=== PATIENT | female | born 1970 | race Two or more races ===

== ENCOUNTER → 2019-12-09 12:26 | Outpatient (BNVA) | payer MEDICAID, SELFPAY | PROVIDERS: PCP Pediatrics; Referring Provider Pediatrics; Visit Provider Orthopaedic Surgery | DX: M75.42 Impingement syndrome of left shoulder (principal) | CPT/HCPCS: 99213 ==

== ENCOUNTER 2019-12-19 11:44 | Outpatient (REF) | payer MEDICAID, SELFPAY | END 2019-12-19 11:45 | disposition home or self-care (01) | LOC: HO.LAB 11:44 | PROVIDERS: Visit Provider Internal Medicine | DX: Z20.828 Contact with and (suspected) exposure to other viral communicable diseases (principal) | CPT/HCPCS: C9803; U0003 ==

== ENCOUNTER 2020-03-22 12:43 | Outpatient (REF) | payer MEDICAID, SELFPAY | END 2020-03-22 12:44 | disposition home or self-care (01) | LOC: HO.LAB 12:43 | PROVIDERS: Visit Provider Internal Medicine | DX: Z20.822 Contact with and (suspected) exposure to COVID-19 (principal) | CPT/HCPCS: 36415; C9803; U0003; U0005 ==

== ENCOUNTER 2020-05-14 07:06 | Day surgery (SDC) | payer MEDICAID, SELFPAY ==
[2020-05-07 14:31] VITALS: BMI 38.0
--- NOTE | 2020-05-13 07:56 | P.CONAN_ITS ---
Documented by User: Evelin Mata 05/13/20 07:57 HPI - Anesthesia Eval Consult details Narrative: 50yo F for Colonoscopy PMFSH Active Problems Active Problems: All Active Problems (Updated 05/07/20 @ 14:16 by Licha Puentes) Rotator cuff impingement syndrome of left shoulder (Acute) Anemia (Acute) Past Medical History Medical History Asthma Depression GERD (gastroesophageal reflux disease) Hypertension Hypothyroidism Insomnia Microcytic anemia Osteoarthritis of left AC (acromioclavicular) joint Personal history of COVID-19 Vitamin D deficiency Family History Family History Father No problems noted. Mother No problems noted. 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 - [employer] Meds Allergies Allergy/AdvReac Type Severity Reaction Status Date / Time No Known Allergies Allergy Verified 03/01/20 11:00 Home Medications Medication Instructions Recorded Confirmed Last Taken Type albuterol sulfate 90 mcg/actuation 1 inh INHALATION QID 12/08/19 05/07/20 05/14/20 History aerosol inhaler bupropion HCl 300 mg 24 hr tablet, 300 mg PO QAM 12/08/19 05/07/20 05/14/20 History extended release nabumetone 500 mg tablet 500 mg PO BID 12/08/19 05/07/20 Unknown History naproxen 500 mg tablet 500 mg PO BID 12/08/19 05/07/20 Unknown History omeprazole 20 mg capsule,delayed 20 mg PO DAILY 12/08/19 05/07/20 Unknown History release cetirizine 1 tab PO DAILY 05/07/20 05/07/20 Unknown History cholecalciferol (vitamin D3) 1 cap PO DAILY 05/07/20 05/07/20 Unknown History [Vitamin D3] ferrous sulfate 1 tab PO TID 05/07/20 05/07/20 Unknown History fluticasone propionate [Flovent 1 puff INHALATION BID 05/07/20 05/07/20 Unknown History HFA] levothyroxine 1 tab PO DAILY 05/07/20 05/07/20 05/14/20 History lisinopril-hydrochlorothiazide 1 tab PO DAILY 05/07/20 05/07/20 Unknown History loratadine 1 tab PO DAILY 05/07/20 05/07/20 Unknown History melatonin 1 tab PO BEDTIME 05/07/20 05/07/20 Unknown History Exam Exam Date and Time: May 13, 2020 0756 Height,Weight and Vital Signs: Height 5 ft 1 in Weight 91.172 kg Pertinent Lab Results Pertinent Lab Results: Laboratory Tests 03/01/20 11:42 WBC 8.2 Hgb 9.4 L Hct 31.8 L Plt Count 312 Assessment and Plan Assessment Anesthesia Assessment: Chart Reviewed Documented by User: Igor Graham 05/14/20 08:18 PMFSH Past Medical History Medical History Asthma Depression GERD (gastroesophageal reflux disease) Hypertension Hypothyroidism Insomnia Microcytic anemia Osteoarthritis of left AC (acromioclavicular) joint Personal history of COVID-19 Vitamin D deficiency Family History Family History Father No problems noted. Mother No problems noted. 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 - [employer] Meds Allergies Allergy/AdvReac Type Severity Reaction Status Date / Time No Known Allergies Allergy Verified 03/01/20 11:00 Home Medications Medication Instructions Recorded Confirmed Last Taken Type albuterol sulfate 90 mcg/actuation 1 inh INHALATION QID 12/08/19 05/07/20 05/14/20 History aerosol inhaler bupropion HCl 300 mg 24 hr tablet, 300 mg PO QAM 12/08/19 05/07/20 05/14/20 History extended release nabumetone 500 mg tablet 500 mg PO BID 12/08/19 05/07/20 Unknown History naproxen 500 mg tablet 500 mg PO BID 12/08/19 05/07/20 Unknown History omeprazole 20 mg capsule,delayed 20 mg PO DAILY 12/08/19 05/07/20 Unknown History release cetirizine 1 tab PO DAILY 05/07/20 05/07/20 Unknown History cholecalciferol (vitamin D3) 1 cap PO DAILY 05/07/20 05/07/20 Unknown History [Vitamin D3] ferrous sulfate 1 tab PO TID 05/07/20 05/07/20 Unknown History fluticasone propionate [Flovent 1 puff INHALATION BID 05/07/20 05/07/20 Unknown History HFA] levothyroxine 1 tab PO DAILY 05/07/20 05/07/20 05/14/20 History lisinopril-hydrochlorothiazide 1 tab PO DAILY 05/07/20 05/07/20 Unknown History loratadine 1 tab PO DAILY 05/07/20 05/07/20 Unknown History melatonin 1 tab PO BEDTIME 05/07/20 05/07/20 Unknown History Exam Airway Mallampati Class: II TM Dist: >3cm Denture: Upper and Lower Heart: [id number] Lungs: cta b/l Assessment and Plan Assessment Anesthesia Assessment: Anesthesia Plan Discussed, PAT Visit and Chart Reviewed Final Anesthetic Review NPO: Yes ASA Class: II Final Preanesthetic Review: No Changes in Pt Med Stat, Meds/Allgs Chart Reviewed and Anes Risks/Benef Reviewed Patient Risk: Low Procedure Risk: Low Assessment/Block/Sedation in SS: Assess/Block/Sedation-SS Anesthetic Plan Anesthetic Plan: MAC: and Regional Block Disposition: Standard PACU
[2020-05-14 07:18] VITALS: BP 108/73; PULSE 80; RESP 18; TEMP 36.1; O2SAT 97
[2020-05-14] MEDS: Lactated Ringers 1,000 ML 100 ML IVCONT (07:34)
--- NOTE | 2020-05-14 08:28 | MHC.SHP ---
Pre-Procedural Eval Section A The patient is an INPATIENT: No Changes since office visit: No Cold of Flu in the past 2 weeks, No New Medical Problems, No Changes in Medication and No Patient answered all questions The History & Physical has been completed within 30 days and I have reviewed it.: Yes Section B Chief Complaint: screening Allergies: Allergies Allergy/AdvReac Type Severity Reaction Status Date / Time No Known Allergies Allergy Verified 03/01/20 11:00 Plan I have reviewed the history and physical and performed a pertinent physical examination on my patient. No changes have occurred unless specified.
[2020-05-14 09:00] VITALS: BP 93/50; PULSE 71; RESP 16; TEMP 36.2; O2SAT 99
--- NOTE | 2020-05-14 09:09 | PM.OP ---
Brief Operative Note Date of Service: 05/14/20 Pre-op diagnosis: screening Post-op diagnosis: same Procedure: colonoscopy Surgeon: David Garcia Anesthesia: MAC Estimated blood loss (mL): 2 Pathology: other (polyps) Condition: stable Disposition: PACU
[2020-05-14 09:15] VITALS: BP 109/61; PULSE 67; RESP 16; O2SAT 99
[2020-05-14 09:25] VITALS: BP 106/51; PULSE 62; RESP 16; O2SAT 100
--- NOTE | 2020-05-14 11:41 | OP_ITS ---
SURGEON: David Garcia MD INDICATIONS: Colon cancer screening. PREOPERATIVE DIAGNOSIS: POSTOPERATIVE DIAGNOSIS: PROCEDURE PERFORMED: Colonoscopy to the cecum with snare polypectomy. ESTIMATED BLOOD LOSS: COMPLICATIONS: ANESTHESIA: ASSISTANTS: SPECIMENS: MEDICATIONS: Monitored anesthesia care. DESCRIPTION OF PROCEDURE: History and physical performed. The risks and benefits of the procedure were explained to the patient. Informed consent was obtained. The patient was placed in left lateral decubitus position. A digital rectal exam was performed and was found to be normal. The Olympus pediatric video colonoscope was introduced into the rectum and advanced to the cecum without difficulty. The cecum was identified by transillumination, palpation, and identification of ileocecal valve. Examination was performed and the scope was removed. She tolerated the procedure well and was taken to recovery area in stable condition. FINDINGS: The terminal ileum was not examined. The visualized colonic mucosa was within normal limits without evidence of masses or ulcers. Two polyps were identified. The largest measured 8 mm. Both were removed with a snare. The first was located in the cecum. The second was located at 65 cm and measured approximately 5 mm. Retroflexed examination was normal. Quality of the prep was good. IMPRESSION: Colon polyps. RECOMMENDATION: Follow up the biopsy results. MD KEIKO Youngblood/MAEVEL / [id number]
== END 2020-05-14 09:52 | disposition home or self-care (01) ==
PROVIDERS: PCP Pediatrics; Visit Provider Internal Medicine Gastroenterology
PROC: 0DJD8ZZ Inspection of Lower Intestinal Tract, Via Natural or Artificial Opening Endoscopic (ICD-10-PCS; CPT 45378; principal; 2020-05-14 08:30)
DX: Z12.11 Encounter for screening for malignant neoplasm of colon (principal); D12.0 Benign neoplasm of cecum; D12.4 Benign neoplasm of descending colon; K21.9 Gastro-esophageal reflux disease without esophagitis; D50.9 Iron deficiency anemia, unspecified; I10 Essential (primary) hypertension; J45.909 Unspecified asthma, uncomplicated; Z79.51 Long term (current) use of inhaled steroids; Z79.899 Other long term (current) drug therapy; Z86.16 Personal history of COVID-19; Z87.891 Personal history of nicotine dependence
CPT/HCPCS: 45385; 88305

== ENCOUNTER 2020-06-28 09:19 | Outpatient (REF) | payer MEDICAID, SELFPAY ==
[2020-06-28 09:41] LABS: COVID-19 Test Negative (Negative); IDNOW Serial# 55D5AD1C
== END 2020-06-28 09:20 | disposition home or self-care (01) ==
LOC: HO.LAB 09:19
PROVIDERS: Visit Provider Internal Medicine
DX: Z20.822 Contact with and (suspected) exposure to COVID-19 (principal)
CPT/HCPCS: 36415; 87635; C9803

== ENCOUNTER 2020-09-16 14:29 | Emergency (ER) | payer MEDICAID, SELFPAY ==
--- NOTE | ~2020-09-16 | CT_ITS ---
EXAMINATION: CT ANGIOGRAM OF THE CHEST WITH AND WITHOUT CONTRAST (CT PULMONARY ANGIOGRAM FOR PE) CLINICAL INFORMATION: Reason for Exam sop, elevated dimmer COMPARISON: None TECHNIQUE: Prior to contrast administration, noncontrast localization images were obtained. Subsequently, multidetector volumetric imaging was performed from the thoracic inlet to below the diaphragms following the administration of 65 mL Omnipaque 350 intravenous contrast. No contrast reaction reported Sagittal, coronal, and MIP oblique sagittal reformatted images were obtained on the CT workstation, uploaded to PACS, and reviewed. This CT examination was performed using dose optimization techniques as appropriate, variously including the following: *Automated exposure control *Adjustment of mA and/or kV according to patient size (this includes techniques or standardized protocols for targeted exams where dose is matched to indication/reason for exam; i.e. extremities or head) *Use of iterative reconstruction technique Total exam dose-length product 501 mGy-cm FINDINGS: QUALITY OF STUDY/CONTRAST BOLUS: Satisfactory. PULMONARY ARTERIES: No central or segmental pulmonary emboli. THORACIC AORTA: No aneurysm or dissection. LUNG: No focal consolidation, nodules or masses. Diffuse mild bronchial wall thickening. No bronchiectasis. PLEURA: No pleural effusion or pneumothorax. MEDIASTINUM: Normal heart size. No pericardial effusion. No hilar or mediastinal lymphadenopathy. No evidence of septal bowing or right heart strain. cNo reflux of contrast into the hepatic veins to suggest elevated right heart pressures. CHEST WALL/AXILLA: No axillary or internal mammary lymphadenopathy. OSSEOUS STRUCTURES: No acute or suspicious osseous abnormality. 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 This requires no further workup or follow-up. CT/CT angio chest PE protocol IMPRESSION: No pulmonary embolism. No aortic aneurysm or dissection area Mild diffuse bronchial wall thickening could reflect bronchitis or asthma. VTE: negative
--- NOTE | ~2020-09-16 | XR_ITS ---
EXAMINATION: XR CHEST CLINICAL INFORMATION: Shortness of breath COMPARISON: June 10, 2018 TECHNIQUE: 2 views of the chest were obtained. FINDINGS: No significant abnormality is noted involving the heart, lungs, mediastinum, bony thorax or soft tissues. XR/XR chest 2V IMPRESSION: No acute disease.
[2020-09-16 14:34] VITALS: BP 120/66; PULSE 93; RESP 22; TEMP 36.6; O2SAT 98; BMI 41.8
[2020-09-16 17:16] LABS: MANUAL DIFF FLAG NO
[2020-09-16 17:18] LABS: Basophils Absolute Auto 0.1 X10*3/uL (0.0-0.2); Basophils Percent Auto 0.6 % (0-2); Eosinophils Absolute Auto 0.1 X10*3/uL (0.0-0.4); Eosinophils Percent Auto 0.8 % (0-4); Hematocrit 36.2 % (37-47); Hemoglobin 11.3 g/dl (12.0-16.0); Imm Gran Abs Auto 0.03 X10*3/uL (0.00-0.03); Imm Gran Pct Auto 0.3 % (0.0-0.4); Lymphocytes Absolute Auto 2.4 X10*3/uL (1.2-4.9); Lymphocytes Percent Auto 22.1 % (20-40); Mean Corpuscular HGB Conc 31.2 g/dl (31.0-35.0); Mean Corpuscular Volume 89.8 fL (80-98); Mean Platelet Volume 10.2 fL (9.4-12.3); Monocytes Absolute Auto 0.6 X10*3/uL (0.1-1.2); Monocytes Percent Auto 5.7 % (2-11); Neutrophils Absolute Auto 7.6 X10*3/uL (2.0-8.3); Neutrophils Percent Auto 70.5 % (45-73); Platelet Count 302 X10*3/uL (160-400); Red Blood Count 4.03 X10*6/uL (4.20-5.50); Red Cell Distribution Width 14.5 % (11.0-16.0); White Blood Count 10.8 X10*3/uL (4.8-10.8)
[2020-09-16 17:47] LABS: Alanine Aminotransferase 24 U/L (0-31); Albumin Level 4.3 g/dL (3.5-5.0); Alkaline Phosphatase 59 U/L (39-117); Anion Gap 15 (12-20); Aspartate Amino Transferase 17 U/L (5-31); Bilirubin Direct 0.3 mg/dL (0.0-0.5); Bilirubin Total 0.7 mg/dL (0.0-1.0); Blood Urea Nitrogen 20 mg/dL (9-16); Calcium 9.9 mg/dL (8.4-10.2); Carbon Dioxide 25 mmol/L (22-29); Chloride 99 mmol/L (96-108); Creatinine Clr Calc Pharmacy 88.5; Estimated Glomerular Filt Rate > 60; Glucose Random 95 mg/dL (60-115); Lipase 47 U/L (8-78); Potassium 4.4 mmol/L (3.3-5.1); Sodium 135 mmol/L (135-145); Total Protein 7.2 g/dL (6.5-8.0)
--- NOTE | 2020-09-16 18:07 | ECG_ITS ---
Test Reason : DYSPNEA Blood Pressure : / mmHG Vent. Rate : 069 BPM Atrial Rate : 069 BPM P-R Int : 144 ms QRS Dur : 074 ms QT Int : 422 ms P-R-T Axes : 061 020 020 degrees QTc Int : 452 ms Normal sinus rhythm Normal ECG When compared with ECG of 20-JUN-2018 19:51, No significant change was found Referred By: Arielle Ocampo Electronically Signed By:Ed Peters
--- NOTE | 2020-09-16 18:08 | ED.GENADULT ---
HPI - General Adult General Chief complaint: Upper Respiratory Symptoms Stated complaint: Asthma Time Seen by Provider: 09/16/20 18:01 Source: patient Mode of arrival: ambulatory Limitations: no limitations History of Present Illness HPI narrative: Patient comes emergency room complaining recurrent asthma exacerbations and left-sided chest pain in the lateral side. Patient states the pain has been there for 2 weeks intermittently, but more constant over the last 2 days. Patient states she has 2 inhalers which she has been using every day. Patient has a new appointment Dr. Morales from pulmonology towards the end of November. Patient states that this time she does not have shortness of breath, but she still feels the pain on the left side of the chest. Patient denies leg pain, no leg swelling. Related Data Home Medications Medication Instructions Recorded Confirmed albuterol sulfate 90 mcg/actuation 1 inh INHALATION QID 12/08/19 05/07/20 aerosol inhaler (ProAir HFA) bupropion HCl 300 mg 24 hr tablet, 300 mg PO QAM 12/08/19 05/07/20 extended release (Wellbutrin XL) nabumetone 500 mg tablet 500 mg PO BID 12/08/19 05/07/20 naproxen 500 mg tablet 500 mg PO BID 12/08/19 05/07/20 omeprazole 20 mg capsule,delayed 20 mg PO DAILY 12/08/19 05/07/20 release cetirizine 10 mg tablet 1 tab PO DAILY 05/07/20 05/07/20 cholecalciferol (vitamin D3) 25 1 cap PO DAILY 05/07/20 05/07/20 mcg (1,000 unit) capsule (Vitamin D3) ferrous sulfate 325 mg (65 mg 1 tab PO TID 05/07/20 05/07/20 iron) tablet fluticasone propionate 220 1 puff INHALATION BID 05/07/20 05/07/20 mcg/actuation HFA aerosol inhaler (Flovent HFA) levothyroxine 200 mcg tablet 1 tab PO DAILY 05/07/20 05/07/20 lisinopril 20 1 tab PO DAILY 05/07/20 05/07/20 mg-hydrochlorothiazide 25 mg tablet loratadine 10 mg tablet 1 tab PO DAILY 05/07/20 05/07/20 melatonin 5 mg tablet 1 tab PO BEDTIME 05/07/20 05/07/20 Previous Rx's Medication Instructions Recorded prednisone 50 mg tablet 50 mg PO DAILY #4 tab 09/17/20 Allergies Allergy/AdvReac Type Severity Reaction Status Date / Time No Known Allergies Allergy Verified 09/16/20 14:34 Review of Systems Review of Systems: Constitutional : No Weight loss, No Fever, No Chills, No Night Sweats, No Fatigue, No Malaise ENT/Mouth : No Hearing loss, No Ear Pain, No Nasal Congestion, No Sinus Pain, No Hoarseness, No sore throat, No Rhinorrhea, No Swallowing Difficulty Eyes: No Eye Pain, No Swelling, No Redness, No Foreign Body, No Discharge, No Vision Changes Cardiovascular : No Chest Pain, complaining of pain under the left axilla in the chest wall, intermittent shortness of breath, No Dyspnea on Exertion, No Orthopnea, No Edema, No Palpitations Respiratory : No Cough, No Sputum, No Wheezing, No Smoke Exposure, intermittent Dyspnea Gastrointestinal : No Nausea, No Vomiting, No Diarrhea, No Constipation, No abdominal Pain, No Hematochezia, No Melena Genitourinary : no irregular bleeding, No Dysuria, No Urinary Frequency, No Hematuria, No Urinary Incontinence, No Urgency, No Flank Pain, No Urinary Flow Changes, No Hesitancy Musculoskeletal : No joint pain, No Myalgias, No Joint Swelling Skin : No Skin Lesions, No rash Neuro : No Weakness, No Numbness, No Paresthesias, No Loss of Consciousness, No Dizziness, No Headache Psych : No Anxiety/Panic, No Depression, No SI/HI/AH/VH, No Social Issues, Heme/Lymph: No Bruising, No Bleeding,No Lymphadenopathy Endocrine : No Polyuria, No Polydipsia, No Temperature Intolerance [facility] Past Medical History Medical History Asthma Depression GERD (gastroesophageal reflux disease) Hypertension Hypothyroidism Insomnia Microcytic anemia Osteoarthritis of left AC (acromioclavicular) joint Personal history of COVID-19 Vitamin D deficiency Surgical History History of left knee replacement Family History Family History Father No problems noted. Mother No problems noted. Social History Social History Household Members: Children Housing: Apartment Are you a primary rn progressive care to a significant other at home: No Do you presently have visiting nurse or other home services: No Alcohol intake: never Patient Tobacco Use Status: Never used Tobacco Years Smoked: 10 Use of substances other than those prescribed or required for medical reasons: Yes Advance Directives: No Advance Directives Information Provided: Yes Patient : No Current occupational status: employed Current occupation: [employer] - Right Handed Physical Exam Vital Signs: Vital Signs: Last Vital Signs Temp 99 F 09/16/20 22:20 Pulse 59 09/16/20 22:20 Resp 18 09/16/20 22:20 BP 135/60 09/16/20 22:20 Pulse Ox 97 09/16/20 22:20 Body Mass Index 41.8 Const: Other: Appearance: Alert. Oriented X3. No acute distress. Well-appearing Eyes: Pupils equal, round and reactive to light. ENT: Pharynx normal. Neck: Normal inspection. Neck supple. No lymph nodes noted. No crepitus CVS: Normal heart rate and rhythm. Pulses normal. Normal S1 and S2 Respiratory: No respiratory distress. Breath sounds normal. No Wheezing. No rales Abdomen: Soft and nontender. No rigidity. No distention. good BS x4 Skin: Skin warm and dry. Normal skin color. Normal skin turgor. Extremities: No lower extremity edema. No calf tenderness bilaterally, No Lacerations. No Rash Neuro: Oriented X 3. No motor deficit. No sensory deficit. Moving all extermities. No slurred speech. Course Course Course Narrative: I discussed the labs and imaging with the patient, it was negative for a PE. Patient's chest pain likely musculoskeletal. Patient's dyspnea likely from her recurrent asthma exacerbations. Patient states she has no Flovent and albuterol at home, does not require prescription Medical Decision Making Lab Data Result diagrams: 09/16/20 17:04 09/16/20 17:04 Labs: Lab Results 09/16/20 09/16/20 09/16/20 Range/Units 17:04 17:04 17:07 WBC 10.8 (4.8-10.8) X10*3/uL RBC 4.03 L (4.20-5.50) X10*6/uL Hgb 11.3 L D (12.0-16.0) g/dl Hct 36.2 L (37-47) % MCV 89.8 (80-98) fL MCH 28.0 (27.0-33.0) pg MCHC 31.2 (31.0-35.0) g/dl RDW 14.5 (11.0-16.0) % Plt Count 302 (160-400) X10*3/uL MPV 10.2 (9.4-12.3) fL Immature Gran % (Auto) 0.3 (0.0-0.4) % Neut % (Auto) 70.5 (45-73) % Lymph % (Auto) 22.1 (20-40) % [place] % (Auto) 5.7 (2-11) % Eos % (Auto) 0.8 (0-4) % Baso % (Auto) 0.6 (0-2) % Lymph # (Auto) 2.4 (1.2-4.9) X10*3/uL [place] # (Auto) 0.6 (0.1-1.2) X10*3/uL Eos # (Auto) 0.1 (0.0-0.4) X10*3/uL Baso # (Auto) 0.1 (0.0-0.2) X10*3/uL Abs Immat Gran (auto) 0.03 (0.00-0.03) X10*3/uL Absolute Neuts (auto) 7.6 (2.0-8.3) X10*3/uL Absolute Nucleated RBC 0.000 (0.0-0.012) X10*3/uL Nucleated RBC % (auto) 0.0 (0.0-0.2) /100WBC D-Dimer NG/ML Sodium 135 (135-145) mmol/L Potassium 4.4 (3.3-5.1) mmol/L Chloride 99 (96-108) mmol/L Carbon Dioxide 25 (22-29) mmol/L Anion Gap 15 (12-20) BUN 20 H (9-16) mg/dL Creatinine 0.73 (0.5-1.4) mg/dL Estim Creat Clear Calc 88.5 Estimated GFR > 60 Random Glucose 95 (60-115) mg/dL Calcium 9.9 (8.4-10.2) mg/dL Total Bilirubin 0.7 (0.0-1.0) mg/dL Direct Bilirubin 0.3 (0.0-0.5) mg/dL AST 17 (5-31) U/L ALT 24 (0-31) U/L Alkaline Phosphatase 59 (39-117) U/L Troponin I High Sens < 3.5 (<3.5-17.0) ng/L Total Protein 7.2 (6.5-8.0) g/dL Albumin 4.3 (3.5-5.0) g/dL Lipase 47 (8-78) U/L Urine Color Urine Appearance Urine pH (5.0-8.0) Ur Specific [place] (1.005-1.025) Urine Protein (NEG-TRACE) MG/DL Urine Glucose (UA) (NEG) MG/DL Urine Ketones (NEG) MG/DL Urine Blood (NEG) Urine Nitrite (NEG) Ur Leukocyte Esterase (NEG) Urine RBC (0) /HPF Urine WBC (0-4) /HPF Ur Squamous Epith Cells /LPF Urine Bacteria /LPF 09/16/20 09/16/20 Range/Units 19:55 20:50 WBC (4.8-10.8) X10*3/uL RBC (4.20-5.50) X10*6/uL Hgb (12.0-16.0) g/dl Hct (37-47) % MCV (80-98) fL MCH (27.0-33.0) pg MCHC (31.0-35.0) g/dl RDW (11.0-16.0) % Plt Count (160-400) X10*3/uL MPV (9.4-12.3) fL Immature Gran % (Auto) (0.0-0.4) % Neut % (Auto) (45-73) % Lymph % (Auto) (20-40) % [place] % (Auto) (2-11) % Eos % (Auto) (0-4) % Baso % (Auto) (0-2) % Lymph # (Auto) (1.2-4.9) X10*3/uL [place] # (Auto) (0.1-1.2) X10*3/uL Eos # (Auto) (0.0-0.4) X10*3/uL Baso # (Auto) (0.0-0.2) X10*3/uL Abs Immat Gran (auto) (0.00-0.03) X10*3/uL Absolute Neuts (auto) (2.0-8.3) X10*3/uL Absolute Nucleated RBC (0.0-0.012) X10*3/uL Nucleated RBC % (auto) (0.0-0.2) /100WBC D-Dimer 1459 NG/ML Sodium (135-145) mmol/L Potassium (3.3-5.1) mmol/L Chloride (96-108) mmol/L Carbon Dioxide (22-29) mmol/L Anion Gap (12-20) BUN (9-16) mg/dL Creatinine (0.5-1.4) mg/dL Estim Creat Clear Calc Estimated GFR Random Glucose (60-115) mg/dL Calcium (8.4-10.2) mg/dL Total Bilirubin (0.0-1.0) mg/dL Direct Bilirubin (0.0-0.5) mg/dL AST (5-31) U/L ALT (0-31) U/L Alkaline Phosphatase (39-117) U/L Troponin I High Sens (<3.5-17.0) ng/L Total Protein (6.5-8.0) g/dL Albumin (3.5-5.0) g/dL Lipase (8-78) U/L Urine Color YELLOW Urine Appearance CLEAR Urine pH 6.0 (5.0-8.0) Ur Specific [place] 1.025 (1.005-1.025) Urine Protein NEG (NEG-TRACE) MG/DL Urine Glucose (UA) NEG (NEG) MG/DL Urine Ketones NEG (NEG) MG/DL Urine Blood NEG (NEG) Urine Nitrite NEG (NEG) Ur Leukocyte Esterase NEG (NEG) Urine RBC 1-4 (0) /HPF Urine WBC 1-4 (0-4) /HPF Ur Squamous Epith Cells 2+ /LPF Urine Bacteria 2+ /LPF Imaging Data CTA chest: Radiologist's impression: FINDINGS: QUALITY OF STUDY/CONTRAST BOLUS: Satisfactory. PULMONARY ARTERIES: No central or segmental pulmonary emboli.? THORACIC AORTA: No aneurysm or dissection. LUNG: No focal consolidation, nodules or masses. Diffuse mild bronchial wall thickening. No bronchiectasis. PLEURA: No pleural effusion or pneumothorax. MEDIASTINUM: Normal heart size.? No pericardial effusion.? No hilar or mediastinal lymphadenopathy.? No evidence of septal bowing or right heart strain. cNo reflux of contrast into the hepatic veins to suggest elevated right heart pressures. CHEST WALL/AXILLA: No axillary or internal mammary lymphadenopathy. OSSEOUS STRUCTURES: No acute or suspicious osseous abnormality.? 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 This requires no further workup or follow-up. CT/CT angio chest PE protocol IMPRESSION: No pulmonary embolism. No aortic aneurysm or dissection area Mild diffuse bronchial wall thickening could reflect bronchitis or asthma. ? VTE: negative ECG Data Attestation: I personally reviewed and interpreted this ECG as follows: (Heart rate 69, no ST segment depression or elevation, no T-wave inversion, QTC 452) Discharge Plan Discharge Clinical Impression: Atypical chest pain, Acute dyspnea Patient Disposition: Home, Self-Care Instructions: Chest Pain (ED), Asthma (ED) Additional Instructions: Please follow-up with your primary care physician tomorrow. If you have any worsening or new symptoms, please return to the emergency room or call 911 Prescriptions: New prednisone 50 mg tablet 50 mg PO DAILY Qty: 4 RF: 0 No Action cetirizine 10 mg tablet 1 tab PO DAILY RF: 0 ferrous sulfate 325 mg (65 mg iron) tablet 1 tab PO TID RF: 0 lisinopril-hydrochlorothiazide 20-25 mg tablet 1 tab PO DAILY RF: 0 levothyroxine 200 mcg tablet 1 tab PO DAILY RF: 0 Flovent HFA 220 mcg/actuation HFA aerosol inhaler 1 puff inhalation BID RF: 0 loratadine 10 mg tablet 1 tab PO DAILY RF: 0 cholecalciferol (vitamin D3) [Vitamin D3] 25 mcg (1,000 unit) capsule 1 cap PO DAILY RF: 0 melatonin 5 mg tablet 1 tab PO BEDTIME RF: 0
[2020-09-16 18:51] LABS: Troponin-I High Sensitivity < 3.5 ng/L (<3.5-17.0)
[2020-09-16 20:00] VITALS: BP 120/66; PULSE 78; PULSE 93; RESP 22; TEMP 36.6; O2SAT 98; O2SAT 99
[2020-09-16 20:43] LABS: D Dimer 1459 NG/ML
[2020-09-16 21:00] LABS: Glucose Urine UA NEG (NEG); Leukocyte Esterase Urine NEG (NEG); Nitrite Urine NEG (NEG); Specific Gravity - Urine 1.025 (1.005-1.025); Urine Blood NEG (NEG); Urine Ketones NEG (NEG); Urine Protein NEG (NEG-TRACE)
[2020-09-16 21:01] LABS: Appearance Urine CLEAR; Color Urine YELLOW
[2020-09-16 22:20] VITALS: BP 135/60; PULSE 59; RESP 18; TEMP 37.2; O2SAT 97
[2020-09-16 23:01] LABS: Bacteria Urine 2+ /LPF; Squamous Epithelial Cell Urine 2+ /LPF
[2020-09-16] MEDS: iohexoL 350 MG/ML 100 ML INFUS..BTL 65 ML IV (23:42)
== END 2020-09-17 01:02 | disposition home or self-care (01) ==
PROVIDERS: Emergency Provider Emergency Medicine
DX: R07.89 Other chest pain (principal); R06.00 Dyspnea, unspecified; Z87.891 Personal history of nicotine dependence; Z79.899 Other long term (current) drug therapy
CPT/HCPCS: 36415; 71046; 71275; 80048; 80076; 81001; 83690; 84484; 85025; 85379; 93005; 99285; Q9967

== ENCOUNTER → 2020-10-05 13:14 | Outpatient (BNVA) | payer MEDICAID, SELFPAY | PROVIDERS: PCP Pediatrics; Visit Provider Hospitalist | DX: J45.40 Moderate persistent asthma, uncomplicated (principal); B94.8 Sequelae of other specified infectious and parasitic diseases | CPT/HCPCS: 99202 ==

== ENCOUNTER 2020-10-14 09:26 | Outpatient (REF) | payer MEDICAID, SELFPAY ==
[2020-10-14 10:03] LABS: MANUAL DIFF FLAG NO
[2020-10-14 10:06] LABS: Basophils Absolute Auto 0.1 X10*3/uL (0.0-0.2); Basophils Percent Auto 0.8 % (0-2); Eosinophils Absolute Auto 0.1 X10*3/uL (0.0-0.4); Eosinophils Percent Auto 0.7 % (0-4); Hematocrit 35.3 % (37-47); Hemoglobin 11.1 g/dl (12.0-16.0); Imm Gran Abs Auto 0.02 X10*3/uL (0.00-0.03); Imm Gran Pct Auto 0.3 % (0.0-0.4); Lymphocytes Absolute Auto 1.7 X10*3/uL (1.2-4.9); Lymphocytes Percent Auto 23.9 % (20-40); Mean Corpuscular HGB Conc 31.4 g/dl (31.0-35.0); Mean Corpuscular Hemoglobin 28.8 pg (27.0-33.0); Mean Corpuscular Volume 91.7 fL (80-98); Mean Platelet Volume 10.8 fL (9.4-12.3); Monocytes Absolute Auto 0.5 X10*3/uL (0.1-1.2); Monocytes Percent Auto 6.5 % (2-11); Neutrophils Absolute Auto 4.9 X10*3/uL (2.0-8.3); Neutrophils Percent Auto 67.8 % (45-73); Platelet Count 276 X10*3/uL (160-400); Red Blood Count 3.85 X10*6/uL (4.20-5.50); Red Cell Distribution Width 15.3 % (11.0-16.0); White Blood Count 7.3 X10*3/uL (4.8-10.8)
[2020-10-14 10:51] LABS: Erythrocyte Sedimentation Rate 12 MM/HR (0-20)
== END 2020-10-14 09:27 | disposition home or self-care (01) ==
LOC: HO.LAB 09:26
PROVIDERS: PCP Pediatrics; Visit Provider Hospitalist
DX: B94.8 Sequelae of other specified infectious and parasitic diseases (principal); J45.40 Moderate persistent asthma, uncomplicated
CPT/HCPCS: 36415; 82785; 85025; 85652; 86003

== ENCOUNTER 2020-11-02 10:27 | Outpatient (REF) | payer MEDICAID, SELFPAY ==
--- NOTE | 2020-11-02 17:44 | PFT_ITS ---
Forced vital capacity moderately reduced. FEV1 is also moderately reduced. VOX07-97 is markedly reduced. MVV moderately reduced. Post bronchodilator therapy, there is a slight improvement in DAH77-10 and MVV. Total lung capacity normal. Residual volume slightly increased. Diffusion capacity normal. CONCLUSION: Moderately severe obstructive airway disorder. Minimal improvement after bronchodilator therapy is noted. Results compared with the report on 03/25/2019. There is no significant change. MD JONATHAN Kent/MAEVEL / [id number]
== END 2020-11-02 10:28 | disposition home or self-care (01) ==
LOC: HO.RESP 10:27
PROVIDERS: PCP Pediatrics; Visit Provider Hospitalist
DX: B94.8 Sequelae of other specified infectious and parasitic diseases (principal); J45.40 Moderate persistent asthma, uncomplicated
CPT/HCPCS: 94060; 94727; 94729

== ENCOUNTER → 2020-11-16 13:24 | Outpatient (BNVA) | payer MEDICAID, SELFPAY | PROVIDERS: PCP Pediatrics; Visit Provider Hospitalist | DX: J45.40 Moderate persistent asthma, uncomplicated (principal); B94.8 Sequelae of other specified infectious and parasitic diseases | CPT/HCPCS: 99212 ==

== ENCOUNTER → 2021-01-13 13:30 | Outpatient (BNVA) | payer MEDICAID, SELFPAY | PROVIDERS: PCP Pediatrics; Visit Provider Hospitalist | DX: J45.40 Moderate persistent asthma, uncomplicated (principal); B94.8 Sequelae of other specified infectious and parasitic diseases | CPT/HCPCS: 90686; 99212 ==

== ENCOUNTER 2021-02-24 09:34 | Outpatient (REF) | payer MEDICAID, SELFPAY ==
[2021-02-24 11:43] LABS: COVID-19 Test Positive (Negative)
== END 2021-02-24 09:35 | disposition home or self-care (01) ==
LOC: HO.LAB 09:34
PROVIDERS: Visit Provider Internal Medicine
DX: Z20.822 Contact with and (suspected) exposure to COVID-19 (principal)
CPT/HCPCS: 87635; C9803

== ENCOUNTER 2021-02-25 08:09 | Outpatient (REF) | payer MEDICAID, SELFPAY ==
[2021-02-25 09:38] LABS: Binax Now Covid-19 Ag Negative (Negative)
[2021-02-25 09:39] LABS: Binax Internal Control QC Valid; Binax Lot number: 9864
== END 2021-02-25 08:10 | disposition home or self-care (01) ==
LOC: HO.LAB 08:09
PROVIDERS: Visit Provider Internal Medicine
DX: Z20.822 Contact with and (suspected) exposure to COVID-19 (principal)
CPT/HCPCS: C9803

== ENCOUNTER 2021-03-15 08:20 | Outpatient (REF) | payer MEDICAID, SELFPAY ==
[2021-03-15 08:58] LABS: Binax Internal Control QC Valid; Binax Now Covid-19 Ag Negative (Negative)
== END 2021-03-15 08:21 | disposition home or self-care (01) ==
LOC: HO.LAB 08:20
PROVIDERS: PCP Pediatrics; Visit Provider Internal Medicine
DX: Z13.89 Encounter for screening for other disorder (principal)

== ENCOUNTER 2021-03-22 09:05 | Outpatient (REF) | payer MEDICAID, SELFPAY ==
[2021-03-22 09:29] LABS: COVID-19 Test Negative (Negative)
== END 2021-03-22 09:06 | disposition home or self-care (01) ==
LOC: HO.LAB 09:05
PROVIDERS: PCP Pediatrics; Visit Provider Internal Medicine
DX: Z20.822 Contact with and (suspected) exposure to COVID-19 (principal)
CPT/HCPCS: 87635; C9803

== ENCOUNTER 2021-04-14 13:20 | Outpatient (REF) | payer MEDICAID, SELFPAY ==
[2021-04-14 13:50] LABS: MANUAL DIFF FLAG NO
[2021-04-14 14:20] LABS: Basophils Absolute Auto 0.1 X10*3/uL (0.0-0.2); Basophils Percent Auto 0.7 % (0-2); Eosinophils Absolute Auto 0.1 X10*3/uL (0.0-0.4); Eosinophils Percent Auto 0.8 % (0-4); Hematocrit 33.6 % (37.0-47.0); Hemoglobin 10.5 g/dl (12.0-16.0); Imm Gran Abs Auto 0.03 X10*3/uL (0.00-0.03); Imm Gran Pct Auto 0.4 % (0.0-0.4); Lymphocytes Absolute Auto 1.9 X10*3/uL (1.2-4.9); Lymphocytes Percent Auto 23.5 % (20-40); Mean Corpuscular HGB Conc 31.3 g/dl (31.0-35.0); Mean Corpuscular Hemoglobin 27.6 pg (27.0-33.0); Mean Corpuscular Volume 88.2 fL (80.0-98.0); Mean Platelet Volume 10.7 fL (9.4-12.3); Monocytes Absolute Auto 0.6 X10*3/uL (0.1-1.2); Monocytes Percent Auto 6.9 % (2-11); Neutrophils Absolute Auto 5.6 x10*3/uL (2.0-8.3); Neutrophils Percent Auto 67.7 % (45-73); Platelet Count 310 X10*3/uL (160-400); Red Blood Count 3.81 X10*6/uL (4.20-5.50); Red Cell Distribution Width 14.6 % (11.0-16.0); White Blood Count 8.3 X10*3/uL (4.8-10.8)
[2021-04-14 14:36] LABS: Estimated Average Glucose 111 mg/dL; Hemoglobin A1c % 5.5 %
[2021-04-14 14:58] LABS: Anion Gap 15 (12-20); Blood Urea Nitrogen 16 mg/dL (9-16); Carbon Dioxide 22 mmol/L (22-29); Chloride 103 mmol/L (96-108); Estimated Glomerular Filt Rate > 60; Glucose Random 89 mg/dL (60-115); Iron 58 mcg/dL (30-160); Potassium 4.3 mmol/L (3.3-5.1); Sodium 136 mmol/L (135-145)
[2021-04-14 15:09] LABS: Percent Iron Saturation 11 % (15-50); Total Iron Binding Capacity 520 mcg/dL (228-428); Unsaturated Iron Binding 462 ug/dL
[2021-04-14 15:17] LABS: T4 Thyroxine 8.5 ug/dL (4.5-12.0); Vitamin D 25-OH Total 24.6 ng/mL (>30)
[2021-04-14 15:50] LABS: Ferritin 16 ng/mL (10-250)
[2021-04-15 05:31] LABS: Triiodothyronine T3 Total 82 ng/dL (76-181)
== END 2021-04-14 13:21 | disposition home or self-care (01) ==
LOC: HO.LAB 13:20
PROVIDERS: PCP Pediatrics; Visit Provider Pediatrics
DX: E03.9 Hypothyroidism, unspecified (principal); E55.9 Vitamin D deficiency, unspecified
CPT/HCPCS: 36415; 80048; 82306; 82728; 83036; 83540; 84436; 84443; 84480; 85025

== ENCOUNTER 2021-04-20 15:46 | Outpatient (REF) | payer MEDICAID, SELFPAY ==
--- NOTE | ~2021-04-20 | US_ITS ---
EXAMINATION: US VENOUS WITH DOPPLER UPPER EXTREMITY, RIGHT CLINICAL INFORMATION: Right arm pain COMPARISON: None TECHNIQUE: Ultrasound of the upper extremity is performed using compression sonography and color and pulse Doppler flow with assessment of augmentation of flow. There is also imaging and Doppler assessment of the jugular and subclavian veins. Spectral analysis with color-flow imaging is performed. FINDINGS: Respiratory variation, normal compression, and augmented flow are noted throughout the upper extremity including the axillary, brachial, cubital, and radial and ulnar veins. There is normal flow in the internal jugular and subclavian veins. There is no visible deep or superficial thrombophlebitis. If the patient's symptoms progress, a followup ultrasound in 5 -7 days might be of value to exclude proximal propagation from a nonvisualized distal arm vein. US/US venous duplex UE RT IMPRESSION: No DVT demonstrated in the right upper extremity
--- NOTE | ~2021-04-20 | XR_ITS ---
EXAMINATION: XR HAND, RIGHT CLINICAL INFORMATION: Pain in right hand COMPARISON: None TECHNIQUE: PA, lateral, and oblique views of the right hand. FINDINGS: The bones and soft tissues are normal. No fracture. Alignment is anatomic. Joint spaces are maintained. No erosions or soft tissue calcifications. XR/XR hand RT min 3V IMPRESSION: Normal right hand.
== END 2021-04-20 15:47 | disposition home or self-care (01) ==
LOC: HO.US 15:46
PROVIDERS: Absent Provider Pediatrics; PCP Pediatrics; Visit Provider Emergency Medicine
DX: M79.631 Pain in right forearm (principal)
CPT/HCPCS: 73130; 93971

== ENCOUNTER → 2021-05-24 09:50 | Outpatient (BNVA) | payer MEDICAID, SELFPAY | PROVIDERS: PCP Pediatrics; Visit Provider Hospitalist | DX: J45.40 Moderate persistent asthma, uncomplicated (principal); J30.9 Allergic rhinitis, unspecified; Z79.899 Other long term (current) drug therapy | CPT/HCPCS: 99212 ==

== ENCOUNTER 2021-07-12 14:54 | Outpatient (REF) | payer MEDICAID, SELFPAY | END 2021-07-12 14:55 | disposition home or self-care (01) | LOC: HO.MRI 14:54 | PROVIDERS: Visit Provider Pediatrics | DX: Z13.89 Encounter for screening for other disorder (principal) ==

== ENCOUNTER → 2021-11-01 12:23 | Outpatient (BNVA) | payer MEDICAID, SELFPAY | PROVIDERS: PCP Pediatrics; Visit Provider Physician Assistant | DX: M77.12 Lateral epicondylitis, left elbow (principal) | CPT/HCPCS: 20550; 20605; 99212; J1020 ==

== ENCOUNTER 2021-11-15 13:59 | Outpatient (REF) | payer MEDICAID, SELFPAY ==
[2021-11-15 15:10] LABS: COVID-19 Test Negative (Negative); IDNOW Serial# 16C4AD1C
== END 2021-11-15 14:00 | disposition home or self-care (01) ==
LOC: HO.LAB 13:59
PROVIDERS: Visit Provider Hospitalist
DX: Z20.822 Contact with and (suspected) exposure to COVID-19 (principal); J45.40 Moderate persistent asthma, uncomplicated; J06.9 Acute upper respiratory infection, unspecified; J30.9 Allergic rhinitis, unspecified
CPT/HCPCS: 87635; 99212

== ENCOUNTER 2021-12-22 09:40 | Outpatient (REF) | payer MEDICAID, SELFPAY ==
[2021-12-22 09:56] LABS: MANUAL DIFF FLAG NO
[2021-12-22 10:46] LABS: Basophils Absolute Auto 0.1 X10*3/uL (0.0-0.2); Basophils Percent Auto 1.1 % (0-2); Eosinophils Absolute Auto 0.1 X10*3/uL (0.0-0.4); Eosinophils Percent Auto 1.2 % (0-4); Hematocrit 33.1 % (37.0-47.0); Hemoglobin 10.4 g/dl (12.0-16.0); Imm Gran Abs Auto 0.02 X10*3/uL (0.00-0.03); Imm Gran Pct Auto 0.3 % (0.0-0.4); Lymphocytes Absolute Auto 1.6 X10*3/uL (1.2-4.9); Lymphocytes Percent Auto 25.2 % (20-40); Mean Corpuscular HGB Conc 31.4 g/dl (31.0-35.0); Mean Corpuscular Hemoglobin 28.6 pg (27.0-33.0); Mean Corpuscular Volume 90.9 fL (80.0-98.0); Mean Platelet Volume 10.8 fL (9.4-12.3); Monocytes Absolute Auto 0.5 X10*3/uL (0.1-1.2); Neutrophils Absolute Auto 4.2 x10*3/uL (2.0-8.3); Neutrophils Percent Auto 65.2 % (45-73); Platelet Count 277 X10*3/uL (160-400); Red Blood Count 3.64 X10*6/uL (4.20-5.50); Red Cell Distribution Width 14.3 % (11.0-16.0); White Blood Count 6.4 X10*3/uL (4.8-10.8)
[2021-12-22 11:06] LABS: Estimated Average Glucose 111 mg/dL; Hemoglobin A1c % 5.5 %
[2021-12-22 11:20] LABS: Vitamin B12 307 pg/mL (200-900)
[2021-12-22 11:27] LABS: Alanine Aminotransferase 18 U/L (0-31); Albumin Level 4.2 g/dL (3.5-5.0); Alkaline Phosphatase 64 U/L (39-117); Anion Gap 13 (12-20); Aspartate Amino Transferase 16 U/L (5-31); Bilirubin Total 0.7 mg/dL (0.0-1.0); Blood Urea Nitrogen 18 mg/dL (9-16); Calcium 9.9 mg/dL (8.4-10.2); Carbon Dioxide 27 mmol/L (22-29); Chloride 104 mmol/L (96-108); Cholesterol 183 mg/dL; Estimated Glomerular Filt Rate > 60; Glucose Random 96 mg/dL (60-115); HDL Cholesterol 66 mg/dL; Iron 37 mcg/dL (30-160); LDL Cholesterol Calculated 98 mg/dl; Percent Iron Saturation 9 % (15-50); Potassium 4.1 mmol/L (3.3-5.1); Sodium 140 mmol/L (135-145); Thyroid Stimulating Hormone 1.45 uIU/mL (0.32-4.0); Total Iron Binding Capacity 417 mcg/dL (228-428); Total Protein 6.9 g/dL (6.5-8.0); Triglycerides 99 mg/dL; Unsaturated Iron Binding 380 ug/dL; Vitamin D 25-OH Total 30.3 ng/mL (>30)
[2021-12-22 11:37] LABS: Ferritin 10 ng/mL (10-250); T4 Thyroxine 9.1 ug/dL (4.5-12.0)
[2021-12-24 10:52] LABS: Triiodothyronine T3 Free 2.8 pg/mL (2.3-4.2)
== END 2021-12-22 09:41 | disposition home or self-care (01) ==
LOC: HO.LAB 09:40
PROVIDERS: PCP Pediatrics; Visit Provider Pediatrics
DX: E03.9 Hypothyroidism, unspecified (principal); E55.9 Vitamin D deficiency, unspecified; I10 Essential (primary) hypertension; J45.40 Moderate persistent asthma, uncomplicated
CPT/HCPCS: 36415; 80053; 80061; 82306; 82607; 82728; 83036; 83540; 84436; 84443; 84481; 85025

== ENCOUNTER → 2022-01-19 10:06 | Outpatient (BNVA) | payer MEDICAID, SELFPAY | PROVIDERS: PCP Pediatrics; Visit Provider Physician Assistant | DX: M77.12 Lateral epicondylitis, left elbow (principal) | CPT/HCPCS: 20551; 99212; J1020 ==

== ENCOUNTER → 2022-03-21 13:05 | Outpatient (BNVA) | payer MEDICAID, SELFPAY | PROVIDERS: PCP Pediatrics; Visit Provider Hospitalist | DX: J45.40 Moderate persistent asthma, uncomplicated (principal); J30.9 Allergic rhinitis, unspecified; I95.9 Hypotension, unspecified | CPT/HCPCS: 99212 ==

== ENCOUNTER 2022-03-29 19:56 | Emergency (ER) | payer MEDICAID, SELFPAY ==
--- NOTE | 2022-03-29 | ECG_ITS ---
Test Reason : dizziness Blood Pressure : / mmHG Vent. Rate : 070 BPM Atrial Rate : 070 BPM P-R Int : 166 ms QRS Dur : 082 ms QT Int : 414 ms P-R-T Axes : 059 006 014 degrees QTc Int : 447 ms Normal sinus rhythm Cannot rule out Anterior infarct , age undetermined Abnormal ECG When compared with ECG of 16-SEP-2020 18:17, No significant change was found Referred By: Generic ED Physician Electronically Signed By:Ed Peters
[2022-03-29 20:59] VITALS: BP 141/69; PULSE 80; RESP 20; TEMP 36.8; O2SAT 96; BMI 40.4
[2022-03-29 21:30] LABS: MANUAL DIFF FLAG NO
[2022-03-29 21:31] LABS: Basophils Absolute Auto 0.1 X10*3/uL (0.0-0.2); Eosinophils Absolute Auto 0.1 X10*3/uL (0.0-0.4); Eosinophils Percent Auto 1.3 % (0-4); Hemoglobin 11.2 g/dl (12.0-16.0); Imm Gran Abs Auto 0.03 X10*3/uL (0.00-0.03); Imm Gran Pct Auto 0.3 % (0.0-0.4); Lymphocytes Percent Auto 21.6 % (20-40); Mean Corpuscular HGB Conc 31.1 g/dl (31.0-35.0); Mean Corpuscular Hemoglobin 27.9 pg (27.0-33.0); Mean Corpuscular Volume 89.6 fL (80.0-98.0); Mean Platelet Volume 11.4 fL (9.4-12.3); Monocytes Absolute Auto 0.6 X10*3/uL (0.1-1.2); Monocytes Percent Auto 6.1 % (2-11); Neutrophils Absolute Auto 6.6 x10*3/uL (2.0-8.3); Neutrophils Percent Auto 69.7 % (45-73); Platelet Count 225 X10*3/uL (160-400); Red Blood Count 4.02 X10*6/uL (4.20-5.50); Red Cell Distribution Width 13.2 % (11.0-16.0); White Blood Count 9.4 X10*3/uL (4.8-10.8)
--- OUTSIDE RECORDS SUMMARY | 2022-03-29 21:32 | XMS_ITS ---
:1970 Author Organization [facility] Address [address] [place] [address] Care Team Providers Name Role Phone David Garcia Jr Unavailable Unavailable PROBLEMS Type Condition ICD9-CM [id number] Onset Condition SNOMED Cod e Code Code Dates Status Problem Microcytic anemia D50.9 Active 23 5750350 Problem Colon cancer Z12.11 Active 6085761 04 screening Problem Gastroesophageal K21.9 Active 235 551431 reflux disease, unspecified whether esophagitis present ALLERGIES No Known Allergies ENCOUNTERS Encounter Location Date Diagnosis [address] [place] [address] [place] [address] [facility] Out[facility], Encounter for meli Vasquez [place] [id number] colonoscop y Z12.11 and Colon polyps K63.[address] [facility], [facility] [address] [place], [place] disease, u nspecified whether [id number] esophagitis pres ent K21.9 ; Colon cancer scr eening Z12.11 and Micro cytic anemia D50.[address] [facility], [facility] [address] [place] [address] IMMUNIZATIONS No Known Immunizations SOCIAL HISTORY Qualifiers Date Former Smoker 19 months REASON FOR REFERRAL FUNCTIONAL STATUS PLAN OF CARE Activity Details Follow Up prn Reason: Future/Pending Procedure COLONOSCOPY [id number] VITAL SIGNS Weight 201 lbs 2020-04-19 Height 61 in 2020-04-19 BMI 37.97 kg/m2 2020-04-19 Temperature 97.8 degrees Fahrenheit 2020-04-19 Blood pressure systolic 000 mm Hg 2020-04-19 Blood pressure diastolic 00 mm Hg 2020-04-19 MEDICATIONS Medication Instructions Dosage Frequency Start End Duration Statu s Date Date Ibuprofen Active MiraLax (colon orally begin at mixed with Apr, 1 day Active prep) 8.3 ounce 5:00 p.m. the Gatorade or 2020 ((238) grams day before the Crystal procedure Light Cetirizine HCl 10 Active MG Levothyroxine Active Sodium 200 MCG Melatonin 5 MG Active Ondansetron HCl 4 Active MG Vitamin D High Active Potency Flovent HFA Active Fluticasone Active Propionate Lisinopril-hydroC Active HLOROthiazide 20-25 MG FeroSul 325 (65 Active Fe) MG Omeprazole 20 MG Active PROCEDURES Procedure Date Ordered Result Body Site BP NOT ASSESS PATIENT NOT ELIGIBLE April 19, 2020 TOBACCO NON-USER April 19, 2020 DOC MEDS VERIFIED W/PT OR RE April 19, 2020 LESION REMOVAL COLONOSCOPY May 14, 2020 RESULTS Name Result Date Reference Range Pathology 2020-05-14 REASON FOR VISIT pathology, colon screening , PATIENT PRESENTS TODAY FOR GERD AND SCREENING COLON, COVID Screen Insurance Providers [facility] Health Member Patient Patient Patient Patient Patient Subscriber Subscriber Subscriber Group Insurance Plan Plan Plan Plan ID Relationship Address Phone Name Date of ID Name Date of No Type Insurance Insurance Insurance Coverage to Subscriber Address Phone Name Dates MEDICAID [phone] [place]ID self [place] [id number] [address] [id number] [id number] [address] [facility] [id number]
[2022-03-29 21:52] LABS: Alanine Aminotransferase 19 U/L (0-31); Alkaline Phosphatase 105 U/L (39-117); Anion Gap 16 (12-20); Aspartate Amino Transferase 18 U/L (5-31); Bilirubin Total 0.7 mg/dL (0.0-1.0); Blood Urea Nitrogen 20 mg/dL (9-16); Calcium 9.5 mg/dL (8.4-10.2); Carbon Dioxide 23 mmol/L (22-29); Chloride 105 mmol/L (96-108); Creatinine Clr Calc Pharmacy 67.2; Estimated Glomerular Filt Rate > 60; Glucose Random 107 mg/dL (60-115); Potassium 3.7 mmol/L (3.3-5.1); Sodium 140 mmol/L (135-145); Total Protein 6.9 g/dL (6.5-8.0)
--- NOTE | 2022-03-29 22:15 | ED.GENADULT ---
HPI - General Adult General Chief complaint: Headache Stated complaint: light head and dizziness Time Seen by Provider: 03/29/22 21:58 Source: patient Mode of arrival: ambulatory Limitations: no limitations History of Present Illness HPI narrative: Patient comes to the emergency room complaining of dizziness intermittently that started approximately 1 and half weeks to 2 weeks ago. Patient states that her symptoms get worse when she is lying down and moves her head side to side or tries to sit up. Patient states that she feels that the whole room is spinning. Patient denies lightheadedness or blacking out, no chest pain or shortness of breath. Patient states that the dizziness lasts between seconds to minutes and then self resolves. Patient denies any recent viral illnesses. No nausea vomiting diarrhea, no headache. Related Data Home Medications Medication Instructions Recorded Confirmed albuterol sulfate 90 mcg/actuation 1 inh inhalation QID 12/08/19 05/07/20 aerosol inhaler (ProAir HFA) bupropion HCl 300 mg 24 hr tablet, 300 mg PO QAM 12/08/19 05/07/20 extended release (Wellbutrin XL) nabumetone 500 mg tablet 500 mg PO BID 12/08/19 05/07/20 naproxen 500 mg tablet 500 mg PO BID 12/08/19 05/07/20 omeprazole 20 mg capsule,delayed 20 mg PO DAILY 12/08/19 05/07/20 release cetirizine 10 mg tablet 1 tab PO DAILY 05/07/20 05/07/20 cholecalciferol (vitamin D3) 25 1 cap PO DAILY 05/07/20 05/07/20 mcg (1,000 unit) capsule (Vitamin D3) ferrous sulfate 325 mg (65 mg 1 tab PO TID 05/07/20 05/07/20 iron) tablet levothyroxine 200 mcg tablet 1 tab PO DAILY 05/07/20 05/07/20 lisinopril 20 1 tab PO DAILY 05/07/20 05/07/20 mg-hydrochlorothiazide 25 mg tablet loratadine 10 mg tablet 1 tab PO DAILY 05/07/20 05/07/20 melatonin 5 mg tablet 1 tab PO BEDTIME 05/07/20 05/07/20 fexofenadine 180 mg tablet 180 mg PO DAILY 01/13/21 epinephrine 0.1 mg/0.1 mL 0.1 mg subcut ONCE PRN 05/24/21 injection, auto-injector fluticasone propionate 50 1 spray intranasal BID 11/01/21 mcg/actuation nasal spray,suspension epinephrine 0.3 mg/0.3 mL IM DIRECTED 01/19/22 injection, auto-injector Previous Rx's Medication Instructions Recorded fluticasone fur. 200 mcg-umeclid 1 inh inhalation DAILY 30 days #60 11/16/20 62.5 mcg-vilant 25 mcg ea inhalat.powder (Trelegy Ellipta) montelukast 10 mg tablet 10 mg PO BEDTIME 30 days #30 tabs 01/13/21 (Singulair) prednisone 20 mg tablet See Rx Instructions PO DAILY 10 11/15/21 days #15 tabs budesonide-formoterol HFA 160 2 puff inhalation BID #10.2 grams 01/30/22 mcg-4.5 mcg/actuation aerosol inhaler (Symbicort) tiotropium bromide 2.5 2 puff inhalation DAILY 90 days #3 03/23/22 mcg/actuation mist for inhalation ea (Spiriva Respimat) meclizine 50 mg tablet 50 mg PO BID PRN motion sickness 03/30/22 #10 tabs Allergies Allergy/AdvReac Type Severity Reaction Status Date / Time No Known Allergies Allergy Verified 03/21/22 13:27 Review of Systems Review of Systems: Constitutional : No Weight loss, No Fever, No Chills, No Night Sweats, No Fatigue, No Malaise ENT/Mouth : No Hearing loss, No Ear Pain, No Nasal Congestion, No Sinus Pain, No Hoarseness, No sore throat, No Rhinorrhea, No Swallowing Difficulty Eyes: No Eye Pain, No Swelling, No Redness, No Foreign Body, No Discharge, No Vision Changes Cardiovascular : No Chest Pain, No SOB, No Dyspnea on Exertion, No Orthopnea, No Edema, No Palpitations Respiratory : No Cough, No Sputum, No Wheezing, No Smoke Exposure, No Dyspnea Gastrointestinal : No Nausea, No Vomiting, No Diarrhea, No Constipation, No abdominal Pain, No Hematochezia, No Melena Genitourinary : no irregular bleeding, No Dysuria, No Urinary Frequency, No Hematuria, No Urinary Incontinence, No Urgency, No Flank Pain, No Urinary Flow Changes, No Hesitancy Musculoskeletal : No joint pain, No Myalgias, No Joint Swelling Skin : No Skin Lesions, No rash Neuro : No Weakness, No Numbness, No Paresthesias, No Loss of Consciousness, no headache, complaining of room spinning sensation with head movements Psych : No Anxiety/Panic, No Depression, No SI/HI/AH/VH, No Social Issues, Heme/Lymph: No Bruising, No Bleeding,No Lymphadenopathy Endocrine : No Polyuria, No Polydipsia, No Temperature Intolerance [facility] Past Medical History Medical History Asthma Chronic allergic rhinitis Depression GERD (gastroesophageal reflux disease) Hypertension Hypothyroidism Insomnia Microcytic anemia Osteoarthritis of left AC (acromioclavicular) joint Personal history of COVID-19 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 Mother No problems noted. 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 Oriented X3. No acute distress. Well appearing Eyes: Pupils equal, round and reactive to light. No nystagmus ENT: Pharynx normal. Neck: Normal inspection. Neck supple. No lymph nodes noted. No crepitus CVS: Normal heart rate and rhythm. Pulses normal. Normal S1 and S2 Respiratory: No respiratory distress. Breath sounds normal. No Wheezing. No rales Abdomen: Soft and nontender. No rigidity. No distention. Skin: Skin warm and dry. Normal skin color. Normal skin turgor. Extremities: No lower extremity edema. No Lacerations. No Rash Neuro: Oriented X 3. No motor deficit. No sensory deficit. Moving all extremities. No slurred speech. CN 2 through 12 grossly intact Psych: calm, cooperative, normal affect Course Course Course Narrative: -patient's labs are unremarkable, troponin pending. -given the patient's history, physical exam, patient likely having episodes of vertigo. -orthostatic vitals are pending -patient given p.o. meclizine and diazepam Medications Administered Discontinued Medications Generic Name Dose Route Start Last Admin Trade Name Freq PRN Reason Stop Dose Admin Diazepam 2 mg 03/29/22 22:13 03/29/22 23:04 Diazepam 2 Mg Tablet PO 03/29/22 22:14 2 mg ONCE ONE Administration Meclizine HCl 50 mg 03/29/22 22:13 03/29/22 23:04 Meclizine Hcl 25 Mg Tablet PO 03/29/22 22:14 50 mg ONCE ONE Administration Medical Decision Making Medical Decision Making [facility] Narrative: -troponin negative -EKG my interpretation: Normal sinus rhythm, heart rate 70, no ST segment depression or elevation, no T-wave inversion, QTC 447 -orthostatic vitals are negative. -patient received 1 dose of p.o. diazepam and meclizine. Patient states that overall she feels better, occasionally she does feel that the room spins when she moves her head in a certain way. Patient was able to walk to the bathroom and do orthostatic vitals without feeling ?dizzy? -patient has normal gait when she walked to the bathroom. CVA is not suspected -patient has an appointment this morning with her primary care physician Differential Diagnosis Differential Diagnoses: The differential diagnosis associated with the presentation includes (Vertigo, BPPV) Lab Data [facility] Lab Attestation statement: I reviewed the patient's lab results. 03/29/22 21:27 03/29/22 21:27 Labs: Lab Results 03/29/22 03/29/22 03/29/22 Range/Units 21:27 21:27 22:34 WBC 9.4 (4.8-10.8) X10*3/uL RBC 4.02 L (4.20-5.50) X10*6/uL Hgb 11.2 L (12.0-16.0) g/dl Hct 36.0 L (37.0-47.0) % MCV 89.6 (80.0-98.0) fL MCH 27.9 (27.0-33.0) pg MCHC 31.1 (31.0-35.0) g/dl RDW 13.2 (11.0-16.0) % Plt Count 225 (160-400) X10*3/uL MPV 11.4 (9.4-12.3) fL Immature Gran % (Auto) 0.3 (0.0-0.4) % Neut % (Auto) 69.7 (45-73) % Lymph % (Auto) 21.6 (20-40) % Morgan % (Auto) 6.1 (2-11) % Eos % (Auto) 1.3 (0-4) % Baso % (Auto) 1.0 (0-2) % Lymph # (Auto) 2.0 (1.2-4.9) X10*3/uL Morgan # (Auto) 0.6 (0.1-1.2) X10*3/uL Eos # (Auto) 0.1 (0.0-0.4) X10*3/uL Baso # (Auto) 0.1 (0.0-0.2) X10*3/uL Abs Immat Gran (auto) 0.03 (0.00-0.03) X10*3/uL Absolute Neuts (auto) 6.6 (2.0-8.3) x10*3/uL Absolute Nucleated RBC 0.000 (0.0-0.012) X10*3/uL Nucleated RBC % (auto) 0.0 (0.0-0.2) /100WBC Sodium 140 (135-145) mmol/L Potassium 3.7 (3.3-5.1) mmol/L Chloride 105 (96-108) mmol/L Carbon Dioxide 23 (22-29) mmol/L Anion Gap 16 (12-20) BUN 20 H (9-16) mg/dL Creatinine 0.96 (0.5-1.4) mg/dL Estim Creat Clear Calc 67.2 Estimated GFR > 60 Random Glucose 107 (60-115) mg/dL Calcium 9.5 (8.4-10.2) mg/dL Total Bilirubin 0.7 (0.0-1.0) mg/dL AST 18 (5-31) U/L ALT 19 (0-31) U/L Alkaline Phosphatase 105 (39-117) U/L Troponin I High Sens < 3.5 (<3.5-17.0) ng/L Total Protein 6.9 (6.5-8.0) g/dL Albumin 4.0 (3.5-5.0) g/dL Discharge Plan Discharge Clinical Impression: Benign paroxysmal positional vertigo Patient Disposition: Home, Self-Care Instructions: Benign Paroxysmal Positional Vertigo (ED) Additional Instructions: Please follow-up with your primary care physician tomorrow. If you have any worsening or new symptoms, please return to the emergency room or call 911 Prescriptions: New meclizine 50 mg tablet 50 mg PO BID PRN (Reason: motion sickness) Qty: 10 0RF No Action prednisone 20 mg tablet See Rx Instructions PO DAILY 10 Days Qty: 15 0RF Rx Instructions: PO daily; Take 2 tabs daily x 5 days, then 1 tablet daily x 5 days budesonide-formoterol [Symbicort] 160-4.5 mcg/actuation HFA aerosol inhaler 2 puff inhalation BID Qty: 10.2 11RF Spiriva Respimat 2.5 mcg/actuation mist 2 puff inhalation DAILY 90 Days Qty: 3 3RF cetirizine 10 mg tablet 1 tab PO DAILY ferrous sulfate 325 mg (65 mg iron) tablet 1 tab PO TID lisinopril-hydrochlorothiazide 20-25 mg tablet 1 tab PO DAILY levothyroxine 200 mcg tablet 1 tab PO DAILY loratadine 10 mg tablet 1 tab PO DAILY cholecalciferol (vitamin D3) [Vitamin D3] 25 mcg (1,000 unit) capsule 1 cap PO DAILY melatonin 5 mg tablet 1 tab PO BEDTIME fexofenadine 180 mg tablet 180 mg PO DAILY nabumetone 500 mg tablet 500 mg PO BID naproxen 500 mg tablet 500 mg PO BID omeprazole 20 mg capsule,delayed release(DR/EC) 20 mg PO DAILY albuterol sulfate [ProAir HFA] 90 mcg/actuation HFA aerosol inhaler 1 inh inhalation QID bupropion HCl [Wellbutrin XL] 300 mg tablet extended release 24 hr 300 mg PO QAM Trelegy Ellipta 200-62.5-25 mcg blister with device 1 inh inhalation DAILY 30 Days Qty: 60 12RF montelukast [Singulair] 10 mg tablet 10 mg PO BEDTIME 30 Days Qty: 30 11RF epinephrine 0.1 mg/0.1 mL auto-injector 0.1 mg subcut ONCE PRN fluticasone propionate 50 mcg/actuation spray,suspension 1 spray intranasal BID epinephrine 0.3 mg/0.3 mL auto-injector IM DIRECTED
[2022-03-29] MEDS: Meclizine HCl 25 MG TABLET 50 MG PO (23:04)
[2022-03-29] MEDS: diazePAM 2 MG TABLET PO (23:04)
[2022-03-29 23:05] LABS: Troponin-I High Sensitivity < 3.5 ng/L (<3.5-17.0)
[2022-03-30 00:03] VITALS: BP 131/79; PULSE 77; RESP 18; TEMP 36.9; O2SAT 96
--- NOTE | 2022-03-30 00:05 | MHC.EDTECH ---
pt vitals were taken, she is feeling little better pain level for her headache is a 4, she is able to ambulate to the restroom without any issues
[2022-03-30 00:50] VITALS: BP 104/59; PULSE 73
[2022-03-30 00:51] VITALS: BP 116/66; PULSE 74
[2022-03-30 00:52] VITALS: BP 127/66; PULSE 77
== END 2022-03-30 01:15 | disposition home or self-care (01) ==
PROVIDERS: Emergency Provider Emergency Medicine; PCP Pediatrics
DX: H81.10 Benign paroxysmal vertigo, unspecified ear (principal); Z79.899 Other long term (current) drug therapy
CPT/HCPCS: 36415; 80053; 84484; 85025; 93005; 99283; 99284

== ENCOUNTER 2022-05-06 08:47 | Outpatient (REF) | payer MEDICAID, SELFPAY ==
[2022-05-06 10:17] LABS: Alanine Aminotransferase 21 U/L (0-31); Albumin Level 3.9 g/dL (3.5-5.0); Alkaline Phosphatase 101 U/L (39-117); Aspartate Amino Transferase 18 U/L (5-31); Bilirubin Direct 0.2 mg/dL (0.0-0.5); Bilirubin Total 0.9 mg/dL (0.0-1.0); Total Protein 6.5 g/dL (6.5-8.0)
[2022-05-06 10:20] LABS: TSH reflex Free T4 0.74 uIU/mL (0.32-4.0)
== END 2022-05-06 08:48 | disposition home or self-care (01) ==
LOC: HO.LAB 08:47
PROVIDERS: Visit Provider Pediatrics
DX: E03.9 Hypothyroidism, unspecified (principal); E66.3 Overweight
CPT/HCPCS: 36415; 80076; 84443

== ENCOUNTER → 2022-05-18 14:16 | Outpatient (BNVA) | payer MEDICAID, SELFPAY | PROVIDERS: PCP Pediatrics; Visit Provider Physician Assistant ==

== ENCOUNTER 2022-06-08 09:00 | Outpatient (RCR) | payer MEDICAID, SELFPAY ==
[2022-05-17 13:48] VITALS: BP 110/70
== END 2022-07-12 09:19 | disposition home or self-care (01) ==
LOC: HO.PT 09:00
PROVIDERS: PCP Pediatrics; Visit Provider Pediatrics
DX: H81.10 Benign paroxysmal vertigo, unspecified ear (principal)
CPT/HCPCS: 95992; 97161

== ENCOUNTER → 2022-06-16 13:40 | Outpatient (BNVA) | payer MEDICAID, SELFPAY | PROVIDERS: PCP Pediatrics; Visit Provider Hospitalist | DX: J45.40 Moderate persistent asthma, uncomplicated (principal); J30.9 Allergic rhinitis, unspecified; R07.89 Other chest pain; R06.02 Shortness of breath; U09.9 Post COVID-19 condition, unspecified | CPT/HCPCS: 99212 ==

== ENCOUNTER 2022-07-05 14:55 | Outpatient (REF) | payer MEDICAID, SELFPAY ==
--- NOTE | ~2022-07-05 | XR_ITS ---
Examination: Bilateral shoulder. CLINICAL INDICATIONS: Pain x2 months. No injury. TECHNIQUE: 4 views each shoulder. FINDINGS: Left shoulder: There is mild reduction in the glenohumeral and AC joint space without any fracture, dislocation, loose bodies of bony erosive changes. No soft tissue swelling or calcification seen. Right shoulder: There is minimal reduction in the right AC joint space with inferior periarticular spurring. The glenohumeral joint space is reduced as well. No visible acute fracture, dislocation, loose bodies or bony erosive changes seen. The soft tissues are normal. XR/XR shoulder RT min 2V IMPRESSION: Mild degenerative changes bilateral shoulder joint. No acute fracture or dislocation seen.
--- NOTE | ~2022-07-05 | XR_ITS ---
Examination: Bilateral shoulder. CLINICAL INDICATIONS: Pain x2 months. No injury. TECHNIQUE: 4 views each shoulder. FINDINGS: Left shoulder: There is mild reduction in the glenohumeral and AC joint space without any fracture, dislocation, loose bodies of bony erosive changes. No soft tissue swelling or calcification seen. Right shoulder: There is minimal reduction in the right AC joint space with inferior periarticular spurring. The glenohumeral joint space is reduced as well. No visible acute fracture, dislocation, loose bodies or bony erosive changes seen. The soft tissues are normal. XR/XR shoulder LT min 2V IMPRESSION: Mild degenerative changes bilateral shoulder joint. No acute fracture or dislocation seen.
== END 2022-07-05 14:56 | disposition home or self-care (01) ==
LOC: HO.HHCX 14:55
PROVIDERS: Visit Provider Emergency Medicine
DX: M25.511 Pain in right shoulder (principal); M25.512 Pain in left shoulder
CPT/HCPCS: 73030

== ENCOUNTER 2022-08-10 10:08 | Outpatient (REF) | payer MEDICAID, SELFPAY ==
--- NOTE | 2022-08-10 10:13 | EMG_ITS ---
Bilateral median and ulnar motor and sensory studies were performed. Bilateral radial sensory studies were performed and paraspinal muscles were tested with a needle. IMPRESSION: Mild to moderate right and mild left median neuropathy across carpal tunnel. MD KULWINDER Vazquez/GARDENIA / [id number]
== END 2022-08-10 10:09 | disposition home or self-care (01) ==
LOC: HO.NEURO 10:08
PROVIDERS: PCP Pediatrics; Visit Provider Family Medicine
DX: M79.645 Pain in left finger(s) (principal); M79.644 Pain in right finger(s)
CPT/HCPCS: 95886; 95911

== ENCOUNTER 2022-08-22 13:12 | Outpatient (AMB) | payer MEDICAID, SELFPAY ==
--- NOTE | 2022-08-22 13:14 | A.OFFVIS_ITS ---
Intake Intake Visit Reasons: New Prob- B/ L hand pain and fingers Intake Note: Alecia is a 52 year old female who presents today for a evaluation for her bilateral hand pain. Patient reports ongoing pain for 3 months. She states her pain is worse at night. Patient states that her left hand is worse than the right, she notices that her left middle finger locks in place when she makes a tight fist. Having off and on numbness in her left thumb, pointer finger and middle finger and in her right hand her thumb it numb and its worse at night. Allergies No Known Allergies Allergy (Verified 08/22/22 13:18) HPI New Prob- B/ L hand pain and fingers HPI Details 52-year-old female who presents in the office today for an evaluation of bilateral hand and digit pain. The patient reports ongoing pain for the last 3 months, since 05/2022, with increasing pain at night. She reports her left hand is worse then her right hand. She reports her left middle finger locks in place when making a tight fist. She states she has numbness in the left thumb, pointer, and middle digits. She also states she has numbness in her right thumb. This numbness increases at night. She confirms the use of braces but states it is not helping with the pain. 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 [employer] Medical History Asthma Chronic allergic rhinitis Depression GERD (gastroesophageal reflux disease) Hypertension Hypothyroidism Insomnia Microcytic anemia Osteoarthritis of left AC (acromioclavicular) joint Personal history of COVID-19 [id number] syndrome Vitamin D deficiency Surgical History History of left knee replacement Family History Father No problems noted. Mother No problems noted. 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 No ecchymosis erythema or edema. Able to perform full finger flexion and extension. Active locking left of the middle finger. Positive Tinel's sign at the carpal tunnel. Capillary refill brisk. Psych Mental Status: mental status grossly normal Assessment & Plan Assessment & Plan (1) Right carpal tunnel syndrome: Code(s): G56.01 - Carpal tunnel syndrome, right upper limb (2) Left carpal tunnel syndrome: Code(s): G56.02 - Carpal tunnel syndrome, left upper limb (3) Trigger finger, left middle finger: Code(s): M65.332 - Trigger finger, left middle finger Plan Ms. Joseph is a 52-year-old female who presents in the office today for an evaluation of bilateral hand and digit pain. The patient reports ongoing pain for the last 3 months, since 05/2022, with increasing pain at night. She reports her left hand is worse then her right hand. She reports her left middle finger locks in place when making a tight fist. She states she has numbness in the left thumb, pointer, and middle digits. She also states she has numbness in her right thumb. This numbness increases at night. She confirms the use of braces but states it is not helping with the pain. 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 I discussed in detail the procedure and what to expect pre and post operatively. We discussed the risks, benefits and alternatives to the surgery as well as the rehabilitation course. The risks; which include, but are not limited to infection, bleeding, nerve injury, ongoing pain, swelling, and stiffness, perioperative risk of injury to bones and soft tissues, and blood clots. I have answered all questions and with their understanding they have consented to move forward with a bilateral hand carpal tunnel release and left middle digit trigger finger release to be performed by Dr. Berry. The patient?s information was given to the surgical appliance fitter. Follow up will be at her preoperative appointment with Dr. Berry, or sooner if needed. EMG of the bilateral hands, obtained on 08/10/2022, revealed: Mild to moderate right and mild left median neuropathy across carpal tunnel. Patient Instructions: Scribed for Teresita Colon PA-C by Vivian Rodriguez medical care administrator, on 08/22/2022 at 1:14 pm, EST. Your attestation Coding Level of Care Code New Pt Level 4 (03294) Diagnoses Right carpal tunnel syndrome G56.01 Left carpal tunnel syndrome G56.02 Trigger finger, left middle finger M65.332
== END 2022-08-22 13:40 | disposition home or self-care (01) ==
PROVIDERS: PCP Pediatrics; Visit Provider Physician Assistant
DX: G56.01 Carpal tunnel syndrome, right upper limb (principal); G56.02 Carpal tunnel syndrome, left upper limb; M65.332 Trigger finger, left middle finger
CPT/HCPCS: 99214

== ENCOUNTER → 2022-08-22 13:12 | Outpatient (BNVA) | payer MEDICAID, SELFPAY | PROVIDERS: PCP Pediatrics; Visit Provider Physician Assistant | DX: G56.03 Carpal tunnel syndrome, bilateral upper limbs (principal); M65.332 Trigger finger, left middle finger | CPT/HCPCS: 99214 ==

== ENCOUNTER 2022-09-05 13:12 | Outpatient (AMB) | payer MEDICAID, SELFPAY ==
--- NOTE | 2022-09-05 13:20 | A.OFFVIS_ITS ---
Intake Vital Signs 09/05/22 13:21 Height 4 ft 11 in Weight 200 lb BMI 40.4 Intake Visit Reasons: Npatient B/L CTR Intake Note: Alecia 52 yr old right hand dominant female presents today to discuss treatment vs surgical intervention for her left CTS. Also her left middle finger locks in place when making a tight fist. Seen with Magnolia Lo who wants patient to be further evaluated with Dr. Berry. Patient is ready to discuss surgery. Allergies No Known Allergies Allergy (Verified 09/05/22 13:38) HPI Npatient B/L CTR HPI Details Alecia is a 52 year old right hand dominant woman who presents to discuss her bilateral carpal tunnel syndrome and left middle trigger finger. She was seen by DAVID Lo on 08/22/22 and scheduled for a left carpal tunnel release & left middle trigger finger release. She complains of intermittent numbness in the median nerve distribution bilaterally. She says her numbness is not particularly bothersome for her during the day, but is worst at night. She also complains of painful locking of her left middle finger. 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 Mother No problems noted. 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 Review of Systems Const All systems reviewed & are unremarkable except as noted in HPI and below Physical Exam Vital Signs: BMI result Body Mass Index 40.4 Const General: cooperative, healthy appearing and no acute distress Orientation/consciousness: patient oriented x3 HEENT Head: Yes normocephalic and Yes atraumatic Eyes EOM: EOMs intact bilaterally Resp Effort & Inspection: normal respiratory effort and able to speak in complete sentences Cardio Jugular venous distension: no JVD Skin General skin exam: turgor normal Rashes: no rashes Neuro General: patient oriented x3 Extrem Other: Evaluation of Bilateral Upper Extremity: The patient is alert, oriented, and in no acute distress Neuro: Median, Ulnar, Radial nerves motor and sensory intact and sensation is normal to the tips of all digits today in clinic No thenar or intrinsic wasting Good APB muscle belly firing and good finger cross Vascular: Cap refill brisk ROM: She can make a fist and extend all her digits Visible and palpable locking and catching of the left middle finger Tender over the a1 willian of the left middle finger Skin: No lacerations or abrasions. General: No Ecchymosis. No Erythema or evidence of infection. Nerve Conduction Study: IMPRESSION:? Mild to moderate right and mild left median neuropathy across carpal tunnel. ? Zaina Hernadez MD 08/10/2022 Psych Appearance: grossly normal Affect: normal affect Attitude: cooperative Assessment & Plan Assessment & Plan (1) Trigger finger, left middle finger: Code(s): M65.332 - Trigger finger, left middle finger (2) Left carpal tunnel syndrome: Code(s): G56.02 - Carpal tunnel syndrome, left upper limb (3) Right carpal tunnel syndrome: Code(s): G56.01 - Carpal tunnel syndrome, right upper limb Plan Assessment & Plan: 1. Left middle trigger finger This is her most symptomatic complaint 2. Left Carpal tunnel syndrome, mild Symptoms intermittent, but daily, worse at night I educated her about these conditions I discussed operative and non-operative treatment options The patient would like to proceed with surgery The risks and benefits of operative treatment were discussed with the patient and the patient wishes to proceed with surgery. These risks include, but are not limited to risk of damage to blood vessels, nerves, tendons, infection, recurrence, incomplete relief of preoperative symptoms, persistent pain, possible need for further surgery and the risks associated with regional blocks and anesthesia. The plan is to take the patient to the operating room sometime in the next few weeks for the following procedures: 1. Left middle trigger finger release, under local 2. Left Carpal tunnel release, under local All of the preoperative paperwork including the consent was filled out today. All the patient's questions were answered. The patient understands that they will be contacted by our edge kitter soon to schedule this procedure She denies Diabetes, blood thinners, heart, lung, kidney issues She has asthma 3. Right Carpal tunnel syndrome, mild-moderate Symptoms intermittent, but daily, worse at night She will follow up to discuss treatment when she has recovered from her left hand surgery Scribed for Yelena Berry MD by Manuel Sierra, ophthalmic medical assistant, on 09/05/22 at 2:20 PM, EST. Coding Level of Care Code Est Pt Level 4 (92277) Diagnoses Trigger finger, left middle finger M65.332 Left carpal tunnel syndrome G56.02 Right carpal tunnel syndrome G56.01
[2022-09-05 13:21] VITALS: BMI 40.4
== END 2022-09-05 14:28 | disposition home or self-care (01) ==
PROVIDERS: PCP Pediatrics; Visit Provider Orthopaedic Surgery
DX: M65.332 Trigger finger, left middle finger (principal); G56.02 Carpal tunnel syndrome, left upper limb; G56.01 Carpal tunnel syndrome, right upper limb
CPT/HCPCS: 99214

== ENCOUNTER → 2022-09-05 13:12 | Outpatient (BNVA) | payer MEDICAID, SELFPAY | PROVIDERS: PCP Pediatrics; Visit Provider Orthopaedic Surgery | DX: G56.03 Carpal tunnel syndrome, bilateral upper limbs (principal); M65.332 Trigger finger, left middle finger | CPT/HCPCS: 99212 ==

== ENCOUNTER 2022-10-03 09:28 | Outpatient (REF) | payer MEDICAID, SELFPAY ==
--- NOTE | ~2022-10-03 | MM_ITS ---
EXAMINATION: MM SCREENING DIGITAL BREAST TOMOSYNTHESIS, BILATERAL CLINICAL INFORMATION: Screening. Asymptomatic. COMPARISON: Mammography: This study is compared with prior exams dating back to 2017. TECHNIQUE: Digital breast tomosynthesis is performed in both the craniocaudal and mediolateral oblique views along with computer-aided detection (CAD). Synthesized 2D images are generated from the tomosynthesis. FINDINGS: The breasts are almost entirely fatty (ACR BI-RADS breast composition Category a). There are no significant masses, abnormal calcifications, or other abnormalities. MM/MM tomosynthesis screening BI IMPRESSION: No mammographic evidence of malignancy. ASSESSMENT: BI-RADS BI-RADS 1 - Negative RECOMMENDATION: Routine annual mammography screening. 1 year F/U This examination should not preclude the clinical evaluation of a suspicious palpable abnormality. This patient's information was entered into a reminder system with a target due date for their next mammogram.
== END 2022-10-03 09:29 | disposition home or self-care (01) ==
LOC: HO.MAMMO 09:28
PROVIDERS: PCP Pediatrics; Visit Provider Pediatrics
DX: Z12.31 Encounter for screening mammogram for malignant neoplasm of breast (principal)
CPT/HCPCS: 77063; 77067

== ENCOUNTER → 2022-10-03 09:45 | Outpatient (BNV) | payer MEDICAID, SELFPAY | PROVIDERS: PCP Pediatrics; Visit Provider Radiology Diagnostic Radiology | DX: Z12.31 Encounter for screening mammogram for malignant neoplasm of breast (principal) | CPT/HCPCS: 77063; 77067 ==

== ENCOUNTER 2022-12-19 13:50 | Outpatient (AMB) | payer MEDICAID, SELFPAY ==
[2022-12-19 13:52] VITALS: BP 122/66; PULSE 67; RESP 12; O2SAT 97; BMI 38.2
--- NOTE | 2022-12-19 13:52 | A.OFFVIS_ITS ---
Intake Vital Signs 12/19/22 13:52 Height 4 ft 11 in Weight 189 lb BMI 38.2 BP 122/66 Blood Pressure Location Lt brachial Position Sitting Respiration 12 Pulse 67 Pulse Source Pulse Oximeter Pulse Oximetry (%) 97 Oxygen Delivery Method Room Air Intake Visit Reasons: dyspnea Allergies No Known Allergies Allergy (Verified 12/19/22 13:55) Medication List - Last Reconciled 12/19/22 by Lurdes Raygoza LPN albuterol sulfate 90 mcg/actuation (ProAir HFA) 1 inh inhalation QID budesonide-formoterol 160-4.5 mcg/actuation (Symbicort) 2 puffs inhalation BID bupropion HCl (Wellbutrin XL) 300 mg PO QAM cholecalciferol (vitamin D3) (Vitamin D3) 1 cap PO DAILY epinephrine IM DIRECTED ferrous sulfate 1 tab PO TID fexofenadine 180 mg PO DAILY dsrvcsctxee-odnxsgswn-ubmogiom 200-62.5-25 mcg (Trelegy Ellipta) 1 inh inhalation DAILY 30 days levothyroxine 1 tab PO DAILY lisinopril-hydrochlorothiazide 20-25 mg 1 tab PO DAILY loratadine 1 tab PO DAILY meclizine 50 mg PO BID PRN melatonin 1 tab PO BEDTIME montelukast (Singulair) 10 mg PO BEDTIME 30 days nabumetone 500 mg PO BID omeprazole 20 mg PO DAILY HPI HPI Comments History of Present Illness Details The patient is a 52-year-old woman with a known history of asthma who apparently was in her usual state health until back in March when she developed COVID-19. She was not hospitalized and she managed okay. However, after that her respiratory status has been worse. She has been noticing increasing chest tightness and shortness of breath. Subsequently in September she started having worsening shortness of breath and she did go to the ER. Her D- dimer was elevated and she did undergo a CT scan of the chest PE protocol. It did not demonstrate any evidence of any residual fibrosis or pneumonitis. However, she did have evidence of bronchitis. She was given prednisone. She has also been on Flovent and a rescue inhaler. The therapy has been partially helpful. We will continue trying to optimize her respiratory therapy at this time. In the meantime she did get vaccinated for COVID-19. 11/16/2020 the patient is here for a pul monary follow-up visit. Overall she is feeling a little better. Although, she feels like the Symbicort is too strong. When she takes it she feels like she is having significant tremulousness and palpitations. Therefore she stopped using it at nighttime. She did undergo pulmonary function studies that were personally by me. She has significant small airways disease and evidence of air trapping due to her significant uncontrolled asthma. Her lung volumes and diffusing capacity are low normal. She did also have a CT scan of the chest that was personally by me demonstrating interval resolution of any pneumonitis. Her lung expansion is good. Will plan to optimize her respiratory therapy by switching over to Trelegy inhaler hopeful that she can have a better response from the additional therapy. Hoping also that the vilanterol will not affect your like the formoterol did while she was taking the Symbicort. The patient also has an elevated IgE level therefore has significant allergies. Need to consider biologic therapy if the patient does not respond to her optimize respiratory medications. 03/21/2022 The patient is here for pul onary follow-up visit. She complains of still having some dyspnea on exertion chest tightness and wheezing. Qcjy-cm-zjdatgas severity. The Symbicort has been helpful but only partially. She is still using her rescue inhaler regularly. In addition to this the patient does complaint of and dizziness. She has been dizzy now for last few days. Typically worse when she stands up. In the office her blood pressure was low. She does take blood pressure medications. I emphasized to her that she ne eds to reach out to her primary care doctor sick they can adjust her blood pressure medications. will try to optimize further her respiratory therapy. Will follow-up in the next 2-3 months. 06/16/2022 the patient is here for a pulks wayne follow-up visit. The patient overall is doing better. She has been using the inhaler with better response. Has not required any prednisone. Has been using her rescue inhaler less than twice a week. Having allergy symptoms on loratidine and singulair. She also has her nasal spray. Her bloodwork was completed and demonstrated normal eosinophil count. 12/19/2022 the patient is here for a pulmonary follow-up visit. She continues to have significant respiratory complaints. Chest tightness and wheezing coughing. Her inhalers have only be partially helpful. Although she has not been taking the breast drip. Apparently was not covered. She has been on Spiriva and also on a rescue inhaler. Will go ahead and switch her over to Trelegy inhaler. The patient does benefit from the ease of the medication in order for her to be more adherent to the therapy and have the most optimized therapy. In addition to that she continues to receive allergy shots. If the patient is no better she can consider discussing with her sample washer the possibility of starting biologic therapy. The patient will have pulmonary function studies again. We did talk about pulmonary rehabilitation specially after having COVID-19. However this is difficult because the patient continues to work. Therefore, she can consider underlying pulmonary rehab or going to a exercise facility. Will follow-up after her PFTs. 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 Mother No problems noted. 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 Review of Systems Const Reports fatigue, Denies fever(s) and Denies night sweats ENT Denies change in voice, Reports dizziness, Denies lip swelling, Denies mouth pain, Reports nasal congestion, Reports nasal discharge and Denies tongue swelling Card Denies chest pain and Reports dyspnea on exertion Resp Reports chest congestion, Reports cough, Reports dyspnea on exertion and Reports wheezing GI Denies abdominal pain Musc Denies no additional complaints Neuro Denies Neuro-related abnormal movements and Reports dizziness Psych Denies no additional complaints Endo Reports fatigue Dewyane/Lymph Denies easy bleeding and Denies lymphadenopathy Aller/Immun Denies lip swelling, Denies tongue swelling and Reports wheezing Physical Exam Vital Signs: Last Vital Signs Pulse 67 12/19/22 13:52 Resp 12 12/19/22 13:52 BP 122/66 12/19/22 13:52 Pulse Ox 97 12/19/22 13:52 Oxygen Delivery Method Room Air 12/19/22 13:52 BMI result Body Mass Index 38.2 Const General: alert Neck Neck: Yes normal visual inspection, Yes full ROM and Yes no lymphadenopathy Chest Chest palpation & inspection: normal inspection of the chest Resp Auscultation: no wheezes and diminished lung sounds Cardio Rate: regular rate Rhythm: regular rhythm Heart sounds: S1 normal heart sound present and S2 normal heart sound present GI Palpation (GI): Soft to palpation and nontender Auscultation: normal bowel sounds Skin General skin exam: rashes and/or lesions noted Office Procedures Flu Questionnaire Does the patient have a severe egg allergy?: No Does the patient have severe life threatening allergies?: No Does the patient have a fever or illness today?: No Has the patient ever had Guillain-[place] Syndrome?: No Has the patient ever had any past reaction to a flu shot?: No Immunizations flu vacc [id number] 6mos up(PF) 60 mcg(15 mcgx4)/0.5 mL IM syringe Performing Provider: Reid Morales MD Performing Location: [facility] Pulmon[facility] Administered by: Lurdes Raygoza LPN on 12/19/22 14:20 Dose Route Admin Location Dispensed Lot Number Expiration Date [facility] [employer] 0.5 mL IM Left Deltoid 0.5 mL [id number] 08/12/23 54158-751-39 [employer] VIS Given Date VIS Provided VIS Publication Date 12/19/22 Single Vaccine 20 Eligibility Eligibility Date Funding Source Not [facility] Eligible 12/19/22 Private Assessment & Plan Assessment & Plan (1) Asthma: Code(s): J45.909 - Unspecified asthma, uncomplicated Qualifiers: Asthma complication type: uncomplicated Asthma persistence: persistent Asthma severity: moderate Qualified Code(s): J45.40 - Moderate persistent asthma, uncomplicated (2) Chronic allergic rhinitis: Code(s): J30.9 - Allergic rhinitis, unspecified Plan stop Breztri 2 puff BID start Trelegy 200 IRASEMA as needed allergy therapy EpiPen consider Biologic therapy, she does f/u with allergy Tessalon Perles as needed for cough F/U 6 months Orders: Orders Influenza [id number] Immunization Today Z23 - Encounter for immunization PFT pulmonary function test 3 Months J45.909 - Unspecified asthma, uncomplicated Medications: Refilled rkhwrnzeotm-iptbxisas-tmsmvadr 200-62.5-25 mcg (Trelegy Ellipta) 1 inh inhalation DAILY 30 days 60 ea 12RF Coding Level of Care Code Est Pt Level 4 (65948) Diagnoses Moderate persistent asthma without complication J45.40 Asthma complication type: uncomplicated Asthma persistence: persistent Asthma severity: moderate Chronic allergic rhinitis J30.9 Time Spent (min) 16
== END 2022-12-19 14:13 | disposition home or self-care (01) ==
PROVIDERS: PCP Pediatrics; Visit Provider Hospitalist
DX: J45.40 Moderate persistent asthma, uncomplicated (principal); J30.9 Allergic rhinitis, unspecified; Z23 Encounter for immunization
CPT/HCPCS: 99214

== ENCOUNTER → 2022-12-19 13:50 | Outpatient (BNVA) | payer MEDICAID, SELFPAY | PROVIDERS: PCP Pediatrics; Visit Provider Hospitalist | DX: Z23 Encounter for immunization (principal); J45.40 Moderate persistent asthma, uncomplicated; J30.9 Allergic rhinitis, unspecified | CPT/HCPCS: 90471; 90686; 99212 ==

== ENCOUNTER 2022-12-20 13:29 | Outpatient (REF) | payer MEDICAID, SELFPAY ==
--- NOTE | ~2022-12-20 | XR_ITS ---
EXAMINATION: XR KNEE, LEFT CLINICAL INFORMATION: Pain and swelling of left knee pain and swelling COMPARISON: None available. TECHNIQUE: AP and lateral views of the left knee. FINDINGS: Moderate joint effusion. Calcifications in the soft tissues posterior to the distal femur, possibly vascular. Expected changes of ACL reconstruction are redemonstrated. Joint spaces are preserved. Alignment maintained. XR/XR knee LT 2V IMPRESSION: Redemonstration of expected changes of ACL reconstruction. Moderate joint effusion present.
[2022-12-20 13:53] LABS: MANUAL DIFF FLAG NO
[2022-12-20 14:59] LABS: Basophils Absolute Auto 0.1 X10*3/uL (0.0-0.2); Basophils Percent Auto 0.9 % (0-2); Eosinophils Absolute Auto 0.1 X10*3/uL (0.0-0.4); Eosinophils Percent Auto 1.5 % (0-4); Hematocrit 40.1 % (37.0-47.0); Hemoglobin 12.6 g/dl (12.0-16.0); Imm Gran Abs Auto 0.02 X10*3/uL (0.00-0.03); Imm Gran Pct Auto 0.3 % (0.0-0.4); Lymphocytes Absolute Auto 2.2 X10*3/uL (1.2-4.9); Mean Corpuscular HGB Conc 31.4 g/dl (31.0-35.0); Mean Corpuscular Hemoglobin 28.4 pg (27.0-33.0); Mean Corpuscular Volume 90.3 fL (80.0-98.0); Monocytes Absolute Auto 0.5 X10*3/uL (0.1-1.2); Monocytes Percent Auto 7.7 % (2-11); Neutrophils Absolute Auto 3.8 x10*3/uL (2.0-8.3); Neutrophils Percent Auto 56.6 % (45-73); Platelet Count 258 X10*3/uL (160-400); Red Blood Count 4.44 X10*6/uL (4.20-5.50); Red Cell Distribution Width 13.4 % (11.0-16.0); White Blood Count 6.8 X10*3/uL (4.8-10.8)
[2022-12-20 15:50] LABS: Iron 79 mcg/dL (30-160); Percent Iron Saturation 21 % (15-50); Total Iron Binding Capacity 369 mcg/dL (228-428); Unsaturated Iron Binding 290 ug/dL
[2022-12-20 16:05] LABS: TSH reflex Free T4 3.09 uIU/mL (0.32-4.0)
== END 2022-12-20 13:30 | disposition home or self-care (01) ==
LOC: HO.LAB 13:29
PROVIDERS: PCP Pediatrics; Visit Provider Pediatrics
DX: M25.562 Pain in left knee (principal); M25.462 Effusion, left knee; E03.9 Hypothyroidism, unspecified; D50.9 Iron deficiency anemia, unspecified
CPT/HCPCS: 36415; 73560; 83540; 84443; 85025

== ENCOUNTER 2023-01-15 08:46 | Day surgery (SDC) | payer MEDICAID, SELFPAY ==
--- OUTSIDE RECORDS SUMMARY | 2023-01-15 08:48 | XMS_ITS | Patient Health Record ---
Author Name Unknown Organization [facility] Address [address] [place] [address] Care Team Providers Care Funeral Pre Arrangement Counselor Name Role Phone Rivas ASIF, Rehana Primary Care Provider David Coats Jr Unavailable [phone] Yesica Velasco Unavailable Unavailable REASON FOR REFERRAL No Information MEDICATIONS Medication SIG (Take, Route, Frequency, Duration) Notes Start Date End Date Status Vitamin D High Potency Active FeroSul 325 (65 Fe) MG Orally Active Ibuprofen PRN Active MiraLax (colon prep) 8.3 ounce ((238) grams mixed with Gatorade or Crystal Light orally begin at 5:00 p.m. the day before the procedure for 1 day 04/19/2020 Active Omeprazole 20 MG Orally Act carmela Flovent HFA Active Fluticasone Propionate Active Melatonin 5 MG Orally Activ e Cetirizine HCl 10 MG Orally Active Lisinopril-hydroCHLOROthiazi de 20-25 MG Orally Active Levothyroxine Sodium 200 MCG Orally Active Ondansetron HCl 4 MG Orally Active IMMUNIZATIONS Vaccine Route Administration Date Status Comme nts Influenza Unknown 04/19/2020 Refused SOCIAL HISTORY Tobacco Use: Social History Observation Description Date Details (start date - stop date) Former Smoker NA - NA Sex Assigned At : Social History Observation Description Sex Assigned At Unknown Tobacco Use/Smoking Question Answer Notes Patient is a former smoker When did you stop smoking? 19 months How long has it been since you last smoked? 1-5 years Alcohol Screen Question Answer Notes Did you have a drink contain ing alcohol in the past year? Yes How often did you have a dri nk containing alcohol in the past year? Monthly or less (1 point) How often did you have 6 or more drinks on one occasion in the past year? Never (0 point) Points 1 Interpretation Negative PROBLEMS Problem Type ICD Code Onset Dates Problem Status W/U Status Risk SNOMED Code Notes Problem Colon cancer screening (Z12.11) Active confirmed 270475228 Problem Microcytic anemia (D50.9) Active confirmed 113545334 Problem Gastroesophageal reflux disease, unspecified whether esophagitis present (K21.9) Active confirmed 604796679 PLAN OF TREATMENT Future Test Test Name Order Date COLONOSCOPY 04/19/2020 Insurance Providers Payer Name Payer Address Payer Phone Subscriber Number Group Number Insured Name Patient Relationship to Insured Coverage Start Date Coverage End Date MEDICA[employer] OF [employer] [address] [place] [phone] [id number] HANNAH REY Self - patient is the insured MEDICAL (GENERAL) HISTORY Medical History History ICD Code asthma hypertension hyperthyroidism heartburn seasonal allergies Covid 19 infection, 03/22/20, quarantined at home, no treatment required Surgical History Surgery Date(Month/Year) Knee Replacement - left side
--- NOTE | 2023-01-15 09:21 | W.PM.OPN ---
Operative Note Operative Note Date of Service: 01/15/23 Narrative: Preop diagnosis: 1. Left Carpal tunnel syndrome 2. Left middle finger trigger finger Postop diagnosis: same Procedure: 1. Left Carpal tunnel release 2. Left middle finger trigger release Surgeon: Yelena Berry MD Anesthesia: local block using 1% lidocaine with epinephrine Findings: Thickened transverse carpal ligament. EBL: Less than 5 mL Specimens: None Complications: None Disposition: Brought to recovery room in stable condition Plan: Follow-up for 10-14 days for wound check and suture removal Indications: The patient is 53 years old, with left carpal tunnel syndrome and a left middle finger trigger finger that have been unresponsive to nonoperative management. The risks and benefits of operative treatment including but not limited to risk of damage to blood vessels, nerves, tendons, infection, persistent pain, persistent symptoms, or possible need for additional surgery were discussed with the patient and the patient wishes to proceed with surgery. Procedure: Once consent was obtained a local block was performed using a combination of 1% lidocaine with epinephrine. The patient was then brought back to the operating suite and placed on the operative table in supine position. The left upper extremity was prepped and draped in a standard surgical fashion. Once assured that we had a good block, a 2.0 cm longitudinal incision was made centered over the carpal tunnel. The incision was made through the skin to the subcutaneous tissues using a #15 blade. Dissection was made down to the level of the transverse carpal ligament with care being taken to protect the palmar cutaneous nerve. Once the transverse carpal ligament was clearly visualized, a longitudinal incision was made in the transverse carpal ligament 1st using a #15 blade, then using tenotomy scissors under direct visualization. Care was taken to look for and protect the motor branch of the median nerve when seen in this area. Once assured that we had a good block, a 1.5 cm oblique incision was made centered over the A1 willian of the left middle finger . The incision was made through the skin to the subcutaneous tissues using a #15 blade. Careful dissection was made down to the level of the A1 willian using tenotomy scissors, with care being taken to protect the nearby neurovascular structures. A longitudinal incision was made in the A1 willian 1st using a #15 blade, then using tenotomy scissors under direct visualization. The A1 willian was noted to be thickened. Following our A1 willian release, we no longer saw any locking or catching of the digit with flexion and extension. Once satisfied with our carpal tunnel release and trigger release the wounds were copiously irrigated with normal saline and hemostasis was obtained with a brief period of local pressure. The skin edges were reapproximated with some 5.0 nylon suture material and a sterile dressing was applied. The patient appears to have tolerated the procedure well and with no complications. All digits were well vascularized at the conclusion of the case.
[2023-01-15 10:31] VITALS: BP 130/62; PULSE 60; RESP 16; TEMP 36.2; O2SAT 98; BMI 40.4
--- NOTE | 2023-01-15 11:32 | MHC.SHP ---
Pre-Procedural Eval Section A Date of Service: 01/15/23 The patient is an INPATIENT: No Changes since office visit: No Cold of Flu in the past 2 weeks, No New Medical Problems, No Changes in Medication and No Patient answered all questions The History & Physical has been completed within 30 days and I have reviewed it.: Yes Section B Chief Complaint: carpal tunnel release and trigger finger release Allergies: Allergies Allergy/AdvReac Type Severity Reaction Status Date / Time No Known Allergies Allergy Verified 12/19/22 13:55 Plan I have reviewed the history and physical and performed a pertinent physical examination on my patient. No changes have occurred unless specified. Time Spent With Patient Time: Total time managing care of this patient today ____ minutes.
[2023-01-15 12:20] VITALS: BP 110/51; PULSE 82; RESP 18; O2SAT 98
== END 2023-01-15 12:26 | disposition home or self-care (01) ==
PROVIDERS: PCP Pediatrics; Visit Provider Orthopaedic Surgery
PROC: (CPT 64721; principal; 2023-01-15 11:20)
PROC: (CPT 26055; 2023-01-15 11:20)
DX: G56.02 Carpal tunnel syndrome, left upper limb (principal); M65.332 Trigger finger, left middle finger; R20.0 Anesthesia of skin; J45.909 Unspecified asthma, uncomplicated; I10 Essential (primary) hypertension; D50.9 Iron deficiency anemia, unspecified; E03.9 Hypothyroidism, unspecified; F32.A Depression, unspecified; E55.9 Vitamin D deficiency, unspecified; Z86.16 Personal history of COVID-19; Z96.652 Presence of left artificial knee joint
CPT/HCPCS: 64721; 26055; J0171

== ENCOUNTER → 2023-01-15 08:46 | Outpatient (BNV) | payer MEDICAID, SELFPAY | PROVIDERS: PCP Pediatrics; Visit Provider Orthopaedic Surgery | DX: G56.02 Carpal tunnel syndrome, left upper limb (principal); M65.332 Trigger finger, left middle finger | CPT/HCPCS: 26055; 64721 ==

== ENCOUNTER 2023-01-23 13:50 | Outpatient (AMB) | payer MEDICAID, SELFPAY ==
--- NOTE | 2023-01-23 14:00 | A.OFFVIS_ITS ---
Intake Vital Signs 01/23/23 14:01 Height 4 ft 11 in Weight 200 lb BMI 40.4 Intake Visit Reasons: P/O-Lt CTR, Lt MF Trigger 01/15 AR wound check Intake Note: Alecia 53 yr old female presents for a wound check for her P/O left CTR and left MF trigger release from 01/15/23. States she has increase swelling and wants to make sure there is no infection. Allergies No Known Allergies Allergy (Verified 01/23/23 14:06) HPI P/O-Lt CTR, Lt MF Trigger 01/15 AR wound check HPI Details Alecia is a 53 year old right hand dominant woman who presents S/P left carpal tunnel release & middle finger trigger release, DOS: 01/15/[address] Berry. She is concerned about increased swelling today. She denies any fever or chills. 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 Mother No problems noted. 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 Review of Systems Const All systems reviewed & are unremarkable except as noted in HPI and below Physical Exam Vital Signs: BMI result Body Mass Index 40.4 Const General: no acute distress, alert and awake Orientation/consciousness: patient oriented x3 HEENT Head: Yes normocephalic and Yes atraumatic Eyes EOM: EOMs intact bilaterally Resp Effort & Inspection: normal respiratory effort and able to speak in complete sentences Cardio Jugular venous distension: no JVD Skin General skin exam: turgor normal Rashes: no rashes Neuro General: patient oriented x3 Extrem Other: Left hand: Carpal tunnel and middle finger trigger finger incision sites are clean, dry, and intact. Sutures intact. No surrounding erythema or drainage. No signs of infection. Sensation intact. Cap refill brisk. Psych Affect: normal affect Attitude: cooperative Assessment & Plan Assessment & Plan (1) Status post carpal tunnel release: Code(s): Z98.890 - Other specified postprocedural states (2) Status post trigger finger release: Code(s): Z98.890 - Other specified postprocedural states Plan Alecia is a 53 year old right hand dominant woman who presents S/P left carpal tunnel release & middle finger trigger release, DOS: 01/15/[address] Berry. She is concerned about increased swelling today. She denies any fever or chills. There were no signs of infection at today's appointment. Her incision sites were re-dressed per request with instruction that she is allowed to remove them at home. She is able to wash her hands. She was educated on signs of infection, which include but are not limited to erythema, edema, drainage, or warmth. If she is to experience any of these symptoms she is to contact the office immediately or present to the ED for evaluation. She will follow up for her regularly scheduled post-op appointment, sooner prn. Patient Instructions: Scribed for Teresita Colon PA-C by Manuel Sierra, biomedical engineer, on 01/23/23 at 2:10 PM EST. Coding Level of Care Code Global (45804) Diagnoses Status post carpal tunnel release Z98.890 Status post trigger finger release Z98.890
[2023-01-23 14:01] VITALS: BMI 40.4
== END 2023-01-23 14:39 | disposition home or self-care (01) ==
PROVIDERS: PCP Pediatrics; Visit Provider Physician Assistant
DX: G56.02 Carpal tunnel syndrome, left upper limb (principal)
CPT/HCPCS: 99024

== ENCOUNTER → 2023-01-23 13:50 | Outpatient (BNVA) | payer MEDICAID, SELFPAY | PROVIDERS: PCP Pediatrics; Visit Provider Physician Assistant | DX: Z98.890 Other specified postprocedural states (principal) | CPT/HCPCS: 99212 ==

== ENCOUNTER 2023-01-29 09:51 | Outpatient (AMB) | payer MEDICAID, SELFPAY ==
--- NOTE | 2023-01-29 09:54 | A.OFFVIS_ITS ---
Intake Vital Signs 01/29/23 09:57 Height 4 ft 11 in Weight 200 lb BMI 40.4 Intake Visit Reasons: PO-Lt CTR, Lt MF Trigger 01/15 AR Intake Note: Alecia a 53 year old female presents today for a post operative left CTR and MF trigger release, DOS 01/15/23. Patient reports that she continues to work on her ROM. States stiffness in the mornings. Intermittent pain with a pain level 1-2 out of 10. Her numbness and tingling has subsided. Allergies No Known Allergies Allergy (Verified 01/29/23 09:59) HPI PO-Lt CTR, Lt MF Trigger 01/15 AR HPI Details 53-year-old female who returns to the [facility] today for post-op left CTR & left middle finger trigger release, 01/15/[address] Berry. She states her numbness and tingling has subsided but she continues to have intermittent pain in her hand and rates the pain as about 2 on the scale of 0-10. She also reports she has stiffness in the mornings. She is working on her ROM as instructed. She is doing well overall and has no other concerns today. 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 Mother No problems noted. 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 No erythema or drainage. She can extend all digit and make a full fist. She has resolved numbness. Pulses are intact. There is no active catching or licking of the middle finger. Assessment & Plan Assessment & Plan (1) Status post carpal tunnel release: Code(s): Z98.890 - Other specified postprocedural states (2) Status post trigger finger release: Code(s): Z98.890 - Other specified postprocedural states Plan Sutures removed today, steri strips applied. 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 She will remain out of work till I see her back in 4-6 weeks, sooner if needed. Orders: Orders OT Evaluation and Treatment Today Z98.890 - Other specified postprocedural states Patient Instructions: Scribed for Dameon Murillo PA-C, by Jeff Dorado medical technologist hematology, on 01/29/2023 at 10:15 AM EST. IDameon PA-C, have personally reviewed and agree with the information entered by the scribe. Coding Level of Care Code Global (37626) Diagnoses Status post carpal tunnel release Z98.890 Status post trigger finger release Z98.890
[2023-01-29 09:57] VITALS: BMI 40.4
== END 2023-01-29 10:27 | disposition home or self-care (01) ==
PROVIDERS: PCP Pediatrics; Visit Provider Physician Assistant
DX: G56.02 Carpal tunnel syndrome, left upper limb (principal); M65.332 Trigger finger, left middle finger
CPT/HCPCS: 99024

== ENCOUNTER → 2023-01-29 09:51 | Outpatient (BNVA) | payer MEDICAID, SELFPAY | PROVIDERS: PCP Pediatrics; Visit Provider Physician Assistant | DX: Z47.89 Encounter for other orthopedic aftercare (principal); Z98.890 Other specified postprocedural states | CPT/HCPCS: 99212 ==

== ENCOUNTER 2023-02-26 13:51 | Outpatient (AMB) | payer MEDICAID, SELFPAY ==
--- NOTE | 2023-02-26 14:09 | A.OFFVIS_ITS ---
Intake Intake Visit Reasons: left CTR and MF trigger release, DOS 01/15/23. Intake Note: Alecia a 53 year old female presents today for a post operative left CTR and MF trigger release, DOS 01/15/23. Patient reports that she continues to have pain in her palm and wrist area. She continues to work with OT. Allergies No Known Allergies Allergy (Verified 01/29/23 09:59) HPI left CTR and MF trigger release, DOS 01/15/23. HPI Details 53-year-old female who returns to the [facility] today for post-op left CTR and middle finger trigger release, 01/15/23. She states she has intermittent pain in her palm and wrist area which is aggravated at night. She continues to work with occupational therapy with benefits. She finds relief with icing. She is doing well otherwise and has no other concerns today. [facility] Medical History Asthma Chronic allergic rhinitis Depression GERD (gastroesophageal reflux disease) Hypertension Hypothyroidism Insomnia Microcytic anemia Osteoarthritis of left AC (acromioclavicular) joint Personal history of COVID-19 [id number] syndrome Vitamin D deficiency Surgical History History of left knee replacement Family History Father No problems noted. Mother No problems noted. 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 She can extend all digit and make a full fist. She has resolved numbness. She has mild discomfort along the carpal tunnel incision, no evidence of fibrotic tissue. Pulses are intact. There is no active catching or licking of the middle finger. Assessment & Plan Assessment & Plan (1) Status post carpal tunnel release: Code(s): Z98.890 - Other specified postprocedural states (2) Status post trigger finger release: Code(s): Z98.890 - Other specified postprocedural states Plan She will continue working with occupational therapy. She will increase activity as tolerated but will remain out of work till she sees us back in [address] Berry, sooner if needed. Patient Instructions: Scribed for Dameon Murillo PA-C, by Jeff Dorado medical technologist clinical, on 02/26/2023 at 2:15 PM EST. I, Dameon Murillo PA-C, have personally reviewed and agree with the information entered by the scribe. Coding Level of Care Code Global (55391) Diagnoses Status post carpal tunnel release Z98.890 Status post trigger finger release Z98.890
== END 2023-02-26 14:37 | disposition home or self-care (01) ==
PROVIDERS: PCP Pediatrics; Visit Provider Physician Assistant
DX: M65.332 Trigger finger, left middle finger (principal); G56.01 Carpal tunnel syndrome, right upper limb
CPT/HCPCS: 99024

== ENCOUNTER → 2023-02-26 13:51 | Outpatient (BNVA) | payer MEDICAID, SELFPAY | PROVIDERS: PCP Pediatrics; Visit Provider Physician Assistant | DX: Z47.89 Encounter for other orthopedic aftercare (principal); Z98.890 Other specified postprocedural states | CPT/HCPCS: 99212 ==

== ENCOUNTER 2023-03-20 09:35 | Outpatient (REF) | payer MEDICAID, SELFPAY ==
[2023-03-20 08:06] VITALS: PULSE 80; RESP 16; O2SAT 98
--- NOTE | 2023-03-20 14:25 | PFT_ITS ---
Flows: FEV1: 63 % of predicted at 1.43 L FVC: 70 % of predicted at 1.95 L FEV1/FVC: 73 % Bronchodilator response: Present Volumes: Total lung capacity: 80 % of predicted at 3.46 L Residual volume: 121 % of predicted at 1.59 L Slow vital capacity: 61 % of predicted at 1.87 L Expiratory reserve volume: 51 % of predicted at 0.39 L Diffusion capacity: Mildly decreased, corrects to normal after adjustment for alveolar ventilation. Impression: Moderate obstructive with borderline restrictive ventilatory defects with positive bronchodilator response. Decreased diffusion capacity suggests emphysema. Decreased expiratory reserve volume suggests extrathoracic restriction likely secondary to abdominal obesity. Increased residual volume suggests air trapping. MTDD
== END 2023-03-20 09:36 | disposition home or self-care (01) ==
LOC: HO.RESP 09:35
PROVIDERS: PCP Pediatrics; Visit Provider Hospitalist
DX: J45.909 Unspecified asthma, uncomplicated (principal)
CPT/HCPCS: 94010; 94640; 94727; 94729

== ENCOUNTER → 2023-03-20 14:25 | Outpatient (BNV) | payer MEDICAID, SELFPAY | PROVIDERS: PCP Pediatrics; Visit Provider Internal Medicine Pulmonary Disease | DX: J45.909 Unspecified asthma, uncomplicated (principal) | CPT/HCPCS: 94060; 94727; 94729 ==

== ENCOUNTER 2023-03-22 08:30 | Outpatient (RCR) | payer MEDICAID, SELFPAY ==
--- NOTE | 2023-02-19 16:13 | MHC.OT.EP ---
[address] [phone] Occupational Therapy Plan of Care Patient Name: Alecia Joseph Date of Evaluation: 02/19/23 Diagnosis: Left CTR Left middle finger trigger release Pain Location: Left MF . ache , tender. Constant 3/10 , 10/10 at night Pain Score: 10 Pain Scale Used: Numeric (0 - 10) Aggravating Factors: Resting, forceful rn advice Alleviating Factors: Moving fingers Assessment: Pt is a 53 yo female 4 wks s/p left CTR and left MF trigger release. Pt reports worsening pain since MD follow up on 01/29/23. Previous pain low . Low constant MF pain ,3/10 during the day and 10/10 at night Today pt presents with mild residual left hand edema, scar hypersensitivity and low rn advice strength due to pain. Pt reports hand sensation WNL Pt will benefit from OT to improve left hand pain , and strength for improved hand function. 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 Thank you once again for your referral.
--- NOTE | 2023-03-22 09:57 | MHC.OT.DC ---
[address] [phone] F: [phone] Occupational Therapy Discharge Note Patient Name: Alecia Joseph Provider: Dameon Murillo Diagnosis: Left CTR Left middle finger trigger release Date of Surgery: 01/15/23 Date of Evaluation: 02/19/23 Date of Discharge: 03/22/23 Treatments to Date: 10 Cancellations to Date: 0 No Shows to Date: Discharge Status: Discharge Summary: Pt is 9 wks s/p left CTR and middle finger trigger release. Con't complaint of MF pain to carpal wrist limiting activities with gripping and lifting with her left non dominant hand . The pain is the worst at night interrupting sleep . Pain temporarily improves with after OT treatment and with wrist AROM. [employer] Cook strength WFL at 40 lb ,unchanged over the past few weeks. She reports continued tendency of dropping things from her left hand, unable to lift heavy things or do heavy work with her left hand . 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 No other significant change noted. Pt is independent with her HEP including scar management and has been consistant with keeping OT appointments. Electronically Signed By: Ching Carson OT CHT CLT Reviewed/agree with student documentation: Therapist: Please Sign and return to therapist, thank you for your referral.
== END 2023-03-22 09:58 | disposition home or self-care (01) ==
LOC: HO.OT 08:30
PROVIDERS: PCP Pediatrics; Visit Provider Physician Assistant
DX: Z98.890 Other specified postprocedural states (principal)
CPT/HCPCS: 97035; 97110; 97140; 97166; 97530

== ENCOUNTER 2023-04-10 10:07 | Outpatient (AMB) | payer MEDICAID, SELFPAY ==
[2023-04-10 10:14] VITALS: BMI 40.4
--- NOTE | 2023-04-10 10:14 | MHC.OFFVIS ---
Intake Vital Signs 04/10/23 10:14 Height 4 ft 11 in Weight 200 lb BMI 40.4 Intake Visit Reasons: PO-left CTR and MF trigger release, DOS 01/15/23. Intake Note: Alecia a 53 year old female presents today for a post operative left CTR and MF trigger release, DOS 01/15/23. 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 She has had good improvement in her numbness and tingling and she no longer has locking and catching. She is back to being able to use her hand for daytime activities like sweeping and cleaning, but mostly has trouble at night with pain in line with the flexor tendon sheath of the middle finger extending to the wrist. She has been working with OT hand therapy and was seen for 10 appointments. She had some improvement in symptoms but again still notes this pain particularly at night. 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 Allergies No Known Allergies Allergy (Verified 04/10/23 10:20) HPI PO-left CTR and MF trigger release, DOS 01/15/23. HPI Details Alecia is a 53 year old right hand dominant woman who returns S/P left carpal tunnel release & middle finger trigger release, DOS: 01/15/23. 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 She says she has lost her job after being out of work for so long. She complains of pain radiating from her middle finger down into her wrist, along with weakness. She says this has been present since her surgery, and is worse at night. She says her pain occurs primarily with use & stretching of her finger, but does not hurt to touch. She is unable to do any heavy lifting or other activities with her left hand, and says she has been dropping objects. She has completed a course of OT hand therapy, and d/c herself as she felt she was no longer improving. She says she was performing her exercises at home and she found temporary relief from icing her hand. 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 Mother No problems noted. 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 Review of Systems Const All systems reviewed & are unremarkable except as noted in HPI and below Physical Exam Vital Signs: BMI result Body Mass Index 40.4 Const General: no acute distress and alert Orientation/consciousness: patient oriented x3 Neuro General: patient oriented x3 Extrem Other: Evaluation of Right Upper Extremity: The patient is alert, oriented, and in no acute distress Neuro: Median, Ulnar, Radial nerves motor and sensory intact and sensation is normal to the tips of all digits Vascular: Cap refill brisk ROM: She can make a fist and extend all her digits No locking or catching She has no hypersensitivity over the middle finger trigger finger incision site or over the carpal tunnel incision site. Both of these wounds have healed well and are not particularly swollen. These areas are not particularly tender to palpation today. When actively extending her fingers, her middle finger MCP joint is held in more MCP flexion compared to adjacent digits When bringing her middle finger into full extension she feels a tightness & painful pulling along the flexor tendon sheath She reports pain that radiates from the middle finger down to the carpal tunnel, in line with the flexor tendon sheath No swelling or erythema Sensation is now normal to all digits. Psych Appearance: grossly normal Affect: normal affect Attitude: cooperative Assessment & Plan Assessment & Plan (1) Trigger finger, left middle finger: Code(s): M65.332 - Trigger finger, left middle finger (2) Left carpal tunnel syndrome: Code(s): G56.02 - Carpal tunnel syndrome, left upper limb Plan Assessment & Plan: 1. Right middle finger flexor tendon tightness Inpatient with a right middle finger trigger finger status post A1 willian release The patient complains of pain that radiates from the middle finger down to the carpal tunnel, in line with the flexor tendon. Symptoms are mostly at night now. 2. Left middle trigger finger, S/P release DOS: 01/15/23 No longer locking & catching 3. Left Carpal tunnel syndrome, S/P DOS: 01/15/23 Pre-operative symptoms intermittent, but daily, worse at night Now with normal sensation Actually thinks she is doing pretty well postoperatively. Her locking and catching is resolved as is the numbness and tingling in her hand. She does not have any hypersensitivity. I believe most of her discomfort is from some tightness in the flexor tendons of the right middle finger. She is able to use her hand for daily activities such as gripping a broom and sweeping? She should continue to work on stretching & ROM exercises at home. I think she is improving, and that this will improve with time. I would like for her to get back to using her hand for normal daily activities. I recommend she consider taking some ibuprofen or ibuprofen PM before bed to help with her nighttime pain.? She says that she lost her job. Regarding work I am going to write that she can work at light duty with a 5 lb weight limit for her right hand for 2 more weeks and then would be expected to be back at full duty. She will follow up in 2-3 months? 4. Right Carpal tunnel syndrome, mild-moderate Symptoms intermittent, but daily, worse at night No mention today. Scribed for Yelena Berry MD by Manuel Sierra, medical numerical control operator, on 04/10/23 at 10:30 AM, EST. Coding Level of Care Code Global (07267) Diagnoses Trigger finger, left middle finger M65.332 Left carpal tunnel syndrome G56.02
== END 2023-04-10 10:42 | disposition home or self-care (01) ==
PROVIDERS: PCP Pediatrics; Visit Provider Orthopaedic Surgery
DX: M65.332 Trigger finger, left middle finger (principal); G56.02 Carpal tunnel syndrome, left upper limb
CPT/HCPCS: 99024

== ENCOUNTER → 2023-04-10 10:07 | Outpatient (BNVA) | payer MEDICAID, SELFPAY | PROVIDERS: PCP Pediatrics; Visit Provider Orthopaedic Surgery | DX: Z47.89 Encounter for other orthopedic aftercare (principal); Z98.890 Other specified postprocedural states | CPT/HCPCS: 99212 ==

== ENCOUNTER 2023-05-01 10:06 | Outpatient (AMB) | payer MEDICAID, SELFPAY ==
[2023-05-01 10:34] VITALS: PULSE 68; O2SAT 99; BMI 40.4
--- NOTE | 2023-05-01 10:34 | A.OFFVIS_ITS ---
Intake Vital Signs 05/01/23 10:34 Height 4 ft 11 in Weight 199 lb 15.348 oz BMI 40.4 Pulse 68 Pulse Source Pulse Oximeter Pulse Oximetry (%) 99 Oxygen Delivery Method Room Air Intake Visit Reasons: Dyspnea Size Tester Required: No Allergies No Known Allergies Allergy (Verified 05/01/23 10:35) HPI HPI Comments History of Present Illness Details The patient is a 53-year-old woman with a known history of asthma who apparently was in her usual state health until back in March when she developed COVID-19. She was not hospitalized and she managed okay. However, after that her respiratory status has been worse. She has been noticing increasing chest tightness and shortness of breath. Subsequently in September she started having worsening shortness of breath and she did go to the ER. Her D- dimer was elevated and she did undergo a CT scan of the chest PE protocol. It did not demonstrate any evidence of any residual fibrosis or pneumonitis. However, she did have evidence of bronchitis. She was given prednisone. She has also been on Flovent and a rescue inhaler. The therapy has been partially helpful. We will continue trying to optimize her respiratory therapy at this time. In the meantime she did get vaccinated for COVID-19. 03/21/2022 The patient is here for pulm onary follow-up visit. She complains of still having some dyspnea on exertion chest tightness and wheezing. Gdyw-yw-uokcwhvs severity. The Symbicort has been helpful but only partially. She is still using her rescue inhaler regularly. In addition to this the patient does complaint of and dizziness. She has been dizzy now for last few days. Typically worse when she stands up. In the office her blood pressure was low. She does take blood pressure medications. I emphasized to her that she needs to reach out to her primary care doctor sick they can adjust her blood pressure medications. will try to optimize further her respiratory therapy. Will follow-up in the next 2-3 months. 06/16/2022 the patient is here for a pullili black follow-up visit. The patient overall is doing better. She has been using the inhaler with better response. Has not required any prednisone. Has been using her rescue inhaler less than twice a week. Having allergy symptoms on loratidine and singulair. She also has her nasal spray. Her bloodwork was completed and demonstrated normal eosinophil count. 12/19/2022 the patient is here for a pulmonary follow-up visit. She continues to have significant respiratory complaints. Chest tightness and wheezing coughing. Her inhalers have only be partially helpful. Although she has not been taking the breast drip. Apparently was not covered. She has been on Spiriva and also on a rescue inhaler. Will go ahead and switch her over to Trelegy inhaler. The patient does benefit from the ease of the medication in order for her to be more adherent to the therapy and have the most optimized therapy. In addition to that she continues to receive allergy shots. 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 The patient will have pulmonary function studies again. We did talk about pulmonary rehabilitation specially after having COVID-19. However this is difficult because the patient continues to work. Therefore, she can consider underlying pulmonary rehab or going to a exercise facility. Will follow-up after her PFTs. 05/01/2023 the patient is here for a pulm onary follow-up visit. Overall the patient has been doing a lot better. She is starting to exercise more regularly she is very proud of herself because she is able to jog for period of time. Where before she could not do any type of exercise activity. She has been struggling with inhalers however. She does not tolerate the Ellipta device because the powder makes her nauseous. Therefore she has not been taking any of them. She does have multiple different inhalers including Breo, Incruse and Trelegy. She rather Spiriva that works well for her. She did have pulmonary function studies which we personally reviewed. She does have reversible obstruction consistent with asthma. She will continue with Spiriva for now. She will also use the albuterol as needed prior to exercise. If he looks a she needs a long-acting albuterol inhaled cortical steroid we can always try her and non powder formulation. [facility] Medical History Asthma Chronic allergic rhinitis Depression GERD (gastroesophageal reflux disease) Hypertension Hypothyroidism Insomnia Microcytic anemia Osteoarthritis of left AC (acromioclavicular) joint Personal history of COVID-19 [id number] syndrome Vitamin D deficiency Surgical History History of left knee replacement Family History Father No problems noted. Mother No problems noted. 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 Review of Systems Const Denies fever(s) ENT Reports nasal discharge Card Denies chest pain and Reports dyspnea on exertion Resp Reports cough, Reports dyspnea on exertion and Reports wheezing GI Denies abdominal pain Musc Denies no additional complaints Neuro Denies Neuro-related abnormal movements Psych Denies no additional complaints Dewayne/Lymph Denies easy bleeding and Denies lymphadenopathy Aller/Immun Reports wheezing Physical Exam Vital Signs: Last Vital Signs Pulse 68 05/01/23 10:34 Pulse Ox 99 05/01/23 10:34 Oxygen Delivery Method Room Air 05/01/23 10:34 BMI result Body Mass Index 40.4 Const General: alert Neck Neck: Yes normal visual inspection, Yes full ROM and Yes no lymphadenopathy Chest Chest palpation & inspection: normal inspection of the chest Resp Auscultation: no wheezes and diminished lung sounds Cardio Rate: regular rate Rhythm: regular rhythm Heart sounds: S1 normal heart sound present and S2 normal heart sound present GI Palpation (GI): Soft to palpation and nontender Auscultation: normal bowel sounds Skin General skin exam: rashes and/or lesions noted Assessment & Plan Assessment & Plan (1) Asthma: Code(s): J45.909 - Unspecified asthma, uncomplicated Qualifiers: Asthma severity: moderate Asthma persistence: persistent Asthma complication type: uncomplicated Qualified Code(s): J45.40 - Moderate persistent asthma, uncomplicated (2) Chronic allergic rhinitis: Code(s): J30.9 - Allergic rhinitis, unspecified Plan stop Breztri 2 puff BID stop Trelegy 200, does not tolerate the powder inhalers start Spiriva IRASEMA as needed allergy therapy EpiPen F/U 8-12 months Medications: New albuterol sulfate 90 mcg/actuation (Ventolin HFA) 2 puffs inhalation Q6H 30 days PRN 8.5 grams 6RF shortness of breath or wheezing Refilled tiotropium bromide 2.5 mcg/actuation (Spiriva Respimat) 2 puffs inhalation DAILY 30 days 1 ea 11RF Coding Level of Care Code Est Pt Level 4 (18245) Diagnoses Moderate persistent asthma without complication J45.40 Asthma severity: moderate Asthma persistence: persistent Asthma complication type: uncomplicated Chronic allergic rhinitis J30.9 Time Spent (min) 17
== END 2023-05-01 10:52 | disposition home or self-care (01) ==
PROVIDERS: PCP Pediatrics; Visit Provider Hospitalist
DX: J45.40 Moderate persistent asthma, uncomplicated (principal); J30.9 Allergic rhinitis, unspecified
CPT/HCPCS: 99214

== ENCOUNTER → 2023-05-01 10:06 | Outpatient (BNVA) | payer MEDICAID, SELFPAY | PROVIDERS: PCP Pediatrics; Visit Provider Hospitalist | DX: J45.40 Moderate persistent asthma, uncomplicated (principal); J30.9 Allergic rhinitis, unspecified | CPT/HCPCS: 99212 ==

== ENCOUNTER 2023-06-20 19:58 | Emergency (ER) | payer MEDICAID, SELFPAY ==
--- NOTE | ~2023-06-20 | US_ITS ---
EXAMINATION: US ABDOMEN LIMITED CLINICAL INFORMATION: Right upper quadrant pain. COMPARISON: None available. TECHNIQUE: Real-time imaging of the right upper quadrant abdominal viscera focusing on the gallbladder and common bile duct. FINDINGS: GALLBLADDER: Gallbladder is physiologically distended. Gallbladder wall thickness is within normal limits. No shadowing gallstones are seen. There is suggestion of a gallbladder polyp measuring up to 0.5 cm. COMMON BILE DUCT: Normal in caliber measuring 0.3 cm in diameter. US/US abdomen limited IMPRESSION: No acute findings identified. Suggestion of a gallbladder polyp measuring up to 0.5 cm.
[2023-06-20 20:24] VITALS: BP 151/80; PULSE 74; RESP 16; TEMP 37.2; O2SAT 97; BMI 40.4
--- NOTE | 2023-06-20 20:26 | ED.GENADULT ---
HPI - General Adult General Chief complaint: Abdominal Pain Stated complaint: upper abd pain, vomiting Time Seen by Provider: 06/21/23 01:33 Source: patient Mode of arrival: ambulatory History of Present Illness HPI narrative: 53-year-old female reports that she had sudden, acute onset of right upper quadrant/epigastric pain and denies any radiation but states that she had immediate development of nausea and vomiting, says she still has her gallbladder, denies any obstipation/diarrhea/dysuria and only reports associated chills with the pain that she was experiencing. Related Data Home Medications ?Medication ?Instructions ?Recorded ?Confirmed bupropion HCl 300 mg 24 hr tablet, 300 mg PO QAM 12/08/19 12/19/22 extended release (Wellbutrin XL) nabumetone 500 mg tablet 500 mg PO BID 12/08/19 12/19/22 omeprazole 20 mg capsule,delayed 20 mg PO DAILY 12/08/19 12/19/22 release cholecalciferol (vitamin D3) 25 1 cap PO DAILY 05/07/20 12/19/22 mcg (1,000 unit) capsule (Vitamin D3) ferrous sulfate 325 mg (65 mg 1 tab PO TID 05/07/20 12/19/22 iron) tablet levothyroxine 200 mcg tablet 1 tab PO DAILY 05/07/20 12/19/22 lisinopril 20 1 tab PO DAILY 05/07/20 12/19/22 mg-hydrochlorothiazide 25 mg tablet loratadine 10 mg tablet 1 tab PO DAILY 05/07/20 12/19/22 melatonin 5 mg tablet 1 tab PO BEDTIME 05/07/20 12/19/22 fexofenadine 180 mg tablet 180 mg PO DAILY 01/13/21 12/19/22 epinephrine 0.3 mg/0.3 mL IM DIRECTED 01/19/22 12/19/22 injection, auto-injector Previous Rx's ?Medication ?Instructions ?Recorded montelukast 10 mg tablet 10 mg PO BEDTIME 30 days #30 tabs 01/13/21 (Singulair) meclizine 50 mg tablet 50 mg PO BID PRN motion sickness 03/30/22 #10 tabs albuterol sulfate 90 mcg/actuation 2 puff inhalation Q6H PRN 05/01/23 aerosol inhaler (Ventolin HFA) shortness of breath or wheezing 30 days #8.5 grams tiotropium bromide 2.5 2 puff inhalation DAILY 30 days #1 05/01/23 mcg/actuation mist for inhalation ea (Spiriva Respimat) Allergies Allergy/AdvReac Type Severity Reaction Status Date / Time No Known Allergies Allergy Verified 06/20/23 20:27 Review of Systems Review of Systems: Pertinent positives and negatives as stated in [facility] Past Medical History Source: nursing notes reviewed Medical History Chronic allergic rhinitis 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 Mother No problems noted. 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 GENERAL: Elevated BMI, Well developed, well nourished, in no acute distress. HEAD: Normocephalic/atraumatic EYES: PERRLA, EOMI EARS: Ext canals without abnormality NOSE: Nares patent bilateral OROPHARYNX: no oral lesions noted, posterior pharynx clear NECK: Supple, no adenopathy LUNGS: Normal breath sounds. No adventitious sounds or accessory muscle use. SpO2<98> CARDIOVASCULAR: Regular rate and rhythm without noted murmurs ABDOMEN: Soft, right upper quadrant pain, Mares's positive, non-distended with bowel sounds. MUSCULOSKELETAL: No tenderness, deformities, or effusions noted on gross inspection. EXTREMITIES: No cyanosis, clubbing or edema. SKIN: Inspection of the skin reveals no rashes NEUROLOGIC: Alert and oriented x 4. Strength and sensation to light touch were grossly intact x 4. Course Course Course Narrative: This is a Rapid Medical Examination (RME) performed by Leti Hawley PA-C in triage. Full HPI, ROS, assessment and treatment plan per primary provider in the Main ED. 53 yo female hx of carpal tunnel, asthma, anemia, hypotension presents to ED for eval of epigastric pain, nausea, and vomiting x2 hrs. last vomited [employer] in ED. no history of abdominal surgeries. denies etoh consumption. carries an epi pen for unknown allergy , states I am allergic to something but they don't know what it is . Denies hx of anaphylaxis.obese abd, soft, nd/nt. no rebound or guarding. Plan: labs, viral serology +/- imaging per primary provider Medications Administered Discontinued Medications Generic Name Dose Route Start Last Admin Trade Name Freq PRN Reason Stop Dose Admin Sodium Chloride 1,000 mls @ 999 mls/hr 06/21/23 03:15 06/21/23 04:48 Ns IV 06/21/23 04:15 Infused .Q1H1M AIDEN Infusion Ketorolac Tromethamine 15 mg 06/21/23 03:12 06/21/23 03:38 Ketorolac Tromethamine 30 Mg/Ml Vial IVPUSH 06/21/23 03:13 15 mg ONCE ONE Administration Ondansetron HCl 4 mg 06/21/23 03:12 06/21/23 03:38 Ondansetron Hcl 4 Mg/2 Ml Vial IVPUSH 06/21/23 03:13 4 mg ONCE ONE Administration Medical Decision Making Medical Decision Making [facility] Narrative: 0245: 53-year-old female with history and clinical presentation, DDX: Cholecystitis, gastritis, pancreatitis INTERVENTION: IV fluids, antiemetics, pain medication, antibiotics, right upper quadrant ultrasound I reviewed all investigations and patient has hematologic indices that show a leukocytosis with a left shift but no anemia or thrombocytopenia. Chemistry disease do not demonstrate an SG, there is a mild hypokalemia which was repleted with 60 mEq of potassium chloride. Otherwise, liver enzymes are within normal limits and lipase is within normal limits. Urinalysis negative for UTI or hematuria. Viral testing negative for influenza/RSV/COVID-19. Ultrasound was negative for acute findings other than 0.5 cm gallbladder polyp. Patient is feeling improved, there is a possibility that this was acute episode of gastritis although this seems unlikely and suspect a potential biliary colic. Patient is otherwise discharged. Differential Diagnosis Differential Diagnoses: The differential diagnosis associated with the presentation includes Please see the discussion above Admission/Observation Consideration of admission/observation: Escalation of care including admission/observation considered Please see the discussion above Lab Data MDM Lab Attestation statement: I reviewed the patient's lab results. Please see the discussion above 06/20/23 21:26 06/20/23 21:26 Labs: Lab Results 06/20/23 06/21/23 06/21/23 Range/Units 21:26 02:40 03:22 WBC 12.6 H (4.8-10.8) X10*3/uL RBC 4.77 (4.20-5.50) X10*6/uL Hgb 13.9 (12.0-16.0) g/dl Hct 41.8 (37.0-47.0) % MCV 87.6 (80.0-98.0) fL MCH 29.1 (27.0-33.0) pg MCHC 33.3 (31.0-35.0) g/dl RDW 12.8 (11.0-16.0) % Plt Count 177 D (160-400) X10*3/uL MPV 11.1 (9.4-12.3) fL Immature Gran % (Auto) 0.4 (0.0-0.4) % Neut % (Auto) 82.3 H (45-73) % Lymph % (Auto) 12.6 L (20-40) % Kinney % (Auto) 3.6 (2-11) % Eos % (Auto) 0.5 (0-4) % Baso % (Auto) 0.6 (0-2) % Lymph # (Auto) 1.6 (1.2-4.9) X10*3/uL Kinney # (Auto) 0.5 (0.1-1.2) X10*3/uL Eos # (Auto) 0.1 (0.0-0.4) X10*3/uL Baso # (Auto) 0.1 (0.0-0.2) X10*3/uL Abs Immat Gran (auto) 0.05 H (0.00-0.03) X10*3/uL Absolute Neuts (auto) 10.4 H (2.0-8.3) x10*3/uL Absolute Nucleated RBC 0.000 (0.0-0.012) X10*3/uL Nucleated RBC % (auto) 0.0 (0.0-0.2) /100WBC Sodium 140 (135-145) mmol/L Potassium 3.1 L (3.3-5.1) mmol/L Chloride 103 (96-108) mmol/L Carbon Dioxide 23 (22-29) mmol/L Anion Gap 17 (12-20) BUN 17 H (9-16) mg/dL Creatinine 0.65 (0.5-1.4) mg/dL Estim Creat Clear Calc 98.3 Estimated GFR > 60 Random Glucose 133 H (60-115) mg/dL Lactic Acid 1.1 (0.5-2.0) mmol/L Calcium 10.2 D (8.4-10.2) mg/dL Magnesium 1.9 (1.6-2.6) mg/dL Total Bilirubin 0.7 (0.0-1.0) mg/dL AST 22 (5-31) U/L ALT 28 (0-31) U/L Alkaline Phosphatase 82 (39-117) U/L Total Protein 7.6 (6.5-8.0) g/dL Albumin 4.3 (3.5-5.0) g/dL Lipase 25 (8-78) U/L Urine Color Yellow Urine Appearance Clear Urine pH 5.5 (5.0-9.0) Ur Specific [place] 1.015 (1.005-1.025) Urine Protein Negative (Neg-Trace) mg/dL Urine Glucose (UA) Negative (Negative) mg/dL Urine Ketones Negative (Negative) mg/dL Urine Blood Negative (Negative) Urine Nitrite Negative (Negative) Ur Leukocyte Esterase Negative (Negative) Influenza Type A (PCR) NEGATIVE (Negative) Influenza Type B (PCR) NEGATIVE (Negative) RSV RNA Qual (PCR) NEGATIVE (Negative) SARS-CoV-2 RNA (RT-PCR) NEGATIVE (Negative) Radiology Impression Discussion of test interpretation with radiology: I have reviewed the radiologist's reading. Radiologist Impression: Please see the discussion above External Record Review External record reviewed: Outpatient record and Prior outpatient labs Critical Care Time Critical Care Time Critical Care Time: Yes Total Critical Care Time: 45 Attestation: I personally attest to this time spent taking care of the patient. Discharge Plan Discharge Clinical Impression: Epigastric abdominal pain Patient Disposition: Home, Self-Care Instructions: Epigastric Pain (ED) Additional Instructions: 1. Resume all home medications as prescribed. 2. Recommend follow-up with your primary care doctor within the next week. Return to the ER for any worsening symptoms. Prescriptions: No Action ferrous sulfate 325 mg (65 mg iron) tablet 1 tab PO TID lisinopril-hydrochlorothiazide 20-25 mg tablet 1 tab PO DAILY levothyroxine 200 mcg tablet 1 tab PO DAILY loratadine 10 mg tablet 1 tab PO DAILY cholecalciferol (vitamin D3) [Vitamin D3] 25 mcg (1,000 unit) capsule 1 cap PO DAILY melatonin 5 mg tablet 1 tab PO BEDTIME meclizine 50 mg tablet 50 mg PO BID PRN (Reason: motion sickness) Qty: 10 0RF fexofenadine 180 mg tablet 180 mg PO DAILY nabumetone 500 mg tablet 500 mg PO BID omeprazole 20 mg capsule,delayed release(DR/EC) 20 mg PO DAILY bupropion HCl [Wellbutrin XL] 300 mg tablet extended release 24 hr 300 mg PO QAM montelukast [Singulair] 10 mg tablet 10 mg PO BEDTIME 30 Days Qty: 30 11RF epinephrine 0.3 mg/0.3 mL auto-injector IM DIRECTED albuterol sulfate [Ventolin HFA] 90 mcg/actuation HFA aerosol inhaler 2 puff inhalation Q6H PRN (Reason: shortness of breath or wheezing) 30 Days Qty: 8.5 6RF Spiriva Respimat 2.5 mcg/actuation mist 2 puff inhalation DAILY 30 Days Qty: 1 11RF Referrals: Rehana Hathaway MD [Primary Care Provider] - Print Language: [place]
[2023-06-20 21:29] LABS: MANUAL DIFF FLAG NO
[2023-06-20 21:31] LABS: Basophils Absolute Auto 0.1 X10*3/uL (0.0-0.2); Basophils Percent Auto 0.6 % (0-2); Eosinophils Absolute Auto 0.1 X10*3/uL (0.0-0.4); Eosinophils Percent Auto 0.5 % (0-4); Hematocrit 41.8 % (37.0-47.0); Hemoglobin 13.9 g/dl (12.0-16.0); Imm Gran Abs Auto 0.05 X10*3/uL (0.00-0.03); Imm Gran Pct Auto 0.4 % (0.0-0.4); Lymphocytes Absolute Auto 1.6 X10*3/uL (1.2-4.9); Lymphocytes Percent Auto 12.6 % (20-40); Mean Corpuscular HGB Conc 33.3 g/dl (31.0-35.0); Mean Corpuscular Hemoglobin 29.1 pg (27.0-33.0); Mean Corpuscular Volume 87.6 fL (80.0-98.0); Mean Platelet Volume 11.1 fL (9.4-12.3); Monocytes Absolute Auto 0.5 X10*3/uL (0.1-1.2); Monocytes Percent Auto 3.6 % (2-11); Neutrophils Absolute Auto 10.4 x10*3/uL (2.0-8.3); Neutrophils Percent Auto 82.3 % (45-73); Platelet Count 177 X10*3/uL (160-400); Red Blood Count 4.77 X10*6/uL (4.20-5.50); Red Cell Distribution Width 12.8 % (11.0-16.0); White Blood Count 12.6 X10*3/uL (4.8-10.8)
[2023-06-20 21:47] LABS: Alanine Aminotransferase 28 U/L (0-31); Albumin Level 4.3 g/dL (3.5-5.0); Alkaline Phosphatase 82 U/L (39-117); Anion Gap 17 (12-20); Aspartate Amino Transferase 22 U/L (5-31); Bilirubin Total 0.7 mg/dL (0.0-1.0); Blood Urea Nitrogen 17 mg/dL (9-16); Calcium 10.2 mg/dL (8.4-10.2); Carbon Dioxide 23 mmol/L (22-29); Chloride 103 mmol/L (96-108); Creatinine Clr Calc Pharmacy 98.3; Estimated Glomerular Filt Rate > 60; Glucose Random 133 mg/dL (60-115); Lipase 25 U/L (8-78); Magnesium 1.9 mg/dL (1.6-2.6); Potassium 3.1 mmol/L (3.3-5.1); Sodium 140 mmol/L (135-145); Total Protein 7.6 g/dL (6.5-8.0)
[2023-06-20 22:09] LABS: Influenza A PCR NEGATIVE (Negative); Influenza B PCR NEGATIVE (Negative); Resp Syncy Virus RNA Qual PCR NEGATIVE (Negative); SARS COV2 PCR INHOUSE NEGATIVE (Negative)
--- OUTSIDE RECORDS SUMMARY | 2023-06-21 01:26 | XMS_ITS | Patient Health Record ---
Author Organization [facility] Address [address] [place] [address] Care Team Providers Care Health Inspector Food Name Role Phone Rivas ASIF, Rehana Primary Care Provider David Coats Jr Unavailable Yesica Velacso Unavailable Unavailable REASON FOR REFERRAL No Information [...] Problem Colon cancer screening (Z12.11) Active confirmed 402032618 Problem Microcytic anemia (D50.9) Active confirmed 076248433 Problem Gastroesophageal reflux disease, unspecified whether esophagitis present (K21.9) Active confirmed [id number] PLAN OF TREATMENT Future Test Test Name Order Date COLONOSCOPY 04/19/2020 Insurance Providers Payer Name Payer Address Payer Phone Subscriber Number Group Number Insured Name Patient Relationship to Insured Coverage Start Date Coverage End Date MEDICA[employer] OF [employer] [address] [place] [phone] [id number] CANDIDOHANNAH Self - patient is the insured MEDICAL (GENERAL) HISTORY Medical History History ICD Code asthma hypertension hyperthyroidism heartburn seasonal allergies Covid 19 infection, 03/22/20, quarantined at home, no treatment required Surgical History Surgery Date(Month/Year) Knee Replacement - left side
[2023-06-21 01:49] VITALS: BP 130/74; PULSE 61; RESP 16; TEMP 37.1; O2SAT 98
[2023-06-21 02:46] LABS: Appearance Urine Clear; Color Urine Yellow; Glucose Urine UA Negative (Negative); Leukocyte Esterase Urine Negative (Negative); Nitrite Urine Negative (Negative); PH 5.5 (5.0-9.0); Specific Gravity - Urine 1.015 (1.005-1.025); Urine Blood Negative (Negative); Urine Ketones Negative (Negative); Urine Protein Negative (Neg-Trace)
--- NOTE | 2023-06-21 02:50 | PC.NURSE ---
a&ox4. vss and up to date. pt presents to ED today d/t sudden onset epigastric pain. denies radiation. states she's been constantly nauseous with intermittent episodes of vomiting. denies diarrhea. abd nontender w/ palpation. pt states abd pain subsided at this time but she still feels extremely nauseous. no sob/wob noted. respirations even and unlabored. UA obtained/sent to lab. pt seen by ED provider/aware of plan of care. call maria placed within reach.
--- NOTE | 2023-06-21 03:36 | PC.NURSE ---
ultrasound bedside at this time.
[2023-06-21] MEDS: 0.9 % Sodium Chloride 1,000 ML 999 ML IV (03:38)
[2023-06-21] MEDS: ondansetron HCL 4 MG/2 ML VIAL IVPUSH (03:38)
[2023-06-21] MEDS: Ketorolac Tromethamine 30 MG/ML VIAL 15 MG IVPUSH (03:38)
[2023-06-21 03:39] LABS: Lactic Acid 1.1 mmol/L (0.5-2.0)
--- NOTE | 2023-06-21 03:41 | PC.NURSE ---
IVF/medication administered per provider order. effectiveness pending.
[2023-06-21 05:46] VITALS: BP 149/82; PULSE 73; RESP 16; TEMP 36.6; O2SAT 97
[2023-06-21] MEDS: Lidocaine HCl Viscous 2 % 15 ML SOLUTION 10 ML MUCOUS MEM (05:47)
[2023-06-21] MEDS: Potassium Chloride ER 20 MEQ TAB.ER.PRT 60 MEQ PO (05:47)
[2023-06-21] MEDS: Magnesium Hydrox/Alum Hydrox 30 ML ORAL.SUSP PO (05:47)
--- NOTE | 2023-06-21 05:53 | PC.NURSE ---
medication administered per provider order. IV d/c'd. pt provided w/ d/c paperwork.
[2023-06-21 05:54] VITALS: BP 149/82; PULSE 73; RESP 16; TEMP 36.6; O2SAT 97
== END 2023-06-21 05:54 | disposition home or self-care (01) ==
PROVIDERS: Physician Assistant Medical; Emergency Provider Student in an Organized Health Care Education/Training Program; PCP Pediatrics
DX: R10.11 Right upper quadrant pain (principal); R10.13 Epigastric pain; R11.2 Nausea with vomiting, unspecified; Z11.52 Encounter for screening for COVID-19; Z20.822 Contact with and (suspected) exposure to COVID-19; Z79.899 Other long term (current) drug therapy
CPT/HCPCS: 0241U; 36415; 76705; 80053; 81003; 83605; 83690; 83735; 85025; 87040; 96361; 96374; 96375; 99284; 99285; J1885; J2405

== ENCOUNTER 2023-07-10 08:45 | Outpatient (REF) | payer MEDICAID, SELFPAY ==
[2023-07-10 15:11] LABS: Estimated Average Glucose 117 mg/dL; Hemoglobin A1c % 5.7 % (<6.0)
[2023-07-10 15:32] LABS: Appearance Urine Clear; Color Urine Yellow; Glucose Urine UA Negative (Negative); Leukocyte Esterase Urine Trace (Negative); Nitrite Urine Negative (Negative); Specific Gravity - Urine 1.025 (1.005-1.025); UMIC TRIGGER UACC YES; Urine Blood Negative (Negative); Urine Ketones Negative (Negative); Urine Protein Negative (Neg-Trace)
[2023-07-10 15:32] LABS: Alanine Aminotransferase 35 U/L (0-31); Albumin Level 4.2 g/dL (3.5-5.0); Alkaline Phosphatase 94 U/L (39-117); Anion Gap 17 (12-20); Aspartate Amino Transferase 29 U/L (5-31); Bilirubin Total 0.9 mg/dL (0.0-1.0); Blood Urea Nitrogen 27 mg/dL (9-16); Calcium 10.3 mg/dL (8.4-10.2); Carbon Dioxide 22 mmol/L (22-29); Chloride 105 mmol/L (96-108); Cholesterol 207 mg/dL (<200); Estimated Glomerular Filt Rate > 60; Glucose Random 77 mg/dL (60-115); HDL Cholesterol 72 mg/dL (>40); LDL Cholesterol Calculated 116 mg/dL (<100); Potassium 3.6 mmol/L (3.3-5.1); Sodium 140 mmol/L (135-145); Total Protein 7.3 g/dL (6.5-8.0); Triglycerides 99 mg/dL (<150)
[2023-07-10 15:57] LABS: Bacteria Urine 1+ (None Seen); RBC Urine 0-2 /HPF (0-2); WBC Urine 0-5 /HPF (0-5)
== END 2023-07-10 08:46 | disposition home or self-care (01) ==
LOC: HO.CHCLDS 08:45
PROVIDERS: Visit Provider Pediatrics
DX: E66.3 Overweight (principal); J45.50 Severe persistent asthma, uncomplicated; E03.8 Other specified hypothyroidism; I10 Essential (primary) hypertension; R73.03 Prediabetes
CPT/HCPCS: 36415; 80053; 80061; 81001; 81003; 83036; 84439; 84443

== ENCOUNTER 2023-10-10 10:26 | Outpatient (REF) | payer MEDICAID, SELFPAY ==
--- NOTE | ~2023-10-10 | MM_ITS ---
EXAMINATION: MM SCREENING DIGITAL BREAST TOMOSYNTHESIS, BILATERAL CLINICAL INFORMATION: Screening. Asymptomatic. COMPARISON: Mammography: Comparison is made with available prior exams. TECHNIQUE: Digital breast tomosynthesis is performed in both the craniocaudal and mediolateral oblique views along with computer-aided detection (CAD). Synthesized 2D images are generated from the tomosynthesis. FINDINGS: There are scattered areas of fibroglandular density (ACR BI-RADS breast composition Category b). There are no significant masses, abnormal calcifications, or other abnormalities. MM/MM tomosynthesis screening BI IMPRESSION: No mammographic evidence of malignancy. ASSESSMENT: BI-RADS BI-RADS 1 - Negative RECOMMENDATION: Routine annual mammography screening. 1 year F/U This examination should not preclude the clinical evaluation of a suspicious palpable abnormality. This patient's information was entered into a reminder system with a target due date for their next mammogram. Electronically signed by: Teagan Tinoco DO 11/01/2023 05:59 PM EDT
== END 2023-10-10 10:27 | disposition home or self-care (01) ==
LOC: HO.MAMMO 10:26
PROVIDERS: PCP Pediatrics; Visit Provider Pediatrics
DX: Z12.31 Encounter for screening mammogram for malignant neoplasm of breast (principal)
CPT/HCPCS: 77063; 77067

== ENCOUNTER → 2023-10-10 10:45 | Outpatient (BNV) | payer MEDICAID, SELFPAY | PROVIDERS: PCP Pediatrics; Visit Provider Internal Medicine | DX: Z12.31 Encounter for screening mammogram for malignant neoplasm of breast (principal) | CPT/HCPCS: 77063; 77067 ==

== ENCOUNTER → 2023-10-10 14:17 | Outpatient (RCR) | payer MEDICAID, SELFPAY ==
[2020-03-01 10:52] VITALS: BP 136/80; PULSE 95; RESP 18; TEMP 36.8; O2SAT 98; BMI 41.0
[2020-03-01 11:43] LABS: MANUAL DIFF FLAG NO
[2020-03-01 11:51] LABS: Basophils Absolute Auto 0.1 X10*3/uL (0.0-0.2); Eosinophils Absolute Auto 0.1 X10*3/uL (0.0-0.4); Hematocrit 31.8 % (37-47); Hemoglobin 9.4 g/dl (12.0-16.0); Imm Gran Abs Auto 0.02 X10*3/uL (0.00-0.03); Imm Gran Pct Auto 0.2 % (0.0-0.4); Lymphocytes Absolute Auto 1.9 X10*3/uL (1.2-4.9); Lymphocytes Percent Auto 23.5 % (20-40); Mean Corpuscular HGB Conc 29.6 g/dl (31.0-35.0); Mean Corpuscular Hemoglobin 24.9 pg (27.0-33.0); Mean Corpuscular Volume 84.4 fL (80-98); Mean Platelet Volume 10.3 fL (9.4-12.3); Monocytes Absolute Auto 0.6 X10*3/uL (0.1-1.2); Neutrophils Absolute Auto 5.5 X10*3/uL (2.0-8.3); Neutrophils Percent Auto 67.3 % (45-73); Platelet Count 312 X10*3/uL (160-400); Red Blood Count 3.77 X10*6/uL (4.20-5.50); Red Cell Distribution Width 22.6 % (11.0-16.0); White Blood Count 8.2 X10*3/uL (4.8-10.8)
--- NOTE | 2020-03-01 12:00 | MHC.HEMONC ---
Intial Consult, labs obtained hgb 9.4 Dr. Velasco made aware, patient instructed to continue on oral iron. Being referred to GI for colonoscopy, refferal given to Deyanira Vilchis M.A. follow up in 3 months.
[2020-03-01 12:18] LABS: Alanine Aminotransferase 24 U/L (0-31); Albumin Level 4.2 g/dL (3.5-5.0); Alkaline Phosphatase 66 U/L (39-117); Anion Gap 13 (12-20); Aspartate Amino Transferase 18 U/L (5-31); Bilirubin Total 0.5 mg/dL (0.0-1.0); Blood Urea Nitrogen 16 mg/dL (9-16); Calcium 9.4 mg/dL (8.4-10.2); Carbon Dioxide 27 mmol/L (22-29); Chloride 99 mmol/L (96-108); Creatinine Clr Calc Pharmacy 87.7; Estimated Glomerular Filt Rate > 60; Glucose Random 115 mg/dL (60-115); Iron 93 mcg/dL (30-160); Percent Iron Saturation 19 % (15-50); Potassium 4.3 mmol/l (3.3-5.1); Sodium 135 mmol/L (135-145); Total Iron Binding Capacity 484 mcg/dL (228-428); Unsaturated Iron Binding 391 ug/dL
[2020-03-01 12:39] LABS: Ferritin 27 ng/mL (10-250)
[2020-03-01 12:50] LABS: Folate 17.6 ng/mL (> or = 4.0); Vitamin B12 189 pg/mL (200-900)
--- NOTE | 2020-03-01 13:05 | PM.HEMONCCN ---
Subjective - Subjective Chief complaint: Consult for microcytic anemia. Patient: new to practice Consult date: 03/01/20 Requesting Physician: brandon Riley. Primary Care Provider: Brandon Hathaway MD Medical Summary: DIAGNOSIS: ANEMIA. HPI - Consult Narrative Reason for consult: Anemia. Narrative: Alecia Joseph is a pleasant 50 year old lady, who had been tired lately. Review of her labs revealed: From February 04, CBC: WBC 7.1, HGB 8.3, HCT 27.1, MCV 75.3, PLT 383. Her iron studies: Serum iron 32, IBC 591, saturation 5, ferritin 9. Retic count 1.8. Vitamin B12: 500. She denies having had a heavy period. She did not have a period for 2 months and then she had it recently. She does get heartburn and indigestion. She is on Prilosec for that. She denies diarrhea. Denies any gross blood in the stools. She was actually started on iron a couple of weeks ago and has started feeling better. Prior to this she felt really fatigued and had no Pep. Her appetite is good. She has gained weight. She denies any family history of anemia or colon cancer however she does not seem to close with her family. 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 Currently under the circumstances she is working only with 1 client 4 hours a day. She would like to work more. She is not . She has 3 children youngest is 18 and lives with her. She smoked a pack-a-day quit on 10/31/2018. Denies alcohol. Review of Systems - Constitutional Reports system reviewed and no additional complaints, except as documented, Reports fatigue, Reports lack of energy, Reports malaise, Denies fever(s) - Eyes Reports system reviewed and no additional complaints, except as documented - ENT Reports system reviewed and no additional complaints, except as documented - Cardiovascular Reports system reviewed and no additional complaints, except as documented - Respiratory Reports no additional respiratory complaints - Gastrointestinal Reports system reviewed and no additional complaints, except as documented, Reports belching, Reports bloating, Denies bright, red blood in stools, Denies change in stools - Genitourinary Reports no additional female genitourinary complaints - Musculoskeletal Reports system reviewed and no additional complaints, except as documented - Integumentary/Breasts Skin/Breast: Reports no additional skin complaints - Neurologic Reports system reviewed and no additional complaints, except as documented - Psychiatric Reports system reviewed and no additional complaints, except as documented - Endocrine Reports no additional endocrine complaints - Hematologic/Lymphatic Reports system reviewed and no additional complaints, except as documented - Allergic/Immunologic Reports system reviewed and no additional complaints, except as documented [facility] Medical History: Medical History (Last Updated 03/01/20 @ 10:57 by Vivian Alvarado RN) Depression Hypertension Hypothyroidism Insomnia Microcytic anemia Osteoarthritis of left AC (acromioclavicular) joint Vitamin D deficiency Functional capacity: independent ambulation Patient : No Family History: Family History (Last Updated 12/08/19 @ 10:26 by Ofelia Perales CMA) Father No problems noted. Mother No problems noted. Surgical History: Surgical History (Last Updated 03/01/20 @ 10:58 by Vivian Alvarado RN) History of left knee replacement Smoking status: Former smoker Home Medications and Allergies Home Medications Medication Instructions Recorded Confirmed Type albuterol sulfate 90 mcg/actuation 1 inh INHALATION QID 12/08/19 03/01/20 History aerosol inhaler bupropion HCl 300 mg 24 hr tablet, 300 mg PO QAM 12/08/19 03/01/20 History extended release lisinopril 20 mg tablet 20 mg PO DAILY 12/08/19 03/01/20 History nabumetone 500 mg tablet 500 mg PO BID 12/08/19 03/01/20 History naproxen 500 mg tablet 500 mg PO BID 12/08/19 03/01/20 History omeprazole 20 mg capsule,delayed 20 mg PO DAILY 12/08/19 03/01/20 History release Allergies Allergy/AdvReac Type Severity Reaction Status Date / Time No Known Allergies Allergy Verified 03/01/20 11:00 Physical Exam Vital signs: Vital Signs Temp 98.2 F 03/01/20 10:52 Pulse 95 03/01/20 10:52 Resp 18 03/01/20 10:52 BP 136/80 03/01/20 10:52 Pulse Ox 98 03/01/20 10:52 Intake & Output 02/29/20 03/01/20 03/01/20 18:59 06:59 18:59 Other: Weight 92.2 kg Weight 92.2 kg - Constitutional Present: no acute distress - Routine HEENT Exam Head: Present: normal inspection ENT: Present: mucous membranes moist - Routine Neck Exam Present: supple - Routine Abdominal Exam Present: soft, nontender - Routine Rectal Exam Patient deferred: digital exam - Routine Skin Exam Present: intact - Routine Neurological Exam Present: alert, oriented X3, vision grossly intact, tremors - Detailed Neurological Exam: Coma Scale Eye Opening: Spontaneous (4) Verbal Response: Oriented (5) Hem/Onc Consult Result - Labs CBC & Chem 7: 03/01/20 11:42 03/01/20 11:42 Labs: Short CBC 03/01/20 Range/Units 11:42 WBC 8.2 (4.8-10.8) X10*3/uL Hgb 9.4 L (12.0-16.0) g/dl Hct 31.8 L (37-47) % Plt Count 312 (160-400) X10*3/uL BMP 03/01/20 11:42 Sodium 135 Potassium 4.3 Chloride 99 Carbon Dioxide 27 BUN 16 Creatinine 0.76 Calcium 9.4 Liver Function 03/01/20 Range/Units 11:42 Total Bilirubin 0.5 (0.0-1.0) mg/dL AST 18 (5-31) U/L ALT 24 (0-31) U/L Alkaline Phosphatase 66 (39-117) U/L Albumin 4.2 (3.5-5.0) g/dL Assessment and Plan (1) Anemia Status: Acute This is a pleasant 50 year old lady, with a history of microcytic hypochromic anemia. Iron indices are consistent with iron deficiency anemia. Differential diagnosis: 1. Her iron deficiency could be related to occult GI bleeding. 2. Other possibility is that of iron malabsorption related to something like celiac disease. 3. She could have coexisting B12 deficiency, in that case. 4. Hemolytic anemia: Less likely. 5. ACD. 6. Her underlying myelo infiltrative disorder: Not likely, at her age with normal rest of the count. PLAN: I will proceed with further evaluation. Check iron studies. Check celiac disease profile. Check B12 and folate levels to rule out any associated deficiency. She has started taking oral iron, her hemoglobin hematocrit of actually improved. She is tolerating it except for mild constipation. Taking 2 pills togather, with a full glass, in the morning appears to be helping. She will continue on the p.o. iron. Will refer her for further GI evaluation. She is due for her screening colonoscopy at her age anyways. She will return in 3 months for a follow up visit. Thank you, CC: Dr. Brandon Hathaway. Dr. Holland Cancino.
--- NOTE | 2020-03-01 13:32 | MHC.HEMONCMA ---
Patient saw Rod for Oncology consult, Dr Velasco would like patient to have a GI consult for anemia and a colonoscopy since she is 50 years old and needs her screening one done. I called and left a voicemail for Dr Cancino' office to call me back to schedule.
[2020-03-02 15:32] LABS: Transglutaminase IgA 1 U/mL
== END | disposition home or self-care (01) ==
LOC: HO.ONC 03-01 10:36
PROVIDERS: PCP Pediatrics; Referring Provider Pediatrics; Visit Provider Internal Medicine Medical Oncology
DX: D50.9 Iron deficiency anemia, unspecified (principal); K59.00 Constipation, unspecified; Z79.899 Other long term (current) drug therapy
CPT/HCPCS: 36415; 80053; 82607; 82728; 82746; 83516; 83540; 85025; 99204

== ENCOUNTER 2023-10-23 10:46 | Outpatient (AMB) | payer MEDICAID, SELFPAY ==
--- NOTE | 2023-10-23 10:51 | A.OFFVIS_ITS ---
Vital Signs 10/23/23 10:55 Height 4 ft 11 in Weight 162 lb BMI 32.7 Handedness Right Intake Visit Reasons: Lt MF Finger Pain S/P LT CTR&MF Trigger 01/15/23 Intake Note: Alecia is a 53 year old right hand dominant female who presents today for a follow up visit for her left middle finger pain S/P Left Carpal Tunnel & Middle Finger Trigger Release DOS: 01/15/2023 w/ Dr Berry. Patient reports she is having weakness in her left hand from her middle finger pain. Her symptoms returned about a month or two ago shes says. Reports continued numbness and tingling, she feels as if she is back to step one and her symptoms of her carpal tunnel returned. Numbness and tingling in the 2nd, 3rd, and 4th digits of left hand, mostly in the 2nd and 3rd. She continued doing home exercises after she completed OT. She is having intermittent locking of her left middle finger. Her symptoms worsen at night so she tries a braces but this do not offer relief, it makes her feel stiffer. Patient says her brace is stretched out and would like to see if a new one would help. Allergies No Known Allergies Allergy (Verified 10/23/23 11:02) HPI HPI Lt MF Finger Pain S/P LT CTR&MF Trigger 01/15/23: Details: Patient is a 53-year-old female who presents for evaluation of left middle finger pain and intermittent numbness and tingling in the median nerve distribution of the left hand, status post left middle finger trigger release and left carpal tunnel release, DOS 01/15/[address] Berry. The patient reports that, approximately 1 month ago, she began to experience some slightly diminished sensation in the median nerve distribution of the left hand. She also reports that she experiences some pain and stiffness in the left middle finger with flexion, and that this pain and stiffness moves from the base of the left middle finger into the palm and down towards the wrist. Patient denies any locking and catching of the left middle finger. No other acute complaints or concerns at this time. [facility] Medical History Chronic allergic rhinitis [id number] syndrome GERD (gastroesophageal reflux disease) Personal history of COVID-19 Asthma Microcytic anemia Insomnia Vitamin D deficiency Osteoarthritis of left AC (acromioclavicular) joint Hypothyroidism Hypertension Depression Surgical History History of left knee replacement Family History Father No problems noted. Mother No problems noted. Social History Household Members: Children Housing: Apartment Are you a primary child care centre manager to a significant other at home: No Do you presently have visiting nurse or other home services: No Alcohol intake: never Patient Tobacco Use Status: Never used Tobacco Years Smoked: 10 Current occupational status: unemployed Current occupation: right hand dominant Physical Exam Vital Signs: BMI result Body Mass Index 32.7 Extrem Other: Patient is alert, oriented, and in no acute distress. Neuro: Patient reports slightly diminished sensation to the tips of the thumb, index finger, middle finger, and ring finger of the left hand Patient reports normal sensation of the tip of the small finger of the left hand Vascular: Cap refill brisk Pain: Patient reports pain with flexion of the left middle finger, starting at the MCP joint of the left middle finger moving down into the volar palm and wrist Patient reports no tenderness to palpation of the A1 willian of the left middle finger No tenderness to palpation noted of the MCP, PIP, DIP joints of the left middle finger Range of motion of all other digits of the left hand full and painless ROM: Patient is able to make a closed fist and extend all digits of the left hand without difficulty, but does report mild to moderate discomfort in the left middle finger. Skin: No lacerations or abrasions. General: No ecchymosis, erythema, or evidence of infection. Psych: Appears grossly normal Affect normal Attitude cooperative Assessment & Plan Assessment & Plan (1) Status post trigger finger release: Code(s): Z98.890 - Other specified postprocedural states Category: Surgical (2) Status post carpal tunnel release: Code(s): Z98.890 - Other specified postprocedural states Category: Surgical (3) Pain of left middle finger: Code(s): M79.645 - Pain in left finger(s) Category: Medical Plan 1. Numbness and tingling of left hand Symptoms constant, daily, worse at night Status post carpal tunnel release, DOS 01/15/[address] Berry Patient is discussed with Dr. Berry, who was not available to see the patient in clinic today, and a collaborative treatment plan was formed: Due to the recent nature of the patient's surgery and abrupt renewal of symptoms, the patient will be evaluated by Dr. Berry at next available appointment Patient inquires if it is possible that she needs another surgery, and is informed that she will discuss further treatment options with Dr. Berry at her next appointment Patient is amenable to this plan 2. Left middle finger pain No locking and catching Status post trigger finger release, DOS 01/15/2023 with Jamal At this time, I feel that the patient's pain is likely secondary to stiffness of the left middle finger At this time, the patient will be referred again to occupational hand therapy for range of motion, strengthening, stabilization of the left hand Patient is also informed that she should continue with conservative pain management measures, including rest, ice, elevation, and [id number] pain medication as necessary Patient is amenable to this plan Patient will follow-up for next available appointment with Dr. Berry, sooner with any acute concerns Orders: Orders OT Evaluation and Treatment Today M79.645 - Pain in left finger(s), Z98.890 - Other specified postprocedural states Coding Level of Care Code Est Pt Level 3 (32324) Diagnoses Status post trigger finger release Z98.890 Status post carpal tunnel release Z98.890 Pain of left middle finger M79.645
[2023-10-23 10:55] VITALS: BMI 32.7
== END 2023-10-23 11:20 | disposition home or self-care (01) ==
PROVIDERS: PCP Pediatrics
DX: G56.02 Carpal tunnel syndrome, left upper limb (principal); M65.332 Trigger finger, left middle finger; M79.645 Pain in left finger(s)
CPT/HCPCS: 99213

== ENCOUNTER → 2023-10-23 10:46 | Outpatient (BNVA) | payer MEDICAID, SELFPAY | PROVIDERS: PCP Pediatrics | DX: M79.645 Pain in left finger(s) (principal); Z98.890 Other specified postprocedural states | CPT/HCPCS: 99212 ==

== ENCOUNTER 2023-11-08 08:07 | Outpatient (REF) | payer MEDICAID, SELFPAY ==
--- NOTE | ~2023-11-08 | XR_ITS ---
EXAMINATION: XR KNEE, RIGHT CLINICAL INFORMATION: 3 months hx knee pain status post fall COMPARISON: No prior. TECHNIQUE: Four views of the right knee. FINDINGS: Normal bone mineralization. No fracture, dislocation, or suspicious bone lesion. Medial and lateral compartments are preserved. There is mild lateral facet patellofemoral joint space narrowing. Alignment is normal. No evidence of joint effusion. Normal soft tissues. XR/XR knee RT 3V IMPRESSION: 1. Minimal narrowing of the patellofemoral compartment lateral facet. Joint spaces otherwise preserved. 2. Otherwise normal exam. Electronically signed by: Micky Garrett MD 01/15/2024 11:14 AM [facility]
--- NOTE | ~2023-11-08 | US_ITS ---
EXAMINATION: US ABDOMEN COMPLETE CLINICAL INFORMATION: 0.5 cm gallbladder polyp (incidental finding on previous ultrasound done June 2023). Follow up. COMPARISON: Ultrasound abdomen complete 06/21/2023. TECHNIQUE: Real-time imaging of the abdominal viscera. FINDINGS: PANCREAS: Heterogeneous but unremarkable. ABDOMINAL AORTA: The proximal, mid, and distal segments are normal in caliber. INFERIOR VENA CAVA: Visualized portions are normal. LIVER: The liver is normal in size. The liver contour is normal. There is slightly increased liver parenchymal echogenicity, consistent with hepatic steatosis. No focal hepatic lesion. There is no intrahepatic biliary duct dilatation seen. GALLBLADDER: Previously seen 5 mm gallbladder polyp measures 4 mm. No new finding. The gallbladder is physiologically distended without evidence of stones, sludge, wall thickening or pericholecystic fluid. COMMON BILE DUCT: Normal in caliber measuring 0.3 cm in diameter. RIGHT KIDNEY: Normal. No hydronephrosis. No renal calculi or focal parenchymal lesions. The kidney measures 10.6 cm in maximum dimension. LEFT KIDNEY: No hydronephrosis. No renal calculi or focal parenchymal lesions. The kidney measures 10.3 cm in maximum dimension. SPLEEN: Normal. The spleen measures 9.1 cm in maximum dimension. FREE FLUID: None. US/US abdomen complete IMPRESSION: 1. Hepatic steatosis. 2. A 4 mm gallbladder polyp. For polyps 5 mm or less: If the patient has no risk factors for malignancy, follow-up is recommended at 1, 3, and 5 years. If the patient has risk factors for malignancy, follow-up is recommended at 6 months, 1 year, and 2 years. Electronically signed by: Alexsander Torres MD 12/27/2023 12:43 PM [facility]
== END 2023-11-08 08:08 | disposition home or self-care (01) ==
LOC: HO.US 08:07
PROVIDERS: PCP Pediatrics; Visit Provider Pediatrics
DX: K82.4 Cholesterolosis of gallbladder (principal); M25.561 Pain in right knee; G89.29 Other chronic pain
CPT/HCPCS: 73562; 76700

== ENCOUNTER → 2023-11-08 08:09 | Outpatient (BNV) | payer MEDICAID, SELFPAY | PROVIDERS: PCP Pediatrics; Visit Provider Radiology Diagnostic Radiology | DX: M25.561 Pain in right knee (principal) | CPT/HCPCS: 73562 ==

== ENCOUNTER 2023-11-14 09:56 | Outpatient (AMB) | payer MEDICAID, SELFPAY ==
[2023-11-14 10:06] VITALS: BP 120/60; PULSE 61; O2SAT 100; BMI 32.9
--- NOTE | 2023-11-14 10:06 | A.OFFVIS_ITS ---
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 She was not hospitalized and she managed okay. However, after that her respiratory status has been worse. She has been noticing increasing chest tightness and shortness of breath. Subsequently in September she started having worsening shortness of breath and she did go to the ER. Her D-dimer was elevated and she did undergo a CT scan of the chest PE protocol. It did not demonstrate any evidence of any residual fibrosis or pneumonitis. However, she did have evidence of bronchitis. She was given prednisone. She has also been on Flovent and a rescue inhaler. The therapy has been partially helpful. We will continue trying to optimize her respiratory therapy at this time. In the meantime she did get vaccinated for COVID-19. 03/21/2022 The patient is here for pulmonary follow-up visit. She complains of still having some dyspnea on exertion chest tightness and wheezing. [id number] severity. The Symbicort has been helpful but only partially. She is still using her rescue inhaler regularly. In addition to this the patient does complaint of and dizziness. She has been dizzy now for last few days. Typically worse when she stands up. In the office her blood pressure was low. She does take blood pressure medications. I emphasized to her that she needs to reach out to her primary care doctor sick they can adjust her blood pr essure medications. will try to optimize further her respiratory therapy. Will follow-up in the next 2-3 months. 06/16/2022 the patient is here for a pulmonary follow-up visit. The patient overall is doing better. She has been using the inhaler with better response. Has not required any prednisone. Has been using her rescue inhaler less than twice a week. Having allergy symptoms on loratidine and singulair. She also has her nasal spray. Her bloodwork was completed and demonstrated normal eosinophil count. 12/19/2022 the patient is here for a pulmonary follow-up visit. She continues to have significant respiratory complaints. Chest tightness and wheezing coughing. Her inhalers have only be partially helpful. Although she has not been taking the breast drip. Apparently was not covered. She has been on Spiriva and also on a rescue inhaler. Will go ahead and switch her over to Trelegy inhaler. The patient does benefit from the ease of the medication in order for her to be more adherent to the therapy and have the most optimized therapy. In addition to that she continues to receive allergy shots. If the patient is no better she can consider discussing with her feeder catcher tobacco the possibility of starting biologic therapy. The patient will have pulmonary function studies again. We did talk about pulmonary rehabilitation specially after having COVID-19. However this is difficult because the patient continues to work. Therefore, she can consider underlying pulmonary rehab or going to a exercise facility. Will follow-up after her PFTs. 05/01/2023 the patient is here for a pulmonary follow-up visit. Overall the patient has been doing a lot better. She is starting to exercise more regularly she is very proud of herself because she is able to jog for period of time. Where before she could not do any type of exercise activity. She has been struggling with inhalers however. She does not tolerate the Ellipta device because the powder makes her nauseous. Therefore she has not been taking any of them. She does have multiple different inhalers including Breo, Incruse and Trelegy. She rather Spiriva that works well for her. She did have pulmonary function studies which we personally reviewed. She does have reversible obstruction consistent with asthma. She will continue with Spiriva for now. She will also use the albuterol as needed prior to exercise. If he looks a she needs a long-acting albuterol inhaled cortical steroid we can always try her and non powder formulation. 11/14/2023 the patient is here for a pulmonary follow-up visit. Overall the patient has been doing well. She does have some shortness of breath with activity. Also has some wheezing at times. She continues on the Xolair. She gets that through allergy. In addition to that she is getting allergy shots. It is unclear what inhaler she is using right now. Seems to be just Spiriva and Ventolin. She tried Trelegy but she does not tolerate the powder. Therefore, will go ahead and start him Symbicort that she can use along with Spiriva in order to maximize respiratory therapy. No recent imaging studies at this time. Her last imaging studies did demonstrate the chronic bronchitis and airways disease suggestive of her asthma. 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 Mother No problems noted. Social History Household Members: Children Housing: Apartment Are you a primary complex care nurse to a significant other at home: No Do you presently have visiting nurse or other home services: No Alcohol intake: never Patient Tobacco Use Status: Never used Tobacco Years Smoked: 10 Current occupational status: unemployed Current occupation: right hand dominant Review of Systems Const Denies fever(s) ENT Reports nasal discharge Card Denies chest pain and Reports dyspnea on exertion Resp Reports cough, Reports dyspnea on exertion and Reports wheezing GI Denies abdominal pain Musc Denies no additional complaints Neuro Denies Neuro-related abnormal movements Psych Denies no additional complaints Dewayne/Lymph Denies easy bleeding and Denies lymphadenopathy Aller/Immun Reports wheezing Physical Exam Vital Signs: Last Vital Signs Pulse 61 11/14/23 10:06 BP 120/60 11/14/23 10:06 Pulse Ox 100 11/14/23 10:06 Oxygen Delivery Method Room Air 11/14/23 10:06 BMI result Body Mass Index 32.9 Const General: alert Neck Neck: Yes normal visual inspection, Yes full ROM and Yes no lymphadenopathy Chest Chest palpation & inspection: normal inspection of the chest Resp Auscultation: no wheezes and diminished lung sounds Cardio Rate: regular rate Rhythm: regular rhythm Heart sounds: S1 normal heart sound present and S2 normal heart sound present GI Palpation (GI): Soft to palpation and nontender Auscultation: normal bowel sounds Skin General skin exam: rashes and/or lesions noted Assessment & Plan Assessment & Plan (1) Asthma: Code(s): J45.909 - Unspecified asthma, uncomplicated Category: Medical Qualifiers: Asthma complication type: uncomplicated Asthma persistence: persistent Asthma severity: moderate Qualified Code(s): J45.40 - Moderate persistent asthma, uncomplicated (2) Chronic allergic rhinitis: Code(s): J30.9 - Allergic rhinitis, unspecified Category: Medical Plan continue Spiriva start Symbicort IRASEMA as needed allergy therapy: Xolair EpiPen F/U 8-12 months Medications: New budesonide-formoterol 160-4.5 mcg/actuation 2 puffs inhalation BID 10.2 grams 11RF 30 days J44.89 - Other specified chronic obstructive pulmonary disease Coding Level of Care Code Est Pt Level 4 (75681) Diagnoses Moderate persistent asthma without complication J45.40 Asthma complication type: uncomplicated Asthma persistence: persistent Asthma severity: moderate Chronic allergic rhinitis J30.9 Time Spent (min) 16
== END 2023-11-14 10:18 | disposition home or self-care (01) ==
PROVIDERS: PCP Pediatrics; Referring Provider Pediatrics; Visit Provider Hospitalist
DX: J45.40 Moderate persistent asthma, uncomplicated (principal); J30.9 Allergic rhinitis, unspecified
CPT/HCPCS: 99214

== ENCOUNTER → 2023-11-14 09:56 | Outpatient (BNVA) | payer MEDICAID, SELFPAY | PROVIDERS: PCP Pediatrics; Visit Provider Hospitalist | DX: J45.40 Moderate persistent asthma, uncomplicated (principal); J30.9 Allergic rhinitis, unspecified | CPT/HCPCS: 99212 ==

== ENCOUNTER 2023-11-20 11:01 | Outpatient (AMB) | payer MEDICAID, SELFPAY ==
[2023-11-20 11:36] VITALS: BMI 32.9
--- NOTE | 2023-11-20 11:36 | MHC.OFFVIS ---
Vital Signs 11/20/23 11:36 Height 4 ft 11 in Weight 163 lb 2 oz BMI 32.9 Intake Visit Reasons: Lt MF Finger Pain S/P LT CTR&MF Trigger 01/15/23 Intake Note: Alecia is a 53 year old right hand dominant female who presents today for a follow up evaluation complaining of left middle finger pain S/P Left Carpal Tunnel & Middle Finger Trigger Release DOS: 01/15/[address] Berry. Patient reports left hand weakness and pain, primarily on her left index finger and left middle finger. Patient states although it is painful, she is able to make a full fist. She is taking Tylenol PRN for pain with minimal relief. She has restarted OT at [facility] in [place]. She denies left middle finger locking today although she reported intermittent locking of the left middle finger during her last visit with DAVID Gonzales. Patient expressed she continues to drop items and finds it hard at times to have a full heel wheeler. Allergies No Known Allergies Allergy (Verified 11/20/23 11:36) HPI HPI Lt MF Finger Pain S/P LT CTR&MF Trigger 01/15/23: Details: Alecia is a 53 year old right hand dominant woman who returns with complaints of left index & middle finger pain. She complains of a general aching pain in her left index & middle fingers. It sounds like her pain is somewhat intermittent. It seems to be improving some with OT hand therapy.. She is status post middle finger trigger finger & carpal tunnel release, DOS: 01/15/23. She denies any locking or catching or numbness and tingling, and says that the fingers are working well.. She completed a course of OT hand therapy but d/c herself as she felt she is not improving. She says she has restarted attending OT hand therapy in [place]. She says she is still out of work at this time. 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 [facility] Medical History Chronic allergic rhinitis [id number] syndrome GERD (gastroesophageal reflux disease) Personal history of COVID-19 Asthma Microcytic anemia Insomnia Vitamin D deficiency Osteoarthritis of left AC (acromioclavicular) joint Hypothyroidism Hypertension Depression Surgical History History of left knee replacement Family History Father No problems noted. Mother No problems noted. Social History Household Members: Children Housing: Apartment Are you a primary care technician to a significant other at home: No Do you presently have visiting nurse or other home services: No Alcohol intake: never Patient Tobacco Use Status: Never used Tobacco Years Smoked: 10 Current occupational status: unemployed Current occupation: right hand dominant Review of Systems Const All systems reviewed & are unremarkable except as noted in HPI and below Physical Exam Vital Signs: BMI result Body Mass Index 32.9 Const General: no acute distress and alert Orientation/consciousness: patient oriented x3 Neuro General: patient oriented x3 Extrem Other: Evaluation of Left Upper Extremity: The patient is alert, oriented, and in no acute distress Neuro: Median, Ulnar, Radial nerves motor and sensory intact and sensation is normal to the tips of all digits Vascular: Cap refill brisk ROM: She can make a tight fist with good strength and no pain, and extend all digits. No locking or catching No tenderness to palpation anywhere She demonstrates she gets pain in a generalized area from the MCP joints, distally past the PIP joints in the index & middle fingers No swelling, no redness, no tenderness today. Nerve Conduction Study: IMPRESSION:? Mild to moderate right and mild left median neuropathy across carpal tunnel. ? M Mariam Hernadez MD 08/10/2022 Psych Appearance: grossly normal Affect: normal affect Attitude: cooperative Assessment & Plan Assessment & Plan (1) Pain of left middle finger: Code(s): M79.645 - Pain in left finger(s) Category: Medical (2) Pain in left finger(s): Comment: IF Code(s): M79.645 - Pain in left finger(s) Category: Medical Plan Assessment & Plan: 1. Left middle finger episodes of discomfort & pain 2. Left index finger episodes of discomfort & pain She demonstrates she gets pain in a generalized area from the MCP joints, distally past the PIP joints in the index & middle fingers Her discomfort is intermittent, and she says it is improving No injections or other treatment options indicated today in clinic. No locking or catching of her middle finger I recommend she work on exercises at home & continue to work with her OT in [place] She can follow up prn 3. Left middle trigger finger, S/P release DOS: 01/15/23 No longer locking & catching 4. Left Carpal tunnel syndrome, S/P DOS: 01/15/23 Pre-operative symptoms intermittent, but daily, worse at night Now with normal sensation 5. Right Carpal tunnel syndrome, mild-moderate Symptoms intermittent, but daily, worse at night No mention today. Scribed for Yelena Berry MD by Manuel Sierra, medical education specialist, on 11/20/23 at 12:00 PM, EST. Orders: Orders XR hand LT min 3V Today M79.642 - Pain in left hand Scribe Plan - Not visible on output: Scribed for Yelena Berry MD by Manuel Sierra, medical education specialist, on [ ] at [ ], EST. Coding Level of Care Code Est Pt Level 3 (85484) Diagnoses Pain of left middle finger M79.645 Pain in left finger(s) M79.645
== END 2023-11-20 12:50 | disposition home or self-care (01) ==
PROVIDERS: PCP Pediatrics; Visit Provider Orthopaedic Surgery
DX: M79.645 Pain in left finger(s) (principal)
CPT/HCPCS: 99213

== ENCOUNTER 2023-11-20 14:53 | Outpatient (REF) | payer MEDICAID, SELFPAY ==
--- NOTE | ~2023-11-20 | XR_ITS ---
EXAMINATION: XR HAND, LEFT CLINICAL INFORMATION: Pain in left hand, Pt states pain in 2nd and 3rd phalanx COMPARISON: None available. TECHNIQUE: PA, lateral, and oblique views of the left hand. FINDINGS: The bones and soft tissues are normal. No fracture. Alignment is anatomic. Joint spaces are maintained. No erosions or soft tissue calcifications. XR/XR hand LT min 3V IMPRESSION: Normal left hand. Electronically signed by: Marjorie Zepeda DO 11/20/2023 04:17 PM EDT
== END 2023-11-20 14:54 | disposition home or self-care (01) ==
LOC: HO.HOSX 14:53
PROVIDERS: Visit Provider Orthopaedic Surgery
DX: M79.645 Pain in left finger(s) (principal)
CPT/HCPCS: 73130; 99212

== ENCOUNTER 2023-12-22 19:02 | Emergency (ER) | payer MEDICAID, SELFPAY ==
--- NOTE | ~2023-12-22 | XR_ITS ---
EXAMINATION: XR ABDOMEN KUB CLINICAL INDICATION: Constipation nausea and bloating COMPARISON: None available. TECHNIQUE: AP view of the abdomen. FINDINGS: The bowel gas pattern is normal with no evidence of ileus or obstruction. There is enlarged amount of feces in the colon due to constipation. No unusual soft tissue calcifications are noted. The bones are unremarkable. XR/XR KUB IMPRESSION: Constipation Electronically signed by: Delmar Garcia MD 12/22/2023 08:36 PM [facility]
[2023-12-22 19:11] VITALS: BP 121/70; PULSE 61; RESP 14; TEMP 36.1; O2SAT 99; BMI 32.2
[2023-12-22 19:27] LABS: MANUAL DIFF FLAG NO
[2023-12-22 19:28] LABS: Basophils Absolute Auto 0.1 X10*3/uL (0.0-0.2); Eosinophils Absolute Auto 0.1 X10*3/uL (0.0-0.4); Eosinophils Percent Auto 1.5 % (0-4); Hematocrit 39.1 % (37.0-47.0); Hemoglobin 12.8 g/dl (12.0-16.0); Imm Gran Abs Auto 0.01 X10*3/uL (0.00-0.03); Imm Gran Pct Auto 0.1 % (0.0-0.4); Lymphocytes Percent Auto 40.3 % (20-40); Mean Corpuscular HGB Conc 32.7 g/dl (31.0-35.0); Mean Corpuscular Hemoglobin 28.3 pg (27.0-33.0); Mean Corpuscular Volume 86.3 fL (80.0-98.0); Mean Platelet Volume 10.5 fL (9.4-12.3); Monocytes Absolute Auto 0.5 X10*3/uL (0.1-1.2); Monocytes Percent Auto 6.3 % (2-11); Neutrophils Absolute Auto 3.7 x10*3/uL (2.0-8.3); Neutrophils Percent Auto 50.8 % (45-73); Platelet Count 245 X10*3/uL (160-400); Red Blood Count 4.53 X10*6/uL (4.20-5.50); White Blood Count 7.3 X10*3/uL (4.8-10.8)
--- NOTE | 2023-12-22 19:33 | ED_ITS ---
HPI - Abdominal Pain General Chief Complaint: Abdominal Pain Stated Complaint: Abd Discomfort Time Seen by Provider: 12/22/23 21:56 Source: patient and RN notes reviewed Mode of arrival: ambulatory Limitations: no limitations History of Present Illness ED Provider: Kezia HPI narrative: 53-year-old female with past medical history significant for constipation, asthma, anemia presents for evaluation of constipation. Patient reports that she has not had a bowel movement that she felt with sufficient since Sunday. This was 6 days ago. She reports that she still has been having bowel movements but small. She denies any abdominal pain or rectal pain She takes a medication from her primary doctor that she does not know the name of and states that this has not been helping. She describes a ?little red pill. ? She reports that she had a colonoscopy age 50 and did not show any concerning abnormalities Reports a previous section but no other abdominal surgeries No other complaints or concerns at this time Related Data Home Medications ?Medication ?Instructions ?Recorded ?Confirmed bupropion HCl 300 mg 24 hr tablet, 300 mg PO QAM 12/08/19 12/19/22 extended release (Wellbutrin XL) nabumetone 500 mg tablet 500 mg PO BID 12/08/19 12/19/22 omeprazole 20 mg capsule,delayed 20 mg PO DAILY 12/08/19 12/19/22 release cholecalciferol (vitamin D3) 25 1 cap PO DAILY 05/07/20 12/19/22 mcg (1,000 unit) capsule (Vitamin D3) ferrous sulfate 325 mg (65 mg 1 tab PO TID 05/07/20 12/19/22 iron) tablet levothyroxine 200 mcg tablet 1 tab PO DAILY 05/07/20 12/19/22 lisinopril 20 1 tab PO DAILY 05/07/20 12/19/22 mg-hydrochlorothiazide 25 mg tablet loratadine 10 mg tablet 1 tab PO DAILY 05/07/20 12/19/22 melatonin 5 mg tablet 1 tab PO BEDTIME 05/07/20 12/19/22 fexofenadine 180 mg tablet 180 mg PO DAILY 01/13/21 12/19/22 epinephrine 0.3 mg/0.3 mL IM DIRECTED 01/19/22 12/19/22 injection, auto-injector Previous Rx's ?Medication ?Instructions ?Recorded montelukast 10 mg tablet 10 mg PO BEDTIME 30 days #30 tabs 12/02/21 (Singulair) meclizine 50 mg tablet 50 mg PO BID PRN motion sickness 03/30/22 #10 tabs albuterol sulfate 90 mcg/actuation 2 puff inhalation Q6H PRN 05/01/23 aerosol inhaler (Ventolin HFA) shortness of breath or wheezing 30 days #8.5 grams budesonide-formoterol HFA 160 2 puff inhalation BID 30 days 11/14/23 mcg-4.5 mcg/actuation aerosol #10.2 grams inhaler peg 3350-electrolytes 236 240 ml PO Q15M #4,000 mL 12/22/23 gram-22.74 gram-6.74 gram-5.86 gram solution (Golytely) polyethylene glycol 3350 17 17 g PO DAILY 2 weeks #238 grams 12/22/23 gram/dose oral powder (Miralax) Allergies Allergy/AdvReac Type Severity Reaction Status Date / Time No Known Allergies Allergy Verified 12/22/23 19:12 Review of Systems Constitutional: Denies body ache(s), Denies chills, Denies fever(s) and Denies headache(s) Eyes: Denies blurry vision Denies dysphagia, Denies vertigo and Denies headache(s) Cardiovascular: Denies chest pain and Denies dyspnea Respiratory: Denies cough and Denies dyspnea Gastrointestinal: Denies abdominal pain, Reports constipation, Denies GI cramping, Denies dysphagia, Denies loose stools, Denies nausea and Denies vomiting Musculoskeletal: Denies back pain Skin/Breast: Denies rash Denies vertigo and Denies headache(s) Psychiatric: Denies anxiety PMF Past Medical History Medical History Chronic allergic rhinitis 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 Mother No problems noted. Social History Social History Household Members: Children Housing: Apartment Are you a primary care transition coordinator to a significant other at home: No Do you presently have visiting nurse or other home services: No Alcohol intake: never Patient Tobacco Use Status: Never used Tobacco Years Smoked: 10 Advance Directives: No Advance Directives Information Provided: Yes Do you have a plan to hurt others: No Plan Current occupational status: unemployed Current occupation: right hand dominant Physical Exam ED Vital Signs: Vital Signs - 24 hr 12/22/23 19:11 12/22/23 20:32 12/22/23 22:04 Temperature 96.9 F 97.0 F 97.0 F Pulse Rate 61 55 62 Respiratory Rate 14 14 12 Blood Pressure 121/70 136/54 L 117/76 Pulse Oximetry 99 100 98 Oxygen Delivery Method Room Air Room Air Room Air BMI result Body Mass Index 32.2 Const General: healthy appearing, comfortable, no acute distress, alert and awake Nutritional Appearance: well nourished Orientation/consciousness: patient oriented x3 HENMT Head: Yes normocephalic and Yes atraumatic Eyes Eyelids: Yes eyelids normal Conjunctivae: conjunctivae normal Sclerae: sclerae normal Corneas: corneas normal Pupils: Equal, round and reactive pupils present EOM: EOMs intact bilaterally Neck Neck: Yes full ROM Resp Effort & Inspection: normal respiratory effort, able to speak in complete sentences and not labored Cardio Rate: regular rate Rhythm: regular rhythm GI Inspection: No distended Palpation (GI): Soft to palpation, not firm, nontender, no guarding and not rigid Skin General skin exam: elasticity normal Neuro General: patient oriented x3 Cranial nerves: Yes Equal, round and reactive pupils present and Yes Bilaterally intact EOM present Cognition (Neuro): normal cognition Extrem Other: Moving all extremities well without any obvious deformities Course Course Course Narrative: This is an RME performed by Eugene Mullen CNP: Additional HPI, ROS, PE not included below will be deferred to primary provider. Patient is a 52 year old female who presents emergency department for evaluation abdominal discomfort, bloating, nausea. Reports last bowel movement 6 days ago. Plan: Serum labs, urinalysis, KUB Medical Decision Making Medical Decision Making MDM Narrative: 53-year-old female presents for evaluation of constipation. She has no abdominal pain or rectal pain. She is still having small bowel movements, low suspicion for obstruction. Her only previous abdominal surgery was a section. Her labs are reassuring, a KUB was ordered which does show significant constipation. We will treat with MiraLax daily for the next 2 weeks and GoLYTELY. Patient will follow up with her PCP Differential Diagnosis Differential Diagnoses: The differential diagnosis associated with the presentation includes Constipation Gastroparesis Bowel obstruction Diverticulitis Lab Data MDM Lab Attestation statement: I reviewed the patient's lab results. No leukocytosis or anemia. Normal platelet count. No electrolyte abnormalities. 12/22/23 19:23 12/22/23 19:23 Labs: Lab Results 12/22/23 12/22/23 Range/Units 19:23 20:34 WBC 7.3 (4.8-10.8) X10*3/uL RBC 4.53 (4.20-5.50) X10*6/uL Hgb 12.8 (12.0-16.0) g/dl Hct 39.1 (37.0-47.0) % MCV 86.3 (80.0-98.0) fL MCH 28.3 (27.0-33.0) pg MCHC 32.7 (31.0-35.0) g/dl RDW 14.0 (11.0-16.0) % Plt Count 245 D (160-400) X10*3/uL MPV 10.5 (9.4-12.3) fL Immature Gran % (Auto) 0.1 (0.0-0.4) % Neut % (Auto) 50.8 (45-73) % Lymph % (Auto) 40.3 H (20-40) % [place] % (Auto) 6.3 (2-11) % Eos % (Auto) 1.5 (0-4) % Baso % (Auto) 1.0 (0-2) % Lymph # (Auto) 3.0 (1.2-4.9) X10*3/uL [place] # (Auto) 0.5 (0.1-1.2) X10*3/uL Eos # (Auto) 0.1 (0.0-0.4) X10*3/uL Baso # (Auto) 0.1 (0.0-0.2) X10*3/uL Abs Immat Gran (auto) 0.01 (0.00-0.03) X10*3/uL Absolute Neuts (auto) 3.7 (2.0-8.3) x10*3/uL Absolute Nucleated RBC 0.000 (0.0-0.012) X10*3/uL Nucleated RBC % (auto) 0.0 (0.0-0.2) /100WBC Sodium 141 (135-145) mmol/L Potassium 3.5 (3.3-5.1) mmol/L Chloride 106 (96-108) mmol/L Carbon Dioxide 24 (22-29) mmol/L Anion Gap 15 (12-20) BUN 18 H (9-16) mg/dL Creatinine 0.67 (0.5-1.4) mg/dL Estim Creat Clear Calc 84.1 Estimated GFR > 60 Random Glucose 87 (60-115) mg/dL Calcium 10.3 H (8.4-10.2) mg/dL Total Bilirubin 1.1 H (0.0-1.0) mg/dL AST 21 (5-31) U/L ALT 22 (0-31) U/L Alkaline Phosphatase 77 (39-117) U/L Total Protein 7.4 (6.5-8.0) g/dL Albumin 4.4 (3.5-5.0) g/dL Lipase 24 (8-78) U/L Urine Color Yellow Urine Appearance Clear Urine pH 5.5 (5.0-9.0) Ur Specific [place] <= 1.005 (1.005-1.025) Urine Protein Negative (Neg-Trace) mg/dL Urine Glucose (UA) Negative (Negative) mg/dL Urine Ketones Negative (Negative) mg/dL Urine Blood Negative (Negative) Urine Nitrite Negative (Negative) Ur Leukocyte Esterase Negative (Negative) Independent Interpretation I performed an independent interpretation of an: Plain X-Ray (Moderate stool burden) Radiology Impression Discussion of test interpretation with radiology: I have reviewed the radiologist's reading. Radiologist Impression: FINDINGS: The bowel gas pattern is normal with no evidence of ileus or obstruction. There is enlarged amount of feces in the colon due to constipation. No unusual soft tissue calcifications are noted. The bones are unremarkable. XR/XR KUB IMPRESSION: Constipation Electronically signed by: Delmar Garcia MD 12/22/2023 08:36 PM EST Discharge Plan Discharge Clinical Impression: Constipation Patient Disposition: Home, Self-Care Instructions: Constipation (ED), High Fiber Diet (ED) Additional Instructions: Your blood work was reassuring. Your x-ray shows significant constipation I recommend you take MiraLax every night for the next 2 weeks I recommend drinking GoLYTELY tomorrow, 1 cup every 15 minutes until you start to have your stool Increase fiber intake in your diet Follow-up with your primary doctor, return for new or worsening symptoms Prescriptions: New polyethylene glycol 3350 [Miralax] 17 gram/dose powder 17 g PO DAILY 14 Days Qty: 238 0RF peg 3350-electrolytes [Golytely] 236-22.74-6.74 -5.86 gram recon soln 240 ml PO Q15M Qty: 4000 0RF Rx Instructions: until fecal effluent is clear No Action ferrous sulfate 325 mg (65 mg iron) tablet 1 tab PO TID lisinopril-hydrochlorothiazide 20-25 mg tablet 1 tab PO DAILY levothyroxine 200 mcg tablet 1 tab PO DAILY loratadine 10 mg tablet 1 tab PO DAILY cholecalciferol (vitamin D3) [Vitamin D3] 25 mcg (1,000 unit) capsule 1 cap PO DAILY melatonin 5 mg tablet 1 tab PO BEDTIME meclizine 50 mg tablet 50 mg PO BID PRN (Reason: motion sickness) Qty: 10 0RF fexofenadine 180 mg tablet 180 mg PO DAILY nabumetone 500 mg tablet 500 mg PO BID omeprazole 20 mg capsule,delayed release(DR/EC) 20 mg PO DAILY bupropion HCl [Wellbutrin XL] 300 mg tablet extended release 24 hr 300 mg PO QAM montelukast [Singulair] 10 mg tablet 10 mg PO BEDTIME 30 Days Qty: 30 11RF epinephrine 0.3 mg/0.3 mL auto-injector IM DIRECTED albuterol sulfate [Ventolin HFA] 90 mcg/actuation HFA aerosol inhaler 2 puff inhalation Q6H PRN (Reason: shortness of breath or wheezing) 30 Days Qty: 8.5 6RF budesonide-formoterol 160-4.5 mcg/actuation HFA aerosol inhaler 2 puff inhalation BID 30 Days Qty: 10.2 11RF Interventions: ED Discharge Assessment Last Done: 12/22/23 22:37 Print Language: Malawian
[2023-12-22 19:52] LABS: Alanine Aminotransferase 22 U/L (0-31); Albumin Level 4.4 g/dL (3.5-5.0); Alkaline Phosphatase 77 U/L (39-117); Anion Gap 15 (12-20); Aspartate Amino Transferase 21 U/L (5-31); Bilirubin Total 1.1 mg/dL (0.0-1.0); Blood Urea Nitrogen 18 mg/dL (9-16); Calcium 10.3 mg/dL (8.4-10.2); Carbon Dioxide 24 mmol/L (22-29); Chloride 106 mmol/L (96-108); Creatinine Clr Calc Pharmacy 84.1; Estimated Glomerular Filt Rate > 60; Glucose Random 87 mg/dL (60-115); Lipase 24 U/L (8-78); Potassium 3.5 mmol/L (3.3-5.1); Sodium 141 mmol/L (135-145); Total Protein 7.4 g/dL (6.5-8.0)
[2023-12-22 20:32] VITALS: BP 136/54; PULSE 55; RESP 14; TEMP 36.1; O2SAT 100
[2023-12-22 20:40] LABS: Appearance Urine Clear; Color Urine Yellow; Glucose Urine UA Negative (Negative); Leukocyte Esterase Urine Negative (Negative); Nitrite Urine Negative (Negative); PH 5.5 (5.0-9.0); Specific Gravity - Urine <= 1.005 (1.005-1.025); Urine Blood Negative (Negative); Urine Ketones Negative (Negative); Urine Protein Negative (Neg-Trace)
[2023-12-22 22:04] VITALS: BP 117/76; PULSE 62; RESP 12; TEMP 36.1; O2SAT 98
[2023-12-22 22:37] VITALS: BP 117/76; PULSE 62; RESP 12; TEMP 36.1; O2SAT 98
== END 2023-12-22 22:38 | disposition home or self-care (01) ==
PROVIDERS: Nurse Practitioner Family; Emergency Provider Internal Medicine; PCP Pediatrics
DX: K59.00 Constipation, unspecified (principal)
CPT/HCPCS: 36415; 74018; 80053; 81003; 83690; 85025; 99283

== ENCOUNTER 2024-01-03 08:06 | Outpatient (REF) | payer MEDICAID, SELFPAY ==
[2024-01-03 14:50] LABS: Alanine Aminotransferase 26 U/L (0-31); Albumin Level 4.3 g/dL (3.5-5.0); Alkaline Phosphatase 80 U/L (39-117); Aspartate Amino Transferase 26 U/L (5-31); Bilirubin Direct 0.3 mg/dL (0.0-0.5); Bilirubin Total 0.9 mg/dL (0.0-1.0)
[2024-01-03 15:07] LABS: TSH reflex Free T4 2.18 uIU/mL (0.32-4.0)
== END 2024-01-03 08:07 | disposition home or self-care (01) ==
LOC: HO.CHCLDS 08:06
PROVIDERS: Visit Provider Pediatrics
DX: F41.8 Other specified anxiety disorders (principal); R73.03 Prediabetes; E03.8 Other specified hypothyroidism
CPT/HCPCS: 36415; 80076; 84443

== ENCOUNTER 2024-01-15 14:23 | Outpatient (REF) | payer MEDICAID, SELFPAY ==
[2024-01-15 18:34] LABS: Anion Gap 12 (12-20); Blood Urea Nitrogen 13 mg/dL (9-16); Calcium 10.2 mg/dL (8.4-10.2); Carbon Dioxide 25 mmol/L (22-29); Chloride 107 mmol/L (96-108); Estimated Glomerular Filt Rate > 60; Glucose Random 90 mg/dL (60-115); Potassium 4.2 mmol/L (3.3-5.1); Sodium 140 mmol/L (135-145)
== END 2024-01-15 14:24 | disposition home or self-care (01) ==
LOC: HO.CHCLDS 14:23
PROVIDERS: Visit Provider Internal Medicine
DX: R11.0 Nausea (principal)
CPT/HCPCS: 36415; 80048

== ENCOUNTER 2024-01-23 12:25 | Outpatient (REF) | payer MEDICAID, SELFPAY ==
--- NOTE | ~2024-01-23 | CT_ITS ---
EXAMINATION: CT ABDOMEN AND PELVIS WITH CONTRAST CLINICAL INFORMATION: Epigastric tenderness, weight loss. COMPARISON: None available. TECHNIQUE: Multidetector volumetric images were obtained from the superior aspect of the liver through the pubic symphysis following administration 85 mL of Omnipaque 350 intravenous contrast. Sagittal and coronal reformatted images were obtained on the technologist's workstation. Oral contrast: No This CT examination was performed using dose optimization techniques as appropriate, variously including the following: *Automated exposure control *Adjustment of mA and/or kV according to patient size (this includes techniques or standardized protocols for targeted exams where dose is matched to indication/reason for exam; i.e. extremities or head) *Use of iterative reconstruction technique DLP: 394 mGy-cm FINDINGS: LUNG BASES: Unremarkable. ABDOMINAL AND PELVIC WALL: Unremarkable. LIVER AND BILIARY TREE: Hepatomegaly. Hypoattenuation of the liver parenchyma reflects hepatic steatosis. GALLBLADDER: Unremarkable. PANCREAS: Unremarkable. SPLEEN: Unremarkable. ADRENAL GLANDS: 2.9 x 2.1 cm left adrenal gland nodule, indeterminate. KIDNEYS AND URETERS: Unremarkable. GASTROINTESTINAL TRACT: Unremarkable. Appendix is within normal limits. VASCULAR: Unremarkable LYMPH NODES/PERITONEUM: No lymphadenopathy. FREE FLUID: None. BLADDER: Unremarkable. PELVIC VISCERA: Unremarkable. OSSEOUS STRUCTURES: Degenerative changes of the spine. CT/CT abdomen pelvis w IV con IMPRESSION: * No acute intra-abdominal abnormality. * Hepatomegaly with hepatic steatosis. * Indeterminate left adrenal gland nodule. Recommend further evaluation with CT or MR adrenal protocol. Electronically signed by: Kim Owens MD 01/23/2024 06:44 PM [facility]
[2024-01-23] MEDS: iohexoL 350 MG/ML 100 ML INFUS..BTL IV (15:50)
[2024-01-23] MEDS: Barium Sulfate Oral (Vanilla) 450 ML ORAL.SUSP 900 ML PO (15:51)
== END 2024-01-23 12:26 | disposition home or self-care (01) ==
LOC: HO.CT 12:25
PROVIDERS: PCP Pediatrics; Visit Provider Internal Medicine
DX: R11.0 Nausea (principal); R63.4 Abnormal weight loss; R10.13 Epigastric pain
CPT/HCPCS: 74177; Q9967

== ENCOUNTER 2024-03-18 09:37 | Outpatient (REF) | payer MEDICAID, SELFPAY ==
--- NOTE | 2024-03-18 09:43 | PFT_ITS ---
Flows: FEV1: 71 % of predicted at 1.60 L FVC: 78 % of predicted at 2.17 L FEV1/FVC: 73 % Bronchodilator response: Present Volumes: Total lung capacity: 82 % of predicted at 3.53 L Residual volume: 103 % of predicted at 1.38 L Slow vital capacity: 71 % of predicted at 2.15 L Expiratory reserve volume: 65 % of predicted at 0.49 L Diffusion capacity: Normal Impression: Reversible moderate obstructive ventilatory defect with positive bronchodilator response. MTDD
--- OUTSIDE RECORDS SUMMARY | 2024-03-18 10:09 | XMS_ITS | Encounter Summary ---
Author Organization [employer] Address [address] [facility] 7 [place] [address] Care Team Providers Care Composition Floor Layer Name Role Phone Rehana Hathaway MD Primary Care Provider [phone] Reason for Visit * Reason Onset Date Comments Results 07/17/2023 Encounter Details Date Type Department Care Team ([facility] st Contact Info) Description 07/17/[address] [facility] MED[facility]INE [address] [place] [address] Rehana Hathaway MD [address] [place], [place] [phone] Results Social History Tobacco Use Types Packs/Day Years Used Date Smoking Tobacco: Never Passive Smoke Exposure: Never Smokeless Tobacco: Never Depression Answer Date Recorded Patient Health Questionnaire-9 Score 3 05/14/2023 Patient Health Questionnaire-9 Score 3 05/14/2023 Last PHQ-9: Questionnaire Data Not on file 0 05/14/2023 Housing Stability Answer Date Recorded What is your housing situation today? I have crystal hernandez 11/27/[address] you li ve. Do you have problems with any of the following? None of the above 11/27/2022 Food Insecurity Answer Date Recorded Within the past 12 months, y ou worried that your food would run out before you got money to buy more: Never True 11/27/2022 Within the past 12 months,th e food you bought just didn't last and you didn't have enough money to get more: Never True Transportation Answer Date Recorded In the past 12 months, has l ack of transportation kept you from medical appts, meetings, work or from getting things needed for daily living? No 11/27/2022 Utilities Answer Date Recorded In the past 12 months, has t he electric, gas, oil or water company threatened to shut off services in your home? No 11/27/2022 Depression Answer Date Recorded Patient Health Questionnaire-2 Score 1 05/14/2023 Comments Unknown Sex and Gender Information Value Date Recorded Sex Assigned at Female 12/12/2021 10:15 AM EDT Legal Sex Female 10:15 AM EDT Gender Identity Female 12/12/2021 10:15 AM EDT Sexual Orientation Straight 12/12/2021 10 :15 AM EDT documented as of this encounter Miscellaneous Notes * Telephone Encounter - Tammie Ceja RN - 07/18/2023 8:11 AM EDT See message below. RN will forward to ordering provider to review and advise [facility] Team Nurses. TY Tc from pt requesting a call back with results from 07/09 * Telephone Encounter - Tiffanie Capone - 07/17/2023 9:50 AM EDT Tc from pt requesting a call back with results from 07/09 documented in this encounter Plan of Treatment Upcoming Encounters Date Type Department Care Team (Late st Contact Info) Description 03/27/2024 9:00 AM EST Office Visit [facility] MED & PED[facility] [address] [place] [address] Rehana Hathaway MD [address] [place] [address] documented as of this encounter Visit Diagnoses Not on filedocumented in this encounter Additional Health Concerns Assessment Noted Time PHQ-9 Depression Total Score: 3 05/14/19 24 9:07 AM EDT documented as of this encounter Care Teams Composition Floor Layer Relationship Specialty Start Date End Date Rehana Hathaway MD [address] [place] [address] PCP - General Family Medicine 02/12/18 documented as of this encounter
--- OUTSIDE RECORDS SUMMARY | 2024-03-18 10:09 | XMS_ITS | Encounter Summary ---
Author Organization [employer] Address [address] [facility] [address] [place] [address] Care Team Providers Care Cargo Operations Agent Name Role Phone Rehana Hathaway MD Primary Care Provider [phone] Encounter Details Date Type Department Care Team (Late st Contact Info) Description 12/21/2022 Abstract [facility] MEDICINE [address], [place] [phone] Ghazal Nuñez Social History Tobacco Use Types Packs/Day Years Used Date Smoking Tobacco: Never Passive Smoke Exposure: Never Smokeless Tobacco: Never Depression Answer Date Recorded Patient Health Questionnaire-9 Score 5 08/03/2022 Housing Stability Answer Date Recorded What is [...] Answer Date Recorded Patient Health Questionnaire-2 Score 0 08/03/2022 Comments Unknown Sex and Gender Information Value Date Recorded Sex Assigned at Female 12/12/2021 10:15 AM EDT Legal Sex Female 10:15 AM EDT Gender Identity Female 12/12/2021 10:15 AM EDT Sexual Orientation Straight 12/12/2021 10 :15 AM EDT documented as of this encounter Plan of Treatment Upcoming Encounters Date Type Department Care Team (Late st Contact Info) Description 03/27/2024 9:00 AM EST Office Visit [facility] MED & PEDS [address] [place] [address] Rehana Hathaway MD [address] [place] [address] documented as of this encounter Procedures Procedure Name Priority Date/Time Associated Diagnosis Comments COLONOSCOPY Routine 05/14/2020 documented in this encounter Results * Hm Colonoscopy (05/14/2020) Colonoscopy Normal Normal Narrative SavannahGhazal vivas - 05/14/2020 Recommended 5 years ( confirmed with gastro office ) us Historical Provider HEALTH MAINTENANCE Final Result documented in this encounter Visit Diagnoses Not on filedocumented in this encounter Additional Health Concerns Assessment Noted Time PHQ-9 Depression Total Score: 5 08/04/19 23 12:52 PM EDT documented as of this encounter Care Teams Cargo Operations Agent Relationship Specialty Start Date End Date Rehana Hathaway MD [address] [place] [address] PCP - General Family Medicine 02/12/18 documented as of this encounter
--- OUTSIDE RECORDS SUMMARY | 2024-03-18 10:09 | XMS_ITS | Encounter Summary ---
Author Organization [employer] Address [address] [facility] [address] [place] [address] Care Team Providers Care Instrumentation Technologist Name Role Phone Rehana Hathaway MD Primary Care Provider [phone] Reason for Visit * Reason Comments Med Refill Encounter Details Date Type Department Care Team ([facility] st Contact Info) Description 05/22/2023 Refill [facility] MED & PEDS [address], [place] [phone] Rehana Hathaway MD [address] [place] [address] Benign essential hypertension Social History Tobacco Use Types Packs/Day Years [...] Description 03/27/2024 9:00 AM EST Office Visit [facility] [address] [place] [address] Rehana Hathaway MD [address] [place] [address] documented as of this encounter Visit Diagnoses Diagnosis Benign essential hypertension Essential hypertension, benign documented in this encounter Additional Health Concerns Assessment Noted Time PHQ-9 Depression Total Score: 3 05/14/19 24 9:07 AM EDT documented as of this encounter Care Teams Instrumentation Technologist Relationship Specialty Start Date End Date Rehana Hathaway MD [address] [place] [address] PCP - General Family Medicine 02/12/18 documented as of this encounter
--- OUTSIDE RECORDS SUMMARY | 2024-03-18 10:09 | XMS_ITS | Encounter Summary ---
Author Organization [employer] Address [address] [facility] 7 [place] [address] Care Team Providers Care Fabric Sourcer Name Role Phone Rehana Hathaway MD Primary Care Provider Reason for Visit * Reason Onset Date Comments Results 12/22/2022 Encounter Details Date Type Department Care Team ([facility] st Contact Info) Description 12/22/2022 Telephone [facility] MEDICINE [address] [place] [address] Rehana Hathaway MD [address] [place], [place] [phone] Results Social History Tobacco Use Types Packs/Day [...] encounter Miscellaneous Notes * Telephone Encounter - Mike Barrera RN - 12/22/2022 1:31 PM EST RN rechecked meditech this PM. Report is still not available or read by radiologist. Will recheck on Sunday. * Telephone Encounter - Mike Barrera RN - 12/22/2022 9:49 AM EST TC placed, spoke with pt who state got xray of left knee done at [facility] on 12/20/22 in the PM. RN informed that we don't have results available but can check the [employer] database to see if results are in. Pt verbalizes understanding and agreed to plan. RN checked meditech but results have not been read by the radiologist and the report is not available at this time. RN will continue to track for results. * Telephone Encounter - Edmundo Ojeda - 12/22/2022 8:38 AM EST Tc from pt requesting XRAY results. Please contact at [phone] documented in this encounter Plan of Treatment Upcoming Encounters Date Type Department Care Team (Late st Contact Info) Description 03/27/2024 9:00 AM EST Office Visit [facility] [address] [place] [address] Rehana Hathaway MD [address] [place] [address] documented as of this encounter Visit Diagnoses Not on filedocumented in this encounter Additional Health Concerns Assessment Noted Time PHQ-9 Depression Total Score: 5 08/04/19 23 12:52 PM EDT documented as of this encounter Care Teams Fabric Sourcer Relationship Specialty Start Date End Date Rehana Hathaway MD [address] [place] [address] PCP - General Family Medicine 02/12/18 documented as of this encounter
--- OUTSIDE RECORDS SUMMARY | 2024-03-18 10:09 | XMS_ITS | Encounter Summary ---
Author Organization [employer] Address [address] [facility] [address] [place] [address] Care Team Providers Care Health Insurance Agent Name Role Phone Rehana Hathaway MD Primary Care Provider [phone] Reason for Visit * Reason Onset Date Comments c/b requested 03/30/2023 Encounter Details Date Type Department Care Team ([facility] st Contact Info) Description 03/30/2023 Telephone [facility] MEDICINE [address] [place] [address] Rehana Hathaway MD [address] [place] [address] c/b requested Social History Tobacco Use Types Packs/Day Years [...] encounter Miscellaneous Notes * Telephone Encounter - Tayler Guzmán RN - 03/30/2023 10:19 AM EST Pt walked in this morning requesting to see PCP as pt had recent hand surgery and taking PT/OT and PT stated that pt may have DM d/t the length of time it has taken to heal from surgery. Pt states she is unaware of prior dx of DM and would like to discuss with PCP. Pt was advised to contact hand surgeon in regards to concerns of surgical healing time. Pt informed that per last labs glucose levels were good and if pt would like to schedule an appt for routine f/u and DM screening, we can schedule. Pt agrees to see PCP next week to discuss concerns but also advised to reach out to surgeon for f/u. Pt agrees with plan. * Telephone Encounter - Edmundo Ojeda - 03/30/2023 8:04 AM EST Tc from pt requesting a call back, states would like to discuss DX of diabetes. Please contact at [phone] documented in this encounter Plan of Treatment Upcoming Encounters Date Type Department Care Team (Late st Contact Info) Description 03/27/2024 9:00 AM EST Office Visit [facility] MED & PEDS [address] [place] [address] Rehana Hathaway MD [address] [place] [address] documented as of this encounter Visit Diagnoses Not on filedocumented in this encounter Additional Health Concerns Assessment Noted Time PHQ-9 Depression Total Score: 5 08/04/19 23 12:52 PM EDT documented as of this encounter Care Teams Health Insurance Agent Relationship Specialty Start Date End Date Rehana Hathaway MD [address] [place] [address] PCP - General Family Medicine 02/12/18 documented as of this encounter
--- OUTSIDE RECORDS SUMMARY | 2024-03-18 10:10 | XMS_ITS | Encounter Summary ---
Author Organization [employer] Address [address] [facility] [address] [place] [address] Care Team Providers Care Jockey'S Agent Name Role Phone Rehana Hathaway MD Primary Care Provider [phone] Reason for Visit * Reason Onset Date Comments Results 01/16/2024 Encounter Details Date Type Department Care Team ([facility] st Contact Info) Description 01/16/2024 Telephone [facility] MEDICINE [address] [place] [address] Rehana Hathaway MD [address] [place], [place] [phone] Results Social History Tobacco Use Types Packs/Day [...] encounter Miscellaneous Notes * Telephone Encounter - Eliu Morales - 01/16/2024 10:19 AM EST TC from pt requesting call back regarding Results. Type of results: Labs Date when done: 01/15/24 Facility: [facility] Labs documented in this encounter Plan of Treatment Upcoming Encounters Date Type Department Care Team (Late st Contact Info) Description 03/27/2024 9:00 AM EST Office Visit [facility] MED & PEDS [address] [place] [address] Rehana Hathaway MD [address] [place] [address] documented as of this encounter Visit Diagnoses Not on filedocumented in this encounter Additional Health Concerns Assessment Noted Time PHQ-9 Depression Total Score: 3 05/14/19 24 9:07 AM EDT documented as of this encounter Care Teams Jockey'S Agent Relationship Specialty Start Date End Date Rehana Hathaway MD [address] [place] [address] PCP - General Family Medicine 02/12/18 documented as of this encounter
--- OUTSIDE RECORDS SUMMARY | 2024-03-18 10:10 | XMS_ITS | Encounter Summary ---
Author Organization [employer] Address [address] [place] [id number] Care Team Providers Care Quality Engineer Name Role Phone Rehana Hathaway MD Primary Care Provider [phone] Encounter Details Date Type Department Care Team ([facility] Contact Info) Description 01/31/2022 Telephone [facility] MEDICINE [address] [place], [place] [phone] Rehana Hathaway MD [address] [place] [address] Social History Tobacco Use Types Packs/Day Years Used Date Smoking Tobacco: Never Assessed Comments Unknown Sex and Gender Information Value Date Recorded Sex Assigned at Female 12/12/2021 10:15 AM EDT Legal Sex Female 10:15 AM EDT Gender Identity Female 12/12/2021 10:15 AM EDT Sexual Orientation Straight 12/12/2021 10 :15 AM EDT documented as of this encounter Plan of Treatment Upcoming Encounters Date Type Department Care Team ([facility] Contact Info) Description 03/27/2024 9:00 AM EST Office Visit [facility] MED [facility]EDS [address] [place], [place] [phone] Rehana Hathaway MD [address] [place], [place] [phone] documented as of this encounter Visit Diagnoses Not on filedocumented in this encounter Care Teams Quality Engineer Relationship Specialty Start Date End Date Rehana Hathaway MD [address] [place] [address] PCP - General Family Medicine 02/12/18 documented as of this encounter
--- OUTSIDE RECORDS SUMMARY | 2024-03-18 10:10 | XMS_ITS | Encounter Summary ---
Author Organization [email or web address] Address [address] [facility] [address] [place] [address] Care Team Providers Care Glaze Mixer Name Role Phone Rehana Hathaway MD Primary Care Provider [phone] Reason for Visit * Reason Comments Med Refill Encounter Details Date Type Department Care Team ([facility] st Contact Info) Description 09/02/2023 Refill [facility] [address] [place] [address] Parveen Gonzales MD [address] [place] [address] Chronic gastroesophageal reflux disease Social History Tobacco Use Types Packs/Day Years [...] Description 03/27/2024 9:00 AM EST Office Visit [facility] MED & PEDS [address] [place] [address] Rehana Hathaway MD [address] [place] [address] documented as of this encounter Visit Diagnoses Diagnosis Chronic gastroesophageal reflux disease documented in this encounter Additional Health Concerns Assessment Noted Time PHQ-9 Depression Total Score: 3 05/14/19 24 9:07 AM EDT documented as of this encounter Care Teams Glaze Mixer Relationship Specialty Start Date End Date Rehana Hathaway MD [address] [place] [address] PCP - General Family Medicine 02/12/18 documented as of this encounter
--- OUTSIDE RECORDS SUMMARY | 2024-03-18 10:10 | XMS_ITS | Clinical Summary ---
Author Organization [employer] Address [address] [place] [address] [address] [place] [address] Care Team Providers Care Dish Cloth Inspector Name Role Phone Rehana Hathaway MD Primary Care Provider [phone] Allergies No known active allergies Medications EPINEPHrine (Epipen) 0.3 MG/0.3ML injection syringe INJECT INTRAMUSCULARLY DIRECTED ON PACKAGE AND GO TO EMERGENCY ROOM 10/14/19 22 Active ipratropium (Atrovent) 0.06 % nasal spray USE 1-2 SPRAYS IN EACH NOSTRIL UP TO THREE TIMES DAILY NEEDED RUNNY NOSE OR post-nasal drip 11/15/19 22 Active montelukast (Singulair) 10 MG tablet Take 10 mg by mouth at bedtime. 10/14/19 22 Active Xolair 150 MG injection Use as directed 01/25/20 22 Active Blood Pressure kitIndications:Be nign essential hypertension To check the BP daily 1 kit 03/21/19 23 Active Spiriva Respimat 2.5 MCG/ACT inhaler INHALE 2 PUFFS BY MOUTH ONCE DAILY DIRECTED 03/23/19 23 Active meclizine (Antivert) 25 MG tablet TAKE 2 TABLETS BY MOUTH TWICE DAILY NEEDED 03/30/19 23 Active hydrocortisone 2.5 % cream Apply pea sized amount to skin bid for 1 week 15 g 05/19/19 23 Active Ventolin HFA 108 (90 Base) MCG/ACT inhalerIndication s:Severe persistent asthma without complication INHALE 2 PUFFS BY MOUTH EVERY 4 HOURS 18 g 1 09/23/19 23 Active Stimulant Laxative 8.6-50 MG tabletIndications :Vitamin D deficiency,Acquir ed hypothyroidism TAKE 1 TABLET BY MOUTH DAILY NEEDED FOR CONSTIPATION. TAKE ONLY DIRECTED. 90 tablet 1 12/05/19 23 Active hydroCHLOROthiazi de (HYDRODiuril) 25 MG tablet Take 1 tablet (25 mg) by mouth in the morning. 30 tablet 11 03/15/19 24 Active sertraline (Zoloft) 50 MG tabletIndications :Anxious depression Take 1 tablet (50 mg) by mouth in the morning. 90 tablet 3 05/14/19 24 Active melatonin 3 MG tablet Take 1 tablet (3 mg) by mouth if needed at bedtime for sleep. 90 tablet 3 05/14/19 24 Active sucralfate (Carafate) 1 g tablet Take 1 tablet (1 g) by mouth before breakfast, before lunch, before evening meal, and at bedtime. 120 tablet 06/25/19 24 Active D3-1000 25 MCG (1000 UT) capsuleIndication s:Vitamin D deficiency,Acquir ed hypothyroidism TAKE 1 CAPSULE BY MOUTH DAILY 90 capsule 2 10/01/19 24 Active gabapentin (Neurontin) 300 MG capsule Take 1 capsule (300 mg) by mouth 3 times daily. 90 capsule 1 09/27/19 24 Active fexofenadine (Allergy Relief) 180 MG tablet Take 1 tablet (180 mg) by mouth Once per day. 30 tablet 5 10/12/19 24 Active levothyroxine (Synthroid, Levoxyl) 200 MCG tabletIndications :Acquired hypothyroidism TAKE 1 TABLET BY MOUTH EVERY DAY 90 tablet 1 10/29/19 24 Active Acetaminophen Extra Strength 500 MG tabletIndications :Other infective acute otitis externa of right ear Take 1,000 mg by mouth if needed in the morning and at bedtime (left ear pain). 60 tablet 11/01/19 24 Active omeprazole (PriLOSEC) [address] capsule TAKE 1 CAPSULE BY MOUTH EVERY DAY BEFORE BREAKFAST, DO NOT BREAK, CRUSH, DISSOLVE OR CHEW 90 capsule 1 12/17/19 24 Active polycarbophil (FiberCon) 625 MG tablet Take 1 tablet (625 mg) by mouth Once per day. 90 tablet 3 01/02/20 24 025 Active polyethylene glycol, PEG, 3350 (Glycolax, Miralax) powder Take 17 g by mouth Once per day. 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 Discussed increasing dosage of Omeprazole. Prescribing Carafate for additional aid with symptoms. F/u with Dr. Hathaway. Relevant Medication: Omeprazole (Prilosec) [address] capsule Ondansetron (Zofran) 4 Mg Tablet Sucralfate (Carafate) 1 G Tablet Diabetes due to undrl condition w oth diabetic n euro comp 03/19/2023 Carpal tunnel syndrome, bilateral 01/29/2023 Headache 12/08/2022 Assessment & Plan (12/08/2022 5:41 PM EDT): ENT exam is normal w no signs or symptoms of infection . Neuro exam is normal and symptoms not suggestive for trigeminal neuralgia. There is possible a right TMJ disorder,pt does not think she has bruxism -pt has dentures and removed them for sleep. -advised home exercises for TMJ dx explained today -trial w NSAIDS -tylenol prn -prescribed muscle relaxant for few days -prior bedtime-explained to avoid ETOH,and to not drive or use heavy machinery after taking medication -advised for dental evaluation -Alarm signs and symptoms Microcytic anemia 05/18/2022 Gastroesophageal reflux disease 05/18/2022 Rash 05/18/2022 Overview (05/18/2022): Trial of hydrocortisone and eucerin given. Avoid hot showers. Seek medical attention if symptoms worsen or do not improve. Assessment & Plan (05/18/2022 3:16 PM EDT): Trial of hydrocortisone and eucerin given. Avoid hot showers. Seek medical attention if symptoms worsen or do not improve. 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 Continue Sertraline 50 mg daily and Melatonin 3 mg at bedtime prn. As this provider will be retiring, patient will follow up with her PCP for continued medication management. For any questions or concerns, call the Health Center. I have wished her well. She agrees with the plan. Assessment & Plan (03/12/2023 10:56 AM EST): Continues doing very well. Continue Sertraline 50 mg daily and Melatonin 3 mg at bedtime prn. Today 03/12/2023 provider informed the patient that I would be retiring, but we would plan for continuity of care. Meanwhile F/U 2 months. She agrees with the plan. Assessment & Plan (08/03/2022 1:47 PM EDT): Mood continues good. Sleeping better with Melatonin 3 mg prn. Continue Sertraline 50 mg daily. F/U 2-3 months. She agrees with the plan. Assessment & Plan (06/05/2022 4:30 PM EDT): Mood continues good. Still not sleeping well despite good sleep hygiene. Previously had good response to Melatonin. Will have Melatonin 3 mg to take at bedtime prn. Continue Sertraline 50 mg daily. F/U 6-8 weeks. She agrees with the plan. Assessment & Plan (04/11/2022 3:23 PM EST): Mood is better, but not sleeping well. Reviewed sleep hygiene. Already avoiding caffeine, unable to do much exercise due to asthma (which she is following up about). No electronics in the bedroom. Keep a journal or notebook by the bed to write down thoughts and to-do list. F/U 6-8 weeks and we will discuss again and consider medication (Melatonin, Hydroxyzine, Doxepin, etc.) She agrees with the plan. Assessment & Plan (02/07/2022 9:24 AM EST): No longer finding starting dose of Zoloft 25 mg helpful. Will increase to Zoloft 50 mg daily. Also, we will give her the phone number for [facility] so she can call herself and F/U on the referral. F/U with me in 4-6 weeks. She agrees with the plan. COVID-19 03/25/2020 Osteoarthritis of left acromioclavicular joint 0 07/03/2019 Benign essential hypertension 06/14/2015 Primary insomnia 06/14/2015 Vitamin D deficiency 06/14/2015 Overweight 01/12/2012 Hypertension 07/25/2011 Hypothyroidism 07/25/2011 Depressive disorder 07/25/2011 Encounters Date Type Department Care Team Description 01/24/2024 11:15 AM EST Office Visit [facility] [address] [place] [address] Rehana Hathaway MD Acquired hypothyroidism (Primary Dx); Weight loss 01/24/2024 Telephone [facility] [address] [place] [phone] Adrianne Marquis, ALBERTO Results 01/24/2024 Travel 01/22/2024 Telephone [facility] [address] [place] [address] Rehana Hathaway MD Chart Prep 01/17/2024 Telephone [facility] [address] [place] [address] Marcia Mack MD 01/16/2024 Telephone [facility] [address] [place] [phone] Rehana Hathaway MD Results 01/15/2024 1:20 PM EST Office Visit [facility] [address] [place] [address] Marcia Mack MD Nausea (Primary Dx) 01/15/2024 Travel 01/15/2024 Telephone [facility] [address] [place] [address] Rehana Hathaway MD Nurse Triage 01/04/2024 Telephone [facility] [address] [place] [address] Rehana Hathaway MD 01/02/2024 11:15 AM EST Office Visit [facility] [address] [place] [address] Rehana Hathaway MD Anxious depression (Primary Dx); Prediabetes; Other specified hypothyroidism; Other constipation; Gallbladder polyp 01/02/2024 Travel 12/31/2023 Telephone [facility] [address] [place] [address] Rehana Hathaway MD Chart Prep 12/25/[address] [address] Rehana Hathaway MD Nurse Triage 12/24/2023 Telephone [facility] [address] [place] [phone] Rehana Hathaway MD ER Follow-up 12/22/2023 Orders Only GENERIC EXTERNAL DATA DEPARTMENT Provider, Generic External Data 12/17/2023 Refill [facility] [address] [place] [address] Rehana Hathaway MD from Last 3 Months Immunizations Name Administration Dates Next Due Influenza Injectable Quadriv alant Preservative Free IIV4 MDCK 12/08/2021 Influenza injectable quadriv alent IIV4 with preservative 11/22/2018 Influenza injectable quadriv alent preservative free 12/19/2022,01/13/2021,10/25/2017 Influenza, IIV3, injectable 02/17/2014, 9 Influenza, Split (incl. loida fied surface antigen) 11/09/2011 Influenza, seasonal, injecta ble, preservative free 11/01/2023 Moderna Covid-19 Vaccine 12+ 03/22/2021,07/30/19 21,07/01/2020 Pneumococcal Conjugate PCV 20 02/16/2022 TD (adult), 2 Lf tetanus tox oid, preservative free, adsorbed 09/12/2006 Tdap 10/25/2017 Zoster, Recombinant 02/16/2022,12/08/2021 Social History Tobacco Use Types Packs/Day Years Used Date Smoking Tobacco: Never Passive Smoke Exposure: Never Smokeless Tobacco: Never Tobacco Cessation:Counseling Given: Not Answered Depression Answer Date Recorded Patient Health Questionnaire-9 [...] Orientation Straight 12/12/2021 10 :15 AM EDT Last Filed Vital Signs Vital Sign Reading Time Taken Comments Blood Pressure 136/82 01/24/2024 10:53 AM EST Pulse 55 01/24/2024 10:49 AM EST Temperature 36.5 ??C (97.7 ??F) 01/24/2024 1 0:49 AM EST Respiratory Rate 12 01/24/2024 10:4 9 AM EST Oxygen Saturation 98% 01/24/2024 10: 49 AM EST Inhaled Oxygen Concentration - - Weight 69.3 kg (152 lb 12.8 oz) 024 10:49 AM EST Height 149.9 cm (4' 11 ) 01/24/2024 10: 49 AM EST Body Mass Index 30.86 01/24/2024 10:49 AM EST Plan of Treatment Upcoming Encounters Date Type Department Care Team ([facility] st Contact Info) Description 03/27/2024 9:00 AM EST Office Visit [facility] [address] [place] [address] Rehana Hathaway MD [address] [place] [address] Health Maintenance Due Date Last Done Comments CT Colonography 1970 Dental Prophylaxis 1970 FIT DNA/Cologuard 1970 FIT 1970 FOBT 1970 HIV Screening 1970 Sigmoidoscopy 1970 Diabetes: Foot Exam 01/06/1980 Eye Exam 01/06/1980 Alcohol/Substance Use Screening 1982 Hepatitis C Screening 01/06/1988 Hepatitis B Vaccines (1 of 3 - 19+ 3-dose series) 1989 Pap Smear 1991 Dental Oral Exam 04/26/2018 10/26/2017 Dental X-Ray: Bitewings 10/27/2018 10/26/2017, 09/06 Dental X-Ray: Full Mouth 10/27/2020 10/26/2017, 02/13 Diabetes: Urine Protein Screening 02/04/2021 02/05/2020 SDOH Screening 08/25/2023 08/24/2022 COVID-19 Vaccine ( season) 2023 03/22/2021, 07/29/2020, 07/01/2020 Cervical Cancer Screening 11/29/2023 HPV/Cotest 11/29/2023 11/28/2018 Depression Screening 05/13/2024 05/14/2023, 05/14/19 Diabetes: Hemoglobin A1C 07/01/2024 024, 07/10/2023, 04/05/2023, Additional history exists Tobacco Screening 07/05/2024 07/06/2023 Lipid Panel 07/09/2024 07/10/2023, 02/05/2020 Mammogram 10/09/2024 10/10/2023, 09/13, 10/03/2022, Additional history exists Colonoscopy 05/14/2025 05/14/2020 Colorectal Cancer Screening 05/14/2025 DTaP/Tdap/Td Vaccines (2 - Td or Tdap) 10/26/2027 10/25/2017, 09/12/2006 RSV Patients and Patients Aged 60 years or older (1 - 1-dose 75+ series) 2045 Pneumococcal Vaccine: 50+ Years Completed 02/16/2022 Zoster Vaccines Completed 02/16/2022, 12/08/2021 Influenza Vaccine Completed 11/01/2023, , 12/08/2021, Additional history exists HIB Vaccines Aged Out No longer eligi ble based on patient's age to complete this topic HPV Vaccines Aged Out No longer eligi ble based on patient's age to complete this topic Hepatitis A Vaccines Aged Out No long er eligible based on patient's age to complete this topic IPV Vaccines Aged Out No longer eligi ble based on patient's age to complete this topic Meningococcal Vaccine Aged Out No raphael ramesh eligible based on patient's age to complete this topic RSV under 20 months Aged Out No longe r eligible based on patient's age to complete this topic Rotavirus Vaccines Aged Out No longer eligible based on patient's age to complete this topic Procedures Procedure Name Priority Date/Time Associated Diagnosis Comments CT ABDOMEN PELVIS W CONTRAST Urgent 01/23/2024 2:48 PM EST Nausea BASIC METABOLIC PANEL Routine 01/15/2024 2:25 PM EST Nausea HEPATIC FUNCTION PANEL Routine 01/03/2024 8:07 AM EST Prediabetes Anxious depression Other specified hypothyroidism TSH W/REFLEX TO FT4 Routine 01/03/2024 8 :07 AM EST Prediabetes Anxious depression Other specified hypothyroidism POCT GLYCATED HEMOGLOBIN, TOTAL Routine 01/02/2024 11:02 AM EST Prediabetes POCT GLUCOSE Routine 01/02/2024 11:02 AM EST Prediabetes URINALYSIS WITH REFLEX MICROSCOPIC Routine 12/22/2023 8:34 PM EST XR KUB AND UPRIGHT 2 VIEWS Routine 12/22/2023 7:33 PM EST LIPASE Routine 12/22/2023 7:23 PM EST COMPREHENSIVE METABOLIC PANEL Routine 12/22/2023 7:23 PM EST CBC WITH AUTO DIFFERENTIAL Routine 12/22/2023 7:23 PM EST BI MAMMOGRAM SCREENING TOMOSYNTHESIS BILATERAL Routine 10/10/2023 10:35 AM EDT LIPID PANEL, STANDARD Routine 07/10/2023 8:47 AM EDT Overweight Severe persistent asthma with intensive monitoring Other specified hypothyroidism Benign essential hypertension Prediabetes HM COLONOSCOPY Routine 05/14/2020 ALBUMIN, RANDOM URINE W/CREATININE Routine 02/05/2020 10:29 AM EST ZZZ HISTORICAL HPV MRNA E6/E7 Routine 11/28/2018 10:43 AM EDT DIAGNOSTIC - DIAGNOSTIC IMAGING - INTRAORAL - COMPREHENSIVE SERIES OF RADIOGRAPHIC IMAGES Routine 10/26/2017 12:00 AM EDT COMPREHENSIVE ORAL EVALUATION - NEW OR ESTABLISHED PATIENT Routine 10/26/2017 12:00 AM EDT from Last 3 Months or Most Recently Relevant to Health Maintenance Results * CT Abdomen Pelvis w/ Contrast (01/23/2024 2:48 PM EST) Anatomical Region Laterality Modality Body, Pelvis, Abdomen Computed T omography 01/23/2024 2:48 PM EST Narrative 01/23/2024 6:47 PM EST ? [facility] ?[address] ?[place] [address] ? CT Scan Report ? Signed ? Patient: Colon Marcell,Alecia ?MR#: M ?? [id number] ? : 1970 ?Acct:[id number] ? Age/Sex: 54 / F ?ADM Date: 01/23/24 ? Loc: HO.CT ? Attending Dr: Marcia Mack MD ? Ordering Physician: Marcia Mack MD ?? Date of Service: 01/23/24 ?? Procedure(s): CT abdomen pelvis w IV con ?? Accession Number(s): [id number] ? cc: Rehana Hathaway MD; Marcia Mack MD ? EXAMINATION: ?? CT ABDOMEN AND PELVIS WITH CONTRAST ? CLINICAL INFORMATION: ?? Epigastric tenderness, weight loss. ? COMPARISON: ?? None available. ? TECHNIQUE: ?? Multidetector volumetric images were obtained from the superior aspect ?? of the liver through the pubic symphysis following administration 85 mL ?? of Omnipaque 350 intravenous contrast. Sagittal and coronal reformatted ?? images were obtained on the technologist's workstation. ? Oral contrast: No ? This CT examination was performed using dose optimization techniques as ?? appropriate, variously including the following: ?? *Automated exposure control ?? *Adjustment of mA and/or kV according to patient size (this includes ?? techniques or standardized protocols for targeted exams where dose is ?? matched to indication/reason for exam; i.e. extremities or head) ?? *Use of iterative reconstruction technique ? DLP: ?? 394 mGy-cm ? FINDINGS: ? LUNG BASES: Unremarkable. ? ABDOMINAL AND PELVIC WALL: ??Unremarkable. ? LIVER AND BILIARY TREE: Hepatomegaly. Hypoattenuation of the liver ?? parenchyma reflects hepatic steatosis. ? GALLBLADDER: Unremarkable. ? PANCREAS: Unremarkable. ? SPLEEN: Unremarkable. ? ADRENAL GLANDS: 2.9 x 2.1 cm left adrenal gland nodule, indeterminate. ? KIDNEYS AND URETERS: Unremarkable. ? GASTROINTESTINAL TRACT: Unremarkable. ??Appendix is within normal ?? limits. ? VASCULAR: Unremarkable ? LYMPH NODES/PERITONEUM: No lymphadenopathy. ? FREE FLUID: None. ? BLADDER: Unremarkable. ? PELVIC VISCERA: Unremarkable. ? OSSEOUS STRUCTURES: Degenerative changes of the spine. ? CT/CT abdomen pelvis w IV con ?? IMPRESSION: ?? * ??No acute intra-abdominal abnormality. ? * ??Hepatomegaly with hepatic steatosis. ? * ??Indeterminate left adrenal gland nodule. Recommend further ?? evaluation with CT or MR adrenal protocol. ? Electronically signed by: ??Kim Owens MD ??01/23/2024 06:44 PM EST RP ? Dictated By: ?Kim Owens MD ? Signed By: ?<Electronically signed by Kim Owens MD in OV> ? 01/23/24 1844 ? DD/ 1448 ? TD/TT: 01/23/24 1549 ? Environmental Intern: ? Procedure Note Chung Gomez - 01/23/[address] [address] [address] Scan Report Signed Patient: Alecia Meza#: M [id number] : 1970Acct:[id number] Age/Sex: 54 / FADM Date: 01/23/24 Loc: HO.CT Attending Dr: Marcia Mack MD Ordering Physician: Marcia Mack MD Date of Service: 01/23/24 Procedure(s): CT abdomen pelvis w IV con Accession Number(s): [id number] cc: Rehana Hathaway MD; Marcia Mack MD EXAMINATION: CT ABDOMEN AND PELVIS WITH CONTRAST CLINICAL INFORMATION: Epigastric tenderness, weight loss. COMPARISON: None available. TECHNIQUE: Multidetector volumetric images were obtained from the superior aspect of the liver through the pubic symphysis following administration 85 mL of Omnipaque 350 intravenous contrast. Sagittal and coronal reformatted images were obtained on the technologist's workstation. Oral contrast: No This CT examination was performed using dose optimization techniques as appropriate, variously including the following: *Automated exposure control *Adjustment of mA and/or kV according to patient size (this includes techniques or standardized protocols for targeted exams where dose is matched to indication/reason for exam; i.e. extremities or head) *Use of iterative reconstruction technique DLP: 394 mGy-cm FINDINGS: LUNG BASES: Unremarkable. ABDOMINAL AND PELVIC WALL: Unremarkable. LIVER AND BILIARY TREE: Hepatomegaly. Hypoattenuation of the liver parenchyma reflects hepatic steatosis. GALLBLADDER: Unremarkable. PANCREAS: Unremarkable. SPLEEN: Unremarkable. ADRENAL GLANDS: 2.9 x 2.1 cm left adrenal gland nodule, indeterminate. KIDNEYS AND URETERS: Unremarkable. GASTROINTESTINAL TRACT: Unremarkable. Appendix is within normal limits. VASCULAR: Unremarkable LYMPH NODES/PERITONEUM: No lymphadenopathy. FREE FLUID: None. BLADDER: Unremarkable. PELVIC VISCERA: Unremarkable. OSSEOUS STRUCTURES: Degenerative changes of the spine. CT/CT abdomen pelvis w IV con IMPRESSION: * No acute intra-abdominal abnormality. * Hepatomegaly with hepatic steatosis. * Indeterminate left adrenal gland nodule. Recommend further evaluation with CT or MR adrenal protocol. Electronically signed by: Kim Owens MD 01/23/2024 06:44 PM EST RP Dictated By: Kim Owens MD Signed By: <Electronically signed by Kim Owens MD in OV> 01/23/24 1844 DD/ 1448 TD/TT: 01/23/24 1549 Environmental Intern: us Marcia Mack MD IMG CT PROCEDURES Final Resul t * Basic Metabolic Panel (01/15/2024 2:25 PM EST) Sodium 140 135 - 145 mmol/L [facility] Potassium 4.2 3.3 - 5.1 mmol/L [facility] Chloride 107 96 - 108 mmol/L [facility] Carbon Dioxide 25 22 - 29 mmol/L [facility] Anion Gap 12 12 - 20 [facility] Urea Nitrogen (BUN) 13 9 - 16 mg/dL [facility] Creatinine, Serum 0.66 0.5 - 1.4 mg/dL [facility] Estimated Glomerular Filt Rate >60 [facility] Comment:Chronic Kidney Disea se: Estimated GFR < 60 mL/min/[id number] Kidney Disease: Estimated GFR < 15 mL/min/1.73m2 Glucose 90 60 - 115 mg/dL [facility] Calcium 10.2 8.4 - 10.2 mg/dL [facility] Blood Venous blood specimen / Unknown 01/15/2024 2:25 PM EST 01/15/2024 5:32 PM EST us Marcia Mack MD LAB BLOOD ORDERABLES Final Re sult Performing Organization Address City/[facility] Co de Phone Number [facility] [address] [place] [phone] * TSH W/Reflex to FT4 (01/03/2024 8:07 AM EST) TSH reflex Free T4 2.18 0.32 - 4.0 uIU/mL [facility] Blood Venous blood specimen / Unknown 01/03/2024 8:07 AM EST 01/03/2024 2:07 PM EST us Rehana Hathaway MD LAB BLOOD ORDERABLES Final Re sult Performing Organization Address [facility] Co de Phone Number [facility] [address] [place] [phone] * Hepatic Function Panel (01/03/2024 8:07 AM EST) Bilirubin, Total 0.9 0.0 - 1.0 mg/dL [facility] Bilirubin, Direct 0.3 0.0 - 0.5 mg/dL [facility] Aspartate Amino Transferase 26 5 - 31 U/L [facility] Alanine Aminotransferase 26 0 - 31 U/L [facility] Total Protein 7.0 6.5 - 8.0 g/dL [facility] Albumin Level 4.3 3.5 - 5.0 g/dL [facility] Alkaline Phosphatase 80 39 - 117 U/L [facility] Blood Venous blood specimen / Unknown 01/03/2024 8:07 AM EST 01/03/2024 2:07 PM EST Rehana Hathaway MD LAB BLOOD ORDERABLES Final Re sult [facility] [address] [place] [phone] * POCT HGB A1C (01/02/2024 11:02 AM EST) Hemoglobin A1C 5.5 4.0 - 6.0 % QC Media Lot # [id number] Lot# Expiration Date , Blood 01/02/2024 11:0 2 AM EST Rehana Hathaway MD POINT OF CARE TEST ENTER/EDIT ORDERABLES Final Result * POCT Glucose (01/02/2024 11:02 AM EST) Glucose Blood, POC 119 60 - 200 mg/dL QC Media Lot # [id number] Lot# Expiration Date ,025 Blood Capillary blood specimen / Unknown 01/02/2024 11:02 AM EST Rehana Hathaway MD POINT OF CARE TEST ENTER/EDIT ORDERABLES Final Result * Urinalysis w/reflex microscopic (12/22/2023 8:34 PM EST) Color Urine Yellow [facility] Appearance Urine Clear [facility] PH 5.5 5.0 - 9.0 [facility] Glucose Urine UA Negative Negative mg/dL [facility] Urine Blood Negative Negative [facility] Specific [place] - Urine <=1.005 1.005 - 1.025 [facility] Urine Protein Negative Neg-Trace mg/dL [facility] Urine Ketones Negative Negative mg/dL [facility] Nitrite Urine Negative Negative [facility] Leukocyte Esterase Urine Negative Negative [facility] 12/22/2023 8:34 PM EST 12/22/2023 8:36 PM EST Narrative [facility] - 12/22/2023 8:40 PM EST [id number], [employer] us Generic External Data Provider LAB URINE ORDERAB LES Final Result [facility] [address] [place] [address] [phone] * XR KUB and Upright 2 Views (12/22/2023 7:33 PM EST) Anatomical Region Laterality Modality Radiographic Beth ging 12/22/2023 7:33 PM EST Narrative 12/22/2023 8:39 PM EST ? [facility] ?[address] ?[place] [address] ?XRay Report ? Signed ? Patient: Colon Marcell,Alecia ?MR#: M ?? [id number] ? : 1970 ?Acct:[id number] ? Age/Sex: 53 / F ?ADM Date: 12/22/23 ? Loc: HO.ED ? Attending Dr: ? Ordering Physician: Rachael Mullen CNP ?? Date of Service: 12/22/23 ?? Procedure(s): XR KUB ?? Accession Number(s): [id number] ? cc: Rachael Mullen CNP; Rehana Hathaway MD ? EXAMINATION: ?? XR ABDOMEN KUB ? CLINICAL INDICATION: ?? Constipation nausea and bloating ? COMPARISON: ?? None available. ? TECHNIQUE: ?? AP view of the abdomen. ? FINDINGS: ?? The bowel gas pattern is normal with no evidence of ileus or ?? obstruction. There is enlarged amount of feces in the colon due to ?? constipation. No unusual soft tissue calcifications are noted. The ?? bones are unremarkable. ? XR/XR KUB ?? IMPRESSION: ?? Constipation ? Electronically signed by: ??Delmar Garcia MD ??12/22/2023 08:36 PM EST RP ? Dictated By: ?Delmar Garcia MD ? Signed By: ?<Electronically signed by Delmar Garcia MD in OV> ? 12/22/232035 ? DD/ 32 ? TD/TT: 12/22/231942 ? Environmental Intern: ? Procedure Note Donotuseinterpreter, Image - 12/22/2023 [place] [address] XRay Report Signed Patient: Alecia MezaMR#: Zaina [id number] : 1970Acct:[id number] Age/Sex: 53 / FADM Date: 12/22/23 Loc: HO.ED Attending Dr: Ordering Physician: Rachael Mullen CNP Date of Service: 12/22/23 Procedure(s): XR KUB Accession Number(s): [id number] cc: Rachael Mullen CNP; Rehana Hathaway MD EXAMINATION: XR ABDOMEN KUB CLINICAL INDICATION: Constipation nausea and bloating COMPARISON: None available. TECHNIQUE: AP view of the abdomen. FINDINGS: The bowel gas pattern is normal with no evidence of ileus or obstruction. There is enlarged amount of feces in the colon due to constipation. No unusual soft tissue calcifications are noted. The bones are unremarkable. XR/XR KUB IMPRESSION: Constipation Electronically signed by: Delmar Garcia MD 12/22/2023 08:36 PM EST Dictated By: Delmar Garcia MD Signed By: <Electronically signed by Delmar Garcia MD in OV> 12/22/232035 DD/ 32 TD/TT: 12/22/231942 Environmental Intern: [facility] External Provider IMG XR PROCEDURES Edited Result - Final * (ABNORMAL) CBC auto differential (12/22/2023 7:23 PM EST) White Blood Count 7.3 4.8 - 10.8 X10*3/uL [facility] Red Blood Count 4.53 4.20 - 5.50 X10*6/uL [facility] Hemoglobin 12.8 12.0 - 16.0 g/dl [facility] Hematocrit 39.1 37.0 - 47.0 % [facility] Mean Corpuscular Volume 86.3 80.0 - 98.0 fL [facility] Mean Corpuscular Hemoglobin 28.3 27.0 - 33.0 pg [facility] Mean Corpuscular HGB Conc 32.7 31.0 - 35.0 g/dl [facility] Red Cell Distribution Width 14.0 11.0 - 16.0 % [facility] Platelet Count 245 160 - 400 X10*3/uL [facility] Mean Platelet Volume 10.5 9.4 - 12.3 fL [facility] Neutrophils Percent Auto 50.8 45 - 73 % [facility] Imm Gran Pct Auto 0.1 0.0 - 0.4 % [facility] Lymphocytes Percent Auto 40.3(H) 20 - 40 % [facility] Monocytes Percent Auto 6.3 2 - 11 % [facility] Eosinophils Percent Auto 1.5 0 - 4 % [facility] Basophils Percent Auto 1.0 0 - 2 % [facility] NRBC Pct Auto 0.0 0.0 - 0.2 /100WBC [facility] Neutrophils Absolute Auto 3.7 2.0 - 8.3 x10*3/uL [facility] Imm Gran Abs Auto 0.01 0.00 - 0.03 X10*3/uL [facility] Lymphocytes Absolute Auto 3.0 1.2 - 4.9 X10*3/uL [facility] Monocytes Absolute Auto 0.5 0.1 - 1.2 X10*3/uL [facility] Eosinophils Absolute Auto 0.1 0.0 - 0.4 X10*3/uL [facility] Basophils Absolute Auto 0.1 0.0 - 0.2 X10*3/uL [facility] NRBC Abs Auto 0.000 0.0 - 0.012 X10*3/uL [facility] 12/22/2023 7:23 PM EST 12/22/2023 7:26 PM EST us Generic External Data Provider LAB BLOOD ORDERAB LES Final Result Performing Organization Address [facility]/ZIP Co de Phone Number [facility] [address] [place] [address] [phone] * Lipase (12/22/2023 7:23 PM EST) Lipase 24 8 - 78 U/L [facility] 12/22/2023 7:23 PM EST 12/22/2023 7:26 PM EST Generic External Data Provider LAB BLOOD ORDERAB LES Final Result Performing Organization Address [facility] de Phone Number [facility] [address] [place] [phone] * (ABNORMAL) Comprehensive Metabolic Panel (12/22/2023 7:23 PM EST) Pathologist [facility] Sodium 141 135 - 145 mmol/L [facility] Potassium 3.5 3.3 - 5.1 mmol/L [facility] Chloride 106 96 - 108 mmol/L [facility] Carbon Dioxide 24 22 - 29 mmol/L [facility] Anion Gap 15 12 - 20 [facility] Urea Nitrogen (BUN) 18(H) 9 - 16 mg/dL [facility] Creatinine, Serum 0.67 0.5 - 1.4 mg/dL [facility] Creatinine Clr Calc Pharmacy 84.1 [facility] Comment:Provided height and weight: 149.86 cm,72.3 kg.eGFR (calculated from the MDRD study equation) and eCrCl(calculated from the Cockcroft-Gault equation) are based ondifferent parameters and may not yield comparable results.If eCrCl result is absurd, please check patient'sheight/weight. Estimated Glomerular Filt Rate >60 [facility] Comment:NOTE: For -Am erican individuals, multiply the result by 1.210.Chronic Kidney Disease: Estimated GFR < 60 mL/min/1.03c4Iaeosg Kidney Disease: Estimated GFR < 15 mL/min/1.73m2 Glucose 87 60 - 115 mg/dL [facility] Calcium 10.3(H) 8.4 - 10.2 mg/dL [facility] Bilirubin, Total 1.1(H) 0.0 - 1.0 mg/dL [facility] Aspartate Amino Transferase 21 5 - 31 U/L [facility] Alanine Aminotransferase 22 0 - 31 U/L [facility] Total Protein 7.4 6.5 - 8.0 g/dL [facility] Albumin Level 4.4 3.5 - 5.0 g/dL [facility] Alkaline Phosphatase 77 39 - 117 U/L [facility] 12/22/2023 7:23 PM EST 12/22/2023 7:26 PM EST us Generic External Data Provider LAB BLOOD ORDERAB LES Final Result Performing Organization Address [facility] de Phone Number [facility] [address] [place] [phone] [phone] * BI Mammogram Screening Tomosynthesis Bilateral (10/10/2023 10:35 AM EDT) Anatomical Region Laterality Modality Breast Bilateral Mammography 10/10/2023 10:3 5 AM EDT Narrative 11/01/2023 6:02 PM EDT ? [facility] [place] ? [address] ?[place] [address] ? Mammography Report ? Signed ? Patient: Colon,Alecia ?MR#: [id number] ?? 8 ? : 1970 ?Acct:[id number] ? Age/Sex: 53 / F ?ADM Date: 08/28/24 ? Loc: HO.MAMMO ? Attending Jenifer Hathaway MD ? Ordering Physician: Rehana Hathaway MD ?Results: 1Ne ?? gative ? Date of Service: 10/10/23 ?Follow Up: 1 Year From Orig ?? inal Mammogram ? Procedure(s): MM tomosynthesis screening BI ?? Accession Number(s): [id number] ? cc: Rehana Hathaway MD ? EXAMINATION: ?? MM SCREENING DIGITAL BREAST TOMOSYNTHESIS, BILATERAL ? CLINICAL INFORMATION: ? Screening. Asymptomatic. ? COMPARISON: ?? Mammography: Comparison is made with available prior exams. ? TECHNIQUE: ?? Digital breast tomosynthesis is performed in both the craniocaudal and ?? mediolateral oblique views along with computer-aided detection (CAD). ? Synthesized 2D images are generated from the tomosynthesis. ? FINDINGS: ?? There are scattered areas of fibroglandular density (ACR BI-RADS breast ?? composition Category b). ? There are no significant masses, abnormal calcifications, or other ?? abnormalities. ? MM/MM tomosynthesis screening BI ?? IMPRESSION: ?? No mammographic evidence of malignancy. ? ASSESSMENT: ? BI-RADS BI-RADS 1 - Negative ? RECOMMENDATION: ?? Routine annual mammography screening. ? 1 year F/U ? This examination should not preclude the clinical evaluation of a ?? suspicious palpable abnormality. ? This patient's information was entered into a reminder system with a ?? target due date for their next mammogram. ? Electronically signed by: ??Teagan Tinoco DO ??11/01/2023 05:59 PM EDT ?? RP ? Dictated By: ?Teagan Tinoco DO ? Signed By: ?<Electronically signed by Teagan Tinoco, DO in OV> ? 11/01/23 1759 ? DD/ 1035 ? TD/TT: 10/10/23 1050 ? Environmental Intern: ? Procedure Note Donotkemiter, Image - [facility] [address] [place] [address] Mammography Report Signed Patient: Alecia JosephMR#: [id number] : 1970Acct:[id number] Age/Sex: 53 / FADM Date: 10/10/23 Loc: HO.MAMMO Attending Dr: Rehana Hathaway MD Ordering Physician: Rehana Hathaway MDResults: 1Ne gative Date of Service: 10/10/23Follow Up: 1 Year From Orig inal Mammogram Procedure(s): MM tomosynthesis screening BI Accession Number(s): [id number] cc: Rehana Hathaway MD EXAMINATION: MM SCREENING DIGITAL BREAST TOMOSYNTHESIS, BILATERAL CLINICAL INFORMATION: Screening. Asymptomatic. COMPARISON: Mammography: Comparison is made with available prior exams. TECHNIQUE: Digital breast tomosynthesis is performed in both the craniocaudal and mediolateral oblique views along with computer-aided detection (CAD). Synthesized 2D images are generated from the tomosynthesis. FINDINGS: There are scattered areas of fibroglandular density (ACR BI-RADS breast composition Category b). There are no significant masses, abnormal calcifications, or other abnormalities. MM/MM tomosynthesis screening BI IMPRESSION: No mammographic evidence of malignancy. ASSESSMENT: BI-RADS BI-RADS 1 - Negative RECOMMENDATION: Routine annual mammography screening. 1 year F/U This examination should not preclude the clinical evaluation of a suspicious palpable abnormality. This patient's information was entered into a reminder system with a target due date for their next mammogram. Electronically signed by: Teagan Tinoco DO 11/01/2023 05:59 PM EDT Dictated By: Teagan Tinoco DO Signed By: <Electronically signed by Teagan Tinoco DO in OV> 11/01/23 1759 DD/ 1035 TD/TT: 10/10/23 1050 Environmental Intern: Rehana Hathaway MD IMG BI PROCEDURES Final Resul t * (ABNORMAL) Lipid Panel, Standard (07/10/2023 8:47 AM EDT) Triglycerides 99 <150 mg/dL [facility] Comment:Desirable Triglyceri de: less than 150 mg/dLBorderline High Triglyceride 150-199 mg/dLHigh Triglyceride: 200-499 mg/dLVery High Triglyceride: greater than or equal to 5OO mg/dL Cholesterol 207(H) <200 mg/dL [facility] Comment:Desirable Cholestero l: less than 200 mg/dLBorderline High Cholesterol: 200-239 mg/dLHigh Cholesterol: greater than 239 mg/dL LDL Cholesterol Calculated 116(H) <100 mg/dL [facility] Comment:Desirable LDL: less than 100 mg/dLNear Optimal/Above Optimal LDL: 110- 129 mg/dLBorderline High LDL: 130-159 mg/dLHigh LDL: 160-189 mg/dLVery High LDL: greater than or equal to 190 mg/dL HDL Cholesterol 72 >40 mg/dL [facility] Comment:Desirable HDL: great er than 40 mg/dL Note: This HDL assay may give artificially low results in patients with liver disease. Blood Venous blood specimen / Unknown 07/10/2023 8:47 AM EDT 07/10/2023 2:38 PM EDT Rehana Hathaway MD LAB BLOOD ORDERABLES Final Re sult [facility] [address] [place] [address] [phone] * Hm Colonoscopy (05/14/2020) Colonoscopy Normal Normal Narrative Ghazal Nuñez - 05/14/2020 Recommended 5 years ( confirmed with gastro office ) Historical Provider HEALTH MAINTENANCE Final Result * ALBUMIN, RANDOM URINE W/CREATININE (02/05/2020 10:29 AM EST) Microalbumin Urine 0.4 See Note: mg/dL [facility] Comment: Reference Range: ?? Reference Range Not established Microalb/Creat Ratio 13 <30 mcg/mg creat [facility] Comment: ?? The ADA defines abnormalities in albumin excretion as follows: ?? Category ? Result (mcg/mg creatinine) ?? Normal ?<30 Microalbuminuria ? 30-299 ?? Clinical albuminuria ?? > OR = 300 ?? The ADA recommends that at least two of three specimens collected within a 3-6 month period be abnormal before considering a patient to be within a diagnostic category. Creatinine, Urine 32 20 - 275 mg/dL [facility] 02/05/2020 10:2 9 AM EST us Rehana Hathaway MD LAB URINE ORDERABLES Final Re sult [facility] [address] * HPV mRNA E6/E7 (11/28/2018 10:43 AM EDT) HPV mRNA E6/E7 Not Detected NOT DETECTED [facility] Comment: This test was performed using the APTIMA(R) HPV Assay ([employer] This assay detects E6/E7 viral messenger RNA (mRNA) from 14 high-risk HPV types (16,18,31,33,35,39,45,51, 52,56,58,59,66,68). For additional information please refer to: http://education.[employer]oom[employer]s.Message Missile/faq/NYK558d0 (This link is being provided for informational/ educational purposes only.) The analytical performance characteristics of this assay have been determined by [employer] [place], [place]. The modifications have not been cleared or approved by the FDA. This assay has been validated pursuant to the CLIA regulations and is used for clinical purposes. Test Performed by [employer], [employer] [facility], [address] [place], [place] Fred Boyd M.D., Ph.D., Director of Laboratories , [facility] [id number] Please note: ??Effective 10/25/2015, HPV testing will be performed using [employer]'s APTIMA test which targets mRNA. Detecting mRNA instead of DNA, as in older methods, offers significant improvements in specificity. 11/28/2018 10:4 3 AM EDT us Rehana Hathaway MD HISTORICAL/NON ORDERABLE LABS Final Result [facility] from Last 3 Months or Most Recently Relevant to Health Maintenance Insurance [facility] STAND ADULT * Guarantor: Alecia Joseph Account Type Relation to Patient Date of Phone Billing Address [place] [address] * Guarantor: Alecia Joseph Account Type Relation to Patient Date of Phone Billing Address Personal/[place] [address] Care Teams Dish Cloth Inspector Relationship Specialty Start Date End Date Rehana Hathaway MD [address] [place] [phone] PCP - General Family Medicine 02/12/18
--- OUTSIDE RECORDS SUMMARY | 2024-03-18 10:10 | XMS_ITS | Encounter Summary ---
Author Organization [employer] Address [address] [facility] 7t [place] [address] Care Team Providers Care Flight Attendant/Inflight Supervisor Name Role Phone Rehana Hathaway MD Primary Care Provider [phone] Reason for Visit * Reason Comments Med Refill Encounter Details Date Type Department Care Team ([facility] st Contact Info) Description 07/12/2023 Refill [facility] MED & PEDS [address] [place], [place] [phone] Rehana Hathaway MD [address] [place] [address] Social History Tobacco Use Types Packs/Day Years [...] Upcoming Encounters Date Type Department Care Team ([facility] st Contact Info) Description 03/27/2024 9:00 AM EST Office Visit [facility] & PEDS [address] [place] [address] Rehana Hathaway MD [address] [place] [address] documented as of this encounter Visit Diagnoses Not on filedocumented in this encounter Additional Health Concerns Assessment Noted Time PHQ-9 Depression Total Score: 3 05/14/19 24 9:07 AM EDT documented as of this encounter Care Teams Flight Attendant/Inflight Supervisor Relationship Specialty Start Date End Date Rehana Hathaway MD [address] [place] [address] PCP - General Family Medicine 02/12/18 documented as of this encounter
--- OUTSIDE RECORDS SUMMARY | 2024-03-18 10:10 | XMS_ITS | Encounter Summary ---
Author Organization [employer] Address [address] [facility] 7t [place] [address] [address] Prov[address] Care Ct Scan Tech Name Role Phone Rehana Hathaway MD Primary Care Provider [phone] Reason for Visit * Reason Onset Date Comments Medication Question 04/21/2022 Encounter Details Date Type Department Care Team ([facility] st Contact Info) Description 04/21/2022 Telephone [facility] MEDICINE [address] [place] [address] Rehana Hathaway MD [address] [place], [place] [phone] Medication Question Social History Tobacco Use Types Packs/Day Years Used Date Smoking Tobacco: Never Assessed Depression Answer Date Recorded Patient Health Questionnaire-9 [...] Orientation Straight 12/12/2021 10 :15 AM EDT COVID-19 Exposure Response Date Recorded In the last 10 days, have yo u been in contact with someone who was confirmed or suspected to have Coronavirus/COVID-19? No / Unsure 08/22/2022 8:46 AM EDT documented as of this encounter Miscellaneous Notes * Telephone Encounter - Maryanne Lucero RN - 04/21/2022 3:30 PM EST TC placed to pt at [phone] in regards to below message. Pt states she continues with her asthma shots and was informed her asthma shot dose never increases. Pt states she was at her allergy apptrecently (pt gets allergy shots [id number]) and was informed that every 2 weeks the dose increases with Dr. Ozzie Colby at [facility]; he would like to know if he can continue to increase her allergy dose q2 weeks b/c he was informed by PCP that it may be causing her vertigo. Pt has next allergy shotappt on 04/28/22 and would like to know if pt should stay with same dose of allergy shot or is she able to have an increase in dose? Informed pt RN would send message to PCP in regards to message and will inform pt of answer before pt's next allergy shot appt. Pt verbalized understanding and agrees with POC. Pt to f/u PRN. * Telephone Encounter - Edwardnasrin Rusty - 04/21/2022 3:10 PM EST Tc from pt requesting a call back with clarification on which mediation PCP will be increasing. Pt unsure if its Allergy shot or Asthma shot, Ice Grinder unable to locate notes. Please contact at [phone] documented in this encounter Plan of Treatment Upcoming Encounters Date Type Department Care Team ([facility] Contact Info) Description 03/27/2024 9:00 AM EST Office Visit [facility] MED & PEDS [address] [place] [address] Rehana Hathaway MD [address] [place] [address] documented as of this encounter Visit Diagnoses Not on filedocumented in this encounter Additional Health Concerns Assessment Noted Time PHQ-9 Depression Total Score: 6 04/11/19 23 2:49 PM EST documented as of this encounter Care Teams Ct Scan Tech Relationship Specialty Start Date End Date Rehana Hathaway MD [address] [place] [address] PCP - General Family Medicine 02/12/18 documented as of this encounter
== END 2024-03-18 09:38 | disposition home or self-care (01) ==
LOC: HO.RESP 09:37
PROVIDERS: PCP Pediatrics; Visit Provider Hospitalist
DX: J45.40 Moderate persistent asthma, uncomplicated (principal)
CPT/HCPCS: 94010; 94640; 94727; 94729

== ENCOUNTER 2024-03-28 08:19 | Outpatient (REF) | payer MEDICAID, SELFPAY ==
--- OUTSIDE RECORDS SUMMARY | 2024-03-28 08:25 | XMS_ITS | Patient Health Record ---
Author Organization [facility] Address [address] [place] [address] Care Team Providers Care Account Manager Trainee Name Role Phone Rivas ASIF, Rehana Primary Care Provider David Coats Jr Unavailable Yesica Velasco Unavailable Unavailable REASON FOR REFERRAL [...] Problem Colon cancer screening (Z12.11) Active confirmed 061353086 Problem Microcytic anemia (D50.9) Active confirmed [id number] Problem Gastroesophageal reflux disease, unspecified whether esophagitis present (K21.9) Active confirmed [id number] PLAN OF TREATMENT Future Test Test Name Order Date COLONOSCOPY 04/19/2020 Insurance Providers Payer Name Payer Address Payer Phone Subscriber Number Group Number Insured Name Patient Relationship to Insured Coverage Start Date Coverage End Date MEDICAID OF Down [address] [place] [phone] [id number] CANDIDOHANNAH Self - patient is the insured MEDICAL (GENERAL) HISTORY Medical History History ICD Code asthma hypertension hyperthyroidism heartburn seasonal allergies Covid 19 infection, 03/22/20, quarantined at home, no treatment required Surgical History Surgery Date(Month/Year) Knee Replacement - left side
--- OUTSIDE RECORDS SUMMARY | 2024-03-28 08:25 | XMS_ITS | Encounter Summary ---
Author Organization [employer] Address [address] [facility] 7 [place] [address] Care Team Providers Care Ball Ender Name Role Phone Rehana Hathaway MD Primary Care Provider [phone] Reason for Visit * Reason Onset Date Comments Chart Prep 03/26/2024 Encounter Details Date Type Department Care Team ([facility] st Contact Info) Description 03/26/2024 Telephone [facility] MED & PEDS [address] [place], [place] [phone] Rehana Hathaway MD [address] [place] [address] Chart Prep Social History Tobacco Use Types Packs/Day Years Used Date Smoking Tobacco: Never Passive Smoke Exposure: Never Smokeless Tobacco: Never Depression Answer Date Recorded Patient Health Questionnaire-9 Score 3 05/14/2023 Patient Health Questionnaire-9 Score 3 05/14/2023 Last PHQ-9: Questionnaire Data Not on file 0 05/14/2023 Housing Stability Answer Date Recorded What is your housing situation today? I have crystal hernandez 03/19/[address] you li ve. Do you have problems with any of the following? None of the above 03/19/2024 Food Insecurity Answer Date Recorded Within the past 12 months, y ou worried that your food would run out before you got money to buy more: Never True 03/19/2024 Within the past 12 months,th e food you bought just didn't last and you didn't have enough money to get more: Never True 06/2024 Transportation Answer Date Recorded In the past 12 months, has l ack of transportation kept you from medical appts, meetings, work or from getting things needed for daily living? No 03/19/2024 Utilities Answer Date Recorded In the past 12 months, has t he electric, gas, oil or water company threatened to shut off services in your home? No 03/19/2024 Depression Answer Date Recorded Patient Health Questionnaire-2 Score 1 05/14/2023 Internet Access Answer Date Recorded Internet Access Q1 Yes 03/19/2024 Internet Access Q2 Not on file 03/19/2024 Comments Unknown Sex and Gender Information Value Date Recorded Sex Assigned at Female 12/12/2021 10:15 AM EDT Legal Sex Female 10:15 AM EDT Gender Identity Female 12/12/2021 10:15 AM EDT Sexual Orientation Straight 12/12/2021 10 :15 AM EDT documented as of this encounter Miscellaneous Notes * Telephone Encounter - Whitney Morales MA - 03/26/2024 3:00 PM EST Chart Prep Labs: done Images: done Vaccines due: yes Referrals: complete Screenings: pap smear , eye exam , Foot Exam, STI screening Overdue care gaps: Glucose, Sbirt, PHQ-9, Disability screening documented in this encounter Plan of Treatment Upcoming Encounters Date Type Department Care Team (Late st Contact Info) Description 06/24/2024 10:30 AM EDT Office Visit [facility] MED & PEDS [address] [place] [address] Rehana Hathaway MD [address] [place] [address] documented as of this encounter Visit Diagnoses Not on filedocumented in this encounter Additional Health Concerns Assessment Noted Time PHQ-9 Depression Total Score: 3 05/14/19 24 9:07 AM EDT documented as of this encounter Care Teams Ball Ender Relationship Specialty Start Date End Date Rehana Hathaway MD [address] [place] [address] PCP - General Family Medicine 02/12/18 documented as of this encounter
--- OUTSIDE RECORDS SUMMARY | 2024-03-28 08:25 | XMS_ITS | Encounter Summary ---
Author Organization [employer] Address [address] [place] [address] [address], [place] [address] Care Team Providers Care Stave And Bolt Equalizer Name Role Phone Rehana Hathaway MD Primary Care Provider [phone] Reason for Referral * Imaging (Routine) - Authorized Specialty Diagnoses / Procedures Referred By Contac t Referred To Contact Radiology Diagnoses Weight loss Adrenal incidentaloma (CMS/HCC) Procedures CT Abdomen Pelvis w/o Contrast Rehana Hathaway MD [address] [place] [address] Phone: tel: fax: [address] Phone: tel: fax: Referral ID Status Reason Start Date Expiration Date V isits Requested Visits Authorized [id number] Authorized 03/27/2024 03/27/2025 1 1 Encounter Details Date Type Department Care Team (Latest Contact Info) Description 03/27/2024 9:00 AM EST Office Visit [facility] MED & PEDS [address] [place], [place] [phone] Rehana Hathaway MD [address] [place], [place] [phone] Acquired hypothyroidism (Primary Dx); Weight loss; Adrenal incidentaloma (CMS/HCC) Social History Tobacco Use Types Packs/Day Years [...] AM EDT documented as of this encounter Last Filed Vital Signs Vital Sign Reading Time Taken Comments Blood Pressure 118/68 03/27/2024 8:51 AM EST Pulse 64 03/27/2024 8:51 AM EST Temperature 37.3 ??C (99.1 ??F) 03/27/2024 8:51 AM ES T Respiratory Rate 18 03/27/2024 8:51 AM EST Oxygen Saturation 99% 03/27/2024 8:51 AM EST Inhaled Oxygen Concentration - - Weight 66.2 kg (146 lb) 03/27/2024 8:51 AM EST Height 149.9 cm (4' 11 ) 03/27/2024 8:51 AM EST Body Mass Index 29.49 03/27/2024 8:51 AM EST documented in this encounter Progress Notes * Rehana Hathaway MD - 03/27/2024 9:00 AM EST Subjective Patient ID: Alecia Joseph is a 54 y.o. female who presents for follow-up. Alecia is a 54-year-old female patient of mine here for follow-up. She has lost 6 more pounds since her last visit in January. She is still on a low-carb and low sugar diet. Her last labs and imaging studies were reviewed with her today. She feels well. Review of Systems Constitutional: Negative for activity change, chills, fatigue, fever and unexpected weight change. Respiratory: Negative for cough, shortness of breath and wheezing. Cardiovascular: Negative for chest pain, palpitations and leg swelling. Gastrointestinal: Negative for abdominal pain and blood in stool. Endocrine: Negative for polydipsia and polyuria. Genitourinary: Negative for decreased urine volume, difficulty urinating, dysuria and hematuria. Musculoskeletal: Negative for arthralgias and gait problem. Skin: Negative for color change and rash. Neurological: Negative for dizziness and headaches. Hematological: Negative for adenopathy. Psychiatric/Behavioral: Negative for dysphoric mood, hallucinations, sleep disturbance and suicidalideas. The patient is not nervous/anxious. Objective BP 118/68 (BP Location: Right arm, Patient Position: Sitting, BP Cuff Size: Adult) Pulse 64 Temp 99.1 ??F (37.3 ??C) (Oral) Resp 18 Ht 4' 11 (1.499 m) Wt 146 lb (66.2 kg) LMP (LMP Unknown) SpO2 99% BMI 29.49 kg/m?? Physical Exam Constitutional: General: She is not in acute distress. Appearance: Normal appearance. She is not ill-appearing. Eyes: Pupils: Pupils are equal, round, and reactive to light. Cardiovascular: Rate and Rhythm: Normal rate and regular rhythm. Heart sounds: Normal heart sounds. No murmur heard. Pulmonary: Effort: Pulmonary effort is normal. No respiratory distress. Breath sounds: Normal breath sounds. Abdominal: Palpations: Abdomen is soft. Lymphadenopathy: Cervical: No cervical adenopathy. Skin: Coloration: Skin is not jaundiced. Findings: No rash. Neurological: Mental Status: She is oriented to person, place, and time. Mental status is at baseline. Psychiatric: Mood and Affect: Mood normal. Behavior: Behavior normal. Assessment/Plan Diagnoses and all orders for this visit: Acquired hypothyroidism Comments: Recheck thyroid function tests today as she is on high-dose of levothyroxine. Advised to expect a phone call with possible new dose of levothyroxine tomorrow. Orders: - TSH W/Reflex to FT4; Future - Basic Metabolic Panel; Future - CBC auto differential; Future - Sed Rate by Modified Westergren; Future - Urinalysis with reflex microscopic; Future Weight loss Comments: Recent labs within normal. She also had a CT scan of abdomen and pelvis done in January which onlyshowed a left adrenal nodule, no size mentioned. A new CT ordered today as this may be an incidentiloma. Orders: - TSH W/Reflex to FT4; Future - Basic Metabolic Panel; Future - CBC auto differential; Future - Sed Rate by Modified Westergren; Future - Urinalysis with reflex microscopic; Future - CT Abdomen Pelvis w/o Contrast; Future Adrenal incidentaloma (CMS/HCC) Comments: A CT scan of of abdomen and pelvis ordered today to describe better this left adenal nodule. Patient aware. Orders: - CT Abdomen Pelvis w/o Contrast; Future documented in this encounter Plan of Treatment Upcoming Encounters Date Type Department Care Team ([facility] st Contact Info) Description 06/24/2024 10:30 AM EDT Office Visit [facility] MED & PEDS [address] [place] [address] Rehana Hathaway MD [address] [place] [address] Scheduled Orders Name Type Priority Associated Diagnoses Orde r Schedule TSH W/Reflex to FT4 Lab Routine Acquired hypothyroidism Weight loss Expected: 03/27/2024 (Approximate), Expires: 03/27/2025 Basic Metabolic Panel Lab Routine Acquired hypothyroidism Weight loss Expected: 03/27/2024 (Approximate), Expires: 03/27/2025 CBC auto differential Lab Routine Acquired hypothyroidism Weight loss Expected: 03/27/2024 (Approximate), Expires: 03/27/2025 Sed Rate by Modified Westergren Lab Routine Acquired hypothyroidism Weight loss Expected: 03/27/2024, Expires: 03/27/2025 Urinalysis with reflex microscopic Lab Routine Acquired hypothyroidism Weight loss Expected: 03/27/2024, Expires: 03/27/2025 CT Abdomen Pelvis w/o Contrast Imaging Routine Weight loss Adrenal incidentaloma (CMS/HCC) Expected: 03/27/2024, Expires: 03/27/2025 documented as of this encounter Visit Diagnoses Diagnosis Acquired hypothyroidism- Primary Unspecified hypothyroidism Weight loss Loss of weight Adrenal incidentaloma (CMS/HCC) documented in this encounter Additional Health Concerns Assessment Noted Time PHQ-9 Depression Total Score: 3 05/14/19 24 9:07 AM EDT documented as of this encounter Care Teams Stave And Bolt Equalizer Relationship Specialty Start Date End Date Rehana Hathaway MD [address] [place] [address] PCP - General Family Medicine 02/12/18 documented as of this encounter
--- OUTSIDE RECORDS SUMMARY | 2024-03-28 08:26 | XMS_ITS | Encounter Summary ---
Author Organization [employer] Address [address] [facility] 7t [place] [address] Care Team Providers Care Talent Acquisition Consultant Name Role Phone Rehana Hathaway MD Primary Care Provider [phone] Reason for Visit * Reason Onset Date Comments c/b requested 03/30/2023 Encounter Details Date Type Department Care Team ([facility] st Contact Info) Description 03/30/2023 Telephone [facility] MEDICINE [address] [place] [address] Rehana Hathaway MD [address] [place] [address] c/b requested Social History Tobacco Use Types [...] discuss DX of diabetes. Please contact at [phone] documented in this encounter Plan of Treatment Upcoming Encounters Date Type Department Care Team (Late st Contact Info) Description 06/24/2024 10:30 AM EDT Office Visit [facility] MED & PEDS [address] [place] [address] Rehana Hathaway MD [address] [place] [address] documented as of this encounter Visit Diagnoses Not on filedocumented in this encounter Additional Health Concerns Assessment Noted Time PHQ-9 Depression Total Score: 5 08/04/19 23 12:52 PM EDT documented as of this encounter Care Teams Talent Acquisition Consultant Relationship Specialty Start Date End Date Rehana Hathaway MD [address] [place] [address] PCP - General Family Medicine 02/12/18 documented as of this encounter
--- OUTSIDE RECORDS SUMMARY | 2024-03-28 08:26 | XMS_ITS | Encounter Summary ---
Author Organization [employer] Address [address] [facility] 7t [place] [address] Care Team Providers Care Embroidery Operator Name Role Phone Rehana Hathaway MD Primary Care Provider [phone] Reason for Visit * Reason Comments Med Refill Encounter Details Date Type Department Care Team ([facility] st Contact Info) Description 05/22/2023 Refill [facility] CHC MED & PEDS [address] [place], [place] [phone] Rehana Hathaway MD [address] [place] [address] Benign essential hypertension Social History Tobacco Use [...] Description 06/24/2024 10:30 AM EDT Office Visit [facility] MED & PEDS [address] [place] [address] Rehana Hathaway MD [address] [place] [address] documented as of this encounter Visit Diagnoses Diagnosis Benign essential hypertension Essential hypertension, benign documented in this encounter Additional Health Concerns Assessment Noted Time PHQ-9 Depression Total Score: 3 05/14/19 24 9:07 AM EDT documented as of this encounter Care Teams Embroidery Operator Relationship Specialty Start Date End Date Rehana Hathaway MD [address] [place] [address] PCP - General Family Medicine 02/12/18 documented as of this encounter
--- OUTSIDE RECORDS SUMMARY | 2024-03-28 08:26 | XMS_ITS | Encounter Summary ---
Author Organization [employer] Address [address] [place] [address] Care Team Providers Care Information Technology Audit Manager Name Role Phone Rehana Hathaway MD Primary Care Provider Encounter Details Date Type Department Care Team ([facility] Contact Info) Description 01/31/2022 Telephone [facility] MEDICINE [address] [place], [place] [phone] Rehana Hathaway MD [address] [place], [place] [phone] Social History Tobacco Use Types Packs/Day Years [...] Upcoming Encounters Date Type Department Care Team ([facility] Contact Info) Description 06/24/2024 10:30 AM EDT Office Visit [facility] CHC MED & PEDS [address] [place], [place] [phone] Rehana Hathaway MD [address] [place], [place] [phone] documented as of this encounter Visit Diagnoses Not on filedocumented in this encounter Care Teams Information Technology Audit Manager Relationship Specialty Start Date End Date Rehana Hathaway MD [address] [place], [place] [phone] PCP - General Family Medicine 02/12/18 documented as of this encounter
--- OUTSIDE RECORDS SUMMARY | 2024-03-28 08:26 | XMS_ITS | Encounter Summary ---
Author Organization [employer] Address [address] [facility] 7 [place] [address] Care Team Providers Care Sample Body Builder Name Role Phone Rehana Hathaway MD Primary Care Provider [phone] Reason for Visit * Reason Onset Date Comments Results 12/22/2022 Encounter Details Date Type Department Care Team ([facility] st Contact Info) Description 12/22/2022 Telephone [facility] MEDICINE [address] [place] [address] Rehana Hathaway MD [address] [place], [place] [phone] Results Social History Tobacco Use Types Packs/Day [...] got xray of left knee done at [facility] on 12/20/22 in the PM. RN informed that we don't have results available but can check the [employer] database to see if results are in. Pt verbalizes understanding and agreed to plan. RN checked meditech but results have not been read by the radiologist and the report is not available at this time. RN will continue to track for results. * Telephone Encounter - Edmundo Ojeda - 12/22/2022 8:38 AM EST Tc from pt requesting XRAY results. Please contact at [phone] documented in this encounter Plan of Treatment Upcoming Encounters Date Type Department Care Team (Late st Contact Info) Description 06/24/2024 10:30 AM EDT Office Visit [facility] MED & PEDS [address] [place] [address] Rehana Hathaway MD [address] [place] [address] documented as of this encounter Visit Diagnoses Not on filedocumented in this encounter Additional Health Concerns Assessment Noted Time PHQ-9 Depression Total Score: 5 08/04/19 23 12:52 PM EDT documented as of this encounter Care Teams Sample Body Builder Relationship Specialty Start Date End Date Rehana Hathaway MD [address] [place] [address] PCP - General Family Medicine 02/12/18 documented as of this encounter
--- OUTSIDE RECORDS SUMMARY | 2024-03-28 08:26 | XMS_ITS | Encounter Summary ---
Author Organization [employer] Address [address] [facility] 7 [place] [address] Care Team Providers Care Biztalk Software Developer Name Role Phone Rehana Hathaway MD Primary Care Provider [phone] Reason for Visit * Reason Comments Pre-visit Planning SDOH negative, Tobac co screening negative Encounter Details Date Type Department Care Team ([facility] st Contact Info) Description 03/19/2024 Patient Outreach [facility] CHC MED & PEDS [address] [place], [place] [phone] Rehana Hathaway MD [address] [place] [address] Pre-visit Planning (SDOH negative, Tobacco screening negative) Social History Tobacco Use Types Packs/Day Years [...] AM EDT documented as of this encounter Progress Notes * Noreen Ram - 03/19/2024 1:27 PM EST CC Noreen Knight placed successful outbound call to patient for pre-visit planning. Patient name and confirmed. Patient confirms appt date and time, and has transportation arrangements. Biggest concern for appointment at this time is patient has questions about fiber medications. Appropriate screenings completed in anticipation of appointment. documented in this encounter Plan of Treatment Upcoming Encounters Date Type Department Care Team ([facility] st Contact Info) Description 06/24/2024 10:30 AM EDT Office Visit [facility] MED & PEDS [address] [place] [address] Rehana Hathaway MD [address] [place] [address] documented as of this encounter Visit Diagnoses Not on filedocumented in this encounter Additional Health Concerns Assessment Noted Time PHQ-9 Depression Total Score: 3 05/14/19 24 9:07 AM EDT documented as of this encounter Care Teams Biztalk Software Developer Relationship Specialty Start Date End Date Rehana Hathaway MD [address] [place] [address] PCP - General Family Medicine 02/12/18 documented as of this encounter
--- OUTSIDE RECORDS SUMMARY | 2024-03-28 08:26 | XMS_ITS | Encounter Summary ---
Author Organization [employer] Address [address] [facility] 7t [place] [address] Care Team Providers Care Electric Power Line Examiner Name Role Phone Rehana Hathaway MD Primary Care Provider [phone] Encounter Details Date Type Department Care Team (Late st Contact Info) Description 12/21/2022 Abstract [facility] MEDICINE [address] [place], [place] [phone] Ghazal Nuñez Social History Tobacco Use Types [...] Description 06/24/2024 10:30 AM EDT Office Visit [facility] MED & PEDS [address] [place] [address] Rehana Hathaway MD [address] [place] [address] documented as of this encounter Procedures Procedure Name Priority Date/Time Associated Diagnosis Comments COLONOSCOPY Routine 05/14/2020 documented in this encounter Results * Hm Colonoscopy (05/14/2020) Colonoscopy Normal Normal Narrative SavannahGhazal - 05/14/2020 Recommended 5 years ( confirmed with gastro office ) us Historical Provider HEALTH MAINTENANCE Final Result documented in this encounter Visit Diagnoses Not on filedocumented in this encounter Additional Health Concerns Assessment Noted Time PHQ-9 Depression Total Score: 5 08/04/19 23 12:52 PM EDT documented as of this encounter Care Teams Electric Power Line Examiner Relationship Specialty Start Date End Date Rehana Hathaway MD [address] [place] [address] PCP - General Family Medicine 02/12/18 documented as of this encounter
--- OUTSIDE RECORDS SUMMARY | 2024-03-28 08:26 | XMS_ITS | Encounter Summary ---
Author Organization [employer] Address [address] [facility] 7t [place] [address] Care Team Providers Care Supervisor Knitting Name Role Phone Rehana Hathaway MD Primary Care Provider [phone] Reason for Visit * Reason Comments Med Refill Encounter Details Date Type Department Care Team ([facility] st Contact Info) Description 07/12/2023 Refill [facility] CHC MED & PEDS [address] [place], [place] [phone] Rehana Hathaway MD [address] [place] [address] Social History Tobacco Use Types Packs/Day Years [...] Upcoming Encounters Date Type Department Care Team ([facility] st Contact Info) Description 06/24/2024 10:30 AM EDT Office Visit [facility] CHC MED & PEDS [address] [place] [address] Rehana Hathaway MD [address] [place] [address] documented as of this encounter Visit Diagnoses Not on filedocumented in this encounter Additional Health Concerns Assessment Noted Time PHQ-9 Depression Total Score: 3 05/14/19 24 9:07 AM EDT documented as of this encounter Care Teams Supervisor Knitting Relationship Specialty Start Date End Date Rehana Hathaway MD [address] [place] [address] PCP - General Family Medicine 02/12/18 documented as of this encounter
--- OUTSIDE RECORDS SUMMARY | 2024-03-28 08:26 | XMS_ITS | Encounter Summary ---
Author Organization [employer] Address 75 [facility] 7 [place] [address] Care Team Providers Care Marine Electrician Name Role Phone Rehana Hathaway MD Primary Care Provider [phone] Reason for Visit * Reason Onset Date Comments Results 07/17/2023 Encounter Details Date Type Department Care Team ([facility] st Contact Info) Description 07/17/2023 Telephone [facility] MEDICINE [address] [place] [address] Rehana Hathaway MD [address] [place], [place] [phone] Results Social History Tobacco Use Types Packs/Day [...] Upcoming Encounters Date Type Department Care Team ([facility] st Contact Info) Description 06/24/2024 10:30 AM EDT Office Visit [facility] MED & PEDS [address] [place] [address] Rehana Hathaway MD [address] [place] [address] documented as of this encounter Visit Diagnoses Not on filedocumented in this encounter Additional Health Concerns Assessment Noted Time PHQ-9 Depression Total Score: 3 05/14/19 24 9:07 AM EDT documented as of this encounter Care Teams Marine Electrician Relationship Specialty Start Date End Date Rehana Hathaway MD [address] [place] [address] PCP - General Family Medicine 02/12/18 documented as of this encounter
--- OUTSIDE RECORDS SUMMARY | 2024-03-28 08:26 | XMS_ITS | Encounter Summary ---
Author Organization [employer] Address [address] [facility] 7t [place] [address] Care Team Providers Care Driver Utility Worker Name Role Phone Rehana Hathaway MD Primary Care Provider [phone] Reason for Visit * Reason Comments Med Refill Encounter Details Date Type Department Care Team ([facility] st Contact Info) Description 09/02/2023 Refill [facility] [address] [place] [address] Parveen Gonzales MD [address] [place] [address] Chronic gastroesophageal reflux disease Social History Tobacco [...] 06/24/2024 10:30 AM EDT Office Visit [facility] MED & PEDS [address] [place] [address] Rehana Hathaway MD [address] [place] [address] documented as of this encounter Visit Diagnoses Diagnosis Chronic gastroesophageal reflux disease documented in this encounter Additional Health Concerns Assessment Noted Time PHQ-9 Depression Total Score: 3 05/14/19 24 9:07 AM EDT documented as of this encounter Care Teams Driver Utility Worker Relationship Specialty Start Date End Date Rehana Hathaway MD [address] [place] [address] PCP - General Family Medicine 02/12/18 documented as of this encounter
--- OUTSIDE RECORDS SUMMARY | 2024-03-28 08:26 | XMS_ITS | Encounter Summary ---
Author Organization [employer] Address [address] [facility] 7t [place] [address] Care Team Providers Care Substation Maintenance Technician Name Role Phone Rehana Hathaway MD Primary Care Provider [phone] Encounter Details Date Type Department Care Team (Latest Contact Info) Description 03/27/2024 Travel Social History Tobacco Use Types Packs/Day Years [...] Description 06/24/2024 10:30 AM EDT Office Visit [facility] MED & PEDS [address] [place] [address] Rehana Hathaway MD [address] [place] [address] documented as of this encounter Visit Diagnoses Not on filedocumented in this encounter Additional Health Concerns Assessment Noted Time PHQ-9 Depression Total Score: 3 05/14/19 24 9:07 AM EDT documented as of this encounter Care Teams Substation Maintenance Technician Relationship Specialty Start Date End Date Rehana Hathaway MD [address] [place] [address] PCP - General Family Medicine 02/12/18 documented as of this encounter
--- OUTSIDE RECORDS SUMMARY | 2024-03-28 08:27 | XMS_ITS | Encounter Summary ---
Author Organization [employer] Address [address] [facility] 7t [place] [address] Care Team Providers Care Display Associate Name Role Phone Rehana Hathaway MD Primary Care Provider [phone] Reason for Visit * Reason Onset Date Comments Medication Question 04/21/2022 Encounter Details Date Type Department Care Team ([facility] st Contact Info) Description 04/21/2022 Telephone [facility] MEDICINE [address] [place] [address] Rehana Hathaway MD [address] [place], [place] [phone] Medication Question Social History Tobacco Use Types [...] PM EST TC placed to pt at [phone] in regards to below message. Pt states she continues with her asthma shots and was informed her asthma shot dose never increases. Pt states she was at her allergy apptrecently (pt gets allergy shots [id number]) and was informed that every 2 weeks the dose increases with Dr. Ozzie Colby at [facility]; he would like to know if he [...] if its Allergy shot or Asthma shot, Power Plant Engineer unable to locate notes. Please contact at [phone] documented in this encounter Plan of Treatment Upcoming Encounters Date Type Department Care Team ([facility] Contact Info) Description 06/24/2024 10:30 AM EDT Office Visit [facility] MED & PEDS [address] [place] [address] Rehana Hathaway MD [address] [place] [address] documented as of this encounter Visit Diagnoses Not on filedocumented in this encounter Additional Health Concerns Assessment Noted Time PHQ-9 Depression Total Score: 6 04/11/19 23 2:49 PM EST documented as of this encounter Care Teams Display Associate Relationship Specialty Start Date End Date Rehana Hathaway MD [address] [place] [address] PCP - General Family Medicine 02/12/18 documented as of this encounter
--- OUTSIDE RECORDS SUMMARY | 2024-03-28 08:27 | XMS_ITS | Encounter Summary ---
Author Organization [employer] Address [address] [facility] 7 [place] [address] Care Team Providers Care Manager Leasing Name Role Phone Rehana Hathaway MD Primary Care Provider [phone] Reason for Visit * Reason Onset Date Comments Results 01/16/2024 Encounter Details Date Type Department Care Team ([facility] st Contact Info) Description 01/16/2024 Telephone [facility] MEDICINE [address] [place] [address] Rehana Hathaway MD [address] [place], [place] [phone] Results Social History Tobacco Use Types Packs/Day [...] results: Labs Date when done: 01/15/24 Facility: [facility] Labs documented in this encounter Plan of Treatment Upcoming Encounters Date Type Department Care Team (Late st Contact Info) Description 06/24/2024 10:30 AM EDT Office Visit [facility] MED & PEDS [address] [place] [address] Rehana Hathaway MD [address] [place] [address] documented as of this encounter Visit Diagnoses Not on filedocumented in this encounter Additional Health Concerns Assessment Noted Time PHQ-9 Depression Total Score: 3 05/14/19 24 9:07 AM EDT documented as of this encounter Care Teams Manager Leasing Relationship Specialty Start Date End Date Rehana Hathaway MD [address] [place] [address] PCP - General Family Medicine 02/12/18 documented as of this encounter
--- OUTSIDE RECORDS SUMMARY | 2024-03-28 08:27 | XMS_ITS | Clinical Summary ---
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 Rotator cuff impingement syndrome of [...] Encounters Date Type Department Care Team Description 03/27/2024 9:00 AM EST Office Visit [facility] MED & PEDS [address] [place] [address] Rehana Hathaway MD Acquired hypothyroidism (Primary Dx); Weight loss; Adrenal incidentaloma (CMS/HCC) 03/27/2024 Travel 03/26/2024 Telephone [facility] MED [facility] PEDS [address] [place] [address] Rehana Hathaway MD Chart Prep 03/19/2024 Patient Outreach [facility] [address] [place] [address] Rehana Hathaway MD Pre-visit Planning (SDOH negative, Tobacco screening negative) 01/24/2024 11:15 AM EST Office Visit [facility] MED [facility] PEDS [address] [place] [address] Rehana Hathaway MD Acquired hypothyroidism (Primary Dx); Weight loss 01/24/2024 Telephone [facility] [address] [place] [address] [phone] Adrianne Marquis, ALBERTO Results 01/24/2024 Travel 01/22/2024 Telephone [facility] [address] [place] [address] Rehana Hathaway MD Chart Prep 01/17/2024 Telephone [facility] [address] [place] [address] Marcia Mack MD 01/16/[address] [address] Rehana Hathaway MD Results 01/15/2024 1:20 PM EST Office Visit [facility] [address] [place] [address] Marcia Mack MD Nausea (Primary Dx) 01/15/2024 Travel 01/15/[address] [address] Rehana Hathaway MD Nurse Triage 01/04/2024 Telephone [facility] [address] [place] [address] Rehana Hathaway MD 01/02/2024 11:15 AM EST Office Visit [facility] MED [facility] [address] [place] [address] Rehana Hathaway MD Anxious depression (Primary Dx); Prediabetes; Other specified hypothyroidism; Other constipation; Gallbladder polyp 01/02/2024 Travel 12/31/2023 Telephone [facility] [address] [place] [address] Rehana Hathaway MD Chart Prep from Last 3 Months Immunizations Name Administration [...] Mass Index 29.49 03/27/2024 8:51 AM EST Plan of Treatment Upcoming Encounters Date Type Department Care Team ([facility] st Contact Info) Description 06/24/2024 10:30 AM EDT Office Visit [facility] MED [facility] [address] [place] [address] Rehana Hathaway MD [address] [place], [place] [phone] Health Maintenance Due Date Last Done Comments CT Colonography 1970 Dental Prophylaxis 1970 FIT DNA/Cologuard 1970 FIT 1970 FOBT 1970 HIV Screening 1970 Sigmoidoscopy 1970 Diabetes: Foot Exam 01/06/1980 Eye Exam 01/06/1980 Hepatitis C Screening 01/06/1988 Hepatitis B Vaccines (1 of 3 - 19+ 3-dose series) 1989 Pap Smear 1991 Dental Oral Exam 04/26/2018 10/26/2017 Dental X-Ray: Bitewings 10/27/2018 10/26/2017, 09/06 Dental X-Ray: Full Mouth 10/27/2020 10/26/2017, 02/13 Diabetes: Urine Protein Screening 02/04/2021 02/05/2020 COVID-19 Vaccine ( season) 2023 03/22/2021, 07/29/2020, 07/01/2020 Cervical Cancer Screening 11/29/2023 HPV/Cotest 11/29/2023 11/28/2018 Depression Screening 05/13/2024 05/14/2023, 05/14/19 Diabetes: Hemoglobin A1C 07/01/2024 024, 07/10/2023, 04/05/2023, Additional history exists Lipid Panel 07/09/2024 07/10/2023, 02/05/2020 Mammogram 10/09/2024 10/10/2023, 09/13, 10/03/2022, Additional history exists SDOH Screening 03/19/2025 03/19/2024 Alcohol/Substance Use Screening 03/27/2025 03/27/2024 Tobacco Screening 03/27/2025 03/27/2024 Colonoscopy 05/14/2025 05/14/2020 Colorectal Cancer Screening 05/14/2025 [...] GLUCOSE Routine 01/02/2024 11:02 AM EST Prediabetes BI MAMMOGRAM SCREENING TOMOSYNTHESIS BILATERAL Routine 10/10/2023 10:35 AM EDT LIPID PANEL, STANDARD Routine 07/10/2023 8:47 AM EDT Overweight Severe persistent asthma with intensive monitoring Other specified hypothyroidism Benign essential hypertension Prediabetes HM COLONOSCOPY Routine 05/14/2020 ALBUMIN, RANDOM URINE W/CREATININE Routine 02/05/2020 10:29 AM EST ZZZ HISTORICAL HPV MRNA E6/E7 Routine 11/28/2018 10:43 AM EDT INTRAORAL - COMPLETE SERIES OF RADIOGRAPHIC IMAGES Routine 10/26/2017 12:00 [...] EST Narrative 01/23/2024 6:47 PM EST ? [facility] ?[address] ?[place] [address] ? CT Scan Report ? Signed ? Patient: Colon Marcell,Alecia ?MR#: [id number] ?? [id number] ? : 1970 ?Acct:[id number] ? Age/Sex: 54 / F ?ADM Date: 12/11/24 ? Loc: HO.CT ? Attending Dr: Marcia Mack MD ? Ordering Physician: Marcia Mack MD ?? Date of Service: 01/23/24 ?? Procedure(s): CT abdomen pelvis w IV con ?? Accession Number(s): [id number] ? cc: Rehana Hathaway MD; Marcia Mack [...] DD/ 1448 ? TD/TT: 01/23/24 1549 ? Dust Puller: ? Procedure Note Donbenjamín, Image - 01/23/[address] [place] [address] [address] Scan Report Signed Patient: Alecia MezaMR#: [id number] : 1970Acct:[id number] Age/Sex: 54 / FADM Date: 01/23/24 Loc: HO.CT Attending Dr: Marcia Mack MD Ordering Physician: Marcia Mack MD Date of Service: 01/23/24 Procedure(s): CT abdomen pelvis w IV con Accession Number(s): [id number] cc: Rehana Hathaway MD; Marcia Mack MD [...] Kim Owens MD 01/23/2024 06:44 PM EST Dictated By: Kim Owens MD Signed By: <Electronically signed by Kim Owens MD in [place]> 01/23/24 1844 DD/ 1448 TD/TT: 01/23/24 1549 Dust Puller: us Marcia Mack MD IMG CT PROCEDURES Final Resul t * Basic Metabolic Panel (01/15/2024 2:25 PM EST) Sodium 140 135 - 145 mmol/L [facility] Potassium 4.2 3.3 - 5.1 mmol/L [facility] Chloride 107 96 - 108 mmol/L [facility] Carbon Dioxide 25 22 - 29 mmol/L [facility] Anion Gap 12 12 - 20 [facility] Urea Nitrogen (BUN) 13 9 - 16 mg/dL [facility] Creatinine, Serum 0.66 0.5 - 1.4 mg/dL [facility] Estimated Glomerular Filt Rate >60 [facility] Comment:Chronic Kidney Disea se: Estimated GFR < 60 mL/min/1.31d7Niphtf Kidney Disease: Estimated GFR < 15 mL/min/1.73m2 Glucose 90 60 - 115 mg/dL [facility] Calcium 10.2 8.4 - 10.2 mg/dL [facility] Blood Venous blood specimen / Unknown 01/15/2024 2:25 PM EST 01/15/2024 5:32 PM EST Marcia Mack MD LAB BLOOD ORDERABLES Final Re sult Performing Organization Address [facility] [[email or web address]] Co de Phone Number [facility] [address] [place] [phone] * TSH W/Reflex to FT4 (01/03/2024 8:07 AM EST) TSH reflex Free T4 2.18 0.32 - 4.0 uIU/mL [facility] Blood Venous blood specimen / Unknown 01/03/2024 8:07 AM EST 01/03/2024 2:07 PM EST us Rehana Hathaway MD LAB BLOOD ORDERABLES Final Re sult Performing Organization Address [facility] [[email or web address]] Co de Phone Number [facility] [address] [place] [phone] * Hepatic Function Panel (01/03/2024 8:07 AM EST) Bilirubin, Total 0.9 0.0 - 1.0 mg/dL [facility] Bilirubin, Direct 0.3 0.0 - 0.5 mg/dL [facility] Aspartate Amino Transferase 26 5 - 31 U/L [facility] Alanine Aminotransferase 26 0 - 31 U/L [facility] Total Protein 7.0 6.5 - 8.0 g/dL [facility] Albumin Level 4.3 3.5 - 5.0 g/dL [facility] Alkaline Phosphatase 80 39 - 117 U/L [facility] Blood Venous blood specimen / Unknown 01/03/2024 8:07 AM EST 01/03/2024 2:07 PM EST us Rehana Hathaway MD LAB BLOOD ORDERABLES Final Re sult Performing Organization Address [facility]/ZIP Co de Phone Number [facility] [address] [place] [phone] * POCT HGB A1C (01/02/2024 11:02 AM EST) Hemoglobin A1C 5.5 4.0 - 6.0 % QC Media Lot # [id number] Lot# Expiration Date [id number] Blood 01/02/2024 11:0 2 AM EST Rehana Hathaway MD POINT OF CARE TEST ENTER/EDIT ORDERABLES Final Result * POCT Glucose (01/02/2024 11:02 AM EST) Glucose Blood, POC 119 60 - 200 mg/dL [employer] Lot # [id number] Lot# Expiration Date [id number] Blood Capillary blood specimen / Unknown 01/02/2024 11:02 AM EST Rehana Hathaway MD POINT OF CARE TEST ENTER/EDIT ORDERABLES Final Result * BI Mammogram Screening Tomosynthesis Bilateral (10/10/2023 10:35 AM EDT) Anatomical Region Laterality Modality Breast Bilateral Mammography 10/10/2023 10:3 5 AM EDT Narrative 11/01/2023 6:02 PM EDT ? [facility] [place] ? [address] ?[place] [address] ? Mammography Report ? Signed ? Patient: Colon,Alecia ?MR#: [id number] ?? 8 ? : 1970 ?Acct:[id number] ? Age/Sex: 53 / F ?ADM Date: 08/28/24 ? Loc: HO.MAMMO ? Attending Dr: Rehana Hathaway MD ? Ordering Physician: Rehana Hathaway MD ?Results: 1Ne ?? gative ? Date of Service: 10/10/23 ?Follow Up: 1 Year From Orig ?? inal Mammogram ? Procedure(s): MM tomosynthesis screening BI ?? Accession Number(s): [id number] ? cc: Rehana Hathaway MD ? EXAMINATION: [...] DD/ 1035 ? TD/TT: 10/10/23 1050 ? Dust Puller: ? Procedure Note Donotuseinterpreter, Image - 11/01/2023 [place] [facility] [address] [place], [place] [address] Mammography Report Signed Patient: Alecia JosephMR#: [id number] : 1970Acct:[id number] Age/Sex: 53 / FADM Date: 10/10/23 Loc: HO.MAMMO Attending Dr: Rehana Hathaway MD Ordering Physician: Rheana Hathaway MDResults: 1Ne gative Date of Service: 10/10/23Follow Up: 1 Year From Orig inal Mammogram Procedure(s): MM tomosynthesis screening BI Accession Number(s): [id number] cc: Rehana Hathaway MD EXAMINATION: MM SCREENING [...] 11/01/23 1759 DD/ 1035 TD/TT: 10/10/23 1050 Dust Puller: Rehana Hathaway MD IMG BI PROCEDURES Final Resul t * (ABNORMAL) Lipid Panel, Standard (07/10/2023 8:47 AM EDT) Triglycerides 99 <150 mg/dL [facility] Comment:Desirable Triglyceri de: less than 150 mg/dLBorderline High Triglyceride 150-199 mg/dLHigh Triglyceride: 200-499 mg/dLVery High Triglyceride: greater than or equal to 5OO mg/dL Cholesterol 207(H) <200 mg/dL [facility] Comment:Desirable Cholestero l: less than 200 mg/dLBorderline High Cholesterol: 200-239 mg/dLHigh Cholesterol: greater than 239 mg/dL LDL Cholesterol Calculated 116(H) <100 mg/dL [facility] Comment:Desirable LDL: less than 100 mg/dLNear Optimal/Above Optimal LDL: 110- 129 mg/dLBorderline High LDL: 130-159 mg/dLHigh LDL: 160-189 mg/dLVery High LDL: greater than or equal to 190 mg/dL HDL Cholesterol 72 >40 mg/dL [facility] Comment:Desirable HDL: great er than 40 mg/dL Note: This HDL assay may give artificially low results in patients with liver disease. Blood Venous blood specimen / Unknown 07/10/2023 8:47 AM EDT 07/10/2023 2:38 PM EDT Rehana Hathaway MD LAB BLOOD ORDERABLES Final Re sult [facility] [address] [place], [place] [phone] * Hm Colonoscopy (05/14/2020) Colonoscopy Normal [...] Creatinine, Urine 32 20 - 275 mg/dL [facility] 02/05/2020 10:2 9 AM EST us Rehana Hathaway MD LAB URINE ORDERABLES Final Re sult [facility] [address] * HPV mRNA E6/E7 (11/28/2018 10:43 AM EDT) HPV mRNA E6/E7 Not Detected NOT DETECTED [facility] Comment: This test was performed using the APTIMA(R) HPV Assay ([employer] This assay detects E6/E7 viral messenger RNA (mRNA) from 14 high-risk HPV types (16,18,31,33,35,39,45,51, 52,56,58,59,66,68). For additional information please refer to: http://education.Flayr/faq/CQC230y9 (This link is being provided for informational/ educational purposes only.) The analytical performance characteristics of this assay have been determined by [employer] [place], [place]. The modifications have not been cleared or approved by the FDA. This assay has been validated pursuant to the CLIA regulations and is used for clinical purposes. Test Performed by [employer] [facility], [address] [place] [address] Fred Boyd M.D., Ph.D., Director of Laboratories , [facility] [id number] Please note: ??Effective 10/25/2015, HPV testing will be performed using [employer]'s APTIMA test which targets mRNA. Detecting mRNA instead of DNA, as in older methods, offers significant improvements in specificity. 11/28/2018 10:4 3 AM EDT us Rehana Hathaway MD HISTORICAL/NON ORDERABLE LABS Final Result [facility] [address] from Last 3 Months or Most Recently Relevant to Health Maintenance Insurance [facility] C3 DENTAL-[facility] MEDICAID STAND ADULT * Guarantor: Alecia Joseph Account Type Relation to Patient Date of Phone Billing Address Personal/Family Self [facility], [place] Care Teams High [employer] Guidance Counselor Relationship Specialty Start Date End Date Rehana Hathaway MD [address] [place] [phone] PCP - General Family Medicine 02/12/18
[2024-03-28 14:06] LABS: Appearance Urine Clear; Color Urine Yellow; Glucose Urine UA Negative (Negative); Leukocyte Esterase Urine Negative (Negative); Nitrite Urine Negative (Negative); Urine Blood Negative (Negative); Urine Ketones Negative (Negative); Urine Protein Negative (Neg-Trace)
[2024-03-28 14:12] LABS: MANUAL DIFF FLAG NO
[2024-03-28 14:25] LABS: Basophils Absolute Auto 0.1 X10*3/uL (0.0-0.2); Basophils Percent Auto 0.9 % (0-2); Eosinophils Absolute Auto 0.1 X10*3/uL (0.0-0.4); Eosinophils Percent Auto 1.6 % (0-4); Hematocrit 37.9 % (37.0-47.0); Hemoglobin 11.9 g/dl (12.0-16.0); Imm Gran Abs Auto 0.01 X10*3/uL (0.00-0.03); Imm Gran Pct Auto 0.2 % (0.0-0.4); Lymphocytes Percent Auto 34.8 % (20-40); Mean Corpuscular HGB Conc 31.4 g/dl (31.0-35.0); Mean Corpuscular Hemoglobin 28.5 pg (27.0-33.0); Mean Corpuscular Volume 90.7 fL (80.0-98.0); Mean Platelet Volume 11.7 fL (9.4-12.3); Monocytes Absolute Auto 0.4 X10*3/uL (0.1-1.2); Monocytes Percent Auto 6.3 % (2-11); Neutrophils Absolute Auto 3.2 x10*3/uL (2.0-8.3); Neutrophils Percent Auto 56.2 % (45-73); Platelet Count 239 X10*3/uL (160-400); Red Blood Count 4.18 X10*6/uL (4.20-5.50); Red Cell Distribution Width 14.3 % (11.0-16.0); White Blood Count 5.8 X10*3/uL (4.8-10.8)
[2024-03-28 14:46] LABS: Anion Gap 11 (12-20); Blood Urea Nitrogen 15 mg/dL (9-16); Carbon Dioxide 28 mmol/L (22-29); Chloride 107 mmol/L (96-108); Estimated Glomerular Filt Rate > 60; Glucose Random 83 mg/dL (60-115); Potassium 4.6 mmol/L (3.3-5.1); Sodium 141 mmol/L (135-145)
[2024-03-28 15:02] LABS: TSH reflex Free T4 0.27 uIU/mL (0.32-4.0)
[2024-03-28 15:04] LABS: Erythrocyte Sedimentation Rate 10 MM/HR (0-20)
[2024-03-28 15:53] LABS: Free T4 (Free Thyroxine) 1.36 ng/dL (0.71-1.85)
== END 2024-03-28 08:20 | disposition home or self-care (01) ==
LOC: HO.CHCLDS 08:19
PROVIDERS: Visit Provider Pediatrics
DX: E03.9 Hypothyroidism, unspecified (principal); R63.4 Abnormal weight loss
CPT/HCPCS: 36415; 80048; 81003; 84439; 84443; 85025; 85652

== ENCOUNTER 2024-05-19 10:07 | Outpatient (AMB) | payer MEDICAID, SELFPAY ==
[2024-05-19 10:19] VITALS: BP 130/76; PULSE 55; O2SAT 98; BMI 28.9
--- NOTE | 2024-05-19 10:19 | A.OFFVIS_ITS ---
Vital Signs 05/19/24 10:19 Height 4 ft 11 in Weight 143 lb 4.807 oz BMI 28.9 BP 130/76 Blood Pressure Location Rt brachial Position Sitting Pulse 55 Pulse Source Pulse Oximeter Pulse Oximetry (%) 98 Oxygen Delivery Method Room Air Intake Visit Reasons: Dyspnea Allergies No Known Allergies Allergy (Verified 05/19/24 10:22) HPI Comments Details: The patient is a 54-year-old woman with a known history of asthma who apparently was in her usual state health until back in March when she developed COVID- 19. She was not hospitalized and she managed okay. However, after that her respiratory status has been worse. She has been noticing increasing chest tightness and shortness of breath. Subsequently in September she started having worsening shortness of breath and she did go to the ER. Her D-dimer was elevated and she did undergo a CT scan of the chest PE protocol. It did not demonstrate any evidence of any residual fibrosis or pneumonitis. However, she did have evidence of bronchitis. She was given prednisone. She has also been on Flovent and a rescue inhaler. The therapy has been partially helpful. We will continue trying to optimize her respiratory therapy at this time. In the meantime she did get vaccinated for COVID-19. 03/21/2022 The patient is here for pulmonary follow-up visit. She complains of still having some dyspnea on exertion chest tightness and wheezing. Bize-ux-ffdnlcpv severity. The Symbicort has been helpful but only partially. She is still using her rescue inhaler regularly. In addition to this the patient does complaint of and dizziness. She has been dizzy now for last few days. Typically worse when she stands up. In the office her blood pressure was low. She does take blood pressure medications. I emphasized to her that she needs to reach out to her primary care doctor sick they can adjust her blood pressure medications. will try to optimize further her respiratory therapy. Will follow-up in the next 2-3 months. 06/16/2022 the patient is here for a pulmonary follow-up visit. The patient overall is doing better. She has been using the inhaler with better response. Has not required any prednisone. Has been using her rescue inhaler less than twice a week. Having allergy symptoms on loratidine and singulair. She also has her nasal spray. Her bloodwork was completed and demonstrated normal eosinophil count. 12/19/2022 the patient is here for a pulmonary follow-up visit. She continues to have significant respiratory complaints. Chest tightness and wheezing coughing. Her inhalers have only be partially helpful. Although she has not been taking the breast drip. Apparently was not covered. She has been on Spiriva and also on a rescue inhaler. Will go ahead and switch her over to Trelegy inhaler. The patient does benefit from the ease of the medication in order for her to be more adherent to the therapy and have the most optimized therapy. In addition to that she continues to receive allergy shots. If the patient is no better she can consider discussing with her network engineer administrator the possibility of starting biologic therapy. The patient will have pulmonary function studies again. We did talk about pulmonary rehabilitation specially after having COVID-19. However this is difficult because the patient continues to work. Therefore, she can consider underlying pulmonary rehab or going to a exercise facility. Will follow-up after her PFTs. 05/01/2023 the patient is here for a pulmonary follow-up visit. Overall the patient has been doing a lot better. She is starting to exercise more regularly she is very proud of herself because she is able to jog for period of time. Where before she could not do any type of exercise activity. She has been struggling with inhalers however. She does not tolerate the Ellipta device because the powder makes her nauseous. Therefore she has not been taking any of them. She does have multiple different inhalers including Breo, Incruse and Trelegy. She rather Spiriva that works well for her. She did have pulmonary function studies which we personally reviewed. She does have reversible obstruction consistent with asthma. She will continue with Spiriva for now. She will also use the albuterol as needed prior to exercise. If he looks a she needs a long-acting albuterol inhaled cortical steroid we can always try her and non powder formulation. 11/14/2023 the patient is here for a pulmonary follow-up visit. Overall the patient has been doing well. She does have some shortness of breath with activity. Also has some wheezing at times. She continues on the Xolair. She gets that through allergy. In addition to that she is getting allergy shots. It is unclear what inhaler she is using right now. Seems to be just Spiriva and Ventolin. She tried Trelegy but she does not tolerate the powder. Therefore, will go ahead and start him Symbicort that she can use along with Spiriva in order to maximize respiratory therapy. No recent imaging studies at this time. Her last imaging studies did demonstrate the chronic bronchitis and airways disease suggestive of her asthma. 05/19/2024 the patient is here for a pulmonary follow-up visit. Overall the patient has been doing okay. She does have significant allergies now going to the spring. She continues on the Xolair. She also continues on Fariha and Singulair. She is still having uncomfortable symptoms her. She did start the Symbicort which appears to be effective for her and she does use it at times with her Spiriva. Sometimes she tends to not use all her inhalers. I think she needs a more streamline approach. Will send her Breztri to the pharmacy in order for her to be able to take all her medications from 1 inhaler as far as her maintenance therapy. This way she can maximize her respiratory capacity. Explained to her that she only has a partial improvement of her airway obstruc tion due to her significant chronic asthma. In addition to that she continues on the Xolair continues with her allergy shots with the help of her network engineer administrator. The patient is okay taking Fariha twice a day just for now as he goes through the transition then she can go back down to once a day. If she develops any worsening symptoms she will call. Otherwise will follow-up in 6-8 months. 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 Mother No problems noted. Social History (Updated 05/19/24 @ 10:22 by Jessa Garcia CMA) Household Members: Children Housing: Apartment Are you a primary day care assistant to a significant other at home: No Do you presently have visiting nurse or other home services: No Alcohol intake: never Patient Tobacco Use Status: Former Tobacco user Years Smoked: 10 Current occupational status: unemployed Current occupation: right hand dominant Review of Systems Const Denies fever(s) ENT Reports nasal discharge Card Denies chest pain and Reports dyspnea on exertion Resp Reports cough, Reports dyspnea on exertion and Reports wheezing GI Denies abdominal pain Musc Denies no additional complaints Neuro Denies Neuro-related abnormal movements Psych Denies no additional complaints Dewayne/Lymph Denies easy bleeding and Denies lymphadenopathy Aller/Immun Reports wheezing Physical Exam Vital Signs: Last Vital Signs Pulse 55 05/19/24 10:19 BP 130/76 05/19/24 10:19 Pulse Ox 98 05/19/24 10:19 Oxygen Delivery Method Room Air 05/19/24 10:19 BMI result Body Mass Index 28.9 Const General: alert Neck Neck: Yes normal visual inspection, Yes full ROM and Yes no lymphadenopathy Chest Chest palpation & inspection: normal inspection of the chest Resp Auscultation: no wheezes and diminished lung sounds Cardio Rate: regular rate Rhythm: regular rhythm Heart sounds: S1 normal heart sound present and S2 normal heart sound present GI Palpation (GI): Soft to palpation and nontender Auscultation: normal bowel sounds Skin General skin exam: rashes and/or lesions noted Assessment & Plan Assessment & Plan (1) Asthma: Code(s): J45.909 - Unspecified asthma, uncomplicated Category: Medical Qualifiers: Asthma complication type: uncomplicated Asthma persistence: persistent Asthma severity: moderate Qualified Code(s): J45.40 - Moderate persistent asthma, uncomplicated (2) Chronic allergic rhinitis: Code(s): J30.9 - Allergic rhinitis, unspecified Category: Medical Plan stop Spiriva stop Symbicort start Breztri BID IRASEMA as needed allergy therapy, increase Fariha BID x 1 month, then daily continue Xolair EpiPen F/U 6-8 months Medications: New yofnvowwlx-dppfpamy-tveeqobfbf 160-9-4.8 mcg/actuation (Breztri Aerosphere) 2 inhalations inhalation BID 10.7 grams 11RF 30 days Changed From fexofenadine 180 mg PO DAILY To fexofenadine 180 mg PO BID 60 tabs 0RF 30 days Coding Level of Care Code Est Pt Level 4 (08695) Diagnoses Moderate persistent asthma without complication J45.40 Asthma complication type: uncomplicated Asthma persistence: persistent Asthma severity: moderate Chronic allergic rhinitis J30.9 Time Spent (min) 16
--- OUTSIDE RECORDS SUMMARY | 2024-05-19 11:47 | XMS_ITS | Encounter Summary ---
Author Organization [employer] Address [address] [facility] 7 [place] [address] Care Team Providers Care Poultry Husbandry Worker Name Role Phone Rehana Hathaway MD Primary Care Provider [phone] Reason for Visit * Reason Onset Date Comments Appointment Request 04/02/2024 Encounter Details Date Type Department Care Team ([facility] st Contact Info) Description 04/02/2024 Telephone [facility]S [address] [place], [place] [phone] Rehana Hathaway MD [address] [place] [address] Appointment Request Social History Tobacco Use Types Packs/Day Years [...] encounter Miscellaneous Notes * Telephone Encounter - Kia Rust - 04/02/2024 10:10 AM EST Tc from pt requesting status on knee injection appt. States was inform will receive a call within aweek to be scheduled. documented in this encounter Plan of Treatment Upcoming Encounters Date Type Department Care Team (Late st Contact Info) Description 06/24/2024 10:30 AM EDT Office Visit [facility] [address] [place] [address] Rehana Hathaway MD [address] [place] [address] documented as of this encounter Visit Diagnoses Not on filedocumented in this encounter Additional Health Concerns Assessment Noted Time PHQ-9 Depression Total Score: 3 05/14/19 24 9:07 AM EDT documented as of this encounter Care Teams Poultry Husbandry Worker Relationship Specialty Start Date End Date Rehana Hathaway MD [address] [place] [address] PCP - General Family Medicine 02/12/18 documented as of this encounter
--- OUTSIDE RECORDS SUMMARY | 2024-05-19 11:47 | XMS_ITS | Patient Health Record ---
Author Organization [facility] Address [address] [place] [address] Care Team Providers Care Oracle R12 Developer Name Role Phone Rivas ASIF, Rehana Primary Care Provider David Coats Jr Unavailable [phone] Yesica Velasco Unavailable Unavailable Reason For Referral No Information Medications Medication SIG (Take, Route, Frequency, Duration) Notes [...] Active Ondansetron HCl 4 MG Orally Active Immunizations Vaccine Route Administration Date Status Comme nts Influenza Unknown 04/19/2020 Refused Social History Tobacco Use: Social History Observation Description Date Details (start date - stop date) Former Smoker NA - NA Tobacco Use/Smoking Question Answer Notes Patient is [...] Never (0 point) Points 1 Interpretation Negative Problems Problem Type SNOMED Code ICD Code Onset Dates Problem Status W/U Status Risk Notes Problem 038426564 Colon cancer screening (Z12.11) Active confirmed Problem 107028639 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 confirmed Problem 826301475 Gastroesophageal reflux disease, unspecified whether esophagitis present (K21.9) Active confirmed Plan Of Treatment Future Test Test Name Order Date COLONOSCOPY 04/19/2020 Insurance Providers Payer Name Payer Address Payer Phone Subscriber Number Group Number Insured Name Patient Relationship to Insured Coverage Start Date Coverage End Date MED[place] OF [employer] [address] [place] [address] [id number] CANDIDO HANNAH Self - patient is the insured Medical (General) History Medical History History ICD Code asthma hypertension hyperthyroidism heartburn seasonal allergies Covid 19 infection, 03/22/20, quarantined at home, no treatment required Surgical History Surgery Date(Month/Year) Knee Replacement - left side
--- OUTSIDE RECORDS SUMMARY | 2024-05-19 11:47 | XMS_ITS | Encounter Summary ---
Author Organization [employer] Address [address] [facility] 7[address] [place] [address] Care Team Providers Care Cancer Genetic Counselor Name Role Phone Rehana Hathaway MD Primary Care Provider [phone] Encounter Details Date Type Department Care Team (Late st Contact Info) Description 12/21/2022 Abstract [facility] MEDICINE [address] [place], [place] [phone] Ghazal Nuñez Social History Tobacco Use Types [...] Description 06/24/2024 10:30 AM EDT Office Visit [facility] MED & PEDS [address] [place] [address] Rehana Hathaway MD [address] [place] [address] documented as of this encounter Procedures Procedure [...] documented as of this encounter Care Teams Cancer Genetic Counselor Relationship Specialty Start Date End Date Rehana Hathaway MD [address] [place] [address] PCP - General Family Medicine 02/12/18 documented as of this encounter
--- OUTSIDE RECORDS SUMMARY | 2024-05-19 11:48 | XMS_ITS | Encounter Summary ---
Author Organization [employer] Address [address] [facility] 7 [place] [address] Care Team Providers Care Engine Inspector Name Role Phone Rehana Hathaway MD Primary Care Provider [phone] Reason for Visit * Reason Onset Date Comments Results 07/17/2023 Encounter Details Date Type Department Care Team ([facility] st Contact Info) Description 07/17/2023 Telephone [facility] MEDICINE [address] [place] [address] Rehana Hathaway MD [address] [place], [place] [phone] Results Social History Tobacco Use Types Packs/Day [...] Encounters Date Type Department Care Team ([facility] st Contact Info) Description 06/24/2024 10:30 AM EDT Office Visit [facility] MED & PEDS [address] [place] [address] Rehana Hathaway MD [address] [place] [address] documented as of this encounter Visit Diagnoses Not on filedocumented in this encounter Additional Health Concerns Assessment Noted Time PHQ-9 Depression Total Score: 3 05/14/19 24 9:07 AM EDT documented as of this encounter Care Teams Engine Inspector Relationship Specialty Start Date End Date Rehana Hathaway MD [address] [place] [address] PCP - General Family Medicine 02/12/18 documented as of this encounter
--- OUTSIDE RECORDS SUMMARY | 2024-05-19 11:48 | XMS_ITS | Encounter Summary ---
Author Organization [employer] Address [address] [facility] [address] [place] [address] Care Team Providers Care Middleware Solutions Architect Name Role Phone Rehana Hathaway MD Primary Care Provider [phone] Reason for Visit * Reason Onset Date Comments Results 01/16/2024 Encounter Details Date Type Department Care Team ([facility] st Contact Info) Description 01/16/2024 Telephone [facility] MEDICINE [address] [place] [address] Rehana Hathaway MD [address] [place], [place] [phone] Results Social History Tobacco Use Types Packs/Day [...] results: Labs Date when done: 01/15/24 Facility: [facility] Labs documented in this encounter Plan of Treatment Upcoming Encounters Date Type Department Care Team (Late st Contact Info) Description 06/24/2024 10:30 AM EDT Office Visit [facility] [address] [place] [address] Rehana Hathaway MD [address] [place] [address] documented as of this encounter Visit Diagnoses Not on filedocumented in this encounter Additional Health Concerns Assessment Noted Time PHQ-9 Depression Total Score: 3 05/14/19 24 9:07 AM EDT documented as of this encounter Care Teams Middleware Solutions Architect Relationship Specialty Start Date End Date Rehana Hathaway MD [address] [place] [address] PCP - General Family Medicine 02/12/18 documented as of this encounter
--- OUTSIDE RECORDS SUMMARY | 2024-05-19 11:48 | XMS_ITS | Encounter Summary ---
Author Organization [employer] Address [address] [facility] [address] [place] [address] Care Team Providers Care Network Mgr Name Role Phone Rehana Hathaway MD Primary Care Provider [phone] Reason for Visit * Reason Comments Med Refill Encounter Details Date Type Department Care Team ([facility] st Contact Info) Description 05/22/2023 Refill [facility] MED & PEDS [address] [place], [place] [phone] Rehana Hathaway MD [address] [place] [address] Benign essential hypertension Social History Tobacco Use [...] Description 06/24/2024 10:30 AM EDT Office Visit [facility] MED & PEDS [address] [place] [address] Rehana Hathaway MD [address] [place] [address] documented as of this encounter Visit Diagnoses Diagnosis Benign essential hypertension Essential hypertension, benign documented in this encounter Additional Health Concerns Assessment Noted Time PHQ-9 Depression Total Score: 3 05/14/19 24 9:07 AM EDT documented as of this encounter Care Teams Network Mgr Relationship Specialty Start Date End Date Rehana Hathaway MD [address] [place] [address] PCP - General Family Medicine 02/12/18 documented as of this encounter
--- OUTSIDE RECORDS SUMMARY | 2024-05-19 11:48 | XMS_ITS | Encounter Summary ---
Author Organization [employer] Address [address] [place] [address] Care Team Providers Care Editor & Co Founder Name Role Phone Rehana Hathaway MD Primary Care Provider Encounter Details Date Type Department Care Team ([facility] Contact Info) Description 01/31/2022 Telephone [facility] MEDICINE [address] [place], [place] [phone] Rehana Hathaway MD [address] [place], [place] [phone] Social History Tobacco Use Types Packs/Day Years [...] Upcoming Encounters Date Type Department Care Team ([facility] Contact Info) Description 06/24/2024 10:30 AM EDT Office Visit [facility] MED & PEDS [address] [place], [place] [phone] Rehana Hathaway MD [address] [place], [place] [phone] documented as of this encounter Visit Diagnoses Not on filedocumented in this encounter Care Teams Editor & Co Founder Relationship Specialty Start Date End Date Rehana Hathaway MD [address] [place], [place] [phone] PCP - General Family Medicine 02/12/18 documented as of this encounter
--- OUTSIDE RECORDS SUMMARY | 2024-05-19 11:48 | XMS_ITS | Clinical Summary ---
Author Organization [employer] Address [address] [place] [address] 7[address] [place] [address] Care Team Providers Care Assistant Field Hockey Coach Name Role Phone Rehana Hathaway MD Primary Care Provider [phone] Allergies No known active allergies Medications EPINEPHrine (Epipen) 0.3 MG/0.3ML injection syringe INJECT INTRAMUSCULARLY DIRECTED ON PACKAGE AND GO TO EMERGENCY ROOM 022 Active ipratropium (Atrovent) 0.06 % nasal spray USE 1-2 SPRAYS IN EACH NOSTRIL UP TO THREE TIMES DAILY NEEDED RUNNY NOSE OR post-nasal drip 022 Active montelukast (Singulair) 10 MG tablet Take 10 mg by mouth at bedtime. 022 Active Xolair 150 MG injection Use as directed 022 Active Blood Pressure kitIndications:B enign essential hypertension To check the BP daily 1 kit 023 Active Spiriva Respimat 2.5 MCG/ACT inhaler INHALE 2 PUFFS BY MOUTH ONCE DAILY DIRECTED 023 Active meclizine (Antivert) 25 MG tablet TAKE 2 TABLETS BY MOUTH TWICE DAILY NEEDED 023 Active hydrocortisone 2.5 % cream Apply pea sized amount to skin bid for 1 week 15 g 023 Active Ventolin HFA 108 (90 Base) MCG/ACT inhalerIndicatio ns:Severe persistent asthma without complication INHALE 2 PUFFS BY MOUTH EVERY 4 HOURS 18 g 1 023 Active Stimulant Laxative 8.6-50 MG tabletIndication s:Vitamin D deficiency,Acqui red hypothyroidism TAKE 1 TABLET BY MOUTH DAILY NEEDED FOR CONSTIPATION. TAKE ONLY DIRECTED. 90 tablet 1 023 Active hydroCHLOROthiaz polina (HYDRODiuril) 25 MG tablet Take 1 tablet (25 mg) by mouth in the morning. 30 tablet 11 024 Active sertraline (Zoloft) 50 MG tabletIndication s:Anxious depression Take 1 tablet (50 mg) by mouth in the morning. 90 tablet 3 024 Active melatonin 3 MG tablet Take 1 tablet (3 mg) by mouth if needed at bedtime for sleep. 90 tablet 3 024 Active sucralfate (Carafate) 1 g tablet Take 1 tablet (1 g) by mouth before breakfast, before lunch, before evening meal, and at bedtime. 120 tablet 024 Active D3-1000 25 MCG (1000 UT) capsuleIndicatio ns:Vitamin D deficiency,Acqui red hypothyroidism TAKE 1 CAPSULE BY MOUTH DAILY 90 capsule 2 024 Active gabapentin (Neurontin) 300 MG capsule Take 1 capsule (300 mg) by mouth 3 times daily. 90 capsule 1 024 Active Acetaminophen Extra Strength 500 MG tabletIndication s:Other infective acute otitis externa of right ear Take 1,000 mg by mouth if needed in the morning and at bedtime (left ear pain). 60 tablet 024 Active omeprazole (PriLOSEC) [address] capsule TAKE 1 CAPSULE BY MOUTH EVERY DAY BEFORE BREAKFAST, DO NOT BREAK, CRUSH, DISSOLVE OR CHEW 90 capsule 1 024 Active polycarbophil (FiberCon) 625 MG tablet Take 1 tablet (625 mg) by mouth Once per day. 90 tablet 3 024 2024 Active polyethylene glycol, PEG, 3350 (Glycolax, Miralax) powder Take 17 g by mouth Once per day. 1 g Active levothyroxine (Synthroid) 88 MCG tablet Take 1 tablet (88 mcg) by mouth before breakfast. 30 tablet 1 025 2025 Active fexofenadine (Fariha) 180 MG tablet TAKE 1 TABLET BY MOUTH EVERY DAY 30 tablet 025 Active fexofenadine (Allergy Relief) 180 MG tablet Take 1 tablet (180 mg) by mouth Once per day. 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 Rotator cuff impingement syndrome of [...] Encounters Date Type Department Care Team Description 04/25/2024 Population Health Risk Score [facility] (C3) Department [address] [phone] Provider, Population Health Generic 04/21/2024 Refill [facility] [address] [place] [address] Parveen Gonzales MD 04/15/2024 10:00 AM EST Procedure Visit [facility] [address] [place] [address] Suze Geiger MD Osteoarthritis of right knee, unspecified osteoarthritis type (Primary Dx); Prediabetes 04/15/2024 Travel 04/03/2024 Orders Only [facility] [address] [place] [address] Rehana Hathaway MD Adrenal incidentaloma (CMS/HCC) (Primary Dx) 04/02/2024 Telephone [facility] [address] [place] [address] ABDOMEN/PELVIS ORDER 04/02/2024 Telephone [facility] [address] [place] [address] Rehana Hathaway MD Appointment Request 03/28/2024 Telephone [facility] [address] [place] [address] Rehana Hathaway MD 03/28/2024 Orders Only [facility] [address] [place] [address] Rehana Hathaway MD Acquired hypothyroidism (Primary Dx) 03/28/2024 Orders Only [facility] [address] [place] [address] Rehana Hathaway MD 03/27/2024 9:00 AM EST Office Visit [facility] [address] [place] [phone] Rehana Hathaway MD Acquired hypothyroidism (Primary Dx); Weight loss; Adrenal incidentaloma (CMS/HCC) 03/27/2024 Travel 03/26/2024 Telephone [facility] [address] [place] [address] Rehana Hathaway MD Chart Prep 03/19/2024 Patient Outreach [facility] [address] [place] [phone] Rehana Hathaway MD Pre-visit Planning (SDOH negative, Tobacco screening negative) from Last 3 Months Immunizations Name Administration [...] Sign Reading Time Taken Comments Blood Pressure 132/70 04/15/2024 10:11 AM EST Pulse 72 04/15/2024 10:11 AM EST Temperature 37.1 ??C (98.7 ??F) 04/15/2024 10:[address] Respiratory Rate 20 04/15/2024 10:11 AM EST Oxygen Saturation 99% 03/27/2024 8:51 AM EST Inhaled Oxygen Concentration - - Weight 65.3 kg (144 lb) 04/15/2024 10:11 AM EST Height 149.9 cm (4' 11 ) 04/15/2024 10:11 AM EST Body Mass Index 29.08 04/15/2024 10:11 AM EST Plan of Treatment Upcoming Encounters Date Type Department Care Team (Late st Contact Info) Description 06/24/2024 10:30 AM EDT Office Visit [facility] [address] [place], [place] [phone] Rehana Hathaway MD [address] [place], [place] [phone] Health Maintenance Due Date Last Done Comments [...] Procedure Name Priority Date/Time Associated Diagnosis Comments PA ARTHROCENTESIS ASPIR&/INJ MAJOR JT/BURSA W/O US Routine 04/15/2024 10:36 AM EST Osteoarthritis of right knee, unspecified osteoarthritis type POCT GLUCOSE Routine 04/15/2024 10:12 AM EST Prediabetes URINALYSIS WITH REFLEX MICROSCOPIC Routine 03/28/2024 8:30 AM EST Acquired hypothyroidism Weight loss T4, FREE Routine 03/28/2024 8:21 AM EST SED RATE BY MODIFIED WESTERGREN Routine 03/28/2024 8:21 AM EST Acquired hypothyroidism Weight loss CBC WITH AUTO DIFFERENTIAL Routine 03/28/2024 8:21 AM EST Acquired hypothyroidism Weight loss BASIC METABOLIC PANEL Routine 03/28/2024 8:21 AM EST Acquired hypothyroidism Weight loss TSH W/REFLEX TO FT4 Routine 03/28/2024 8 :21 AM EST Acquired hypothyroidism Weight loss POCT GLYCATED HEMOGLOBIN, TOTAL Routine 01/02/2024 11:02 AM EST Prediabetes BI [...] Recently Relevant to Health Maintenance Results * PA ARTHROCENTESIS ASPIR&/INJ MAJOR JT/BURSA W/O US (04/15/2024 10:36 AM EST) Narrative Suze Geiger MD - 04/15/2024 10:36 AM EST Suze Geiger MD ? 04/15/2024 10:40 AM Arthrocentesis Date/Time: 04/15/2024 10:36 AM Performed by: Suze Geiger MD Authorized by: Suze Geiger MD ?? Consent: ??Consent obtained: ??Verbal and written ??Consent given by: ??Patient ??Risks, benefits, and alternatives were discussed: yes ?Risks discussed: ??Pain ??Alternatives discussed: ??Referral [place] protocol: ??Procedure explained and questions answered to patient or proxy's satisfaction: yes ?Relevant documents present and verified: yes ?Test results available: yes ?Imaging studies available: yes ?Required blood products, implants, devices, and special equipment available: yes ?Site/side marked: yes ?Immediately prior to procedure, a time out was called: yes ?Patient identity confirmed: ??Verbally with patient Location: ??Location: ??Knee ??Knee: ??R knee Anesthesia: ??Anesthesia method: ??Topical application Procedure details: ??Preparation: Patient was prepped and draped in usual sterile fashion ?Needle gauge: ??22 G ??Ultrasound guidance: no ?Approach: ??Lateral ??Steroid injected: yes ?Specimen collected: no ?? Post-procedure details: ??Dressing: ??Adhesive bandage ??Procedure completion: ??Tolerated Suze Geiger MD IN CLINIC/BEDSIDE ORDERABLES Fin al Result * POCT Glucose (04/15/2024 10:12 AM EST) Glucose Blood, POC 99 60 - 200 mg/dL Comment:internal controls pa ssed QC Media Lot # [id number] Lot# Expiration Date Blood Capillary blood specimen / Unknown 04/15/2024 10:12 AM EST Suze Geiger MD POINT OF CARE TEST ENTER/EDIT OR DERABLES Final Result * Urinalysis with reflex microscopic (03/28/2024 8:30 AM EST) [facility] Color Urine Yellow [facility] Appearance Urine Clear [facility] PH 6.0 5.0 - 9.0 [facility] Glucose Urine UA Negative Negative mg/dL [facility] Urine Blood Negative Negative [facility] Specific [place] - Urine 1.010 1.005 - 1.025 [facility] Urine Protein Negative Neg-Trace mg/dL [facility] Urine Ketones Negative Negative mg/dL [facility] Nitrite Urine Negative Negative [facility] Leukocyte Esterase Urine Negative Negative [facility] Urine (Urine, Random) 03/28/2024 8:30 AM EST 03/28/2024 1:54 PM EST Narrative [facility] - 03/28/2024 2:08 PM EST [id number], Clean Catch Rehana Hathaway MD LAB URINE ORDERABLES Final Re sult Performing Organization Address City/[facility]/ZIP Co de Phone Number [facility] [address] [place] [phone] * (ABNORMAL) TSH W/Reflex to FT4 (03/28/2024 8:21 AM EST) [facility] TSH reflex Free T4 0.27(L) 0.32 - 4.0 uIU/mL [facility] Blood Venous blood specimen / Unknown 03/28/2024 8:21 AM EST 03/28/2024 2:12 PM EST Rehana Hathaway MD LAB BLOOD ORDERABLES Final Re sult Performing Organization Address City/[facility] Co de Phone Number [facility] [address] [place] [phone] * (ABNORMAL) CBC auto differential (03/28/2024 8:21 AM EST) [facility] White Blood Count 5.8 4.8 - 10.8 X10*3/uL [facility] Red Blood Count 4.18(L) 4.20 - 5.50 X10*6/uL [facility] Hemoglobin 11.9(L) 12.0 - 16.0 g/dl [facility] Hematocrit 37.9 37.0 - 47.0 % [facility] Mean Corpuscular Volume 90.7 80.0 - 98.0 fL [facility] Mean Corpuscular Hemoglobin 28.5 27.0 - 33.0 pg [facility] Mean Corpuscular HGB Conc 31.4 31.0 - 35.0 g/dl [facility] Red Cell Distribution Width 14.3 11.0 - 16.0 % [facility] Platelet Count 239 160 - 400 X10*3/uL [facility] Mean Platelet Volume 11.7 9.4 - 12.3 fL [facility] Neutrophils Percent Auto 56.2 45 - 73 % [facility] Imm Gran Pct Auto 0.2 0.0 - 0.4 % [facility] Lymphocytes Percent Auto 34.8 20 - 40 % [facility] Monocytes Percent Auto 6.3 2 - 11 % [facility] Eosinophils Percent Auto 1.6 0 - 4 % [facility] Basophils Percent Auto 0.9 0 - 2 % [facility] NRBC Pct Auto 0.0 0.0 - 0.2 /100WBC [facility] Neutrophils Absolute Auto 3.2 2.0 - 8.3 x10*3/uL [facility] Imm Gran Abs Auto 0.01 0.00 - 0.03 X10*3/uL [facility] Lymphocytes Absolute Auto 2.0 1.2 - 4.9 X10*3/uL [facility] Monocytes Absolute Auto 0.4 0.1 - 1.2 X10*3/uL [facility] Eosinophils Absolute Auto 0.1 0.0 - 0.4 X10*3/uL [facility] Basophils Absolute Auto 0.1 0.0 - 0.2 X10*3/uL [facility] NRBC Abs Auto 0.000 0.0 - 0.012 X10*3/uL [facility] Blood Venous blood specimen / Unknown 03/28/2024 8:21 AM EST 03/28/2024 1:55 PM EST Rehana Hathaway MD LAB BLOOD ORDERABLES Final Re sult Performing Organization Address [facility] Co de Phone Number [facility] [address] [place] [address] [phone] * Sed Rate by Modified Westergren (03/28/2024 8:21 AM EST) Erythrocyte Sedimentation Rate 10 0 - 20 MM/HR [facility] Comment:Patients with polycy themia and many hemoglobin abnormalitiesmay have depressed sed rates whereas patients with anemiamay have elevated sed rates. Blood Venous blood specimen / Unknown 03/28/2024 8:21 AM EST 03/28/2024 1:55 PM EST Rehana Hathaway MD LAB BLOOD ORDERABLES Final Re sult Performing Organization Address [facility] Co de Phone Number [facility] [address] [place] [address] [phone] * T4, Free (03/28/2024 8:21 AM EST) Free T4 (Free Thyroxine) 1.36 0.71 - 1.85 ng/dL [facility] 03/28/2024 8:21 AM EST 03/28/2024 2:12 PM EST Rehana Hathaway MD LAB BLOOD ORDERABLES Final Re sult Performing Organization Address [facility] Co de Phone Number [facility] [address] [place] [address] [phone] * (ABNORMAL) Basic Metabolic Panel (03/28/2024 8:21 AM EST) Sodium 141 135 - 145 mmol/L [facility] Potassium 4.6 3.3 - 5.1 mmol/L [facility] Chloride 107 96 - 108 mmol/L [facility] Carbon Dioxide 28 22 - 29 mmol/L [facility] Anion Gap 11(L) 12 - 20 [facility] Urea Nitrogen (BUN) 15 9 - 16 mg/dL [facility] Creatinine, Serum 0.62 0.5 - 1.4 mg/dL [facility] Estimated Glomerular Filt Rate >60 [facility] Comment:Chronic Kidney Disea se: Estimated GFR < 60 mL/min/[id number] Kidney Disease: Estimated GFR < 15 mL/min/1.73m2 Glucose 83 60 - 115 mg/dL [facility] Calcium 10.0 8.4 - 10.2 mg/dL [facility] Blood Venous blood specimen / Unknown 03/28/2024 8:21 AM EST 03/28/2024 2:12 PM EST Rehana Hathaway MD LAB BLOOD ORDERABLES Final Re sult [facility] [address] [place] [address] [phone] * POCT HGB A1C (01/02/2024 11:02 AM EST) Hemoglobin A1C 5.5 4.0 - 6.0 % QC Media Lot # [id number] Lot# Expiration Date Blood 01/02/2024 11:0 2 AM EST Rehana Hathaway MD POINT OF CARE TEST ENTER/EDIT ORDERABLES Final Result * BI Mammogram Screening Tomosynthesis Bilateral (10/10/2023 10:35 AM EDT) Anatomical Region Laterality Modality Breast Bilateral Mammography 10/10/2023 10:3 5 AM EDT Narrative 11/01/2023 6:02 PM EDT ? [facility] ? [address] ?[place] [address] ? Mammography Report ? Signed ? Patient: Colon,Alecia ?MR#: [id number] ?? 8 ? : 1970 ?Acct:[id number] ? Age/Sex: 53 / F ?ADM Date: 10/10/23 ? Loc: HO.MAMMO ? Attending Dr: Rehana Hathaway MD ? Ordering Physician: Rehana Hathaway MD ?Results: 1Ne ?? gative ? Date of Service: 10/10/23 ?Follow Up: 1 Year From Orig ?? inal Mammogram ? Procedure(s): MM tomosynthesis screening BI ?? Accession Number(s): [id number] ? cc: Rehana Hathaway MD ? EXAMINATION: [...] DD/ 1035 ? TD/TT: 10/10/23 1050 ? P D Driver: ? Procedure Note Dontariqinterpreter, Image - 11/01/2023 [facility] [address] [place] [address] Mammography Report Signed Patient: Alecia JosephMR#: [id number] 8 : 1970Acct:[id number] Age/Sex: 53 / FADM Date: 10/10/23 Loc: HO.MAMMO Attending Dr: Rehana Hathaway MD Ordering Physician: Rehana Hathaway MDResults: 1Ne gative Date of Service: 10/10/23Follow Up: 1 Year From Orig ina Mammogram Procedure(s): MM tomosynthesis screening BI Accession Number(s): [id number] cc: Rehana Hathaway MD EXAMINATION: MM SCREENING [...] 11/01/23 1759 DD/ 1035 TD/TT: 10/10/23 1050 P D Driver: us Rehana Hathaway MD IMG BI PROCEDURES Final Resul t * (ABNORMAL) Lipid Panel, Standard (07/10/2023 8:47 AM EDT) Triglycerides 99 <150 mg/dL [facility] Comment:Desirable Triglyceri de: less than 150 mg/dLBorderline High Triglyceride 150-199 mg/dLHigh Triglyceride: 200-499 mg/dLVery High Triglyceride: greater than or equal to 5OO mg/dL Cholesterol 207(H) <200 mg/dL [facility] Comment:Desirable Cholestero l: less than 200 mg/dLBorderline High Cholesterol: 200-239 mg/dLHigh Cholesterol: greater than 239 mg/dL LDL Cholesterol Calculated 116(H) <100 mg/dL [facility] Comment:Desirable LDL: less than 100 mg/dLNear Optimal/Above Optimal LDL: 110- 129 mg/dLBorderline High LDL: 130-159 mg/dLHigh LDL: 160-189 mg/dLVery High LDL: greater than or equal to 190 mg/dL HDL Cholesterol 72 >40 mg/dL [facility] Comment:Desirable HDL: great er than 40 mg/dL Note: This HDL assay may give artificially low results in patients with liver disease. Blood Venous blood specimen / Unknown 07/10/2023 8:47 AM EDT 07/10/2023 2:38 PM EDT Rehana Hathaway MD LAB BLOOD ORDERABLES Final Re sult Performing Organization Address [facility]/ZIP Co de Phone Number [facility] [address] [place] [address] [phone] * Hm Colonoscopy (05/14/2020) Colonoscopy Normal Normal Narrative Ghazal Nuñez - 05/14/2020 Recommended 5 years ( confirmed with gastro office ) Historical Provider MD HEALTH MAINTENANCE Final Result * ALBUMIN, RANDOM URINE W/CREATININE (02/05/2020 10:29 AM EST) Pathologist [facility] Microalbumin Urine 0.4 See Note: mg/dL [facility] 02/05/2020 10:2 9 AM EST Rehana Hathaway MD LAB URINE ORDERABLES Final Re sult [facility] [address] * HPV mRNA E6/E7 (11/28/2018 10:43 AM EDT) HPV mRNA E6/E7 Not Detected NOT DETECTED [facility] Comment: This test was performed using the APTIMA(R) HPV Assay ([employer] This assay detects E6/E7 viral messenger RNA (mRNA) from 14 high-risk HPV types (16,18,31,33,35,39,45,51, 52,56,58,59,66,68). For additional information please refer to: http://education.POI/faq/AXM594e3 (This link is being provided for informational/ educational purposes only.) The analytical performance characteristics of this assay have been determined by [employer] [place], [place]. The modifications have not been cleared or approved by the FDA. This assay has been validated pursuant to the CLIA regulations and is used for clinical purposes. Test Performed by [facility], [employer] [place], [address] [place], [place] Fred Boyd M.D., Ph.D., Director of Laboratories , CLIA [id number] Please note: ??Effective 10/25/2015, HPV testing will be performed using [employer]'s APTIMA test which targets mRNA. Detecting mRNA instead of DNA, as in older methods, offers significant improvements in specificity. 11/28/2018 10:4 3 AM EDT Rehana Hathaway MD HISTORICAL/NON ORDERABLE LABS Final Result [facility] [address] from Last 3 Months or Most Recently Relevant to Health Maintenance Insurance [facility] [address] [place] ST[place] AD[place] * Guarantor: Alecia Joseph Account Type Relation to Patient Date of Phone Billing Address Personal/Family Self [address] [place] Care Teams Assistant Field Hockey Coach Relationship Specialty Start Date End Date Rehana Hathaway MD [address] [place] [phone] PCP - General Family Medicine 02/12/18
--- OUTSIDE RECORDS SUMMARY | 2024-05-19 11:48 | XMS_ITS | Encounter Summary ---
Author Organization [employer] Address [address] [facility] [address] [place] [address] Care Team Providers Care Psychiatric Tech Name Role Phone Rehana Hathaway MD Primary Care Provider [phone] Reason for Visit * Reason Comments Med Refill Encounter Details Date Type Department Care Team ([facility] st Contact Info) Description 09/02/2023 Refill [facility] [address] [place] [address] Parveen Gonzales MD [address] [place] [address] Chronic gastroesophageal reflux disease Social History Tobacco [...] 10:30 AM EDT Office Visit [facility] [address] [place] [address] Rehana Hathaway MD [address] [place] [address] documented as of this encounter Visit Diagnoses Diagnosis Chronic gastroesophageal reflux disease documented in this encounter Additional Health Concerns Assessment Noted Time PHQ-9 Depression Total Score: 3 05/14/19 24 9:07 AM EDT documented as of this encounter Care Teams Psychiatric Tech Relationship Specialty Start Date End Date Rehana Hathaway MD [address] [place] [address] PCP - General Family Medicine 02/12/18 documented as of this encounter
--- OUTSIDE RECORDS SUMMARY | 2024-05-19 11:48 | XMS_ITS | Encounter Summary ---
Author Organization [employer] Address [address] [facility] 7t [place] [address] Care Team Providers Care Director Foundation Name Role Phone Rehana Hathaway MD Primary Care Provider [phone] Reason for Visit * Reason Comments Med Refill Encounter Details Date Type Department Care Team ([facility] st Contact Info) Description 07/12/2023 Refill [facility] [address] [place], [place] [phone] Rehana Hathaway MD [address] [place] [address] Social History Tobacco Use Types Packs/Day Years [...] Upcoming Encounters Date Type Department Care Team ([facility] st Contact Info) Description 06/24/2024 10:30 AM EDT Office Visit [facility] [address] [place] [address] Rehana Hathaway MD [address] [place] [address] documented as of this encounter Visit Diagnoses Not on filedocumented in this encounter Additional Health Concerns Assessment Noted Time PHQ-9 Depression Total Score: 3 05/14/19 24 9:07 AM EDT documented as of this encounter Care Teams Director Foundation Relationship Specialty Start Date End Date Rehana Hathaway MD [address] [place] [address] PCP - General Family Medicine 02/12/18 documented as of this encounter
== END 2024-05-19 10:48 | disposition home or self-care (01) ==
LOC: HO.HPS 10:07
PROVIDERS: PCP Pediatrics; Visit Provider Hospitalist
DX: J45.40 Moderate persistent asthma, uncomplicated (principal); J30.9 Allergic rhinitis, unspecified
CPT/HCPCS: 99214

== ENCOUNTER → 2024-05-19 10:07 | Outpatient (BNVA) | payer MEDICAID, SELFPAY | PROVIDERS: PCP Pediatrics; Visit Provider Hospitalist | DX: J45.40 Moderate persistent asthma, uncomplicated (principal); J30.9 Allergic rhinitis, unspecified | CPT/HCPCS: 99212 ==

== ENCOUNTER 2024-05-23 07:24 | Outpatient (REF) | payer MEDICAID, SELFPAY ==
--- NOTE | ~2024-05-23 | CT_ITS ---
EXAMINATION: CT ABDOMEN PELVIS WITHOUT THEN WITH IV CONTRAST HISTORY: adrenal incidentaloma COMPARISON: Comparison is made with the prior contrast-enhanced examination dated 12. TECHNIQUE: CT scan of the abdomen and pelvis was performed before and after the intravenous administration of 85 mL Omnipaque 350. Postcontrast images were obtained through the adrenal glands in the portal venous and delayed phases to calculate adrenal washout. Coronal and sagittal reformatted images were generated and reviewed. Oral contrast material was not administered per department protocol. This CT exam was performed with one or more of the following dose reduction techniques: automated exposure control, adjustment of the mA and/or kV according to patient size, use of iterative reconstruction technique. DLP: 515 mGy-cm ABDOMEN: LOWER CHEST: The visualized lung bases are clear. There is no pleural effusion. CARDIOVASCULATURE: The heart is normal in size. There is no pericardial effusion. LIVER: The liver is normal in size and contour. No liver mass is identified. The hepatic and portal veins are patent. GALLBLADDER / BILE DUCTS: The gallbladder is unremarkable. There is no intra or extrahepatic biliary ductal dilatation. SPLEEN: The spleen is normal in size. No focal splenic lesion is identified. PANCREAS: The pancreas is unremarkable in appearance. ADRENAL GLANDS: The right adrenal gland is unremarkable. There is a 2.0 x 1.9 cm left adrenal nodule. This measures -15.6 HU in density on the unenhanced examination, 34.4 HU in density on the immediate postcontrast examination, and 0.15HU in density on the delayed images. The density of -15.6 HU on the unenhanced examination is compatible with an adenoma. The absolute washout is 68.8%, also consistent with an adenoma. KIDNEYS/RETROPERITONEUM: No renal calculi are identified. There is no hydronephrosis. No renal masses are identified. LYMPH NODES: No abdominal or pelvic lymphadenopathy. VASCULATURE: The abdominal aorta is normal in caliber. MESENTERY/PERITONEUM: No free fluid. No masses. There is no free intraperitoneal gas. STOMACH: The stomach is collapsed, limiting evaluation. SMALL BOWEL: The small bowel is normal in caliber. COLON: There is a moderate amount of stool throughout the colon. APPENDIX: Normal. URINARY BLADDER/PELVIC ORGANS: The urinary bladder is unremarkable. The uterus and ovaries are unremarkable. BONES / SOFT TISSUES: There is degenerative disc disease of the spine. CT/CT abdomen pelvis wo/w IV con IMPRESSION: 2.0 x 1.9 cm left adrenal mass with imaging characteristics consistent with an adenoma. Electronically signed by: Holland Rivas MD 05/23/2024 11:34 AM EDT
[2024-05-23] MEDS: iohexoL 350 MG/ML 75 ML INFUS..BTL 85 ML IV (09:21)
[2024-05-26 16:02] LABS: Creatinine POC 0.7 mg/dL (0.5-1.4); GFR POC > 60
== END 2024-05-23 07:25 | disposition home or self-care (01) ==
LOC: HO.CT 07:24
PROVIDERS: PCP Pediatrics; Visit Provider Internal Medicine
DX: E27.8 Other specified disorders of adrenal gland (principal); R63.4 Abnormal weight loss
CPT/HCPCS: 74178; 82565; Q9967

== ENCOUNTER → 2024-05-23 07:27 | Outpatient (BNV) | payer MEDICAID, SELFPAY | PROVIDERS: PCP Pediatrics; Visit Provider Radiology Diagnostic Radiology | DX: D35.02 Benign neoplasm of left adrenal gland (principal) | CPT/HCPCS: 74178 ==

== ENCOUNTER 2024-06-25 08:51 | Outpatient (REF) | payer MEDICAID, SELFPAY ==
--- OUTSIDE RECORDS SUMMARY | 2024-06-25 09:15 | XMS_ITS | Encounter Summary ---
Author Organization [employer] Address [address] [facility] 7t [place] [address] Care Team Providers Care Customer Service Voice Name Role Phone Rehana Hathaway MD Primary Care Provider [phone] Encounter Details Date Type Department Care Team (Latest Contact Info) Description 06/24/2024 Travel Social History Tobacco Use Types Packs/Day [...] as of this encounter Plan of Treatment Not on file documented as of this encounter Visit Diagnoses Not on filedocumented in this encounter Additional Health Concerns Assessment Noted Time PHQ-9 Depression Total Score: 3 05/14/19 24 9:07 AM EDT documented as of this encounter Care Teams Customer Service Voice Relationship Specialty Start Date End Date Rehana Hathaway MD [address] [place] [address] PCP - General Family Medicine 02/12/18 documented as of this encounter
--- OUTSIDE RECORDS SUMMARY | 2024-06-25 09:15 | XMS_ITS | Encounter Summary ---
Author Organization [employer] Address [address] [facility] 7[address] [place] [address] Care Team Providers Care Termite Treater Name Role Phone Rehana Hathaway MD Primary Care Provider [phone] Encounter Details Date Type Department Care Team (Late st Contact Info) Description 12/21/2022 Abstract [facility] MEDICINE [address] [place] [address] Ghazal Nuñez Social History Tobacco Use Types [...] on file documented as of this encounter Procedures Procedure [...] documented as of this encounter Care Teams Termite Treater Relationship Specialty Start Date End Date Rehana Hathaway MD [address] [place] [address] PCP - General Family Medicine 02/12/18 documented as of this encounter
--- OUTSIDE RECORDS SUMMARY | 2024-06-25 09:15 | XMS_ITS | Encounter Summary ---
Author Organization [employer] Address [address] [facility] 7t [place] [address] Care Team Providers Care Physical Anthropologist Name Role Phone Rehana Hathaway MD Primary Care Provider [phone] Encounter Details Date Type Department Care Team (Latest Contact Info) Description 06/24/2024 10:30 AM EDT Office Visit [facility] MED & PEDS [address] [place], [place] [phone] Rehana Hathaway MD [address] [place] [address] Adrenal incidentaloma (CMS/HCC) (Primary Dx); Acquired hypothyroidism; Severe persistent asthma with intensive monitoring Social History Tobacco Use Types Packs/Day Years [...] Sign Reading Time Taken Comments Blood Pressure 136/77 06/24/2024 10:22 AM EDT Pulse 56 06/24/2024 10:22 AM EDT Temperature 36.8 ??C (98.2 ??F) 06/24/2024 10:22 AM E DT Respiratory Rate 16 06/24/2024 10:22 AM EDT Oxygen Saturation 99% 06/24/2024 10:22 AM EDT Inhaled Oxygen Concentration - - Weight 64.4 kg (142 lb) 06/24/2024 10:22 AM EDT Height 149.9 cm (4' 11 ) 06/24/2024 10:22 AM EDT Body Mass Index 28.68 06/24/2024 10:22 AM EDT documented in this encounter Progress Notes * Rehana Hathaway MD - 06/24/2024 10:30 AM EDT Subjective Patient ID: Alecia Joseph is a 54 y.o. female who presents for follow-up vertigo. Alecia is a 54-year-old female patient known to me with severe asthma, overweight, hypothyroidism,incidentaloma left adrenal gland, benign positional vertigo here for follow-up, was seen on Sunday by Dr. Oropeza and a few days later again in walk-in clinic for dizziness requesting referral to vertigo clinic. Patient has been taking meclizine as needed but states does better with vertigo clinic PT. has had this in the past. She is also here to recheck her thyroid function test today. Her last CT scan of abdomen revealed a left adrenal adenoma, size was 2 cm was 1.9 cm and without abnormal characteristics. Review of Systems Constitutional: Negative for activity change, chills, fever and unexpected weight change. Respiratory: Negative for cough, shortness of breath and wheezing. Cardiovascular: Negative for chest pain, palpitations and leg swelling. Gastrointestinal: Positive for nausea. Negative for abdominal pain and blood in stool. Endocrine: Negative for polydipsia and polyuria. Genitourinary: Negative for decreased urine volume, difficulty urinating, dysuria and hematuria. Musculoskeletal: Negative for arthralgias and gait problem. Skin: Negative for color change and rash. Neurological: Positive for dizziness. Negative for headaches. Hematological: Negative for adenopathy. Psychiatric/Behavioral: Negative for dysphoric mood, hallucinations, sleep disturbance and suicidalideas. The patient is not nervous/anxious. Objective BP 136/77 (BP Location: Left arm, Patient Position: Sitting, BP Cuff Size: Adult) Pulse56 Temp 98.2 ??F (36.8 ??C) (Oral) Resp 16 Ht 4' 11 (1.499 m) Wt 142 lb (64.4 kg) LMP (LMP Unknown) SpO2 99% BMI 28.68 kg/m?? Physical Exam Vitals reviewed. Constitutional: General: She is not in acute distress. HENT: Mouth/Throat: Mouth: Mucous membranes are moist. Eyes: Pupils: Pupils are equal, round, and reactive to light. Cardiovascular: Rate and Rhythm: Normal rate and regular rhythm. Pulmonary: Effort: Pulmonary effort is normal. No respiratory distress. Breath sounds: Normal breath sounds. No wheezing. Abdominal: Palpations: Abdomen is soft. Musculoskeletal: General: Normal range of motion. Cervical back: Normal range of motion. Right lower leg: No edema. Left lower leg: No edema. Neurological: Mental Status: She is oriented to person, place, and time. Psychiatric: Mood and Affect: Mood normal. Behavior: Behavior normal. Thought Content: Thought content normal. Judgment: Judgment normal. Assessment/Plan Diagnoses and all orders for this visit: Adrenal incidentaloma (CMS/HCC) Comments: Repeat CT scan due in 1 year to follow-up size. Lab for DHEA etc. ordered today. Refer if needed. Orders: - TSH W/Reflex to FT4; Future - DHEA Sulfate; Future - Metanephrines, Fractionated, LC/MS/MS, 24-Hour Urine; Future Acquired hypothyroidism Comments: TFTs rechecked today due to dose adjusted recently call patient with results when available. Orders: - TSH W/Reflex to FT4; Future - DHEA Sulfate; Future Severe persistent asthma with intensive monitoring Comments: Patient is followed closely by Dr. Gamboa. She is on biologic agents as well as is very compliant. Asthma has much better controlled lately. documented in this encounter Plan of Treatment Scheduled Orders Name Type Priority Associated Diagnoses Orde r Schedule TSH W/Reflex to FT4 Lab Routine Adrenal incidentaloma (CMS/HCC) Acquired hypothyroidism Expected: 06/24/2024 (Approximate), Expires: 06/24/2025 DHEA Sulfate Lab Routine Adrenal incidentaloma (CMS/HCC) Acquired hypothyroidism Expected: 06/24/2024 (Approximate), Expires: 06/24/2025 Metanephrines, Fractionated, LC/MS/MS, 24-Hour Urine Lab Routine Adrenal incidentaloma (CMS/HCC) Expected: 06/24/2024 (Approximate), Expires: 06/24/2025 documented as of this encounter Visit Diagnoses Diagnosis Adrenal incidentaloma (CMS/HCC)- Primary Acquired hypothyroidism Unspecified hypothyroidism Severe persistent asthma with intensive monitoring documented in this encounter Additional Health Concerns Assessment Noted Time PHQ-9 Depression Total Score: 3 05/14/19 24 9:07 AM EDT documented as of this encounter Care Teams Physical Anthropologist Relationship Specialty Start Date End Date Rehana Hathaway MD [address] [place] [address] PCP - General Family Medicine 02/12/18 documented as of this encounter
--- OUTSIDE RECORDS SUMMARY | 2024-06-25 09:15 | XMS_ITS | Encounter Summary ---
Author Organization [employer] Address [address] [facility] 7 [place] [address] Care Team Providers Care Broadband Installer Name Role Phone Rehana Hathaway MD Primary Care Provider [phone] Reason for Visit * Reason Onset Date Comments Appointment Request 04/02/2024 Encounter Details Date Type Department Care Team ([facility] Contact Info) Description 04/02/2024 Telephone [facility] MED & PEDS [address] [place], [place] [phone] Rehana Hathaway MD [address] [place] [address] Appointment Request Social History Tobacco Use Types [...] documented in this encounter Plan of Treatment Not on file documented as of this encounter Visit Diagnoses Not on filedocumented in this encounter Additional Health Concerns Assessment Noted Time PHQ-9 Depression Total Score: 3 05/14/19 24 9:07 AM EDT documented as of this encounter Care Teams Broadband Installer Relationship Specialty Start Date End Date Rehana Hathaway MD [address] [place] [address] PCP - General Family Medicine 02/12/18 documented as of this encounter
--- OUTSIDE RECORDS SUMMARY | 2024-06-25 09:15 | XMS_ITS | Encounter Summary ---
Author Organization [employer] Address [address] [facility] 7t [place] [address] Care Team Providers Care Dining Room Hostess Name Role Phone Rehana Hathaway MD Primary Care Provider [phone] Reason for Visit * Reason Comments Med Refill Encounter Details Date Type Department Care Team ([facility] Contact Info) Description 05/22/[address] [facility] MED & PEDS [address] [place], [place] [phone] Rehana Hathaway MD [address] [place] [address] Benign essential hypertension Social History Tobacco Use [...] documented as of this encounter Care Teams Dining Room Hostess Relationship Specialty Start Date End Date Rehana Hathaway MD [address] [place] [address] PCP - General Family Medicine 02/12/18 documented as of this encounter
--- OUTSIDE RECORDS SUMMARY | 2024-06-25 09:15 | XMS_ITS | Patient Health Record ---
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 Problem [id number] Gastroesophageal reflux disease, unspecified whether esophagitis present (K21.9) Active confirmed Plan Of Treatment Future Test Test Name Order Date COLONOSCOPY 04/19/2020 Insurance Providers Payer Name Payer Address Payer Phone Subscriber Number Group Number Insured Name Patient Relationship to Insured Coverage Start Date Coverage End Date MEDICA[employer] OF [employer] [address] [place] [id number] [id number] CANDIDO HANNAH Self - patient is the insured Medical (General) History Medical History History ICD Code asthma hypertension hyperthyroidism heartburn seasonal allergies Covid 19 infection, 03/22/20, quarantined at home, no treatment required Surgical History Surgery Date(Month/Year) Knee Replacement - left side
--- OUTSIDE RECORDS SUMMARY | 2024-06-25 09:15 | XMS_ITS | Encounter Summary ---
Author Organization [employer] Address [address] [facility] [address] [place] [address] Care Team Providers Care Painting Technician Name Role Phone Rehana Hathaway MD Primary Care Provider [phone] Reason for Visit * Reason Onset Date Comments Results 07/17/2023 Encounter Details Date Type Department Care Team ([facility] st Contact Info) Description 07/17/2023 Telephone [facility] MEDICINE [address] [place] [address] Rehana Hathaway MD [address] [place] [address] Results Social History Tobacco Use Types Packs/Day [...] documented as of this encounter Care Teams Painting Technician Relationship Specialty Start Date End Date Rehana Hathaway MD [address] [place] [address] PCP - General Family Medicine 02/12/18 documented as of this encounter
--- OUTSIDE RECORDS SUMMARY | 2024-06-25 09:16 | XMS_ITS | Encounter Summary ---
Author Organization [employer] Address [address] [facility] 7t [place] [address] Care Team Providers Care Slice Plug Cutter Operator Helper Name Role Phone Rehana Hathaway MD Primary Care Provider [phone] Reason for Visit * Reason Comments Med Refill Encounter Details Date Type Department Care Team ([facility] Contact Info) Description 07/12/2023 Refill [facility] MED & PEDS [address] [place], [place] [phone] Rehana Hathaway MD [address] [place] [address] Social History Tobacco Use Types Packs/Day Years [...] documented as of this encounter Care Teams Slice Plug Cutter Operator Helper Relationship Specialty Start Date End Date Rehana Hathaway MD [address] [place] [address] PCP - General Family Medicine 02/12/18 documented as of this encounter
--- OUTSIDE RECORDS SUMMARY | 2024-06-25 09:16 | XMS_ITS | Encounter Summary ---
Author Organization [employer] Address [address] [facility] [address] [place] [address] Care Team Providers Care Stock Counter Name Role Phone Rehana Hathaway MD Primary Care Provider [phone] Encounter Details Date Type Department Care Team ([facility] st Contact Info) Description 01/31/2022 Telephone [facility] MEDICINE [address] [place], [place] [phone] Rehana Hathaway MD [address] [place] [address] Social History Tobacco Use Types Packs/Day Years [...] on filedocumented in this encounter Care Teams Stock Counter Relationship Specialty Start Date End Date Rehana Hathaway MD [address] [place] [address] PCP - General Family Medicine 02/12/18 documented as of this encounter
--- OUTSIDE RECORDS SUMMARY | 2024-06-25 09:16 | XMS_ITS | Encounter Summary ---
Author Organization [employer] Address [address] [facility] [address] [place] [address] Care Team Providers Care Scrum Project Manager Name Role Phone Rehana Hathaway MD Primary Care Provider [phone] Reason for Visit * Reason Onset Date Comments Results 01/16/2024 Encounter Details Date Type Department Care Team ([facility] st Contact Info) Description 01/16/2024 Telephone [facility] MEDICINE [address] [place] [address] Rehana Hathaway MD [address] [place] [address] Results Social History Tobacco Use Types Packs/Day [...] results: Labs Date when done: 01/15/24 Facility: [facility] Labs documented in this encounter Plan of Treatment Not on file documented as of this encounter Visit Diagnoses Not on filedocumented in this encounter Additional Health Concerns Assessment Noted Time PHQ-9 Depression Total Score: 3 05/14/19 24 9:07 AM EDT documented as of this encounter Care Teams Scrum Project Manager Relationship Specialty Start Date End Date Rehana Hathaway MD [address] [place] [address] PCP - General Family Medicine 02/12/18 documented as of this encounter
--- OUTSIDE RECORDS SUMMARY | 2024-06-25 09:16 | XMS_ITS | Clinical Summary ---
Author Organization [employer] Address [address] [place] [address] 7[address] [place] [address] Care Team Providers Care Cloud Operations Engineer Name Role Phone Rehana Hathaway MD Primary Care Provider [phone] Allergies No known active allergies Medications EPINEPHrine [...] BY MOUTH ONCE DAILY DIRECTED 023 Active hydrocortisone 2.5 % cream Apply [...] mouth in the morning. 30 tablet 11 Active sertraline (Zoloft) 50 MG tabletIndication s:Anxious depression Take 1 tablet (50 mg) by mouth in the morning. 90 tablet 3 Active melatonin 3 MG tablet Take 1 [...] CRUSH, DISSOLVE OR CHEW 90 capsule 1 Active polycarbophil (FiberCon) 625 MG tablet Take 1 tablet (625 mg) by mouth Once per day. 90 tablet 3 024 2024 Active polyethylene glycol, PEG, 3350 (Glycolax, Miralax) powder Take 17 g by mouth Once per day. 1 g Active fexofenadine (Fariha) 180 MG tablet TAKE 1 TABLET BY MOUTH EVERY DAY 30 tablet 11 Active levothyroxine (Synthroid, Levoxyl) 88 MCG tablet TAKE 1 TABLET BY MOUTH EVERY DAY IN THE MORNING BEFORE BREAKFAST 30 tablet 2 Active meclizine (Antivert) 25 MG tablet Take 1 tablet (25 mg) by mouth See administration instructions. TAKE 1 TABLETS BY MOUTH TWICE DAILY NEEDED 30 tablet Active Symbicort 160-4.5 MCG/ACT inhaler Inhale 2 puffs 2 times daily. 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 F/U with me in 4-6 weeks. She agrees with the plan. COVID-19 03/25/2020 Osteoarthritis of left acromioclavicular joint 0 07/03/2019 Benign essential hypertension 06/14/2015 Primary insomnia 06/14/2015 Vitamin D deficiency 06/14/2015 Overweight 01/12/2012 Hypertension 07/25/2011 Hypothyroidism 07/25/2011 Depressive disorder 07/25/2011 Encounters Date Type Department Care Team Description 06/24/2024 10:30 AM EDT Office Visit [facility] [address] [place] [address] Rehana Hathaway MD Adrenal incidentaloma (CMS/HCC) (Primary Dx); Acquired hypothyroidism; Severe persistent asthma with intensive monitoring 06/24/2024 Travel 06/17/2024 3:30 PM EDT Office Visit [facility] [address] [place] [address] Margie Qureshi MD Vertigo (Primary Dx); Benign paroxysmal positional vertigo of left ear 06/17/2024 Travel 06/14/2024 9:40 AM EDT Office Visit [facility] [address] [place] [address] Dev Oropeza MD Vertigo (Primary Dx) 06/14/2024 Travel 06/13/2024 Telephone [facility] [address] [place] [phone] Rehana Hathaway MD 05/23/2024 Orders Only [facility] [address] [place] [address] Rehana Hathaway MD 05/23/2024 Refill [facility] [address] [place] [address] Rehana Hathaway MD 04/25/2024 Population Health Risk Score [facility] () [address] [phone] Provider, Population Health Generic 04/21/2024 Refill [facility] [address] [place] [phone] Parveen Gonzales MD 04/15/2024 10:00 AM EST Procedure Visit [facility] [address] [place] [address] Suze Geiger MD Osteoarthritis of right knee, unspecified osteoarthritis type (Primary Dx); Prediabetes 04/15/2024 Travel 04/03/2024 Orders Only [facility] [address] [place] [address] Rehana Hathaway MD Adrenal incidentaloma (CMS/HCC) (Primary Dx) 04/02/2024 Telephone [facility] [address] [place] [address] ABDOMEN/PELVIS ORDER 04/02/2024 Telephone [facility] [address] [place] [address] Rehana Hathaway MD Appointment Request 03/28/2024 Telephone [facility] [address] [place] [address] Rehana Hathaway MD 03/28/2024 Orders Only [facility] [address] [place] [address] Rehana Hathaway MD Acquired hypothyroidism (Primary Dx) 03/28/2024 Orders Only [facility] [address] [place] [address] Rehana Hathaway MD from Last 3 Months Immunizations Immunization Administration Dates Next Due Influenza Injectable Quadriv [...] Mass Index 28.68 06/24/2024 10:22 AM EDT Plan of Treatment Health Maintenance Due Date Last Done Comments [...] 03/19/2025 03/19/2024 Alcohol/Substance Use Screening 03/27/2025 03/27/2024 Colonoscopy 05/14/2025 05/14/2020 Colorectal Cancer Screening 05/14/2025 Tobacco Screening 06/24/2025 06/24/2024 DTaP/Tdap/Td Vaccines (2 - Td or Tdap) [...] patient's age to complete this topic Meningococcal B Vaccine Aged Out No l onger eligible based on patient's age to complete [...] Procedure Name Priority Date/Time Associated Diagnosis Comments POCT CREATININE GFR Routine 05/23/2024 8 :[address] ABDOMEN PELVIS W AND WO CONTRAST Routine 05/23/2024 7:51 AM EDT Adrenal incidentaloma (CMS/HCC) [facility] ARTHROCENTESIS ASPIR&/INJ MAJOR JT/BURSA W/O US Routine [...] Recently Relevant to Health Maintenance Results * POCT Creatinine GFR (05/23/2024 8:00 AM EDT) POCT Creatinine 0.7 0.5 - 1.4 mg/dL [facility] GFR POC >60 [facility] Comment:Chronic Kidney Disea se: Estimated GFR < 60 mL/min/1.04i6Opvuur Kidney Disease: Estimated GFR < 15 mL/min/1.73m2 05/23/2024 8:00 AM EDT 05/26/2024 4:01 PM EDT Narrative [facility] - 05/26/2024 4:02 PM EDT [id number] us Rehana Hathaway MD LAB POINT OF CARE TEST DOCKED DEVICE ORDERABLES Final Result [facility] [address] [place] [phone] * CT Abdomen Pelvis w/ and w/o Contrast (05/23/2024 7:51 AM EDT) Anatomical Region Laterality Modality Body, Pelvis, Abdomen Computed T omography 05/23/2024 7:51 AM EDT Narrative 05/23/2024 11:38 AM EDT ? [facility] ?[address] ?[place] [address] ? CT Scan Report ? Signed ? Patient: Colon Marcell,Alecia ?MR#: M ?? [id number] ? : 1970 ?Acct:[id number] ? Age/Sex: 54 / F ?ADM Date: 05/23/24 ? Loc: HO.CT ? Attending Dr: Marcia Mack MD ? Ordering Physician: Rehana Hathaway MD ?? Date of Service: 05/23/24 ?? Procedure(s): CT abdomen pelvis wo/w IV con ?? Accession Number(s): [id number] ? cc: Rehana Hathaway MD ? Report Number: ?? [id number]: Total DLP = ??515.00 mGy-cm ?? EXAMINATION: ??CT ABDOMEN PELVIS WITHOUT THEN WITH IV CONTRAST ? HISTORY: adrenal incidentaloma ? COMPARISON: Comparison is made with the prior contrast-enhanced ?? examination dated 12. ? TECHNIQUE: CT scan of the abdomen and pelvis was performed before and ?? after the intravenous administration of 85 mL Omnipaque 350. ? Postcontrast images were obtained through the adrenal glands in the ?? portal venous and delayed phases to calculate adrenal washout. ??Coronal ?? and sagittal reformatted images were generated and reviewed. ??Oral ?? contrast material was not administered per department protocol. ? This CT exam was performed with one or more of the following dose ?? reduction techniques: automated exposure control, adjustment of the mA ?? and/or kV according to patient size, use of iterative reconstruction ?? technique. ? DLP: 515 mGy-cm ? ABDOMEN: ? LOWER CHEST: The visualized lung bases are clear. There is no pleural ?? effusion. ? CARDIOVASCULATURE: The heart is normal in size. ??There is no ?? pericardial effusion. ? LIVER: ??The liver is normal in size and contour. ??No liver mass is ?? identified. The hepatic and portal veins are patent. ? GALLBLADDER / BILE DUCTS: ??The gallbladder is unremarkable. There is no ?? intra or extrahepatic biliary ductal dilatation. ? SPLEEN: The spleen is normal in size. No focal splenic lesion is ?? identified. ? PANCREAS: The pancreas is unremarkable in appearance. ? ADRENAL GLANDS: The right adrenal gland is unremarkable. There is a 2.0 ?? x 1.9 cm left adrenal nodule. This measures -15.6 HU in density on the ?? unenhanced examination, 34.4 HU in density on the immediate ?? postcontrast examination, and 0.15HU in density on the delayed images. ?? The density of -15.6 HU on the unenhanced examination is compatible ?? with an adenoma. The absolute washout is 68.8%, also consistent with an ?? adenoma. ? KIDNEYS/RETROPERITONEUM: No renal calculi are identified. There is no ?? hydronephrosis. ??No renal masses are identified. ? LYMPH NODES: ??No abdominal or pelvic lymphadenopathy. ? VASCULATURE: ??The abdominal aorta is normal in caliber. ? MESENTERY/PERITONEUM: No free fluid. No masses. ??There is no free ?? intraperitoneal gas. ? STOMACH: ??The stomach is collapsed, limiting evaluation. ? SMALL BOWEL: ?? The small bowel is normal in caliber. ? COLON: ??There is a moderate amount of stool throughout the colon. ? APPENDIX: ??Normal. ? URINARY BLADDER/PELVIC ORGANS: The urinary bladder is unremarkable. ? The uterus and ovaries are unremarkable. ? BONES / SOFT TISSUES: ??There is degenerative disc disease of the spine. ? CT/CT abdomen pelvis wo/w IV con ?? IMPRESSION: ?? 2.0 x 1.9 cm left adrenal mass with imaging characteristics consistent ?? with an adenoma. ? Electronically signed by: ??Holland Rivas MD ??05/23/2024 11:34 AM EDT ?? RP ? Dictated By: ?Holland Rivas MD ? Signed By: ?<Electronically signed by Holland Rivas MD in OV> ?05/23/24 1134 ? DD/ 0751 ? TD/TT: 05/23/24 0850 ? Trauma Counsellor: ? Procedure Note Donotuseinterpreter, Image - 05/23/[address] [address] [address] Scan Report Signed Patient: Alecia MezaMR#: M [id number] : 1970Acct:[id number] Age/Sex: 54 / FADM Date: 05/23/24 Loc: HO.CT Attending Dr: Marcia Mack MD Ordering Physician: Rehana Hathaway MD Date of Service: 05/23/24 Procedure(s): CT abdomen pelvis wo/w IV con Accession Number(s): [id number] cc: Rehana Hathaway MD Report Number: [id number]: Total DLP = 515.00 mGy-cm EXAMINATION: CT ABDOMEN PELVIS WITHOUT THEN WITH IV CONTRAST HISTORY: adrenal incidentaloma COMPARISON: Comparison is made with the prior contrast-enhanced examination dated . TECHNIQUE: CT scan of the abdomen and pelvis was performed before and after the intravenous administration of 85 mL Omnipaque 350. Postcontrast images were obtained through the adrenal glands in the portal venous and delayed phases to calculate adrenal washout. Coronal and sagittal reformatted images were generated and reviewed. Oral contrast material was not administered per department protocol. This CT exam was performed with one or more of the following dose reduction techniques: automated exposure control, adjustment of the mA and/or kV according to patient size, use of iterative reconstruction technique. DLP: 515 mGy-cm ABDOMEN: LOWER CHEST: The visualized lung bases are clear. There is no pleural effusion. CARDIOVASCULATURE: The heart is normal in size. There is no pericardial effusion. LIVER: The liver is normal in size and contour. No liver mass is identified. The hepatic and portal veins are patent. GALLBLADDER / BILE DUCTS: The gallbladder is unremarkable. There is no intra or extrahepatic biliary ductal dilatation. SPLEEN: The spleen is normal in size. No focal splenic lesion is identified. PANCREAS: The pancreas is unremarkable in appearance. ADRENAL GLANDS: The right adrenal gland is unremarkable. There is a 2.0 x 1.9 cm left adrenal nodule. This measures -15.6 HU in density on the unenhanced examination, 34.4 HU in density on the immediate postcontrast examination, and 0.15HU in density on the delayed images. The density of -15.6 HU on the unenhanced examination is compatible with an adenoma. The absolute washout is 68.8%, also consistent with an adenoma. KIDNEYS/RETROPERITONEUM: No renal calculi are identified. There is no hydronephrosis. No renal masses are identified. LYMPH NODES: No abdominal or pelvic lymphadenopathy. VASCULATURE: The abdominal aorta is normal in caliber. MESENTERY/PERITONEUM: No free fluid. No masses. There is no free intraperitoneal gas. STOMACH: The stomach is collapsed, limiting evaluation. SMALL BOWEL: The small bowel is normal in caliber. COLON: There is a moderate amount of stool throughout the colon. APPENDIX: Normal. URINARY BLADDER/PELVIC ORGANS: The urinary bladder is unremarkable. The uterus and ovaries are unremarkable. BONES / SOFT TISSUES: There is degenerative disc disease of the spine. CT/CT abdomen pelvis wo/w IV con IMPRESSION: 2.0 x 1.9 cm left adrenal mass with imaging characteristics consistent with an adenoma. Electronically signed by: Holland Rivas MD 05/23/2024 11:34 AM EDT Dictated By: Holland Rivas MD Signed By: <Electronically signed by Holland Rivas MD in OV> 05/23/24 1134 DD/ 0751 TD/TT: 05/23/24 0850 Trauma Counsellor: us Rehana Hathaway MD IMG CT PROCEDURES Final Resul t * [facility] ARTHROCENTESIS ASPIR&/INJ MAJOR JT/BURSA W/O US (04/15/2024 10:36 AM EST) Suze Zazueta MD - 04/15/2024 10:36 AM EST Suze Geiger MD ? 04/15/2024 10:40 AM Arthrocentesis Date/Time: 04/15/2024 10:36 AM Performed by: Suze Geiger MD Authorized by: Suze Geiger MD ?? Consent: ??Consent obtained: ??Verbal and written ??Consent given by: ??Patient ??Risks, benefits, and alternatives were discussed: yes ?Risks discussed: ??Pain ??Alternatives discussed: ??Referral Grace protocol: ??Procedure explained and questions answered to [...] * POCT Glucose (04/15/2024 10:12 AM EST) [facility] Glucose Blood, POC 99 60 - 200 mg/dL Comment:internal controls pa ssed QC Media Lot # [id number] Lot# Expiration Date Blood Capillary blood specimen / Unknown 04/15/2024 10:12 AM EST Suze Geiger MD POINT OF CARE TEST ENTER/EDIT OR DERABLES Final Result * Urinalysis with reflex microscopic (03/28/2024 8:30 AM EST) Pathologist [facility] Color Urine Yellow [facility] Appearance Urine Clear [facility] PH 6.0 5.0 - 9.0 [facility] Glucose Urine UA Negative Negative mg/dL [facility] Urine Blood Negative Negative [facility] Specific [place] - Urine 1.010 1.005 - 1.025 [facility] Urine Protein Negative Neg-Trace mg/dL [facility] Urine Ketones Negative Negative mg/dL [facility] Nitrite Urine Negative Negative [facility] Leukocyte Esterase Urine Negative Negative [facility] Urine (Urine, Random) 03/28/2024 8:30 AM EST 03/28/2024 1:54 PM EST Narrative [facility] - 03/28/2024 2:08 PM EST [id number], Clean Catch Rehana Hathaway MD LAB URINE ORDERABLES Final Re sult Performing Organization Address [facility]/ZIP Co de Phone Number [facility] [address] [place] [phone] * (ABNORMAL) TSH W/Reflex to FT4 (03/28/2024 8:21 AM EST) TSH reflex Free T4 0.27(L) 0.32 - 4.0 uIU/mL [facility] Blood Venous blood specimen / Unknown 03/28/2024 8:21 AM EST 03/28/2024 2:12 PM EST us Rehana Hathaway MD LAB BLOOD ORDERABLES Final Re sult Performing Organization Address [facility]/ZIP Co de Phone Number [facility] [address] [place] [phone] * (ABNORMAL) CBC auto differential (03/28/2024 8:21 AM EST) White Blood Count 5.8 4.8 - 10.8 X10*3/uL [facility] Red Blood Count 4.18(L) 4.20 - 5.50 X10*6/uL [facility] Hemoglobin 11.9(L) 12.0 - 16.0 g/dl [facility] Hematocrit 37.9 37.0 - 47.0 % [facility] Mean Corpuscular Volume 90.7 80.0 - 98.0 fL [facility] Mean Corpuscular Hemoglobin 28.5 27.0 - 33.0 pg [facility] Mean Corpuscular HGB Conc 31.4 31.0 - 35.0 g/dl [facility] Red Cell Distribution Width 14.3 11.0 - 16.0 % [facility] Platelet Count 239 160 - 400 X10*3/uL [facility] Mean Platelet Volume 11.7 9.4 - 12.3 fL [facility] Neutrophils Percent Auto 56.2 45 - 73 % [facility] Imm Gran Pct Auto 0.2 0.0 - 0.4 % [facility] Lymphocytes Percent Auto 34.8 20 - 40 % [facility] Monocytes Percent Auto 6.3 2 - 11 % [facility] Eosinophils Percent Auto 1.6 0 - 4 % [facility] Basophils Percent Auto 0.9 0 - 2 % [facility] NRBC Pct Auto 0.0 0.0 - 0.2 /100WBC [facility] Neutrophils Absolute Auto 3.2 2.0 - 8.3 x10*3/uL [facility] Imm Gran Abs Auto 0.01 0.00 - 0.03 X10*3/uL [facility] Lymphocytes Absolute Auto 2.0 1.2 - 4.9 X10*3/uL [facility] Monocytes Absolute Auto 0.4 0.1 - 1.2 X10*3/uL [facility] Eosinophils Absolute Auto 0.1 0.0 - 0.4 X10*3/uL [facility] Basophils Absolute Auto 0.1 0.0 - 0.2 X10*3/uL [facility] NRBC Abs Auto 0.000 0.0 - 0.012 X10*3/uL [facility] Blood Venous blood specimen / Unknown 03/28/2024 8:21 AM EST 03/28/2024 1:55 PM EST us Rehana Hathaway MD LAB BLOOD ORDERABLES Final Re sult [facility] [address] [place] [address] [phone] * Sed Rate by Modified Kellieren (03/28/2024 8:21 AM EST) Erythrocyte Sedimentation Rate 10 0 - 20 MM/HR [facility] Comment:Patients with polycy themia and many hemoglobin abnormalitiesmay have depressed sed rates whereas patients with anemiamay have elevated sed rates. Blood Venous blood specimen / Unknown 03/28/2024 8:21 AM EST 03/28/2024 1:55 PM EST Rehana Hathaway MD LAB BLOOD ORDERABLES Final Re sult Performing Organization Address [facility] Co de Phone Number [facility] [address] [place] [phone] * T4, Free (03/28/2024 8:21 AM EST) Free T4 (Free Thyroxine) 1.36 0.71 - 1.85 ng/dL [facility] 03/28/2024 8:21 AM EST 03/28/2024 2:12 PM EST Rehana Hathaway MD LAB BLOOD ORDERABLES Final Re sult Performing Organization Address [facility] Co de Phone Number [facility] [address] [place] [address] [phone] * (ABNORMAL) Basic Metabolic Panel (03/28/2024 8:21 AM EST) Pathologist [facility] Sodium 141 135 - 145 mmol/L [facility] Potassium 4.6 3.3 - 5.1 mmol/L [facility] Chloride 107 96 - 108 mmol/L [facility] Carbon Dioxide 28 22 - 29 mmol/L [facility] Anion Gap 11(L) 12 - 20 [facility] Urea Nitrogen (BUN) 15 9 - 16 mg/dL [facility] Creatinine, Serum 0.62 0.5 - 1.4 mg/dL [facility] Estimated Glomerular Filt Rate >60 [facility] Comment:Chronic Kidney Disea se: Estimated GFR < 60 mL/min/1.50s9Irhfql Kidney Disease: Estimated GFR < 15 mL/min/1.73m2 Glucose 83 60 - 115 mg/dL [facility] Calcium 10.0 8.4 - 10.2 mg/dL [facility] Blood Venous blood specimen / Unknown 03/28/2024 8:21 AM EST 03/28/2024 2:12 PM EST Rehana Hathaway MD LAB BLOOD ORDERABLES Final Re sult [facility] [address] [place] [phone] * POCT HGB A1C (01/02/2024 11:02 AM EST) Hemoglobin A1C 5.5 4.0 - 6.0 % QC Media Lot # [id number] Lot# Expiration Date [id number] Blood 01/02/2024 11:0 2 AM EST us Rehana Hathaway MD POINT OF CARE TEST ENTER/EDIT ORDERABLES Final Result * BI Mammogram Screening Tomosynthesis Bilateral (10/10/2023 10:35 AM EDT) Anatomical Region Laterality Modality Breast Bilateral Mammography 10/10/2023 10:3 5 AM EDT Narrative 11/01/2023 6:02 PM EDT ? [facility] ? [address] ?[place] [address] ? Mammography Report ? Signed ? Patient: Colon,Alecia ?MR#: [id number] ?? 8 ? : 1970 ?Acct:[id number] ? Age/Sex: 53 / F ?ADM Date: 08/28/24 ? Loc: HO.MAMMO ? Attending Dr: Rehana Hathaway MD ? Ordering Physician: Rehana Hathaway MD ?Results: 1Ne ?? gative ? Date of Service: 10/10/23 ?Follow Up: 1 Year From Orig ?? inal Mammogram ? Procedure(s): MM tomosynthesis screening BI ?? Accession Number(s): [id number] ? cc: Rehana Hathaway MD ? EXAMINATION: [...] DD/ 1035 ? TD/TT: 10/10/23 1050 ? Trauma Counsellor: ? Procedure Note Donotuseinterpreter, Image - 11/01/2023 [facility] [address] [place] [address] Mammography Report Signed Patient: Alecia JosephMR#: [id number] : 1970Acct:[id number] Age/Sex: 53 / FADM Date: 10/10/23 Loc: HO.MAMMO Attending Dr: Rehana Hathaway MD Ordering Physician: Rehana Hathaway MDResults: 1Ne gative Date of Service: 10/10/23Follow Up: 1 Year From Orig inal Mammogram Procedure(s): MM tomosynthesis screening BI Accession Number(s): [id number] cc: Rehana Hathaway MD EXAMINATION: MM SCREENING [...] Teagan Tinoco DO 11/01/2023 05:59 PM EDT RP Dictated By: Teagan Tinoco DO Signed By: <Electronically signed by Teagan Tinoco DO in OV> 11/01/23 1759 DD/ 1035 TD/TT: 10/10/23 1050 Trauma Counsellor: us Rehana Hathaway MD IMG BI PROCEDURES Final Resul t * (ABNORMAL) Lipid Panel, Standard (07/10/2023 8:47 AM EDT) Triglycerides 99 <150 mg/dL [facility] Comment:Desirable Triglyceri de: less than 150 mg/dLBorderline High Triglyceride 150-199 mg/dLHigh Triglyceride: 200-499 mg/dLVery High Triglyceride: greater than or equal to 5OO mg/dL Cholesterol 207(H) <200 mg/dL [facility] Comment:Desirable Cholestero l: less than 200 mg/dLBorderline High Cholesterol: 200-239 mg/dLHigh Cholesterol: greater than 239 mg/dL LDL Cholesterol Calculated 116(H) <100 mg/dL [facility] Comment:Desirable LDL: less than 100 mg/dLNear Optimal/Above Optimal LDL: 110- 129 mg/dLBorderline High LDL: 130-159 mg/dLHigh LDL: 160-189 mg/dLVery High LDL: greater than or equal to 190 mg/dL HDL Cholesterol 72 >40 mg/dL [facility] Comment:Desirable HDL: great er than 40 mg/dL Note: This HDL assay may give artificially low results in patients with liver disease. Blood Venous blood specimen / Unknown 07/10/2023 8:47 AM EDT 07/10/2023 2:38 PM EDT us Rehana Hathaway MD LAB BLOOD ORDERABLES Final Re sult [facility] [address] [place] [phone] * Hm Colonoscopy (05/14/2020) Colonoscopy [...] Re sult [facility] [address] * HPV mRNA E6/E7 (11/28/2018 10:43 AM EDT) HPV mRNA E6/E7 Not Detected NOT DETECTED [facility] Comment: This test was performed using the APTIMA(R) HPV Assay ([employer] This assay detects E6/E7 viral messenger RNA (mRNA) from 14 high-risk HPV types (16,18,31,33,35,39,45,51, 52,56,58,59,66,68). For additional information please refer to: http://education.[employer]/faq/RNV538z4 (This link is being provided for informational/ educational purposes only.) The analytical performance characteristics of this assay have been determined by [place]. The modifications have not been cleared or approved by the FDA. This assay has been validated pursuant to the CLIA regulations and is used for clinical purposes. Test Performed by [email or web address] [place], [facility] [place], [address] [place] [address] Fred Boyd M.D., Ph.D., Director of Laboratories , CLIA [id number] Please note: ??Effective 10/25/2015, HPV testing will be performed using [employer]'s APTIMA test which targets mRNA. Detecting mRNA instead of DNA, as in older methods, offers significant improvements in specificity. 11/28/2018 10:4 3 AM EDT us Rehana Hathaway MD HISTORICAL/NON ORDERABLE LABS Final Result Performing Organization Address City/State/[facility] Co de Phone Number [facility] [address] from Last 3 Months or Most Recently Relevant to Health [place] [address] [facility] C[facility] MEDICAID STAND ADULT * Guarantor: Alecia Joseph Account Type Relation to Patient Date of Phone Billing Address [place] [address] * Guarantor: Alecia Joseph Account Type Relation to Patient Date of Phone Billing Address Personal/Family Self [facility] [place] [address] Care Teams Cloud Operations Engineer Relationship Specialty Start Date End Date Rehana Hathaway MD [address] [place] [address] PCP - General Family Medicine 02/12/18
--- OUTSIDE RECORDS SUMMARY | 2024-06-25 09:16 | XMS_ITS | Encounter Summary ---
Author Organization [employer] Address 75 [facility] 7t [place] [address] Care Team Providers Care Municipal Clerk Name Role Phone Rehana Hathaway MD Primary Care Provider [phone] Reason for Visit * Reason Comments Med Refill Encounter Details Date Type Department Care Team ([facility] st Contact Info) Description 09/02/2023 Refill [facility] [address] [place] [address] Parveen Gonzales MD 505 [place] [address] Chronic gastroesophageal reflux disease Social History Tobacco [...] documented as of this encounter Care Teams Municipal Clerk Relationship Specialty Start Date End Date Rehana Hathaway MD [address] [place] [address] PCP - General Family Medicine 02/12/18 documented as of this encounter
[2024-06-25 15:39] LABS: TSH reflex Free T4 9.47 uIU/mL (0.32-4.0)
[2024-06-26 06:33] LABS: DHEA Sulfate 35 mcg/dL (5-167)
== END 2024-06-25 08:52 | disposition home or self-care (01) ==
LOC: HO.CHCLDS 08:51
PROVIDERS: Visit Provider Pediatrics
DX: E27.8 Other specified disorders of adrenal gland (principal); E03.9 Hypothyroidism, unspecified
CPT/HCPCS: 36415; 82627; 84439; 84443

== ENCOUNTER 2024-06-30 10:01 | Outpatient (REF) | payer MEDICAID, SELFPAY ==
--- OUTSIDE RECORDS SUMMARY | 2024-06-30 10:30 | XMS_ITS | Patient Health Record ---
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 Problem [id number] Gastroesophageal reflux disease, unspecified whether esophagitis present (K21.9) Active confirmed Plan Of Treatment Future Test Test Name Order Date COLONOSCOPY 04/19/2020 Insurance Providers Payer Name Payer Address Payer Phone Subscriber Number Group Number Insured Name Patient Relationship to Insured Coverage Start Date Coverage End Date MEDICAID OF [employer] [address] [place] [phone] [id number] CANDIDO HANNAH Self - patient is the insured Medical (General) History Medical History History ICD Code asthma hypertension hyperthyroidism heartburn seasonal allergies Covid 19 infection, 03/22/20, quarantined at home, no treatment required Surgical History Surgery Date(Month/Year) Knee Replacement - left side
--- OUTSIDE RECORDS SUMMARY | 2024-06-30 10:30 | XMS_ITS | Encounter Summary ---
Author Organization [employer] Address 75 [facility] 7t [place] [address] Care Team Providers Care Telecommunication Engineer Name Role Phone Rehana Hathaway MD Primary Care Provider [phone] Reason for Visit * Reason Comments Med Refill Encounter Details Date Type Department Care Team ([facility] st Contact Info) Description 09/02/[address] [facility] [address] [place] [address] Parveen Gonzales MD 505 [place] [address] Chronic gastroesophageal reflux disease Social History Tobacco [...] documented as of this encounter Care Teams Telecommunication Engineer Relationship Specialty Start Date End Date Rehana Hathaway MD [address] [place] [address] PCP - General Family Medicine 02/12/18 documented as of this encounter
--- OUTSIDE RECORDS SUMMARY | 2024-06-30 10:30 | XMS_ITS | Encounter Summary ---
Author Organization [employer] Address 75 [facility] 7t [place] [address] Care Team Providers Care Tile Inspector Name Role Phone Rehana Hathaway MD Primary Care Provider [phone] Encounter Details Date Type Department Care Team ([facility] st Contact Info) Description 01/31/2022 Telephone [facility] 230 [place], [place] [phone] Rehana Hathaway MD 505 [place] [address] Social History Tobacco Use Types Packs/Day Years [...] on filedocumented in this encounter Care Teams Tile Inspector Relationship Specialty Start Date End Date Rehana Hathaway MD 505 [place] [address] PCP - General Family Medicine 02/12/18 documented as of this encounter
--- OUTSIDE RECORDS SUMMARY | 2024-06-30 10:30 | XMS_ITS | Encounter Summary ---
Author Organization [email or web address] Address 75 [facility] 7t [place] [address] Care Team Providers Care Stacker Operator Name Role Phone Rehana Hathaway MD Primary Care Provider [phone] Encounter Details Date Type Department Care Team ([facility] st Contact Info) Description 06/25/2024 Orders Only [facility] MED [facility] [address] [place], [place] [phone] Rehana Hathaway MD 505 [place], [place] [phone] Social History Tobacco Use Types Packs/Day Years [...] Procedure Name Priority Date/Time Associated Diagnosis Comments T4, FREE Routine 06/25/2024 8:53 AM EDT documented in this encounter Results * T4, Free (06/25/2024 8:53 AM EDT) Free T4 (Free Thyroxine) 1.10 0.71 - 1.85 ng/dL [facility] 06/25/2024 8:53 AM EDT 06/25/2024 2:49 PM EDT us Rehana Hathaway MD LAB BLOOD ORDERABLES Final Re sult [facility] [address] [place] [address] [phone] documented in this encounter Visit Diagnoses Not on filedocumented in this encounter Additional Health Concerns Assessment Noted Time PHQ-9 Depression Total Score: 3 05/14/19 24 9:07 AM EDT documented as of this encounter Care Teams Stacker Operator Relationship Specialty Start Date End Date Rehana Hathaway MD 505 [place] [address] PCP - General Family Medicine 02/12/18 documented as of this encounter
--- OUTSIDE RECORDS SUMMARY | 2024-06-30 10:30 | XMS_ITS | Encounter Summary ---
Author Organization [employer] Address 75 [facility] 7 [place] [address] Care Team Providers Care Molder Closed Molds Name Role Phone Rehana Hathaway MD Primary Care Provider [phone] Reason for Visit * Reason Onset Date Comments Results 01/16/2024 Encounter Details Date Type Department Care Team ([facility] st Contact Info) Description 01/16/2024 Telephone [facility] MEDICINE 230 [place] [address] Rehana Hathaway MD 505 [place] [address] Results Social History Tobacco Use Types Packs/Day [...] results: Labs Date when done: 01/15/24 Facility: [facility] Labs documented in this encounter Plan of Treatment Not on file documented as of this encounter Visit Diagnoses Not on filedocumented in this encounter Additional Health Concerns Assessment Noted Time PHQ-9 Depression Total Score: 3 05/14/19 24 9:07 AM EDT documented as of this encounter Care Teams Molder Closed Molds Relationship Specialty Start Date End Date Rehana Hathaway MD 505 [place] [address] PCP - General Family Medicine 02/12/18 documented as of this encounter
--- OUTSIDE RECORDS SUMMARY | 2024-06-30 10:30 | XMS_ITS | Encounter Summary ---
Author Organization [employer] Address 75 [facility] 7t [place] [address] Care Team Providers Care [facility] Shift Lead Name Role Phone Rehana Hathaway MD Primary Care Provider Encounter Details Date Type Department Care Team (Late st Contact Info) Description 12/21/2022 Abstract [facility] [address] [place] [address] Ghazal Nuñez Social History Tobacco Use Types [...] documented as of this encounter Care Teams Veterinary Hospital Shift Lead Relationship Specialty Start Date End Date Rehana Hathaway MD 505 [place] [address] PCP - General Family Medicine 02/12/18 documented as of this encounter
--- OUTSIDE RECORDS SUMMARY | 2024-06-30 10:30 | XMS_ITS | Clinical Summary ---
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 F/U with me in 4-6 weeks. She agrees with the plan. COVID-19 03/25/2020 Osteoarthritis of left acromioclavicular joint 0 07/03/2019 Benign essential hypertension 06/14/2015 Primary insomnia 06/14/2015 Vitamin D deficiency 06/14/2015 Overweight 01/12/2012 Hypertension 07/25/2011 Hypothyroidism 07/25/2011 Depressive disorder 07/25/2011 Encounters Date Type Department Care Team Description 06/25/2024 Orders Only [facility] [address] [place] [address] Rehana Hathaway MD 06/24/2024 10:30 AM EDT Office Visit [facility] [address] [facility] [place] [address] Rehana Hathaway MD Adrenal incidentaloma (CMS/HCC) (Primary Dx); Acquired hypothyroidism; Severe persistent asthma with intensive monitoring 06/24/2024 Travel 06/17/2024 3:30 PM EDT Office Visit [facility] [address] [place] [address] Margie Qureshi MD Vertigo (Primary Dx); Benign paroxysmal positional vertigo of left ear 06/17/2024 Travel 06/14/2024 9:40 AM EDT Office Visit [facility] [address] [address] Dev Oropeza MD Vertigo (Primary Dx) 06/14/2024 Travel 06/13/2024 Telephone [facility] [address] [place] [phone] Rehana Hathaway MD 05/23/2024 Orders Only [facility] [address] [place] [address] Rehana Hatahway MD 05/23/2024 Refill [facility] [address] [place] [address] Rehana Hathaway MD 04/25/2024 Population Health Risk Score [facility] () Department [address] [place] [phone] Provider, Population Health Generic 04/21/2024 Refill [facility] [address] [place] [address] Parveen Gonzales MD 04/15/2024 10:00 AM EST Procedure Visit [facility] [address] [place] [address] Suze Geiger MD Osteoarthritis of right knee, unspecified osteoarthritis type (Primary Dx); Prediabetes 04/15/2024 Travel 04/03/2024 Orders Only [facility] [address] [place] [address] Rehana Hathaway MD Adrenal incidentaloma (CMS/HCC) (Primary Dx) 04/02/2024 Telephone [place] [employer] [address] [place] [address] ABDOMEN/PELVIS ORDER 04/02/2024 Telephone [facility] [address] [place], [place] [phone] Rehana Hathaway MD Appointment Request from Last 3 Months Immunizations Immunization Administration [...] T4, FREE Routine 06/25/2024 8:53 AM EDT DHEA SULFATE Routine 06/25/2024 8:53 AM EDT Adrenal incidentaloma (CMS/HCC) Acquired hypothyroidism TSH W/REFLEX TO FT4 Routine 06/25/2024 8 :53 AM EDT Adrenal incidentaloma (CMS/HCC) Acquired hypothyroidism POCT CREATININE GFR Routine 05/23/2024 8 :[address] ABDOMEN PELVIS W AND WO CONTRAST Routine 05/23/2024 7:51 AM EDT Adrenal incidentaloma (CMS/HCC) IN ARTHROCENTESIS ASPIR&/INJ MAJOR JT/BURSA W/O US Routine 04/15/2024 10:36 AM EST Osteoarthritis of right knee, unspecified osteoarthritis type POCT GLUCOSE Routine 04/15/2024 10:12 AM EST Prediabetes POCT GLYCATED HEMOGLOBIN, TOTAL Routine 01/02/2024 11:02 [...] Recently Relevant to Health Maintenance Results * (ABNORMAL) TSH W/Reflex to FT4 (06/25/2024 8:53 AM EDT) TSH reflex Free T4 9.47(H) 0.32 - 4.0 uIU/mL [facility] Blood Venous blood specimen / Unknown 06/25/2024 8:53 AM EDT 06/25/2024 2:49 PM EDT us Rehana Hathaway MD LAB BLOOD ORDERABLES Final Re sult Performing Organization Address [facility] Co de Phone Number [facility] [address] [place] [phone] * DHEA Sulfate (06/25/2024 8:53 AM EDT) DHEA Sulfate 35 5 - 167 mcg/dL [facility] Comment:THIS TEST WAS PERFOR MED AT:[facility] [address] [phone] ABDUL MD Blood Venous blood specimen / Unknown 06/25/2024 8:53 AM EDT 06/25/2024 2:49 PM EDT us Rehana Hathaway MD LAB BLOOD ORDERABLES Final Re sult Performing Organization Address [facility] Co de Phone Number [facility] [address] [place] [phone] * T4, Free (06/25/2024 8:53 AM EDT) Free T4 (Free Thyroxine) 1.10 0.71 - 1.85 ng/dL [facility] 06/25/2024 8:53 AM EDT 06/25/2024 2:49 PM EDT us Rehana Hathaway MD LAB BLOOD ORDERABLES Final Re sult Performing Organization Address City/[facility]/ZIP Co de Phone Number [facility] [address] [place] [address] [phone] * POCT Creatinine GFR (05/23/2024 8:00 AM EDT) POCT Creatinine 0.7 0.5 - 1.4 mg/dL [facility] GFR POC >60 [facility] Comment:Chronic Kidney Disea se: Estimated GFR < 60 mL/min/1.45v7Kshevz Kidney Disease: Estimated GFR < 15 mL/min/1.73m2 05/23/2024 8:00 AM EDT 05/26/2024 4:01 PM EDT Narrative [facility] - 05/26/2024 4:02 PM EDT [id number].[facility] Rehana Hathaway MD LAB POINT OF CARE TEST DOCKED DEVICE ORDERABLES Final Result [facility] [address] [place] [address] [phone] * CT Abdomen Pelvis w/ and w/o Contrast (05/23/2024 7:51 AM EDT) Anatomical Region Laterality Modality Body, Pelvis, Abdomen Computed T omography 05/23/2024 7:51 AM EDT Narrative 05/23/2024 11:38 AM EDT ? [facility] ?[address] ?[place] [address] ? CT Scan Report ? Signed ? Patient: Colon Marcell,Alecia ?MR#: [id number] ?? [id number] ? : 1970 ?Acct:[id number] ? Age/Sex: 54 / F ?ADM Date: 04/11/25 ? Loc: HO.CT ? Attending Dr: Marcia Mack MD ? Ordering Physician: Rehana Hathaway MD ?? Date of Service: 05/23/24 ?? Procedure(s): CT abdomen pelvis wo/w IV con ?? Accession Number(s): [id number] ? cc: Rehana Hathaway MD ? Report Number: ?? [id number]: Total DLP = ??515.00 mGy-cm ?? EXAMINATION: ??CT ABDOMEN PELVIS WITHOUT THEN WITH IV CONTRAST ? HISTORY: adrenal incidentaloma ? COMPARISON: Comparison is made with the prior contrast-enhanced ?? examination dated . ? TECHNIQUE: CT scan of the abdomen [...] ??Holland Rivas MD ??05/23/2024 11:34 AM EDT ? Dictated By: ?Holland Rivas MD ? Signed By: ?<Electronically signed by Holland Rivas MD in OV> ?05/23/24 1134 ? DD/ 0751 ? TD/TT: 05/23/24 0850 ? Appraiser Personal Property: ? Procedure Note Jason, Chung - 05/23/[address] [address] [place] Scan Report Signed Patient: Alecia Meza#: M [id number] : 1970Acct:[id number] Age/Sex: 54 / FADM Date: 05/23/24 Loc: HO.CT Attending Dr: Marcia Mack MD Ordering Physician: Rehana Hathaway MD Date of Service: 05/23/24 Procedure(s): CT abdomen pelvis wo/w IV con Accession Number(s): [id number] cc: Rehana Hathaway MD Report Number: [id number]: Total DLP = 515.00 mGy-cm EXAMINATION: CT ABDOMEN PELVIS WITHOUT THEN WITH IV CONTRAST HISTORY: adrenal incidentaloma COMPARISON: Comparison is made with the prior contrast-enhanced examination dated 12. TECHNIQUE: CT scan of the abdomen and [...] Holland Rivas MD 05/23/2024 11:34 AM EDT RP Dictated By: Holland Rivas MD Signed By: <Electronically signed by Holland Rivas MD in OV> 05/23/24 1134 DD/ 0751 TD/TT: 05/23/24 0850 Appraiser Personal Property: us Rehana Hathaway MD IMG CT PROCEDURES Final Resul t * IN ARTHROCENTESIS ASPIR&/INJ MAJOR JT/BURSA W/O US (04/15/2024 [...] yes ?Risks discussed: ??Pain ??Alternatives discussed: ??Referral Hunter protocol: ??Procedure explained and questions answered to [...] TEST ENTER/EDIT OR DERABLES Final Result * POCT HGB A1C (01/02/2024 11:02 AM EST) Hemoglobin A1C 5.5 4.0 - 6.0 % QC Media Lot # [id number] Lot# Expiration Date 8,026 Blood 01/02/2024 11:0 2 AM EST Rehana Hathaway MD POINT OF CARE TEST ENTER/EDIT ORDERABLES Final Result * BI Mammogram Screening Tomosynthesis Bilateral (10/10/2023 10:35 AM EDT) Anatomical Region Laterality Modality Breast Bilateral Mammography 10/10/2023 10:3 5 AM EDT Narrative 11/01/2023 6:02 PM EDT ? [facility] ? [address] ?[place] [address] ? Mammography Report ? Signed ? Patient: Colon,Alecia ?MR#: [id number] ?? 8 ? : 1970 ?Acct:[id number] ? Age/Sex: 53 / F ?ADM Date: 08/28/24 ? Loc: HO.MAMMO ? Attending Dr: Rehana Hathaway MD ? Ordering Physician: Rehana Hathaway MD ?Results: 1Ne ?? gative ? Date of Service: 10/10/23 ?Follow Up: 1 Year From Orig ?? inal Mammogram ? Procedure(s): MM tomosynthesis screening BI ?? Accession Number(s): [id number] ? cc: Rehana Hathaway MD ? EXAMINATION: [...] ??Teagan Tinoco DO ??11/01/2023 05:59 PM EDT ? Dictated By: ?Teagan Tinoco DO ? Signed By: ?<Electronically signed by Teagan Tinoco, DO in OV> ? 11/01/23 1759 ? DD/ 1035 ? TD/TT: 10/10/23 1050 ? Appraiser Personal Property: ? Procedure Note Dontriniter, Image - 11/01/2023 [facility] [address] [place] [address] Mammography Report Signed Patient: Alecia JosephMR#: [id number] 8 : 1970Acct:[id number] Age/Sex: 53 / FADM Date: 10/10/23 Loc: HO.MAMMO Attending Dr: Rehana Hathaway MD Ordering Physician: Rehana Hathaway MDResults: 1Ne gative Date of Service: 10/10/23Follow Up: 1 Year From Orig inal Mammogram Procedure(s): MM tomosynthesis screening BI Accession Number(s): [id number] cc: Rehana Hathaway MD EXAMINATION: MM SCREENING [...] 11/01/23 1759 DD/ 1035 TD/TT: 10/10/23 1050 Appraiser Personal Property: Rehana Hathaway MD IMG BI PROCEDURES Final Resul t * (ABNORMAL) Lipid Panel, Standard (07/10/2023 8:47 AM EDT) Triglycerides 99 <150 mg/dL [facility] Comment:Desirable Triglyceri de: less than 150 mg/dLBorderline High Triglyceride 150-199 mg/dLHigh Triglyceride: 200-499 mg/dLVery High Triglyceride: greater than or equal to 5OO mg/dL Cholesterol 207(H) <200 mg/dL [facility] Comment:Desirable Cholestero l: less than 200 mg/dLBorderline High Cholesterol: 200-239 mg/dLHigh Cholesterol: greater than 239 mg/dL LDL Cholesterol Calculated 116(H) <100 mg/dL [facility] Comment:Desirable LDL: less than 100 mg/dLNear Optimal/Above Optimal LDL: 110- 129 mg/dLBorderline High LDL: 130-159 mg/dLHigh LDL: 160-189 mg/dLVery High LDL: greater than or equal to 190 mg/dL HDL Cholesterol 72 >40 mg/dL [facility] Comment:Desirable HDL: great er than 40 mg/dL Note: This HDL assay may give artificially low results in patients with liver disease. Blood Venous blood specimen / Unknown 07/10/2023 8:47 AM EDT 07/10/2023 2:38 PM EDT us Rehana Hathaway MD LAB BLOOD ORDERABLES Final Re sult [facility] [address] [place] [address] [phone] * Hm Colonoscopy (05/14/2020) Pathologist [facility] Colonoscopy Normal Normal Narrative Ghazal Nuñez - 05/14/2020 Recommended 5 years ( confirmed with gastro office ) us Historical Provider HEALTH MAINTENANCE Final Result * ALBUMIN, RANDOM URINE W/CREATININE (02/05/2020 10:29 AM EST) Pathologist [facility] Microalbumin Urine 0.4 See Note: mg/dL [facility] [...] MD LAB URINE ORDERABLES Final Re sult [facility] [address] * HPV mRNA E6/E7 (11/28/2018 10:43 AM EDT) HPV mRNA E6/E7 Not Detected NOT DETECTED [facility] Comment: This test was performed using the APTIMA(R) HPV Assay ([employer] This assay detects E6/E7 viral messenger RNA (mRNA) from 14 high-risk HPV types (16,18,31,33,35,39,45,51, 52,56,58,59,66,68). For additional information please refer to: http://education.iiyuma.Benjamin's Desk/faq/GII125k5 (This link is being provided for informational/ educational purposes only.) The analytical performance characteristics of this assay have been determined by [facility] [place], [place]. The modifications have not been cleared or approved by the FDA. This assay has been validated pursuant to the CLIA regulations and is used for clinical purposes. Test Performed by [facility], [facility], [address] [place] [address] Fred Boyd M.D., Ph.D., Director of Laboratories , CLIA [id number] Please note: ??Effective 10/25/2015, HPV testing will be performed using Andre Phillipe's APTIMA test which targets mRNA. Detecting mRNA instead of DNA, as in older methods, offers significant improvements in specificity. 11/28/2018 10:4 3 AM EDT us Rehana Hathaway MD HISTORICAL/NON ORDERABLE LABS Final Result [facility] [address] from Last 3 Months or Most Recently Relevant to Health Maintenance Insurance [facility] [place] AD[place] Care Teams Dictaphone Technician Relationship Specialty Start Date End Date Rehana Hathaway MD [address] [place] [phone] PCP - General Family Medicine 02/12/18
--- OUTSIDE RECORDS SUMMARY | 2024-06-30 10:30 | XMS_ITS | Encounter Summary ---
Author Organization [employer] Address 75 [facility] 7 [place] [address] Care Team Providers Care Digital Measurement Advisor Name Role Phone Rehana Hathaway MD Primary Care Provider [phone] Reason for Visit * Reason Onset Date Comments Appointment Request 04/02/2024 Encounter Details Date Type Department Care Team ([facility] Contact Info) Description 04/02/2024 Telephone [facility] [address] [place], [place] [phone] Rehana Hathaway MD [address] [place] [address] Appointment Request Social History Tobacco Use Types [...] documented as of this encounter Care Teams Digital Measurement Advisor Relationship Specialty Start Date End Date Rehana Hathaway MD [address] [place] [address] PCP - General Family Medicine 02/12/18 documented as of this encounter
--- OUTSIDE RECORDS SUMMARY | 2024-06-30 10:30 | XMS_ITS | Encounter Summary ---
Author Organization [employer] Address 75 [facility] 7t [place] [address] Care Team Providers Care Clinical Quality Assurance Associate Name Role Phone Rehana Hathaway MD Primary Care Provider [phone] Reason for Visit * Reason Comments Med Refill Encounter Details Date Type Department Care Team ([facility] Contact Info) Description 05/22/2023 Refill [facility]S [address] [place], [place] [phone] Rehana Hathaway MD [address] [place] [address] Benign essential hypertension Social History Tobacco Use [...] documented as of this encounter Care Teams Clinical Quality Assurance Associate Relationship Specialty Start Date End Date Rehana Hathaway MD [address] [place] [address] PCP - General Family Medicine 02/12/18 documented as of this encounter
--- OUTSIDE RECORDS SUMMARY | 2024-06-30 10:30 | XMS_ITS | Encounter Summary ---
Author Organization [employer] Address 75 [facility] 7t [place] [address] Care Team Providers Care Stave Grader Name Role Phone Rehana Hathaway MD Primary Care Provider [phone] Reason for Visit * Reason Comments Med Refill Encounter Details Date Type Department Care Team ([facility] Contact Info) Description 07/12/2023 Refill [facility] MED [facility] PEDS [address] [place], [place] [phone] Rehana Hathaway MD [address] [place] [address] Social History Tobacco Use Types Packs/Day Years [...] as of this encounter Care Teams Stave Grader Relationship Specialty Start Date End Date Rehana Hathaway MD [address] [place] [address] PCP - General Family Medicine 02/12/18 documented as of this encounter
--- OUTSIDE RECORDS SUMMARY | 2024-06-30 10:30 | XMS_ITS | Encounter Summary ---
Author Organization [employer] Address 75 [facility] 7 [place] [address] Care Team Providers Care Admissions Director Name Role Phone Rehana Hathaway MD Primary Care Provider [phone] Reason for Visit * Reason Onset Date Comments Results 07/17/2023 Encounter Details Date Type Department Care Team ([facility] st Contact Info) Description 07/17/2023 Telephone [facility] MEDICINE [address] [place] [address] Rehana Hathaway MD 505 [place] [address] Results Social History Tobacco Use Types Packs/Day [...] documented as of this encounter Care Teams Admissions Director Relationship Specialty Start Date End Date Rehana Hathaway MD [address] [place] [address] PCP - General Family Medicine 02/12/18 documented as of this encounter
[2024-07-05 16:43] LABS: Metanephrine, Free 24U 37 mcg/24 h (90-315); Normetanephrine, Free 24U 125 mcg/24 h (122-676); Total Metanephrine, Free 24U 162 mcg/24 h (224-832); Total Volume 24U 2650 mL
== END 2024-06-30 10:02 | disposition home or self-care (01) ==
LOC: HO.CHCLNP 10:01
PROVIDERS: Visit Provider Pediatrics
DX: E27.8 Other specified disorders of adrenal gland (principal)
CPT/HCPCS: 83835

== ENCOUNTER 2024-07-03 14:24 | Outpatient (RCR) | payer MEDICAID, SELFPAY ==
[2024-07-03 15:00] VITALS: BP 124/62; PULSE 56
== END 2024-08-14 08:18 | disposition home or self-care (01) ==
LOC: HO.PT 14:24
PROVIDERS: PCP Pediatrics; Visit Provider Internal Medicine
DX: H81.12 Benign paroxysmal vertigo, left ear (principal)
CPT/HCPCS: 97112; 97161

== ENCOUNTER 2024-10-15 10:13 | Outpatient (REF) | payer MEDICAID, SELFPAY ==
--- OUTSIDE RECORDS SUMMARY | 2024-10-15 11:43 | XMS_ITS | Encounter Summary ---
Author Organization [employer] Address 75 [facility] 7t [place] [address] Care Team Providers Care Boom Operator Name Role Phone Rehana Hathaway MD Primary Care Provider Reason for Visit * Reason Comments Med Refill Encounter Details Date Type Department Care Team ([facility] st Contact Info) Description 09/02/2023 Refill [facility] [address] [place] [address] Parveen Gonzales MD 505 [place] [address] Chronic gastroesophageal reflux disease Social History Tobacco [...] documented as of this encounter Care Teams Boom Operator Relationship Specialty Start Date End Date Rehana Hathaway MD [address] [place] [address] PCP - General Family Medicine 02/12/18 documented as of this encounter
--- OUTSIDE RECORDS SUMMARY | 2024-10-15 11:43 | XMS_ITS | Encounter Summary ---
Author Organization [employer] Address 75 [facility] 7 [place] [address] Care Team Providers Care Supervisor Dyer Name Role Phone Rehana Hathaway MD Primary Care Provider [phone] Reason for Visit * Reason Onset Date Comments Appointment Request 04/02/2024 Encounter Details Date Type Department Care Team ([facility] st Contact Info) Description 04/02/2024 Telephone [facility] MED & PEDS 505 [place], [place] [phone] Rehana Hathaway MD 505 [place] [address] Appointment Request Social History Tobacco Use Types [...] as of this encounter Care Teams Supervisor Dyer Relationship Specialty Start Date End Date Rehana Hathaway MD [address] [place] [address] PCP - General Family Medicine 02/12/18 documented as of this encounter
--- OUTSIDE RECORDS SUMMARY | 2024-10-15 11:43 | XMS_ITS | Encounter Summary ---
Author Organization [employer] Address 75 [facility] 7 [place] [address] Care Team Providers Care Credit Administration Manager Name Role Phone Rehana Hathaway MD Primary Care Provider [phone] Reason for Visit * Reason Comments Med Refill Encounter Details Date Type Department Care Team ([facility] st Contact Info) Description 07/12/2023 Refill [facility] MED & PEDS [address] [place], [place] [phone] Rehana Hathaway MD 505 [place] [address] Social History Tobacco Use Types Packs/Day Years [...] documented as of this encounter Care Teams Credit Administration Manager Relationship Specialty Start Date End Date Rehana Hathaway MD [address] [place] [address] PCP - General Family Medicine 02/12/18 documented as of this encounter
--- OUTSIDE RECORDS SUMMARY | 2024-10-15 11:43 | XMS_ITS | Encounter Summary ---
Author Organization [employer] Address 75 [facility] 7t [place] [address] Care Team Providers Care Fisher Crab Name Role Phone Rehana Hathaway MD Primary Care Provider [phone] Encounter Details Date Type Department Care Team ([facility] st Contact Info) Description 01/31/2022 Telephone [facility] MEDICINE 230 [place], [place] [phone] Rehana Hathaway MD 505 [place] [address] Social History Tobacco Use Types Packs/Day Years [...] on filedocumented in this encounter Care Teams Fisher Crab Relationship Specialty Start Date End Date Rehana Hathaway MD 505 [place] [address] PCP - General Family Medicine 02/12/18 documented as of this encounter
--- OUTSIDE RECORDS SUMMARY | 2024-10-15 11:43 | XMS_ITS | Patient Health Record ---
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 confirmed Problem [id number] Gastroesophageal reflux disease, unspecified whether esophagitis present (K21.9) Active confirmed Plan Of Treatment Future Test Test Name Order Date COLONOSCOPY 04/19/2020 Insurance Providers Payer Name Payer Address Payer Phone Subscriber Number Group Number Insured Name Patient Relationship to Insured Coverage Start Date Coverage End Date MEDICAID OF [employer] [address] [place] [phone] [id number] CANDIDO HANNAH Self - patient is the insured Medical (General) History Medical History History ICD Code asthma hypertension hyperthyroidism heartburn seasonal allergies Covid 19 infection, 03/22/20, quarantined at home, no treatment required Surgical History Surgery Date(Month/Year) Knee Replacement - left side
--- OUTSIDE RECORDS SUMMARY | 2024-10-15 11:43 | XMS_ITS | Clinical Summary ---
Author Organization [employer] Address 75 [facility] 7t [place] [address] Care Team Providers Care Chief Marketing Officer Name Role Phone Rehana Hathaway MD Primary Care Provider Allergies No known active allergies Medications EPINEPHrine [...] and at bedtime. 120 tablet 024 Active Acetaminophen Extra Strength 500 MG tabletIndication s:Other infective acute otitis externa of right ear Take 1,000 mg by mouth if needed in the morning and at bedtime (left ear pain). 60 tablet 024 Active polycarbophil (FiberCon) 625 MG tablet Take 1 tablet (625 mg) by mouth Once per day. 90 tablet 3 024 2024 Active polyethylene glycol, PEG, 3350 (Glycolax, Miralax) powder Take 17 g by mouth Once per day. 1 g 024 Active fexofenadine (Fariha) 180 MG tablet TAKE 1 TABLET BY MOUTH EVERY DAY 30 tablet 11 Active meclizine (Antivert) 25 MG tablet Take 1 tablet (25 mg) by mouth See administration instructions. TAKE 1 TABLETS BY MOUTH TWICE DAILY NEEDED 30 tablet Active Symbicort 160-4.5 MCG/ACT inhaler Inhale 2 puffs 2 times daily. 025 Active Incruse Ellipta 62.5 MCG/ACT aerosol powder INHALE 1 PUFF DAILY AT THE SAME TIME EVERY DAY Active D3-1000 25 MCG (1000 UT) capsuleIndicatio ns:Vitamin D deficiency,Acqui red hypothyroidism TAKE 1 CAPSULE BY MOUTH EVERY DAY 90 capsule 2 025 Active gabapentin (Neurontin) 300 MG capsule TAKE 1 CAPSULE BY MOUTH THREE TIMES DAILY 90 capsule 1 025 Active levothyroxine (Synthroid, Levoxyl) 88 MCG tablet TAKE 1 TABLET BY MOUTH ONCE DAILY IN THE MORNING BEFORE BREAKFAST 90 tablet 1 025 Active omeprazole (PriLOSEC) [address] capsule TAKE 1 CAPSULE BY MOUTH EVERY DAY BEFORE BREAKFAST DO NOT BREAK, CRUSH, DISSOLVE OR CHEW 90 capsule 1 025 Active omeprazole (PriLOSEC) [address] capsule TAKE 1 CAPSULE BY MOUTH EVERY DAY BEFORE BREAKFAST, DO NOT BREAK, CRUSH, DISSOLVE OR CHEW 90 capsule 1 024 2024 Discontinued Active Problems Problem Noted Date Diagnosed Date Gallbladder polyp 01/02/2024 Asthma 10/31/2023 Chronic allergic rhinitis 10/31/2023 Lateral epicondylitis of left elbow 10/31/2023 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 F/U with me in 4-6 weeks. She agrees with the plan. COVID-19 03/25/2020 Osteoarthritis of left acromioclavicular joint 0 07/03/2019 Benign essential hypertension 06/14/2015 Primary insomnia 06/14/2015 Vitamin D deficiency 06/14/2015 Overweight 01/12/2012 Hypertension 07/25/2011 Hypothyroidism 07/25/2011 Depressive disorder 07/25/2011 Encounters Date Type Department Care Team Description 10/02/2024 Refill [facility] MED & PEDS [address] [facility] [place] [address] Rehana Hathaway MD 08/26/2024 Telephone [facility] MED & PEDS [address] [facility] [place] [address] Rehana Hathaway MD Med Refill 08/17/2024 Refill [facility] MED & PEDS [address] [facility] [place] [address] Rehana Hathaway MD 08/03/2024 Refill [facility] 505 [place] [address] Parveen Gonzales MD 07/28/2024 Refill [facility] MEDICINE [address] [place] [address] Rehana Hathaway MD Vitamin D deficiency; Acquired hypothyroidism from Last 3 Months Immunizations Immunization Administration [...] your housing situation today? I have crystal sing 03/19/[address] you li [...] 56 06/24/2024 10:22 AM EDT Temperature 36.8 C (98.2 F) 06/24/2024 10:22 AM EDT Respiratory Rate 16 06/24/2024 10:22 AM EDT [...] FOBT 1970 HIV Screening 1970 Sigmoidoscopy 1970 Disability Screening 1970 Diabetes: Foot Exam 01/06/1980 Eye Exam [...] 10/09/2024 10/10/2023, 09/13, 10/03/2022, Additional history exists Influenza Vaccine (#1) 2024 , 12/19/2022, 12/08/2021, Additional history exists SDOH Screening 03/19/2025 03/19/2024 Alcohol/Substance Use Screening 03/27/2025 03/27/2024 Colonoscopy 05/14/2025 05/14/2020 Colorectal Cancer Screening 05/14/2025 Tobacco Screening 06/24/2025 06/24/2024 DTaP/Tdap/Td Vaccines (2 - Td or Tdap) 10/26/2027 10/25/2017, 09/12/2006 RSV Patients and Patients Aged 60 years or older (1 - 1-dose 75+ series) 2045 Pneumococcal Vaccine: 50+ Years Completed 02/16/2022 Zoster Vaccines Completed 02/16/2022, 12/08/2021 HIB Vaccines Aged Out No longer eligi [...] Name Priority Date/Time Associated Diagnosis Comments POCT GLYCATED HEMOGLOBIN, TOTAL Routine 01/02/2024 11:02 [...] Relevant to Health Maintenance Results * POCT HGB A1C (01/02/2024 11:02 AM EST) Hemoglobin A1C 5.5 4.0 - 6.0 % QC Media Lot # [id number] Lot# Expiration Date [id number] Blood 01/02/2024 11:0 2 AM EST Rehana Hathaway MD POINT OF CARE TEST ENTER/EDIT ORDERABLES Final Result * BI Mammogram Screening Tomosynthesis Bilateral (10/10/2023 10:35 AM EDT) Anatomical Region Laterality Modality Breast Bilateral Mammography 10/10/2023 10:3 5 AM EDT Narrative 11/01/2023 6:02 PM EDT [address] [place] [address] Mammography Report Signed Patient: Alecia Joseph MR#: [id number] 8 : 1970 Acct:[id number] Age/Sex: 53 / F ADM Date: 10/10/23 Loc: HO.MAMMO Attending Dr: Rehana Hathaway MD Ordering Physician: Rehana Hathaway MD Results: 1Ne gative Date of Service: 10/10/23 Follow Up: 1 Year From Orig inal Mammogram Procedure(s): MM tomosynthesis screening BI Accession Number(s): [id number] cc: Rehana Hathaway MD EXAMINATION: MM SCREENING [...] 11/01/23 1759 DD/ 1035 TD/TT: 10/10/23 1050 Label Machine Operator: Procedure Note Donotuseinterpreter, Image - 11/01/2023 [facility] [address] [place], [place] [address] Mammography Report Signed Patient: Alecia JosephMR#: [id number] 8 : 1970Acct:[id number] Age/Sex: 53 / FADM Date: 10/10/23 Loc: HO.MAMMO Attending Dr: Rehana Hathaway MD Ordering Physician: Rehana Hathaway MDResults: 1Ne gative Date of Service: 10/10/23Follow Up: 1 Year From Orig inal Mammogram Procedure(s): MM tomosynthesis screening BI Accession Number(s): [id number] cc: Rehana Htahaway MD EXAMINATION: MM SCREENING DIGITAL BREAST TOMOSYNTHESIS, [...] 11/01/23 1759 DD/ 1035 TD/TT: 10/10/23 1050 Label Machine Operator: us Rehana Hathaway MD IMG BI PROCEDURES Final Resul t * (ABNORMAL) Lipid Panel, Standard (07/10/2023 8:47 AM EDT) Triglycerides 99 <150 mg/dL [facility] Comment:Desirable Triglyceri de: less than 150 mg/dLBorderline High Triglyceride 150-199 mg/dLHigh Triglyceride: 200-499 mg/dLVery High Triglyceride: greater than or equal to 5OO mg/dL Cholesterol 207(H) <200 mg/dL [facility] Comment:Desirable Cholestero l: less than 200 mg/dLBorderline High Cholesterol: 200-239 mg/dLHigh Cholesterol: greater than 239 mg/dL LDL Cholesterol Calculated 116(H) <100 mg/dL [facility] Comment:Desirable LDL: less than 100 mg/dLNear Optimal/Above Optimal LDL: 110- 129 mg/dLBorderline High LDL: 130-159 mg/dLHigh LDL: 160-189 mg/dLVery High LDL: greater than or equal to 190 mg/dL HDL Cholesterol 72 >40 mg/dL [facility] Comment:Desirable HDL: great er than 40 mg/dL Note: This HDL assay may give artificially low results in patients with liver disease. Blood Venous blood specimen / Unknown 07/10/2023 8:47 AM EDT 07/10/2023 2:38 PM EDT Rehana Hathaway MD LAB BLOOD ORDERABLES Final Re sult [facility] [address] [place] [phone] * Hm Colonoscopy (05/14/2020) Pathologist [facility] Colonoscopy Normal Normal Narrative Ghazal Nuñez - 05/14/2020 Recommended 5 years ( confirmed with gastro office ) us Historical Provider HEALTH MAINTENANCE Final Result * ALBUMIN, RANDOM URINE W/CREATININE (02/05/2020 10:29 AM EST) Pathologist [facility] Microalbumin Urine 0.4 See Note: mg/dL [facility] Comment: Reference Range: Reference Range Not established Microalb/Creat Ratio 13 <30 mcg/mg creat [facility] Comment: The ADA defines abnormalities in albumin excretion as follows: Category Result (mcg/mg creatinine) Normal <30 Microalbuminuria 30-299 Clinical albuminuria > OR = 300 The ADA recommends that at least two of three specimens collected within a 3-6 month period be abnormal before considering a patient to be within a diagnostic category. Creatinine, Urine 32 20 - 275 mg/dL [facility] 02/05/2020 10:2 9 AM EST Rehana Hathaway MD LAB URINE ORDERABLES Final Re sult [facility] [address] * HPV mRNA E6/E7 (11/28/2018 10:43 AM EDT) HPV mRNA E6/E7 Not Detected NOT DETECTED [facility] Comment: This test was performed using the APTIMA(R) HPV Assay ([employer] This assay detects E6/E7 viral messenger RNA (mRNA) from 14 high-risk HPV types (16,18,31,33,35,39,45,51, 52,56,58,59,66,68). For additional information please refer to: http://education.YODIL/faq/VYQ031u2 (This link is being provided for informational/ educational purposes only.) The analytical performance characteristics of this assay have been determined by [employer] [place], [place]. The modifications have not been cleared or approved by the FDA. This assay has been validated pursuant to the CLIA regulations and is used for clinical purposes. Test Performed by [employer], [place], [address] [place] [address] Fred Boyd M.D., Ph.D., Director of Laboratories , CLIA [id number] Please note: Effective 10/25/2015, HPV testing will be performed using [employer]'s APTIMA test which targets mRNA. Detecting mRNA instead of DNA, as in older methods, offers significant improvements in specificity. 11/28/2018 10:4 3 AM EDT Rehana Hathaway MD HISTORICAL/NON ORDERABLE LABS Final Result [facility] [address] from Last 3 Months or Most Recently Relevant to Health Maintenance Insurance [facility] C[address] [place] [id number] Care Teams Chief Marketing Officer Relationship Specialty Start Date End Date Rehana Hathaway MD [address] [place] [address] [place] [address] PCP - General Family Medicine 02/12/18
--- OUTSIDE RECORDS SUMMARY | 2024-10-15 11:43 | XMS_ITS | Encounter Summary ---
Author Organization [employer] Address 75 [facility] 7t [place] [address] Care Team Providers Care Police Investigator Name Role Phone Rehana Hathaway MD Primary Care Provider [phone] Encounter Details Date Type Department Care Team ([facility] st Contact Info) Description 12/21/2022 Abstract [facility] MEDICINE [address] [place] [address] Ghazal Nuñez Social History Tobacco Use Types [...] Procedure Name Priority Date/Time Associated Diagnosis Comments HM COLONOSCOPY Routine 05/14/2020 documented in this encounter [...] documented as of this encounter Care Teams Police Investigator Relationship Specialty Start Date End Date Rehana Hathaway MD [address] [place] [address] PCP - General Family Medicine 02/12/18 documented as of this encounter
--- OUTSIDE RECORDS SUMMARY | 2024-10-15 11:43 | XMS_ITS | Encounter Summary ---
Author Organization [employer] Address 75 [facility] 7t [place] [address] Care Team Providers Care Rescue Worker Name Role Phone Rehana Hathaway MD Primary Care Provider [phone] Reason for Visit * Reason Onset Date Comments Results 01/16/2024 Encounter Details Date Type Department Care Team ([facility] st Contact Info) Description 01/16/2024 Telephone [facility] MEDICINE [address] [place] [address] Rehana Hathaway MD [address] [place] [address] Results Social History Tobacco Use Types Packs/Day [...] results: Labs Date when done: 01/15/24 Facility: [facility] Labs documented in this encounter Plan of Treatment Not on file documented as of this encounter Visit Diagnoses Not on filedocumented in this encounter Additional Health Concerns Assessment Noted Time PHQ-9 Depression Total Score: 3 05/14/19 24 9:07 AM EDT documented as of this encounter Care Teams Rescue Worker Relationship Specialty Start Date End Date Rehana Hathaway MD [address] [place] [address] PCP - General Family Medicine 02/12/18 documented as of this encounter
--- OUTSIDE RECORDS SUMMARY | 2024-10-15 11:43 | XMS_ITS | Encounter Summary ---
Author Organization [employer] Address 75 [facility] 7t [place] [address] Care Team Providers Care Pediatrician Active Practice Name Role Phone Rehana Hathaway MD Primary Care Provider [phone] Reason for Visit * Reason Comments Med Refill Encounter Details Date Type Department Care Team ([facility] st Contact Info) Description 05/22/[address] [facility] CHC MED & PEDS [address] [place], [place] [phone] Rehana Hathaway MD 505 [place] [address] Benign essential hypertension Social History Tobacco Use [...] documented as of this encounter Care Teams Pediatrician Active Practice Relationship Specialty Start Date End Date Rehana Hathaway MD [address] [place] [address] PCP - General Family Medicine 02/12/18 documented as of this encounter
--- OUTSIDE RECORDS SUMMARY | 2024-10-15 11:43 | XMS_ITS | Encounter Summary ---
Author Organization [email or web address] Address 75 [facility] 7t [place] [address] Care Team Providers Care Turpentiner Name Role Phone Rehana Hathaway MD Primary Care Provider [phone] Reason for Visit * Reason Onset Date Comments Results 07/17/2023 Encounter Details Date Type Department Care Team ([facility] st Contact Info) Description 07/17/2023 Telephone [facility] MEDICINE [address] [place] [address] Rehana Hathaway MD [address] [place] [address] Results Social History Tobacco Use Types Packs/Day [...] documented as of this encounter Care Teams Turpentiner Relationship Specialty Start Date End Date Rehana Hathaway MD [address] [place] [id number] PCP - General Family Medicine 02/12/18 documented as of this encounter
== END 2024-10-15 10:14 | disposition home or self-care (01) ==
LOC: HO.MAMMO 10:13
PROVIDERS: PCP Pediatrics; Visit Provider Pediatrics
DX: Z12.31 Encounter for screening mammogram for malignant neoplasm of breast (principal)
CPT/HCPCS: 77063; 77067

== ENCOUNTER → 2024-10-15 10:30 | Outpatient (BNV) | payer MEDICAID, SELFPAY | PROVIDERS: PCP Pediatrics; Visit Provider Internal Medicine | DX: Z12.31 Encounter for screening mammogram for malignant neoplasm of breast (principal) | CPT/HCPCS: 77063; 77067 ==

== ENCOUNTER 2024-11-27 09:50 | Outpatient (AMB) | payer MEDICAID, SELFPAY ==
[2024-11-27 09:54] VITALS: BP 102/62; PULSE 64; O2SAT 100; BMI 27.6
--- NOTE | 2024-11-27 09:54 | MHC.OFFVIS ---
Vital Signs 11/27/24 09:54 Height 4 ft 11 in Weight 136 lb 10.986 oz BMI 27.6 BP 102/62 Blood Pressure Location Lt brachial Position Sitting Pulse 64 Pulse Source Pulse Oximeter Pulse Oximetry (%) 100 Oxygen Delivery Method Room Air Intake Visit Reasons: Dyspnea Budget Officer Required: No Accompanied by: Self / Same As Patient Allergies No Known Allergies Allergy (Verified 11/27/24 09:56) HPI Comments Details: The patient is a 54-year-old woman with a known history of asthma who apparently was in her usual state health until back in March when she developed COVID-19. She was not hospitalized and she managed okay. However, after that her respiratory status has been worse. She has been noticing increasing chest tightness and shortness of breath. Subsequently in September she started having worsening shortness of breath and she did go to the ER. Her D-dimer was elevated and she did undergo a CT scan of the chest PE protocol. It did not demonstrate any evidence of any residual fibrosis or pneumonitis. However, she did have evidence of bronchitis. She was given prednisone. She has also been on Flovent and a rescue inhaler. The therapy has been partially helpful. We will continue trying to optimize her respiratory therapy at this time. In the meantime she did get vaccinated for COVID-19. 03/21/2022 The patient is here for pulmonary follow-up visit. She complains of still having some dyspnea on exertion chest tightness and wheezing. Hfem-xr-vchrjsof severity. The Symbicort has been helpful but only partially. She is still using her rescue inhaler regularly. In addition to this the patient does complaint of and dizziness. She has been dizzy now for last few days. Typically worse when she stands up. In the office her blood pressure was low. She does take blood pressure medications. I emphasized to her that she needs to reach out to her primary care doctor sick they can adjust her blood pressure medications. will try to optimize further her respiratory therapy. Will follow-up in the next 2-3 months. 06/16/2022 the patient is here for a pulmonary follow-up visit. The patient overall is doing better. She has been using the inhaler with better response. Has not required any prednisone. Has been using her rescue inhaler less than twice a week. Having allergy symptoms on loratidine and singulair. She also has her nasal spray. Her bloodwork was completed and demonstrated normal eosinophil count. 12/19/2022 the patient is here for a pulmonary follow-up visit. She continues to have significant respiratory complaints. Chest tightness and wheezing coughing. Her inhalers have only be partially helpful. Although she has not been taking the breast drip. Apparently was not covered. She has been on Spiriva and also on a rescue inhaler. Will go ahead and switch her over to Trelegy inhaler. The patient does benefit from the ease of the medication in order for her to be more adherent to the therapy and have the most optimized therapy. In addition to that she continues to receive allergy shots. If the patient is no better she can consider discussing with her mud cleaner operator the possibility of starting biologic therapy. The patient will have pulmonary function studies again. We did talk about pulmonary rehabilitation specially after having COVID-19. However this is difficult because the patient continues to work. Therefore, she can consider underlying pulmonary rehab or going to a exercise facility. Will follow-up after her PFTs. 05/01/2023 the patient is here for a pulmonary follow-up visit. Overall the patient has been doing a lot better. She is starting to exercise more regularly she is very proud of herself because she is able to jog for period of time. Where before she could not do any type of exercise activity. She has been struggling with inhalers however. She does not tolerate the Ellipta device because the powder makes her nauseous. Therefore she has not been taking any of them. She does have multiple different inhalers including Breo, Incruse and Trelegy. She rather Spiriva that works well for her. She did have pulmonary function studies which we personally reviewed. She does have reversible obstruction consistent with asthma. She will continue with Spiriva for now. She will also use the albuterol as needed prior to exercise. If he looks a she needs a long-acting albuterol inhaled cortical steroid we can always try her and non powder formulation. 11/14/2023 the patient is here for a pulmonary follow-up visit. Overall the patient has been doing well. She does have some shortness of breath with activity. Also has some wheezing at times. She continues on the Xolair. She gets that through allergy. In addition to that she is getting allergy shots. It is unclear what inhaler she is using right now. Seems to be just Spiriva and Ventolin. She tried Trelegy but she does not tolerate the powder. Therefore, will go ahead and start him Symbicort that she can use along with Spiriva in order to maximize respiratory therapy. No recent imaging studies at this time. Her last imaging studies did demonstrate the chronic bronchitis and airways disease suggestive of her asthma. 11/27/2024 the patient is here for a pulmonary follow-up visit. Overall the patient has been doing okay. She does have significant allergies now going to the spring. She continues on the Xolair. She also continues on Fariha and Singulair. She did start the Symbicort which appears to be effective for her and she does use it at times with her Spiriva. Sometimes she tends to not use all her inhalers. In addition to that she continues on the Xolair continues with her allergy shots with the help of her mud cleaner operator. The patient is okay taking Fariha. She does have worsening dyspnea on exertion, especially going up a flight of stairs. moderate in severity. We wid go up a couple of flights and Pox was 99% but HR increased to 115 bpm and became dyspneic. She soes have a family history of early heart disease. 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 Mother No problems noted. Social History Household Members: Children Housing: Apartment Are you a primary care mgr to a significant other at home: No Do you presently have visiting nurse or other home services: No Alcohol intake: never Patient Tobacco Use Status: Former Tobacco user Years Smoked: 10 Current occupational status: unemployed Current occupation: right hand dominant Review of Systems Const Denies fever(s) ENT Reports nasal discharge Card Denies chest pain and Reports dyspnea on exertion Resp Reports cough, Reports dyspnea on exertion and Reports wheezing GI Denies abdominal pain Musc Denies no additional complaints Neuro Denies Neuro-related abnormal movements Psych Denies no additional complaints Dewayne/Lymph Denies easy bleeding and Denies lymphadenopathy Aller/Immun Reports wheezing Physical Exam Vital Signs: Last Vital Signs Pulse 64 11/27/24 09:54 BP 102/62 11/27/24 09:54 Pulse Ox 100 11/27/24 09:54 Oxygen Delivery Method Room Air 11/27/24 09:54 BMI result Body Mass Index 27.6 Const General: alert Neck Neck: Yes normal visual inspection, Yes full ROM and Yes no lymphadenopathy Chest Chest palpation & inspection: normal inspection of the chest Resp Auscultation: no wheezes and diminished lung sounds Cardio Rate: regular rate Rhythm: regular rhythm Heart sounds: S1 normal heart sound present and S2 normal heart sound present GI Palpation (GI): Soft to palpation and nontender Auscultation: normal bowel sounds Skin General skin exam: rashes and/or lesions noted Assessment & Plan Assessment & Plan (1) Asthma: Code(s): J45.909 - Unspecified asthma, uncomplicated Category: Medical Qualifiers: Asthma complication type: uncomplicated Asthma persistence: persistent Asthma severity: moderate Qualified Code(s): J45.40 - Moderate persistent asthma, uncomplicated (2) Chronic allergic rhinitis: Code(s): J30.9 - Allergic rhinitis, unspecified Category: Medical (3) Dyspnea: Code(s): R06.00 - Dyspnea, unspecified Category: Medical Qualifiers: Dyspnea type: dyspnea on exertion Qualified Code(s): R06.09 - Other forms of dyspnea Plan stop Symbicort start Breztri IRASEMA as needed allergy therapy, increase Fariha BID x 1 month, then daily continue Xolair EKG Stress ECHO EpiPen F/U 6 months Orders: Orders CA echo stress exercise Today R06.00 - Dyspnea, unspecified ECG 12 lead EKG Today J44.9 - Chronic obstructive pulmonary disease, unspecified Medications: Refilled hsdqhubife-hypuwnez-xrfrdycyqr 160-9-4.8 mcg/actuation (Breztri Aerosphere) 2 inhalations inhalation BID 10.7 grams 11RF 30 days Coding Level of Care Code Est Pt Level 4 (46500) Complex EM visit Add On G2211 Diagnoses Moderate persistent asthma without complication J45.40 Asthma complication type: uncomplicated Asthma persistence: persistent Asthma severity: moderate Chronic allergic rhinitis J30.9 Dyspnea on exertion R06.09 Dyspnea type: dyspnea on exertion Time Spent (min) 17
--- OUTSIDE RECORDS SUMMARY | 2024-11-27 11:31 | XMS_ITS | Encounter Summary ---
Author Organization [email or web address] Address [address] [facility] [address] [place] [address] Care Team Providers Care Property Master Name Role Phone Rehana Hathaway MD Primary Care Provider [phone] Reason for Visit * Reason Comments Med Refill Encounter Details Date Type Department Care Team ([facility] st Contact Info) Description 09/02/2023 Refill [facility] [address] [place] [address] Parveen Gonzales MD [address] [place] [address] Chronic gastroesophageal reflux disease Social History Tobacco [...] Care Team (Late st Contact Info) Description 12/23/2024 9:45 AM EST Office Visit [facility] [address] [place] [address] Rehana Hathaway MD [address] [place] [address] documented as of this encounter Visit Diagnoses Diagnosis Chronic gastroesophageal reflux disease documented in this encounter Additional Health Concerns Assessment Noted Time PHQ-9 Depression Total Score: 3 05/14/19 24 9:07 AM EDT documented as of this encounter Care Teams Property Master Relationship Specialty Start Date End Date Rehana Hathaway MD [address] [place] [address] PCP - General Family Medicine 02/12/18 documented as of this encounter
--- OUTSIDE RECORDS SUMMARY | 2024-11-27 11:31 | XMS_ITS | Encounter Summary ---
Author Organization [email or web address] Address [address] [facility] [address] [place] [address] Care Team Providers Care Toolroom Clerk Name Role Phone Rehana Hathaway MD Primary Care Provider [phone] Reason for Visit * Reason Onset Date Comments Results 07/17/2023 Encounter Details Date Type Department Care Team ([facility] st Contact Info) Description 07/17/2023 Telephone [facility] [address] [place] [address] Rehana Hathaway MD [address] [place] [address] Results Social History Tobacco Use Types Packs/Day [...] Upcoming Encounters Date Type Department Care Team ([facility] st Contact Info) Description 12/23/2024 9:45 AM EST Office Visit [facility] PEDS [address] [place] [address] Rehana Hathaway MD [address] [place] [address] documented as of this encounter Visit Diagnoses Not on filedocumented in this encounter Additional Health Concerns Assessment Noted Time PHQ-9 Depression Total Score: 3 05/14/19 24 9:07 AM EDT documented as of this encounter Care Teams Toolroom Clerk Relationship Specialty Start Date End Date Rehana Hathaway MD [address] [place] [address] PCP - General Family Medicine 02/12/18 documented as of this encounter
--- OUTSIDE RECORDS SUMMARY | 2024-11-27 11:31 | XMS_ITS | Encounter Summary ---
Author Organization [employer] Address [address] [facility] [address] [place] [address] Care Team Providers Care Bead Machine Operator Name Role Phone Rehana Hathaway MD Primary Care Provider Encounter Details Date Type Department Care Team ([facility] st Contact Info) Description 12/21/2022 Abstract [facility] [address] [place] [address] Ghazal Nuñez Social History Tobacco Use Types [...] Description 12/23/2024 9:45 AM EST Office Visit [facility] MED [facility] PEDS [address] [place] [address] Rehana Hathaway MD [address] [place] [address] documented as of this encounter Procedures Procedure [...] documented as of this encounter Care Teams Bead Machine Operator Relationship Specialty Start Date End Date Rehana Hathaway MD [address] [place] [address] PCP - General Family Medicine 02/12/18 documented as of this encounter
--- OUTSIDE RECORDS SUMMARY | 2024-11-27 11:31 | XMS_ITS | Encounter Summary ---
Author Organization [employer] Address [address] [facility] [address] [place] [address] Care Team Providers Care Registered Radiographer Name Role Phone Rehana Hathaway MD Primary Care Provider [phone] Encounter Details Date Type Department Care Team (Latest Contact Info) Description 10/20/2024 Results Follow-Up [facility]EDS [address] [place], [place] [phone] Rehana Hathaway MD [address] [place] [address] BI Mammogram Screening Tomosynthesis Bilateral Social History Tobacco Use Types Packs/Day Years [...] Upcoming Encounters Date Type Department Care Team ([facility] st Contact Info) Description 12/23/2024 9:45 AM EST Office Visit [facility]ED[facility] [address] [place] [address] Rehana Hathaway MD [address] [place] [address] documented as of this encounter Visit Diagnoses Not on filedocumented in this encounter Additional Health Concerns Assessment Noted Time PHQ-9 Depression Total Score: 3 05/14/19 24 9:07 AM EDT documented as of this encounter Care Teams Registered Radiographer Relationship Specialty Start Date End Date Rehana Hathaway MD [address] [place] [address] PCP - General Family Medicine 02/12/18 documented as of this encounter
--- OUTSIDE RECORDS SUMMARY | 2024-11-27 11:31 | XMS_ITS | Encounter Summary ---
Author Organization [employer] Address [address] [facility] [address] [place] [address] Care Team Providers Care Cupola Repairer Name Role Phone Rehana Hathaway MD Primary Care Provider Reason for Visit * Reason Comments Med Refill Encounter Details Date Type Department Care Team ([facility] st Contact Info) Description 07/12/2023 Refill [facility] [address] [place], [place] [phone] Rehana Hathaway MD [address] [place] [address] Social History Tobacco Use Types Packs/Day Years Used Date Smoking Tobacco: Never Passive Smoke Exposure: Never Smokeless Tobacco: Never Depression Answer Date Recorded Patient Health Questionnaire-9 Score 3 05/14/2023 Patient Health Questionnaire-9 Score 3 05/14/2023 Last PHQ-9: Questionnaire Data Not on file 0 05/14/2023 Housing Stability Answer Date Recorded What is your housing situation today? I have crystal hernadnez 11/27/[address] you li [...] Date Type Department Care Team ([facility] st Contact Info) Description 12/23/2024 9:45 AM EST Office Visit [facility] [address] [place] [address] Rehana Hathaway MD [address] [place] [address] documented as of this encounter Visit Diagnoses Not on filedocumented in this encounter Additional Health Concerns Assessment Noted Time PHQ-9 Depression Total Score: 3 05/14/19 24 9:07 AM EDT documented as of this encounter Care Teams Cupola Repairer Relationship Specialty Start Date End Date Rehana Hathaway MD [address] [place] [address] PCP - General Family Medicine 02/12/18 documented as of this encounter
--- OUTSIDE RECORDS SUMMARY | 2024-11-27 11:31 | XMS_ITS | Patient Health Record ---
Author Organization [facility] Address [address] [place] [address] Care Team Providers Care Stamping Die Maker Bench Name Role Phone Rivas ASIF, Rehana Primary [...] at 5:00 p.m. the day before the procedure; Duration: 1 day 04/19/2020 Active Omeprazole 20 MG [...] Problem Status W/U Status Risk Notes Problem Colon cancer screening (167615412) Colon cancer screening (Z12.11) Active confirmed Problem Microcytic anemia (235374354) Microcytic anemia (D50.9) Active confirmed Problem Gastroesophageal reflux disease (706962532) Gastroesophageal reflux disease, unspecified whether esophagitis present (K21.9) Active confirmed Plan Of Treatment Future Test Test Name Order Date COLONOSCOPY 04/19/2020 Insurance Providers Payer Name Payer Address Payer Phone Subscriber Number Group Number Insured Name Patient Relationship to Insured Coverage Start Date Coverage End Date MEDICA[employer] OF [employer] [address] [place] [phone] [id number] HANNAH REY Self - patient is the insured Medical (General) History Medical History History ICD Code asthma hypertension hyperthyroidism heartburn seasonal allergies Covid 19 infection, 03/22/20, quarantined at home, no treatment required Surgical History Surgery Date(Month/Year) Knee Replacement - left side
--- OUTSIDE RECORDS SUMMARY | 2024-11-27 11:31 | XMS_ITS | Encounter Summary ---
Author Organization [employer] Address [address] [facility] [address] [place] [address] Care Team Providers Care Operations General Agent Name Role Phone Rehana Hathaway MD Primary Care Provider [phone] Reason for Visit * Reason Onset Date Comments Appointment Request 04/02/2024 Encounter Details Date Type Department Care Team ([facility] st Contact Info) Description 04/02/2024 Telephone [facility] [address] [place], [place] [phone] Rehana Hathaway MD [address] [place] [address] Appointment Request Social History Tobacco Use Types [...] Description 12/23/2024 9:45 AM EST Office Visit [facility] [address] [place] [address] Rehana Hathaway MD [address] [place] [address] documented as of this encounter Visit Diagnoses Not on filedocumented in this encounter Additional Health Concerns Assessment Noted Time PHQ-9 Depression Total Score: 3 05/14/19 24 9:07 AM EDT documented as of this encounter Care Teams Operations General Agent Relationship Specialty Start Date End Date Rehana Hathaway MD [address] [place] [address] PCP - General Family Medicine 02/12/18 documented as of this encounter
--- OUTSIDE RECORDS SUMMARY | 2024-11-27 11:31 | XMS_ITS | Encounter Summary ---
Author Organization [email or web address] Address [address] [facility] [address] [place] [address] Care Team Providers Care Cardiographer Name Role Phone Rehana Hathaway MD Primary Care Provider [phone] Reason for Visit * Reason Comments Med Refill Encounter Details Date Type Department Care Team ([facility] st Contact Info) Description 05/22/2023 Refill [facility]S [address] [place], [place] [phone] Rehana Hathaway MD [address] [place] [address] Benign essential hypertension Social History Tobacco Use [...] Description 12/23/2024 9:45 AM EST Office Visit [facility] [address] [place] [address] Rehana Hathaway MD [address] [place] [address] documented as of this encounter Visit Diagnoses Diagnosis Benign essential hypertension Essential hypertension, benign documented in this encounter Additional Health Concerns Assessment Noted Time PHQ-9 Depression Total Score: 3 05/14/19 24 9:07 AM EDT documented as of this encounter Care Teams Cardiographer Relationship Specialty Start Date End Date Rehana Hathaway MD [address] [place] [address] PCP - General Family Medicine 02/12/18 documented as of this encounter
--- OUTSIDE RECORDS SUMMARY | 2024-11-27 11:32 | XMS_ITS | Clinical Summary ---
Author Organization [employer] Address [address] [facility] 7[address] [place] [address] Care Team Providers Care Reference Services Head Name Role Phone Rehana Hathaway MD Primary Care Provider [phone] Allergies No known active allergies Medications EPINEPHrine [...] MOUTH ONCE DAILY DIRECTED 03/23/19 23 Active hydrocortisone 2.5 % cream Apply pea sized amount to skin bid for 1 week 15 g 05/19/19 23 Active Ventolin HFA 108 (90 Base) MCG/ACT inhalerIndication s:Severe persistent asthma without complication (HCC) INHALE 2 PUFFS BY MOUTH EVERY 4 [...] at bedtime. 120 tablet 06/25/19 24 Active Acetaminophen Extra Strength 500 MG tabletIndications :Other infective acute otitis externa of right ear Take 1,000 mg by mouth if needed in the morning and at bedtime (left ear pain). 60 tablet 11/01/19 24 Active polycarbophil (FiberCon) 625 MG tablet Take 1 tablet (625 mg) by mouth Once per day. 90 tablet 3 01/02/20 24 025 Active polyethylene glycol, PEG, 3350 (Glycolax, Miralax) powder Take 17 g by mouth Once per day. 1 g 11 01/02/20 24 Active fexofenadine (Fariha) 180 MG tablet TAKE 1 TABLET BY MOUTH EVERY DAY 30 tablet 11 04/22/19 25 Active meclizine (Antivert) 25 MG tablet Take 1 tablet (25 mg) by mouth See administration instructions. TAKE 1 TABLETS BY MOUTH TWICE DAILY NEEDED 30 tablet 06/15/19 25 Active Symbicort 160-4.5 MCG/ACT inhaler Inhale 2 puffs 2 times daily. 05/29/19 25 Active Incruse Ellipta 62.5 MCG/ACT aerosol powder INHALE 1 PUFF DAILY AT THE SAME TIME EVERY DAY 05/24/19 25 Active D3-1000 25 MCG (1000 UT) capsuleIndication s:Vitamin D deficiency,Acquir ed hypothyroidism TAKE 1 CAPSULE BY MOUTH EVERY DAY 90 capsule 2 07/30/19 25 Active gabapentin (Neurontin) 300 MG capsule TAKE 1 CAPSULE BY MOUTH THREE TIMES DAILY 90 capsule 1 08/05/19 25 Active levothyroxine (Synthroid, Levoxyl) 88 MCG tablet TAKE 1 TABLET BY MOUTH ONCE DAILY IN THE MORNING BEFORE BREAKFAST 90 tablet 1 08/20/19 25 Active omeprazole (PriLOSEC) [address] capsule TAKE 1 CAPSULE BY MOUTH EVERY DAY BEFORE BREAKFAST DO NOT BREAK, CRUSH, DISSOLVE OR CHEW 90 capsule 1 10/03/19 25 Active Diclofenac Sodium 1 % gelIndications:Ac [place] pain of right knee,Patellofemor al pain syndrome of right knee To apply to the affected area 3 times a day 100 g 1 11/12/19 25 Active Active Problems Problem Noted Date Diagnosed Date Gallbladder polyp 01/02/2024 Asthma 10/31/2023 Chronic allergic rhinitis 10/31/2023 Lateral epicondylitis of left elbow 10/31/2023 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 Rotator cuff impingement syndrome of [...] Encounters Date Type Department Care Team Description 11/11/2024 1:00 PM EDT Office Visit [facility] [address] [place] [address] Margie Qureshi MD Acute pain of right knee (Primary Dx); Patellofemoral pain syndrome of right knee 11/11/2024 Travel 11/10/2024 Telephone [facility] [address] [place] [address] Rehana Hathaway MD Nurse Triage 10/20/2024 Results Follow-Up [facility] [address] [place] [address] Rehana Hathaway MD BI Mammogram Screening Tomosynthesis Bilateral 10/15/2024 Orders Only [facility] [address] [facility] [place] [address] Rehana Hathaway MD 10/02/2024 Refill [facility] [address] [facility] [place] [address] Rehana Hathaway MD from Last 3 Months [...] Sign Reading Time Taken Comments Blood Pressure 127/76 11/11/2024 1:02 PM EDT Pulse 56 11/11/2024 1:02 PM EDT Temperature 36.8 C (98.2 F) 06/24/2024 10:22 AM EDT Respiratory Rate 19 11/11/2024 1:02 PM EDT Oxygen Saturation 99% 11/11/2024 1:02 PM EDT Inhaled Oxygen Concentration - - Weight 60.8 kg (134 lb) 11/11/2024 1:02 PM EDT Height 149.9 cm (4' 11 ) 11/11/2024 1:02 PM EDT Body Mass Index 27.06 11/11/2024 1:02 PM EDT Plan of Treatment Upcoming Encounters Date Type Department Care Team (Late st Contact Info) Description 12/23/2024 9:45 AM EST Office Visit [facility] [address] [place] [address] Rehana Hathaway MD [address] [place] [address] Health Maintenance Due Date Last Done Comments [...] 02/13 Diabetes: Urine Protein Screening 02/04/2021 02/05/2020 Cervical Cancer Screening 11/29/2023 HPV/Cotest 11/29/2023 11/28/2018 Depression Screening 05/13/2024 05/14/2023, 05/14/19 Diabetes: Hemoglobin A1C 07/01/2024 024, 07/10/2023, 04/05/2023, Additional history exists Lipid Panel 07/09/2024 07/10/2023, 02/05/2020 COVID-19 Vaccine ( season) 2024 03/22/2021, 07/29/2020, 07/01/2020 Influenza Vaccine (#1) 2024 , 12/19/2022, 12/08/2021, Additional history exists SDOH Screening 03/19/2025 03/19/2024 Alcohol/Substance Use Screening 03/27/2025 03/27/2024 Colonoscopy 05/14/2025 05/14/2020 Colorectal Cancer Screening 05/14/2025 Mammogram 10/15/2025 10/15/2024, 09/13, 10/10/2023, Additional history exists Tobacco Screening 11/11/2025 11/11/2024 DTaP/Tdap/Td Vaccines (2 - Td or Tdap) [...] Procedure Name Priority Date/Time Associated Diagnosis Comments BI MAMMOGRAM SCREENING TOMOSYNTHESIS BILATERAL Routine 10/15/2024 10:16 AM EDT POCT GLYCATED HEMOGLOBIN, TOTAL Routine 01/02/2024 11:02 AM EST Prediabetes LIPID PANEL, STANDARD Routine 07/10/2023 8:47 AM [...] Recently Relevant to Health Maintenance Results * BI Mammogram Screening Tomosynthesis Bilateral (10/15/2024 10:16 AM EDT) Anatomical Region Laterality Modality Breast Bilateral Mammography 10/15/2024 10:1 6 AM EDT Narrative 10/17/2024 4:15 PM EDT [address] [place] [address] Mammography Report Signed Patient: Alecia Meza MR#: [id number] : 1970 Acct:[id number] Age/Sex: 54 / F ADM Date: 10/15/24 Loc: HO.MAMMO Attending Dr: Rehana Hathaway MD Ordering Physician: Rehana Hathaway MD Results: 1Ne gative Date of Service: 10/15/24 Follow Up: 1 Year From Orig inal Mammogram Procedure(s): MM tomosynthesis screening BI Accession Number(s): [id number] cc: Rehana Hathaway MD EXAMINATION: MM SCREENING DIGITAL BREAST TOMOSYNTHESIS, BILATERAL CLINICAL INFORMATION: Screening. Asymptomatic. COMPARISON: Mammography: Comparison is made with available priors TECHNIQUE: Digital breast mammography with tomosynthesis is performed in both the craniocaudal and mediolateral oblique views along with computer-aided detection (CAD). FINDINGS: There are scattered areas of fibroglandular [...] mammogram. Electronically signed by: Teagan Tinoco DO 10/17/2024 04:13 PM EDT Dictated By: Teagan Tinoco DO Signed By: <Electronically signed by Teagan Tinoco DO in OV> 10/17/24 1613 DD/ 1016 TD/TT: 10/15/24 1037 C Java Developer: Procedure Note Donotuseinterpreter, Image - 10/17/2024 [facility] [address] [place] [address] [place] [address] Mammography Report Signed Patient: Alecia MezaMR#: [id number] : 1970Acct:[id number] Age/Sex: 54 / FADM Date: 10/15/24 Loc: HO.MAMMO Attending Dr: Rehana Hathaway MD Ordering Physician: Rehana Hathaway MDResults: 1Ne gative Date of Service: 10/15/24Follow Up: 1 Year From Orig inal Mammogram Procedure(s): MM tomosynthesis screening BI Accession Number(s): [id number] cc: Rehana Hathaway MD EXAMINATION: MM SCREENING DIGITAL BREAST TOMOSYNTHESIS, BILATERAL CLINICAL INFORMATION: Screening. Asymptomatic. COMPARISON: Mammography: Comparison is made with available priors TECHNIQUE: Digital breast mammography with tomosynthesis is performed in both the craniocaudal and mediolateral oblique views along with computer-aided detection (CAD). FINDINGS: There are scattered areas of fibroglandular [...] mammogram. Electronically signed by: Teagan Tinoco DO 10/17/2024 04:13 PM EDT Dictated By: Teagan Tinoco DO Signed By: <Electronically signed by Teagan Tinoco DO in OV> 10/17/24 1613 DD/ 1016 TD/TT: 10/15/24 1037 C Java Developer: us Rehana Hathaway MD IMG BI PROCEDURES Final Resul t * POCT HGB A1C (01/02/2024 11:02 AM EST) Hemoglobin A1C 5.5 4.0 - 6.0 % QC Media Lot # [id number] Lot# Expiration Date ,[id number] Blood 01/02/2024 11:0 2 AM EST Rehana Hathaway MD POINT OF CARE TEST ENTER/EDIT ORDERABLES Final Result * (ABNORMAL) Lipid Panel, Standard (07/10/2023 8:47 AM EDT) Triglycerides 99 <150 mg/dL [facility] Comment:Desirable Triglyceri de: less than 150 mg/dLBorderline High Triglyceride 150-199 mg/dLHigh Triglyceride: 200-499 mg/dLVery High Triglyceride: greater than or equal to 5OO mg/dL Cholesterol 207(H) <200 mg/dL [facility] Comment:Desirable Cholestero l: less than 200 mg/dLBorderline High Cholesterol: 200-239 mg/dLHigh Cholesterol: greater than 239 mg/dL LDL Cholesterol Calculated 116(H) <100 mg/dL [facility] Comment:Desirable LDL: less than 100 mg/dLNear Optimal/Above Optimal LDL: 110- 129 mg/dLBorderline High LDL: 130-159 mg/dLHigh LDL: 160-189 mg/dLVery High LDL: greater than or equal to 190 mg/dL HDL Cholesterol 72 >40 mg/dL [facility] Comment:Desirable HDL: great er than 40 mg/dL Note: This HDL assay may give artificially low results in patients with liver disease. Blood Venous blood specimen / Unknown 07/10/2023 8:47 AM EDT 07/10/2023 2:38 PM EDT Rehana Hathaway MD LAB BLOOD ORDERABLES Final Re sult [facility] [address] [place] [phone] * Hm Colonoscopy (05/14/2020) Colonoscopy Normal Normal Narrative Ghazal Nuñez - 05/14/2020 Recommended 5 years ( confirmed with gastro office ) Historical Provider MD HEALTH MAINTENANCE Final Result * ALBUMIN, RANDOM URINE W/CREATININE (02/05/2020 10:29 AM EST) Microalbumin Urine 0.4 See Note: mg/dL [facility] Comment: Reference Range: Reference Range [...] MD LAB URINE ORDERABLES Final Re sult [facility] [address] * HPV mRNA E6/E7 (11/28/2018 10:43 AM EDT) HPV mRNA E6/E7 Not Detected NOT DETECTED [facility] Comment: This test was performed using the APTIMA(R) HPV Assay ([employer] This assay detects E6/E7 viral messenger RNA (mRNA) from 14 high-risk HPV types (16,18,31,33,35,39,45,51, 52,56,58,59,66,68). For additional information please refer to: http://education.[employer]/faq/WRZ021h2 (This link is being provided for informational/ educational purposes only.) The analytical performance characteristics of this assay have been determined by [employer] [place], [place]. The modifications have not been cleared or approved by the FDA. This assay has been validated pursuant to the CLIA regulations and is used for clinical purposes. Test Performed by [facility], [facility], [address] [place] [address] Fred Boyd M.D., Ph.D., Director of Laboratories , [facility] [id number] Please note: Effective 10/25/2015, HPV testing will be performed using [employer]'s APTIMA test which targets mRNA. Detecting mRNA instead of DNA, as in older methods, offers significant improvements in specificity. 11/28/2018 10:4 3 AM EDT us Rehana Hathaway MD HISTORICAL/NON ORDERABLE LABS Final Result [facility] [address] from Last 3 Months or Most Recently Relevant to Health Maintenance Insurance [facility] C3 DENTAL-[facility] MEDICAID STAND ADULT * Guarantor: Alecia Joseph Account Type Relation to Patient Date of Phone Billing Address Personal/[place] [address] Care Teams Reference Services Head Relationship Specialty Start Date End Date Rehana Hathaway MD [address] [place] [address] PCP - General Family Medicine 02/12/18
--- OUTSIDE RECORDS SUMMARY | 2024-11-27 11:32 | XMS_ITS | Encounter Summary ---
Author Organization [email or web address] Address [address] [facility] [address] [place] [address] Care Team Providers Care Language Teacher Name Role Phone Rehana Hathaway MD Primary Care Provider [phone] Encounter Details Date Type Department Care Team ([facility] Contact Info) Description 01/31/2022 Telephone [facility] MEDICINE [address] [place] [address] Rehana Hathaway MD [address] [place] [address] Social History Tobacco Use Types Packs/Day Years [...] Upcoming Encounters Date Type Department Care Team ([facility] Contact Info) Description 12/23/2024 9:45 AM EST Office Visit [facility]EDS [address] [place], [place] [phone] Rehana Hathaway MD [address] [place], [place] [phone] documented as of this encounter Visit Diagnoses Not on filedocumented in this encounter Care Teams Language Teacher Relationship Specialty Start Date End Date Rehana Hathaway MD [address] [place] [address] PCP - General Family Medicine 02/12/18 documented as of this encounter
--- OUTSIDE RECORDS SUMMARY | 2024-11-27 11:32 | XMS_ITS | Encounter Summary ---
Author Organization [employer] Address [address] [facility] 7t [place] [address] Care Team Providers Care Early Childhood Coordinator Name Role Phone Rehana Hathaway MD Primary Care Provider [phone] Reason for Visit * Reason Onset Date Comments Results 01/16/2024 Encounter Details Date Type Department Care Team ([facility] st Contact Info) Description 01/16/2024 Telephone [facility] MEDICINE [address] [place] [address] Rehana Hathaway MD [address] [place] [address] Results Social History Tobacco Use Types Packs/Day [...] results: Labs Date when done: 01/15/24 Facility: [facility] Labs documented in this encounter Plan of Treatment Upcoming Encounters Date Type Department Care Team (Late st Contact Info) Description 12/23/2024 9:45 AM EST Office Visit [facility] PEDS [address] [place] [address] Rehana Hathaway MD [address] [place] [address] documented as of this encounter Visit Diagnoses Not on filedocumented in this encounter Additional Health Concerns Assessment Noted Time PHQ-9 Depression Total Score: 3 05/14/19 24 9:07 AM EDT documented as of this encounter Care Teams Early Childhood Coordinator Relationship Specialty Start Date End Date Rehana Hathaway MD [address] [place] [address] PCP - General Family Medicine 02/12/18 documented as of this encounter
== END 2024-11-27 10:22 | disposition home or self-care (01) ==
LOC: HO.HPS 09:51
PROVIDERS: PCP Pediatrics; Visit Provider Hospitalist
DX: J45.40 Moderate persistent asthma, uncomplicated (principal); J30.9 Allergic rhinitis, unspecified; R06.09 Other forms of dyspnea
CPT/HCPCS: 99214

== ENCOUNTER → 2024-11-27 09:50 | Outpatient (BNVA) | payer MEDICAID, SELFPAY | PROVIDERS: PCP Pediatrics; Visit Provider Hospitalist | DX: J45.40 Moderate persistent asthma, uncomplicated (principal); J30.9 Allergic rhinitis, unspecified; R06.09 Other forms of dyspnea | CPT/HCPCS: 99212 ==

== ENCOUNTER 2024-12-23 10:29 | Outpatient (REF) | payer MEDICAID, SELFPAY ==
--- OUTSIDE RECORDS SUMMARY | 2024-12-23 09:45 | XMS_ITS | Encounter Summary ---
Author Organization [employer] Address [address] [facility] 7t [place] [address] Care Team Providers Care Denture Packer Name Role Phone Rehana Hathaway MD Primary Care Provider [phone] Encounter Details Date Type Department Care Team ([facility] Contact Info) Description 12/23/2024 9:45 AM EST Office Visit [facility] & PEDS [address] [place], [place] [phone] Rehana Hathaway MD [address] [place] [address] Prediabetes (Primary Dx); Acquired hypothyroidism; Postmenopausal disorder; Encounter for immunization Social History Tobacco Use Types Packs/Day Years Used Date Smoking Tobacco: Never Passive Smoke Exposure: Never Smokeless Tobacco: Never Depression Answer Date Recorded Patient Health Questionnaire-9 Score 6 12/23/2024 Patient Health Questionnaire-9 Score 6 12/23/2024 Last PHQ-9: Questionnaire Data Not on file 1 02/23/2024 Housing Stability Answer Date Recorded What is [...] Answer Date Recorded Patient Health Questionnaire-2 Score 2 12/23/2024 Internet Access Answer Date Recorded Internet Access [...] Sign Reading Time Taken Comments Blood Pressure 120/70 12/23/2024 9:46 AM EST Pulse 60 12/23/2024 9:46 AM EST Temperature 36.6 C (97.9 F) 12/23/2024 9:46 AM EST Respiratory Rate 20 12/23/2024 9:46 AM EST Oxygen Saturation - - Inhaled Oxygen Concentration - - Weight 61.7 kg (136 lb) 12/23/2024 9:46 AM EST Height - - Body Mass Index 27.47 11/11/2024 1:02 PM EDT documented in this encounter Functional Status * Over the past 2 weeks, how often have you been bothered by any of the following problems? Question Answer Date of Assessment Author Patient Health Questionnaire -2 Score 2 12/23/2024 9:47 AM Soha Ken MA * Little interest or pleasure in doing things Answer Date of Assessment Author Several days 12/23/2024 9:47 AM Whitney Ken MA * Feeling down, depressed, or hopeless Answer Date of Assessment Author Several days 12/23/2024 9:47 AM Whitney Ken MA * Trouble falling or staying asleep, or sleeping too much Answer Date of Assessment Author Not at all 12/23/2024 9:47 AM Whitney Ken MA * Feeling tired or having little energy Answer Date of Assessment Author Several days 12/23/2024 9:47 AM Whitney Ken MA * Poor appetite or overeating Answer Date of Assessment Author Not at all 12/23/2024 9:47 AM Whitney Ken MA * Feeling bad about yourself - or that you are a failure or have let yourself or your family down Answer Date of Assessment Author Not at all 12/23/2024 9:47 AM Whitney Ken MA * Trouble concentrating on things, such as reading the newspaper or watching television Answer Date of Assessment Author Not at all 12/23/2024 9:47 AM Whitney Ken MA * Moving or speaking so slowly that other people could have noticed? Or the opposite - being so fidgety or restless that you have been moving around a lot more than usual. Answer Date of Assessment Author Nearly every day 12/23/2024 9:47 AM Whitney Tao MA * Thoughts that you would be better off or hurting yourself in some way Answer Date of Assessment Author Not at all 12/23/2024 9:47 AM Whitney Ken MA * Patient Health Questionnaire-9 Score Answer Date of Assessment Author 6 12/23/2024 9:47 AM Whitney Ken MA * How difficult have these problems made it for you to do your work, take care of things at home, or get along with other people? Answer Date of Assessment Author Not difficult at all 12/23/2024 9:47 AM EST Whitney Case MA documented as of this encounter Plan of Treatment Upcoming Encounters Date Type Department Care Team (Late st Contact Info) Description 03/04/2025 9:45 AM EST Procedure Visit [facility] MED & PEDS [address] [place] [address] Rehana Hathaway MD [address] [place] [address] Scheduled Orders Name Type Priority Associated Diagnoses Orde r Schedule Lipase Lab Routine Prediabetes Acquired hypothyroidism Expected: 12/23/2024, Expires: 12/23/2025 TSH W/Reflex to FT4 Lab Routine Prediabetes Acquired hypothyroidism Expected: 12/23/2024 (Approximate), Expires: 12/23/2025 T3, Total Lab Routine Prediabetes Acquired hypothyroidism Expected: 12/23/2024 (Approximate), Expires: 12/23/2025 documented as of this encounter Procedures Procedure Name Priority Date/Time Associated Diagnosis Comments POCT GLYCATED HEMOGLOBIN, TOTAL Routine 12/23/2024 10:17 AM EST Prediabetes POCT GLUCOSE Routine 12/23/2024 10:17 AM EST Prediabetes documented in this encounter Results * POCT Hgb A1c (12/23/2024 10:17 AM EST) Hemoglobin A1C 5.6 4.0 - 5.7 % Blood 12/23/2024 10:1 7 AM EST Rehana Hathaway MD POINT OF CARE TEST ENTER/EDIT ORDERABLES Final Result * POCT Glucose (12/23/2024 10:17 AM EST) Glucose Blood, POC 94 60 - 200 mg/dL Blood Capillary blood specimen / Unknown 12/23/2024 10:17 AM EST us Rehana Hathaway MD POINT OF CARE TEST ENTER/EDIT ORDERABLES Final Result documented in this encounter Visit Diagnoses Diagnosis Prediabetes- Primary Other abnormal glucose Acquired hypothyroidism Unspecified hypothyroidism Postmenopausal disorder Encounter for immunization documented in this encounter Additional Health Concerns Assessment Noted Time PHQ-9 Depression Total Score: 6 12/24/19 25 9:47 AM EST documented as of this encounter Care Teams Denture Packer Relationship Specialty Start Date End Date Rehana Hathaway MD [address] [place] [address] PCP - General Family Medicine 02/12/18 documented as of this encounter
--- OUTSIDE RECORDS SUMMARY | 2024-12-23 12:05 | XMS_ITS | Encounter Summary ---
Author Organization [employer] Address [address] [facility] 7t [place] [address] Care Team Providers Care What Job Titles Mean Name Role Phone Rehana Hathaway MD Primary Care Provider [phone] Encounter Details Date Type Department Care Team ([facility] st Contact Info) Description 12/21/2022 Abstract [facility] MEDICINE [address] [place] [address] Ghazal Nuñez Social History Tobacco Use Types [...] Description 03/04/2025 9:45 AM EST Procedure Visit [facility] & [facility]EDS [address] [place] [address] Rehana Hathaway MD [address] [place] [address] documented as of this encounter Procedures Procedure [...] documented as of this encounter Care Teams What Job Titles Mean Relationship Specialty Start Date End Date Rehana Hathaway MD [address] [place] [address] PCP - General Family Medicine 02/12/18 documented as of this encounter
--- OUTSIDE RECORDS SUMMARY | 2024-12-23 12:05 | XMS_ITS | Encounter Summary ---
Author Organization [employer] Address [address] [facility] 7t [place] [address] Care Team Providers Care Manager Cardiovascular Name Role Phone Rehana Hathaway MD Primary Care Provider [phone] Encounter Details Date Type Department Care Team (Latest Contact Info) Description 10/20/2024 Results Follow-Up [facility] MED & PEDS [address] [place], [place] [phone] Rehana Hathaway MD [address] [place] [address] BI Mammogram Screening Tomosynthesis Bilateral Social History [...] Upcoming Encounters Date Type Department Care Team ([facility] st Contact Info) Description 03/04/2025 9:45 AM EST Procedure Visit [facility] PEDS [address] [place] [address] Rehana Hathaway MD [address] [place] [address] documented as of this encounter Visit Diagnoses Not on filedocumented in this encounter Additional Health Concerns Assessment Noted Time PHQ-9 Depression Total Score: 3 05/14/19 24 9:07 AM EDT documented as of this encounter Care Teams Manager Cardiovascular Relationship Specialty Start Date End Date Rehana Hathaway MD [address] [place] [address] PCP - General Family Medicine 02/12/18 documented as of this encounter
--- OUTSIDE RECORDS SUMMARY | 2024-12-23 12:05 | XMS_ITS | Encounter Summary ---
Author Organization [employer] Address [address] [facility] 7t [place] [address] Care Team Providers Care Implant Polisher Name Role Phone Rehana Hathaway MD Primary Care Provider [phone] Reason for Visit * Reason Onset Date Comments Results 01/16/2024 Encounter Details Date Type Department Care Team ([facility] st Contact Info) Description 01/16/2024 Telephone [facility] MEDICINE [address] [place] [address] Rehana Hathaway MD [address] [place] [address] Results Social History Tobacco Use Types Packs/Day [...] results: Labs Date when done: 01/15/24 Facility: [facility] Labs documented in this encounter Plan of Treatment Upcoming Encounters Date Type Department Care Team (Late st Contact Info) Description 03/04/2025 9:45 AM EST Procedure Visit [facility] MED & PEDS [address] [place] [address] Rehana Hathaway MD [address] [place] [address] documented as of this encounter Visit Diagnoses Not on filedocumented in this encounter Additional Health Concerns Assessment Noted Time PHQ-9 Depression Total Score: 3 05/14/19 24 9:07 AM EDT documented as of this encounter Care Teams Implant Polisher Relationship Specialty Start Date End Date Rehana Hathaway MD [address] [place] [address] PCP - General Family Medicine 02/12/18 documented as of this encounter
--- OUTSIDE RECORDS SUMMARY | 2024-12-23 12:05 | XMS_ITS | Encounter Summary ---
Author Organization [employer] Address [address] [facility] 7t [place] [address] Care Team Providers Care Stna Name Role Phone Rehana Hathaway MD Primary Care Provider [phone] Reason for Visit * Reason Onset Date Comments Results 07/17/2023 Encounter Details Date Type Department Care Team ([facility] st Contact Info) Description 07/17/2023 Telephone [facility] MEDICINE [address] [place] [address] Rehana Hathaway MD [address] [place] [address] Results Social History Tobacco Use Types Packs/Day [...] Description 03/04/2025 9:45 AM EST Procedure Visit [facility] MED & PEDS [address] [place] [address] Rehana Hathaway MD [address] [place] [address] documented as of this encounter Visit Diagnoses Not on filedocumented in this encounter Additional Health Concerns Assessment Noted Time PHQ-9 Depression Total Score: 3 05/14/19 24 9:07 AM EDT documented as of this encounter Care Teams Stna Relationship Specialty Start Date End Date Rehana Hathaway MD [address] [place] [address] PCP - General Family Medicine 02/12/18 documented as of this encounter
--- OUTSIDE RECORDS SUMMARY | 2024-12-23 12:05 | XMS_ITS | Encounter Summary ---
Author Organization [employer] Address [address] [facility] 7t [place] [address] Care Team Providers Care Clay Thrower Name Role Phone Rehana Hathaway MD Primary Care Provider [phone] Reason for Visit * Reason Comments Med Refill Encounter Details Date Type Department Care Team ([facility] st Contact Info) Description 07/12/2023 Refill [facility] MED & PEDS [address] [place], [place] [phone] Rehana Hathaway MD [address] [place] [address] Social History Tobacco Use Types Packs/Day Years [...] Upcoming Encounters Date Type Department Care Team ([facility] st Contact Info) Description 03/04/2025 9:45 AM EST Procedure Visit [facility] & PEDS [address] [place] [address] Rehana Hathaway MD [address] [place] [address] documented as of this encounter Visit Diagnoses Not on filedocumented in this encounter Additional Health Concerns Assessment Noted Time PHQ-9 Depression Total Score: 3 05/14/19 24 9:07 AM EDT documented as of this encounter Care Teams Clay Thrower Relationship Specialty Start Date End Date Rehana Hathaway MD [address] [place] [address] PCP - General Family Medicine 02/12/18 documented as of this encounter
--- OUTSIDE RECORDS SUMMARY | 2024-12-23 12:05 | XMS_ITS | Encounter Summary ---
Author Organization [employer] Address [address] [facility] 7t [place] [address] Care Team Providers Care Emergency Medical Tech Name Role Phone Rehana Hathaway MD Primary Care Provider [phone] Reason for Visit * Reason Comments Med Refill Encounter Details Date Type Department Care Team ([facility] st Contact Info) Description 09/02/2023 Refill [facility] [address] [place] [address] Parveen Gonzales MD [address] [place] [address] Chronic gastroesophageal reflux disease Social History Tobacco [...] 03/04/2025 9:45 AM EST Procedure Visit [facility] MED & PEDS [address] [place] [address] Rehana Hathaway MD [address] [place] [address] documented as of this encounter Visit Diagnoses Diagnosis Chronic gastroesophageal reflux disease documented in this encounter Additional Health Concerns Assessment Noted Time PHQ-9 Depression Total Score: 3 05/14/19 24 9:07 AM EDT documented as of this encounter Care Teams Emergency Medical Tech Relationship Specialty Start Date End Date Rehana Hathaway MD [address] [place] [address] PCP - General Family Medicine 02/12/18 documented as of this encounter
--- OUTSIDE RECORDS SUMMARY | 2024-12-23 12:05 | XMS_ITS | Encounter Summary ---
Author Organization [employer] Address [address] [facility] 7 [place] [address] Care Team Providers Care Laundry Machine Mechanic Name Role Phone Rehana Hathaway MD Primary Care Provider [phone] Reason for Visit * Reason Onset Date Comments Appointment Request 04/02/2024 Encounter Details Date Type Department Care Team ([facility] st Contact Info) Description 04/02/2024 Telephone [facility] MED & PEDS [address] [place], [place] [phone] Rehana Hathaway MD [address] [place] [address] Appointment Request Social History Tobacco Use Types [...] Description 03/04/2025 9:45 AM EST Procedure Visit [facility] MED & PEDS [address] [place] [address] Rehana Hathaway MD [address] [place] [address] documented as of this encounter Visit Diagnoses Not on filedocumented in this encounter Additional Health Concerns Assessment Noted Time PHQ-9 Depression Total Score: 3 05/14/19 24 9:07 AM EDT documented as of this encounter Care Teams Laundry Machine Mechanic Relationship Specialty Start Date End Date Rehana Hathaway MD [address] [place] [address] PCP - General Family Medicine 02/12/18 documented as of this encounter
--- OUTSIDE RECORDS SUMMARY | 2024-12-23 12:05 | XMS_ITS | Encounter Summary ---
Author Organization [employer] Address [address] [facility] 7 [place] [address] Care Team Providers Care Pharmacy Affairs Assistant Name Role Phone Rehana Hathaway MD Primary Care Provider [phone] Reason for Visit * Reason Onset Date Comments Chart Prep 12/19/2024 Encounter Details Date Type Department Care Team ([facility] st Contact Info) Description 12/19/2024 Telephone [facility] CH[facility] MED & PEDS [address] [place], [place] [phone] Rehana Hathaway MD [address] [place] [address] Chart Prep Social History Tobacco Use Types [...] Telephone Encounter - Whitney Morales MA - 12/19/2024 1:26 PM EST Chart Prep Labs: done Images: done Referrals: complete Vaccines due: Covid, Flu, Tdap, and Hep B Screenings: pap smear, eye exam, foot exam, STI screening, and LMP Overdue care gaps: A1c, Glucose, PHQ-9, Disability screen, and Tobacco documented in this encounter Plan of Treatment Upcoming Encounters Date Type Department Care Team ([facility] st Contact Info) Description 03/04/2025 9:45 AM EST Procedure Visit [facility] MED & PEDS [address] [place] [address] Rehana Hathaway MD [address] [place] [address] documented as of this encounter Visit Diagnoses Not on filedocumented in this encounter Additional Health Concerns Assessment Noted Time PHQ-9 Depression Total Score: 3 05/14/19 24 9:07 AM EDT documented as of this encounter Care Teams Pharmacy Affairs Assistant Relationship Specialty Start Date End Date Rehana Hathaway MD [address] [place] [address] PCP - General Family Medicine 02/12/18 documented as of this encounter
--- OUTSIDE RECORDS SUMMARY | 2024-12-23 12:05 | XMS_ITS | Encounter Summary ---
Author Organization [employer] Address [address] [place] [address] Care Team Providers Care Kettle Fry Cook Operator Name Role Phone Rehana Hathaway MD Primary Care Provider Encounter Details Date Type Department Care Team (Latest Contact Info) Description 12/23/2024 Travel Social History Tobacco Use Types Packs/Day [...] AM EDT documented as of this encounter Functional Status * Over the [...] Author Not at all 12/23/2024 9:47 AM EST Whitney Morales MA * Patient Health Questionnaire-9 Score Answer Date of Assessment Author 6 12/23/2024 9:47 AM EST Whitney Morales MA * How difficult have these problems [...] Description 03/04/2025 9:45 AM EST Procedure Visit [facility] MED & PEDS [address] [place] [address] Rehana Hathaway MD [address] [place] [address] documented as of this encounter Visit Diagnoses Not on filedocumented in this encounter Additional Health Concerns Assessment Noted Time PHQ-9 Depression Total Score: 6 12/24/19 25 9:47 AM EST documented as of this encounter Care Teams Kettle Fry Cook Operator Relationship Specialty Start Date End Date Rehana Hathaway MD [address] [place] [address] PCP - General Family Medicine 02/12/18 documented as of this encounter
--- OUTSIDE RECORDS SUMMARY | 2024-12-23 12:05 | XMS_ITS | Patient Health Record ---
Author Organization [facility] Address [address] [place] [address] Care Team Providers Care Ob Scrub Tech Name Role Phone Rivas ASIF, Rehana Primary Care Provider David Coats Jr Unavailable [phone] Yesica Velasco Unavailable Unavailable Reason For [...] Status Risk Notes Problem Colon cancer screening (228244346) Colon cancer screening (Z12.11) Active confirmed Problem Microcytic anemia (312458803) Microcytic anemia (D50.9) Active confirmed Problem Gastroesophageal reflux disease (358722755) Gastroesophageal reflux disease, unspecified whether esophagitis present (K21.9) Active confirmed Plan Of Treatment Future Test Test Name Order Date COLONOSCOPY 04/19/2020 Insurance Providers Payer Name Payer Address Payer Phone Subscriber Number Group Number Insured Name Patient Relationship to Insured Coverage Start Date Coverage End Date MEDICAID OF [employer] [address] [place] [address] [id number] HANNAH REY Self - patient is the insured Medical (General) History Medical History History ICD Code asthma hypertension hyperthyroidism heartburn seasonal allergies Covid 19 infection, 03/22/20, quarantined at home, no treatment required Surgical History Surgery Date(Month/Year) Knee Replacement - left side
--- OUTSIDE RECORDS SUMMARY | 2024-12-23 12:05 | XMS_ITS | Encounter Summary ---
Author Organization [employer] Address [address] [facility] [address] [place] [address] Care Team Providers Care Cook Fishing Vessel Name Role Phone Rehana Hathaway MD Primary Care Provider [phone] Encounter Details Date Type Department Care Team ([facility] Contact Info) Description 01/31/2022 Telephone [facility] MEDICINE [address] [place] [address] Rehana Hathaway MD [address] [place] [address] Social History Tobacco Use Types Packs/Day Years [...] Upcoming Encounters Date Type Department Care Team ([facility] Contact Info) Description 03/04/2025 9:45 AM EST Procedure Visit [facility] MED & PEDS [address] [place], [place] [phone] Rehana Hathaway MD [address] [place], [place] [phone] documented as of this encounter Visit Diagnoses Not on filedocumented in this encounter Care Teams Cook Fishing Vessel Relationship Specialty Start Date End Date Rehana Hathaway MD [address] [place] [address] PCP - General Family Medicine 02/12/18 documented as of this encounter
--- OUTSIDE RECORDS SUMMARY | 2024-12-23 12:05 | XMS_ITS | Encounter Summary ---
Author Organization [employer] Address [address] [facility] [address] [place] [address] Care Team Providers Care Machine Tool Technology Instructor Name Role Phone Rehana Hathaway MD Primary Care Provider [phone] Reason for Visit * Reason Comments Med Refill Encounter Details Date Type Department Care Team ([facility] st Contact Info) Description 12/22/2024 Refill [facility] MED & PEDS [address] [place], [place] [phone] Rehana Hathaway MD [address] [place] [address] Social History Tobacco Use Types Packs/Day Years [...] Author Nearly every day 12/23/2024 9:47 AM EST Whitney Gross MA * Thoughts that you would be [...] Procedure Visit [facility] & PEDS [address] [place] [address] Rehana Hathaway MD [address] [place] [address] documented as of this encounter Visit Diagnoses Not on filedocumented in this encounter Additional Health Concerns Assessment Noted Time PHQ-9 Depression Total Score: 3 05/14/19 24 9:07 AM EDT documented as of this encounter Care Teams Machine Tool Technology Instructor Relationship Specialty Start Date End Date Rehana Hathaway MD [address] [place] [address] PCP - General Family Medicine 02/12/18 documented as of this encounter
--- OUTSIDE RECORDS SUMMARY | 2024-12-23 12:05 | XMS_ITS | Encounter Summary ---
Author Organization [employer] Address [address] [facility] [address]t [place] [address] Care Team Providers Care Elevator Service Mechanic Name Role Phone Rehana Hathaway MD Primary Care Provider [phone] Reason for Visit * Reason Comments Med Refill Encounter Details Date Type Department Care Team ([facility] st Contact Info) Description 05/22/2023 Refill [facility] MED & PEDS [address] [place], [place] [phone] Rehana Hathaway MD [address] [place] [address] Benign essential hypertension Social History Tobacco Use [...] Procedure Visit [facility] MED & PEDS [address] [place] [address] Rehana Hathaway MD [address] [place] [address] documented as of this encounter Visit Diagnoses Diagnosis Benign essential hypertension Essential hypertension, benign documented in this encounter Additional Health Concerns Assessment Noted Time PHQ-9 Depression Total Score: 3 05/14/19 24 9:07 AM EDT documented as of this encounter Care Teams Elevator Service Mechanic Relationship Specialty Start Date End Date Rehana Hathaway MD [address] [place] [address] PCP - General Family Medicine 02/12/18 documented as of this encounter
--- OUTSIDE RECORDS SUMMARY | 2024-12-23 12:06 | XMS_ITS | Clinical Summary ---
Author Organization [employer] Address [address] [place] [address] 7t [place] [address] Care Team Providers Care Glue Spreading Machine Operator Name Role Phone Rehana Hathaway MD Primary Care Provider [phone] Allergies No known active allergies Medications EPINEPHrine [...] MCG/ACT inhalerIndicatio ns:Severe persistent asthma without complication (HCC) INHALE 2 [...] (left ear pain). 60 tablet 024 Active polyethylene glycol, PEG, 3350 (Glycolax, Miralax) powder Take 17 g by mouth Once per day. 1 g 024 Active fexofenadine (Fariha) 180 MG tablet TAKE 1 TABLET BY MOUTH EVERY DAY 30 tablet 11 025 Active meclizine (Antivert) 25 MG tablet Take 1 tablet (25 mg) by mouth See administration instructions. TAKE 1 TABLETS BY MOUTH TWICE DAILY NEEDED 30 tablet 025 Active Symbicort 160-4.5 MCG/ACT inhaler Inhale 2 puffs 2 times daily. 025 Active Incruse Ellipta 62.5 MCG/ACT aerosol powder INHALE 1 PUFF DAILY AT THE SAME TIME EVERY DAY 025 Active D3-1000 25 MCG (1000 UT) capsuleIndicatio [...] OR CHEW 90 capsule 1 025 Active Diclofenac Sodium 1 % gelIndications:A cute pain of right knee,Patellofemo ral pain syndrome of right knee APPLY TOPICALLY TO THE AFFECTED AREA(S) THREE TIMES DAILY DIRECTED 100 g 1 Active Fiber-Lax 625 MG tablet TAKE 1 TABLET BY MOUTH ONCE DAILY 90 tablet 3 Active progesterone 100 MG capsuleIndicatio ns:Postmenopausa l disorder Take 1 capsule (100 mg) by mouth at bedtime. 30 capsule 2 025 2025 Active estradiol (Climara) 0.025 MG/24HRIndicatio ns:Postmenopausa l disorder Place 1 patch on the skin 1 (one) time per week. 4 patch 3 025 2025 Active senna-docusate (Senokot S) 8.6-50 MG tablet Take 1 tablet by mouth Once per day. 30 tablet 11 025 2025 Active polycarbophil (FiberCon) 625 MG tablet Take 1 tablet (625 mg) by mouth Once per day. 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 F/U with me in 4-6 weeks. She agrees with the plan. COVID-19 03/25/2020 Osteoarthritis of left acromioclavicular joint 0 07/03/2019 Benign essential hypertension 06/14/2015 Primary insomnia 06/14/2015 Vitamin D deficiency 06/14/2015 Overweight 01/12/2012 Hypertension 07/25/2011 Hypothyroidism 07/25/2011 Depressive disorder 07/25/2011 Encounters Date Type Department Care Team Description 12/23/2024 9:45 AM EST Office Visit [facility] [address] [place] [address] Rehana Hathaway MD Prediabetes (Primary Dx); Acquired hypothyroidism; Postmenopausal disorder; Encounter for immunization 12/23/2024 Travel 12/22/2024 Refill [facility] [address] [place] [address] Rehana Hathaway MD 12/19/2024 Telephone [facility] [address] [place] [address] Rehana Hathaway MD Chart Prep 12/06/2024 Refill [facility] [address] [place] [address] Margie Qureshi MD Acute pain of right knee; Patellofemoral pain syndrome of right knee 11/11/2024 1:00 PM EDT Office Visit [facility] [address] [place] [address] Margie Qureshi MD Acute pain of right knee (Primary Dx); Patellofemoral pain syndrome of right knee 11/11/2024 Travel 11/10/2024 Telephone [facility] [address] [place] [address] Rehana Hathaway MD Nurse Triage 10/20/2024 Results Follow-Up [facility] [address] [place] [address] Rehana Hathaway MD BI Mammogram Screening Tomosynthesis Bilateral 10/15/2024 Orders Only [facility] [address] [place] [address] Rehana Hathaway MD 10/02/2024 Refill [facility] [address] [place] [address] Rehana Hathaway MD from Last 3 Months Immunizations Immunization Administration Dates Next Due Influenza Injectable Quadriv alant Preservative Free IIV4 MDCK 12/08/2021 Influenza injectable quadriv alent IIV4 with preservative 11/22/2018 Influenza injectable quadriv alent preservative free 12/19/2022,01/13/2021,10/25/2017 Influenza, IIV3, injectable 02/17/2014, 9 Influenza, Split (incl. loida fied surface antigen) 11/09/2011 Influenza, seasonal, injecta ble, preservative free 12/23/2024,11/01/2023 Moderna Covid-19 Vaccine 12+ 03/22/2021,07/30/19 21,07/01/2020 Pneumococcal [...] 20 12/23/2024 9:46 AM EST Oxygen Saturation 99% 11/11/2024 1:02 PM EDT Inhaled Oxygen Concentration - - Weight 61.7 kg (136 lb) 12/23/2024 9:46 AM EST Height 149.9 cm (4' 11 ) 11/11/2024 1:02 PM EDT Body Mass Index 27.47 11/11/2024 1:02 PM EDT Plan of Treatment Upcoming Encounters Date Type Department Care Team ([facility] Contact Info) Description 03/04/2025 9:45 AM EST Procedure Visit [facility] [address] [place] [address] Rehana Hathaway MD [address] [place] [address] Health Maintenance Due Date Last Done Comments [...] Cervical Cancer Screening 11/29/2023 HPV/Cotest 11/29/2023 11/28/2018 Lipid Panel 07/09/2024 07/10/2023, 02/05/2020 COVID-19 Vaccine ( season) 2024 03/22/2021, 07/29/2020, 07/01/2020 SDOH Screening 03/19/2025 03/19/2024 Alcohol/Substance Use Screening 03/27/2025 03/27/2024 Colonoscopy 05/14/2025 05/14/2020 Colorectal Cancer Screening 05/14/2025 Diabetes: Hemoglobin A1C 06/22/2025 025, 01/02/2024, 07/10/2023, Additional history exists Mammogram 10/15/2025 10/15/2024, 09/13, 10/10/2023, Additional history exists Tobacco Screening 11/11/2025 11/11/2024 Depression Screening 12/23/2025 12/23/2024, 12/24/19 25 Disability Screening 12/23/2025 12/23/2024 DTaP/Tdap/Td Vaccines (2 - Td or Tdap) 10/26/2027 10/25/2017, 09/12/2006 RSV Patients and Patients Aged 60 years or older (1 - 1-dose 75+ series) 2045 Pneumococcal Vaccine: 50+ Years Completed 02/16/2022 Zoster Vaccines Completed 02/16/2022, 12/08/2021 Influenza Vaccine Completed 12/23/2024, , 12/19/2022, Additional history exists HIB Vaccines Aged Out [...] GLUCOSE Routine 12/23/2024 10:17 AM EST Prediabetes BI MAMMOGRAM SCREENING TOMOSYNTHESIS BILATERAL Routine 10/15/2024 10:16 AM EDT LIPID PANEL, STANDARD Routine 07/10/2023 [...] Relevant to Health Maintenance Results * POCT Hgb A1c (12/23/2024 10:17 AM EST) Hemoglobin A1C 5.6 4.0 - 5.7 % Blood 12/23/2024 10:1 7 AM EST us Rehana Begolli MD POINT OF CARE TEST ENTER/EDIT ORDERABLES Final Result * POCT Glucose (12/23/2024 10:17 AM EST) Glucose Blood, POC 94 60 - 200 mg/dL Blood Capillary blood specimen / Unknown 12/23/2024 10:17 AM EST Rehana Hathaway MD POINT OF CARE TEST ENTER/EDIT ORDERABLES Final Result * BI Mammogram Screening Tomosynthesis Bilateral (10/15/2024 10:16 AM EDT) Anatomical Region Laterality Modality Breast Bilateral Mammography 10/15/2024 10:1 6 AM EDT Narrative 10/17/2024 4:15 PM EDT [address] [place] [address] Mammography Report Signed Patient: Alecia Meza MR#: [id number] : 1970 Acct:[id number] Age/Sex: 54 / F ADM Date: 10/15/24 Loc: HO.MAMMO Attending Dr: Rehana Hathaway MD Ordering Physician: Rehana Hathaway MD Results: 1Ne gative Date of Service: 10/15/24 Follow Up: 1 Year From [facility] Mammogram Procedure(s): MM tomosynthesis screening BI Accession Number(s): [id number] cc: Rehana Hathaway MD EXAMINATION: MM SCREENING [...] 10/17/24 1613 DD/ 1016 TD/TT: 10/15/24 1037 Equipment Hire Manager: Procedure Note Donotuseinterpreter, Image - [facility]/17/[facility] [address] [place], [place] [address] Mammography Report Signed Patient: Alecia MezaMR#: [id number] : 1970Acct:[id number] Age/Sex: 54 / FADM Date: 10/15/24 Loc: HO.MAMMO Attending Dr: Rehana Hathaway MD Ordering Physician: Rehana Hathaway MDResults: 1Ne gative Date of Service: 10/15/24Follow Up: 1 Year From Orig inal Mammogram Procedure(s): MM tomosynthesis screening BI Accession Number(s): [id number] cc: Rehana Hathaway MD EXAMINATION: MM SCREENING [...] Teagan Tinoco DO 10/17/2024 04:13 PM EDT RP Dictated By: Teagan Tinoco DO Signed By: <Electronically signed by Teagan Tinoco DO in OV> 10/17/24 1613 DD/ 1016 TD/TT: 10/15/24 1037 Equipment Hire Manager: Rehana Hathaway MD IMG BI PROCEDURES Final Resul t * (ABNORMAL) Lipid Panel, Standard (07/10/2023 8:47 AM EDT) Triglycerides 99 <150 mg/dL [facility] Comment:Desirable Triglyceri de: less than 150 mg/dLBorderline High Triglyceride 150-199 mg/dLHigh Triglyceride: 200-499 mg/dLVery High Triglyceride: greater than or equal to 5OO mg/dL Cholesterol 207(H) <200 mg/dL [facility] Comment:Desirable Cholestero l: less than 200 mg/dLBorderline High Cholesterol: 200-239 mg/dLHigh Cholesterol: greater than 239 mg/dL LDL Cholesterol Calculated 116(H) <100 mg/dL [facility] Comment:Desirable LDL: less than 100 mg/dLNear Optimal/Above Optimal LDL: 110- 129 mg/dLBorderline High LDL: 130-159 mg/dLHigh LDL: 160-189 mg/dLVery High LDL: greater than or equal to 190 mg/dL HDL Cholesterol 72 >40 mg/dL [facility] Comment:Desirable HDL: great er than 40 mg/dL Note: This HDL assay may give artificially low results in patients with liver disease. Blood Venous blood specimen / Unknown 07/10/2023 8:47 AM EDT 07/10/2023 2:38 PM EDT us Rehana Hathaway MD LAB BLOOD ORDERABLES Final Re sult [facility] [address] [place], [place] [phone] * Hm Colonoscopy (05/14/2020) Colonoscopy Normal Normal Narrative Ghazal Nuñez - 05/14/2020 Recommended 5 years ( confirmed with gastro office ) Historical Provider HEALTH MAINTENANCE Final Result * ALBUMIN, RANDOM URINE W/CREATININE (02/05/2020 10:29 AM EST) Microalbumin Urine 0.4 See Note: mg/dL [facility] Comment: Reference Range: Reference Range [...] MD LAB URINE ORDERABLES Final Re sult [facility] [address] * HPV mRNA E6/E7 (11/28/2018 10:43 AM EDT) HPV mRNA E6/E7 Not Detected NOT DETECTED [facility] Comment: This test was performed using the APTIMA(R) HPV Assay ([employer] This assay detects E6/E7 viral messenger RNA (mRNA) from 14 high-risk HPV types (16,18,31,33,35,39,45,51, 52,56,58,59,66,68). For additional information please refer to: http://education.Viewdle/faq/HUN366l6 (This link is being provided for informational/ educational purposes only.) The analytical performance characteristics of this assay have been determined by [employer] [place], [place]. The modifications have not been cleared or approved by the FDA. This assay has been validated pursuant to the CLIA regulations and is used for clinical purposes. Test Performed by [facility], [facility], [address] [place] [address] Fred Boyd M.D., Ph.D., Director of Laboratories , CLIA [id number] Please note: Effective 10/25/2015, HPV testing will be performed using [employer]s APTIMA test which targets mRNA. Detecting mRNA instead of DNA, as in older methods, offers significant improvements in specificity. 11/28/2018 10:4 3 AM EDT us Rehana Hathaway MD HISTORICAL/NON ORDERABLE LABS Final Result [facility] [address] from Last 3 Months or Most Recently Relevant to Health Maintenance Insurance [facility] * Guarantor: Alecia Joseph Account Type Relation to Patient Date of Phone Billing Address Personal/Family Self [place] Care Teams Glue Spreading Machine Operator Relationship Specialty Start Date End Date Rehana Hathaway MD [address] [place] [id number] PCP - General Family Medicine 02/12/18
[2024-12-23 14:46] LABS: Lipase 58 U/L (8-78)
[2024-12-23 16:56] LABS: Free T4 (Free Thyroxine) 1.02 ng/dL (0.71-1.85)
== END 2024-12-23 10:30 | disposition home or self-care (01) ==
LOC: HO.CHCLDS 10:29
PROVIDERS: Visit Provider Pediatrics
DX: R73.03 Prediabetes (principal); E03.9 Hypothyroidism, unspecified
CPT/HCPCS: 36415; 83690; 84439; 84443; 84480

== ENCOUNTER → 2025-01-05 10:48 | Outpatient (REF) | payer MEDICAID, SELFPAY ==
--- NOTE | 2025-01-05 10:50 | CA_ITS ---
Acquisition Time: 2025-01-05 11:09:27 Total Exercise Time: 00:08:10 Test Indications: Dyspnea Medications: SEE H&P Protocol: MITCHELL Max HR: 136 BPM 82% of Pred: 165 BPM Max BP: 160/88 mmHG Max Work Load: 10.1 METS Exercise stress test with exercise 8 mins 10 secs of Mitchell Protocol, achieving 82% MPHR, with reports of SOB, no chest pain, without any arrythmias, with normotensive response to exercise. Without any EKG changes meeting criteria for ischemia. In recovery, breathing returned to baseline. Echo images obtained by tech at rest and post peak exercise. Definity contrast utilized. Test reviewed with Dr. Peters. Referred By: Reid Morales Electronically Signed By: George Castillo
--- OUTSIDE RECORDS SUMMARY | 2025-01-05 13:34 | XMS_ITS | Encounter Summary ---
Author Organization [employer] Address [address] [facility] 7 [place] [address] Care Team Providers Care Flight Control Manager Name Role Phone Rehana Hathaway MD Primary Care Provider [phone] Reason for Visit * Reason Comments Med Refill Encounter Details Date Type Department Care Team ([facility] st Contact Info) Description 07/12/2023 Refill [facility] [address] [place], [place] [phone] Rehana Hathaway MD [address] [place] [address] Social History Tobacco Use Types Packs/Day Years [...] Upcoming Encounters Date Type Department Care Team ([facility] st Contact Info) Description 03/04/2025 9:45 AM EST Procedure Visit [facility] [address] [place] [address] Rehana Hathaway MD [address] [place] [address] documented as of this encounter Visit Diagnoses Not on filedocumented in this encounter Additional Health Concerns Assessment Noted Time PHQ-9 Depression Total Score: 3 05/14/19 24 9:07 AM EDT documented as of this encounter Care Teams Flight Control Manager Relationship Specialty Start Date End Date Rehana Hathaway MD [address] [place] [address] PCP - General Family Medicine 02/12/18 documented as of this encounter
--- OUTSIDE RECORDS SUMMARY | 2025-01-05 13:34 | XMS_ITS | Encounter Summary ---
Author Organization [employer] Address [address] [facility] 7t [place] [address] Care Team Providers Care Manager Consumer Insights Name Role Phone Rehana Hathaway MD Primary Care Provider Encounter Details Date Type Department Care Team ([facility] st Contact Info) Description 12/21/2022 Abstract [facility] [address] [place] [address] Ghazal Nuñez Social History Tobacco Use Types [...] Description 03/04/2025 9:45 AM EST Procedure Visit [facility] [address] [place] [address] Rehana Hathaway MD [address] [place] [address] documented as of this encounter Procedures Procedure [...] as of this encounter Care Teams Manager Consumer Insights Relationship Specialty Start Date End Date Rehana Hathaway MD [address] [place] [address] PCP - General Family Medicine 02/12/18 documented as of this encounter
--- OUTSIDE RECORDS SUMMARY | 2025-01-05 13:34 | XMS_ITS | Encounter Summary ---
Author Organization [employer] Address [address] [facility] 7 [place] [address] Care Team Providers Care Food Service Specialist Name Role Phone Rehana Hathaway MD Primary Care Provider [phone] Reason for Visit * Reason Onset Date Comments Appointment Request 04/02/2024 Encounter Details Date Type Department Care Team ([facility] st Contact Info) Description 04/02/2024 Telephone [facility] [address] [place], [place] [phone] Rehana Hathaway MD [address] [place] [address] Appointment Request Social History Tobacco Use Types [...] 9:45 AM EST Procedure Visit [facility] [address] [place] [address] Rehana Hathaway MD [address] [place] [address] documented as of this encounter Visit Diagnoses Not on filedocumented in this encounter Additional Health Concerns Assessment Noted Time PHQ-9 Depression Total Score: 3 05/14/19 24 9:07 AM EDT documented as of this encounter Care Teams Food Service Specialist Relationship Specialty Start Date End Date Rehana Hathaway MD [address] [place] [address] PCP - General Family Medicine 02/12/18 documented as of this encounter
--- OUTSIDE RECORDS SUMMARY | 2025-01-05 13:34 | XMS_ITS | Encounter Summary ---
Author Organization [employer] Address [address] [facility] 7t [place] [address] Care Team Providers Care Sports Fitness And Wellness Director Name Role Phone Rehana Hathaway MD Primary Care Provider [phone] Reason for Visit * Reason Comments Med Refill Encounter Details Date Type Department Care Team ([facility] st Contact Info) Description 09/02/2023 Refill [facility] [address] [place] [address] Parveen Gonzales MD [address] [place] [address] Chronic gastroesophageal reflux disease Social History Tobacco [...] 9:45 AM EST Procedure Visit [facility] [address] [place] [address] Rehana Hathaway MD [address] [place] [address] documented as of this encounter Visit Diagnoses Diagnosis Chronic gastroesophageal reflux disease documented in this encounter Additional Health Concerns Assessment Noted Time PHQ-9 Depression Total Score: 3 05/14/19 24 9:07 AM EDT documented as of this encounter Care Teams Sports Fitness And Wellness Director Relationship Specialty Start Date End Date Rehana Hathaway MD [address] [place] [address] PCP - General Family Medicine 02/12/18 documented as of this encounter
--- OUTSIDE RECORDS SUMMARY | 2025-01-05 13:34 | XMS_ITS | Encounter Summary ---
Author Organization [employer] Address [address] [facility] 7t [place] [address] Care Team Providers Care Associate Software Development Engineer Name Role Phone Rehana Hathaway MD Primary Care Provider [phone] Reason for Visit * Reason Comments Med Refill Encounter Details Date Type Department Care Team ([facility] st Contact Info) Description 05/22/2023 Refill [facility] [address] [place], [place] [phone] Rehana Hathaway MD [address] [place] [address] Benign essential hypertension Social History Tobacco Use [...] 9:45 AM EST Procedure Visit [facility] [address] [place] [address] Rehana Hathaway MD [address] [place] [address] documented as of this encounter Visit Diagnoses Diagnosis Benign essential hypertension Essential hypertension, benign documented in this encounter Additional Health Concerns Assessment Noted Time PHQ-9 Depression Total Score: 3 05/14/19 24 9:07 AM EDT documented as of this encounter Care Teams Associate Software Development Engineer Relationship Specialty Start Date End Date Rehana Hathaway MD [address] [place] [address] PCP - General Family Medicine 02/12/18 documented as of this encounter
--- OUTSIDE RECORDS SUMMARY | 2025-01-05 13:34 | XMS_ITS | Encounter Summary ---
Author Organization [employer] Address [address] [facility] 7t [place] [address] Care Team Providers Care Recreation Therapy Teacher Name Role Phone Rehana Hathaway MD Primary Care Provider [phone] Reason for Visit * Reason Onset Date Comments Results 07/17/2023 Encounter Details Date Type Department Care Team ([facility] st Contact Info) Description 07/17/2023 Telephone [facility] [address] [place] [address] Rehana Hathaway MD [address] [place], [place] [phone] Results Social History Tobacco Use Types Packs/Day [...] Description 03/04/2025 9:45 AM EST Procedure Visit [facility]S [address] [place] [address] Rehana Hathaway MD [address] [place] [address] documented as of this encounter Visit Diagnoses Not on filedocumented in this encounter Additional Health Concerns Assessment Noted Time PHQ-9 Depression Total Score: 3 05/14/19 24 9:07 AM EDT documented as of this encounter Care Teams Recreation Therapy Teacher Relationship Specialty Start Date End Date Rehana Hathaway MD [address] [place] [address] PCP - General Family Medicine 02/12/18 documented as of this encounter
--- OUTSIDE RECORDS SUMMARY | 2025-01-05 13:35 | XMS_ITS | Encounter Summary ---
Author Organization [employer] Address [address] [facility] 7t [place] [address] Care Team Providers Care Director Child Abuse Therapy Name Role Phone Rehana Hathaway MD Primary Care Provider [phone] Reason for Visit * Reason Onset Date Comments Results 01/16/2024 Encounter Details Date Type Department Care Team ([facility] st Contact Info) Description 01/16/2024 Telephone [facility] [address] [place] [address] Rehana Hathaway MD [address] [place], [place] [phone] Results Social History Tobacco Use Types Packs/Day [...] results: Labs Date when done: 01/15/24 Facility: [facility] Labs documented in this encounter Plan of Treatment Upcoming Encounters Date Type Department Care Team (Late st Contact Info) Description 03/04/2025 9:45 AM EST Procedure Visit [facility] [address] [place] [address] Rehana Hathaway MD [address] [place] [address] documented as of this encounter Visit Diagnoses Not on filedocumented in this encounter Additional Health Concerns Assessment Noted Time PHQ-9 Depression Total Score: 3 05/14/19 24 9:07 AM EDT documented as of this encounter Care Teams Director Child Abuse Therapy Relationship Specialty Start Date End Date Rehana Hathaway MD [address] [place] [address] PCP - General Family Medicine 02/12/18 documented as of this encounter
--- OUTSIDE RECORDS SUMMARY | 2025-01-05 13:35 | XMS_ITS | Clinical Summary ---
Author Organization [employer] Address [address] [place] [address] [address] [place] [address] Care Team Providers Care Food And Nutrition Supervisor Name Role Phone Rehana Hathaway MD Primary Care Provider [phone] Allergies No known active allergies Medications EPINEPHrine [...] (left ear pain). 60 tablet 024 Active fexofenadine (Fariha) 180 MG tablet [...] BY MOUTH ONCE DAILY 90 tablet 3 12/30/19 4:49 PM EST Active progesterone 100 MG capsuleIndicatio ns:Postmenopausa l disorder Take 1 capsule (100 mg) by mouth at bedtime. 30 capsule 2 2025 Active estradiol (Climara) 0.025 MG/24HRIndicatio ns:Postmenopausa l disorder Place 1 patch on the skin 1 (one) time per week. 4 patch 3 12/30/19 10:51 AM EST 2025 Active senna-docusate (Senokot S) 8.6-50 MG tablet Take 1 tablet by mouth Once per day. 30 tablet 11 2025 Active polyethylene glycol, PEG, 3350 (Glycolax) 17 GM/SCOOP powder TAKE 17 GM MIXED IN 8 OUNCES OF WATER, COFFEE OR TEA ONCE DAILY 510 g 12/30/19 4:49 PM EST Active polycarbophil (FiberCon) 625 MG tablet Take 1 tablet (625 mg) by mouth Once per day. 90 tablet 3 2024 Discontinued polyethylene glycol, PEG, 3350 (Glycolax, Miralax) powder Take 17 g by mouth Once per day. 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 Rotator cuff impingement syndrome of [...] Encounters Date Type Department Care Team Description 12/27/2024 Results Follow-Up [facility] [address] [place] [address] Rehana Hathaway MD POCT Glucose, POCT Hgb A1c, Lipase, Additional followed-up results: 2 12/27/2024 Orders Only [facility] [address] [place] [address] Rehana Hathaway MD Acquired hypothyroidism (Primary Dx) 12/24/2024 Refill [facility] [address] [place] [address] Rehana Hathaway MD 12/23/2024 9:45 AM EST Office Visit [facility] [address] [place] [address] Rehana Hathaway MD Prediabetes (Primary Dx); Acquired hypothyroidism; Postmenopausal disorder; Encounter for immunization; Anxious depression; Severe persistent asthma with intensive monitoring (HCC); Adrenal incidentaloma (CMS/HCC) 12/23/2024 Orders Only [facility] [address] [place] [address] Rehana Hathaway MD 12/23/2024 Travel 12/22/2024 Refill [facility] [address] [place] [address] Rehana Hathaway MD 12/19/2024 Telephone [facility] [address] [place] [address] Rehana Hathaway MD Chart Prep 12/06/2024 Refill [facility] [address] [place] [address] Margie Qureshi MD Acute pain of right knee; Patellofemoral pain syndrome of right knee 11/11/2024 1:00 PM EDT Office Visit [facility] [address] [place] [address] Margie Qureshi MD Acute pain of right knee (Primary Dx); Patellofemoral pain syndrome of right knee 11/11/2024 Travel 11/10/2024 Telephone [facility] [address] [place] [address] Rehana Hathaway MD Nurse Triage 10/20/2024 Results Follow-Up [facility] [address] [place] [address] Rehana Hathaway MD BI Mammogram Screening Tomosynthesis Bilateral 10/15/2024 Orders Only [facility] [address] [place] [address] Rehana Hathaway MD from Last 3 Months [...] your housing situation today? I have crystal mary 03/19/[address] you li [...] Upcoming Encounters Date Type Department Care Team ([facility] st Contact Info) Description 03/04/2025 9:45 AM EST Procedure Visit [facility] [address] [place] [address] Rehana Hathaway MD [address] [place] [address] Health Maintenance Due Date Last Done Comments CT Colonography 1970 Dental Prophylaxis 1970 FIT DNA/Cologuard 1970 FIT 1970 FOBT 1970 HIV Screening 1970 Sigmoidoscopy 1970 Diabetes: Foot Exam 01/06/1980 Eye Exam 01/06/1980 Hepatitis C Screening 01/06/1988 Hepatitis B Vaccines (1 of 3 - 19+ 3-dose series) 1989 Pap Smear 1991 Dental Oral Exam 04/26/2018 10/26/2017 Dental X-Ray: Bitewings 10/27/2018 10/26/2017, 09/06 RSV Patients and Patients Aged 60 years or older (1 - Risk 50-74 years 1-dose series) 01/06/2020 Dental X-Ray: Full Mouth 10/27/2020 10/26/2017, 02/13 [...] - Td or Tdap) 10/26/2027 10/25/2017, 09/12/2006 Pneumococcal Vaccine: 50+ Years Completed 02/16/2022 Zoster [...] Date/Time Associated Diagnosis Comments T4, FREE Routine 12/23/2024 10:31 AM EST T3, TOTAL Routine 12/23/2024 10:31 AM EST Prediabetes Acquired hypothyroidism TSH W/REFLEX TO FT4 Routine 12/23/2024 1 0:31 AM EST Prediabetes Acquired hypothyroidism LIPASE Routine 12/23/2024 10:31 AM EST Prediabetes Acquired hypothyroidism POCT GLYCATED HEMOGLOBIN, TOTAL Routine 12/23/2024 10:17 [...] Results * (ABNORMAL) TSH W/Reflex to FT4 (12/23/2024 10:31 AM EST) TSH reflex Free T4 11.74(H) 0.32 - 4.0 uIU/mL [facility] Blood Venous blood specimen / Unknown 12/23/2024 10:31 AM EST 12/23/2024 2:01 PM EST us Rehana Hathaway MD LAB BLOOD ORDERABLES Final Re sult [facility] [address] [place] [phone] * (ABNORMAL) T3, Total (12/23/2024 10:31 AM EST) T3, Total 54(A) 76 - 181 ng/dL [facility] Comment:THIS TEST WAS PERFOR MED AT:[facility] [address] [phone] ABDUL MD Blood Venous blood specimen / Unknown 12/23/2024 10:31 AM EST 12/23/2024 2:01 PM EST Rehana Hathaway MD LAB BLOOD ORDERABLES Final Re sult Performing Organization Address [facility]/ZIP Co de Phone Number [facility] [address] [place] [phone] * T4, Free (12/23/2024 10:31 AM EST) [facility] Free T4 (Free Thyroxine) 1.02 0.71 - 1.85 ng/dL [facility] 12/23/2024 10:3 1 AM EST 12/23/2024 2:01 PM EST Rehana Hathaway MD LAB BLOOD ORDERABLES Final Re sult Performing Organization Address [facility] Co de Phone Number [facility] [address] [place] [phone] * Lipase (12/23/2024 10:31 AM EST) [facility] Lipase 58 8 - 78 U/L [facility] Blood Venous blood specimen / Unknown 12/23/2024 10:31 AM EST 12/23/2024 2:01 PM EST Rehana Hathaway MD LAB BLOOD ORDERABLES Final Re sult Performing Organization Address [facility] Co de Phone Number [facility] [address] [place] [phone] * POCT Hgb A1c (12/23/2024 10:17 AM [...] AM EDT Narrative 10/17/2024 4:15 PM EDT [facility] [address] [place] [address] Mammography Report Signed Patient: Alecia Meza MR#: [id number] : 1970 Acct:[id number] Age/Sex: 54 / F ADM Date: 10/15/24 Loc: HO.MAMMO Attending Dr: Rehana Hathaway MD Ordering Physician: Rehana Hathaway MD Results: 1Ne gative Date of Service: 10/15/24 Follow Up: 1 Year From [facility] Mammogram Procedure(s): MM tomosynthesis screening BI Accession Number(s): [id number] cc: Rehana Hathaway MD EXAMINATION: MM SCREENING [...] Tinoco DO Signed By: <Electronically signed by Teaagn Tinoco DO in OV> 10/17/24 1613 DD/ 1016 TD/TT: 10/15/24 1037 School Office Assistant: Procedure Note Donotuseinterpreter, Image - 10/17/2024 [facility] [address] [place] [address] Mammography Report Signed Patient: Alecia Meza#: M [id number] : 1970Acct:[id number] Age/Sex: 54 / FADM Date: 10/15/24 Loc: HO.MAMMO Attending Dr: Rehana Hathaway MD Ordering Physician: Rehana Hathaway MDResults: 1Ne gative Date of Service: 10/15/24Follow Up: 1 Year From [facility] Mammogram Procedure(s): MM tomosynthesis screening BI Accession Number(s): [id number] cc: Rehana Hathaway MD EXAMINATION: MM SCREENING [...] 10/17/24 1613 DD/ 1016 TD/TT: 10/15/24 1037 School Office Assistant: Rehana Hathaway MD IMG BI PROCEDURES Final Resul t * (ABNORMAL) Lipid Panel, Standard (07/10/2023 8:47 AM EDT) Triglycerides 99 <150 mg/dL [facility] Comment:Desirable Triglyceri de: less than 150 mg/dLBorderline High Triglyceride 150-199 mg/dLHigh Triglyceride: 200-499 mg/dLVery High Triglyceride: greater than or equal to 5OO mg/dL Cholesterol 207(H) <200 mg/dL [facility] Comment:Desirable Cholestero l: less than 200 mg/dLBorderline High Cholesterol: 200-239 mg/dLHigh Cholesterol: greater than 239 mg/dL LDL Cholesterol Calculated 116(H) <100 mg/dL [facility] Comment:Desirable LDL: less than 100 mg/dLNear Optimal/Above Optimal LDL: 110- 129 mg/dLBorderline High LDL: 130-159 mg/dLHigh LDL: 160-189 mg/dLVery High LDL: greater than or equal to 190 mg/dL HDL Cholesterol 72 >40 mg/dL [facility] Comment:Desirable HDL: great er than 40 mg/dL Note: This HDL assay may give artificially low results in patients with liver disease. Blood Venous blood specimen / Unknown 07/10/2023 8:47 AM EDT 07/10/2023 2:38 PM EDT us Rehana Hathaway MD LAB BLOOD ORDERABLES Final Re sult [facility] [address] [place] [phone] * Hm Colonoscopy (05/14/2020) Colonoscopy Normal Normal Narrative Ghazal Nuñez - 05/14/2020 Recommended 5 years ( confirmed with gastro office ) Historical Provider MD HEALTH MAINTENANCE Final Result * ALBUMIN, RANDOM URINE W/CREATININE (02/05/2020 10:29 AM EST) Pathologist [facility] Microalbumin Urine 0.4 See Note: mg/dL [...] ORDERABLES Final Re sult Performing Organization Address [facility] Co de Phone Number [facility] [address] * HPV mRNA E6/E7 (11/28/2018 10:43 AM EDT) HPV mRNA E6/E7 Not Detected NOT DETECTED [facility] Comment: This test was performed using the APTIMA(R) HPV Assay ([employer] This assay detects E6/E7 viral messenger RNA (mRNA) from 14 high-risk HPV types (16,18,31,33,35,39,45,51, 52,56,58,59,66,68). For additional information please refer to: http://education.[employer]/faq/EBK530w0 (This link is being provided for informational/ educational purposes only.) The analytical performance characteristics of this assay have been determined by [employer] [place], [place]. The modifications have not been cleared or approved by the FDA. This assay has been validated pursuant to the CLIA regulations and is used for clinical purposes. Test Performed by [facility], [facility], [address] [place] [address] Fred Boyd M.D., Ph.D., Director of Laboratories , CLIA [id number] Please note: Effective 10/25/2015, HPV testing will be performed using [employer]'s APTIMA test which targets mRNA. Detecting mRNA instead of DNA, as in older methods, offers significant improvements in specificity. 11/28/2018 10:4 3 AM EDT us Rehana Hathaway MD HISTORICAL/NON ORDERABLE LABS Final Result [facility] [address] from Last 3 Months or Most Recently Relevant to Health [place] [address] [facility] C[facility] DENTAL-[facility] MEDICAID STAND ADULT * Guarantor: Alecia Joseph Account Type Relation to Patient Date of Phone Billing Address [place] [address] * Guarantor: Alecia Joseph Account Type Relation to Patient Date of Phone Billing Address Personal/Family Self [facility] [place] [address] Care Teams Food And Nutrition Supervisor Relationship Specialty Start Date End Date Rehana Hathaway MD [address] [place] [phone] PCP - General Family Medicine 02/12/18
--- OUTSIDE RECORDS SUMMARY | 2025-01-05 13:35 | XMS_ITS | Encounter Summary ---
Author Organization [employer] Address [address] [facility] [address] [place] [address] Care Team Providers Care Sewer Separation Designer Name Role Phone Rehana Hathaway MD Primary Care Provider [phone] Encounter Details Date Type Department Care Team ([facility] Contact Info) Description 01/31/[address] [facility] [address] [place] [address] Rehana Hathaway MD [address] [place] [address] Social History Tobacco Use Types Packs/Day Years [...] Upcoming Encounters Date Type Department Care Team ([facility] Contact Info) Description 03/04/2025 9:45 AM EST Procedure Visit [facility] [address] [place], [place] [phone] Rehana Hathaway MD [address] [place], [place] [phone] documented as of this encounter Visit Diagnoses Not on filedocumented in this encounter Care Teams Sewer Separation Designer Relationship Specialty Start Date End Date Rehana Hathaway MD [address] [place] [address] PCP - General Family Medicine 02/12/18 documented as of this encounter
== END ==
LOC: HO.CARD 10:48
PROVIDERS: PCP Pediatrics; Visit Provider Hospitalist
DX: R06.00 Dyspnea, unspecified (principal)
CPT/HCPCS: 93350; Q9957

== ENCOUNTER → 2025-01-05 10:50 | Outpatient (BNV) | payer MEDICAID, SELFPAY | PROVIDERS: PCP Pediatrics | DX: R06.02 Shortness of breath (principal) | CPT/HCPCS: 93016; 93018; 93350; 93352 ==

== ENCOUNTER → 2025-01-23 10:52 | Outpatient (BNV) | payer MEDICAID, SELFPAY | PROVIDERS: PCP Pediatrics; Visit Provider Radiology Diagnostic Radiology | DX: E27.9 Disorder of adrenal gland, unspecified (principal); K76.89 Other specified diseases of liver | CPT/HCPCS: 74183 ==

== ENCOUNTER 2025-01-23 10:53 | Outpatient (REF) | payer MEDICAID, SELFPAY ==
--- NOTE | ~2025-01-23 | MR_ITS ---
EXAMINATION: MR ABDOMEN WITHOUT AND WITH CONTRAST CLINICAL INFORMATION: 2.0 cm nodule, left adrenal gland. Weight loss. COMPARISON: Correlated to CT dated May 23, 2024. TECHNIQUE: MR abdomen was performed without and with use of 6.0 mL intravenous [(Gadavist) gadolinium contrast. Postcontrast images are performed in multiphase dynamic sequences. Imaging was performed in 3 planes. No reported immediate complications. FINDINGS: LUNG BASES: No enhancing mass. LIVER, GALLBLADDER, AND BILIARY TREE: Liver measures 15 cm. No enhancing mass. There is a 6 mm nonenhancing fluid signal characteristic lesion in the left hepatic lobe. Main portal veins, hepatic veins and intrahepatic portion of the IVC are patent. Focal fatty infiltration adjacent to the falciform ligament. Gallbladder is contracted. No pericholecystic fluid collection or gallbladder wall thickening. No intrahepatic or extrahepatic biliary ductal dilatation. PANCREAS: No solid or cystic lesion. No main pancreatic ductal dilatation. No peripancreatic fluid collections. SPLEEN: 9 cm. No solid or cystic mass. ADRENAL GLANDS: Right adrenal gland is normal. There is a 23 x 20 mm intermediate T1 and slightly decreased T2 nodular lesion centered in the left adrenal gland with homogeneous drop-off the signal from the in to the out of phase sequences. KIDNEYS AND URETERS: No hydronephrosis. Normal enhancement pattern of the renal cortex. No enhancing renal mass. No gross cystic lesion. No perinephric fluid collections or masses. GASTROINTESTINAL TRACT: Abundant food contents in the stomach. Abundant stool in the large intestine. ABDOMINAL WALL: Paramagnetic field distortion secondary to metallic piercing in the periumbilical region. LYMPH NODES: No mesenteric or retroperitoneal lymphadenopathy. VASCULAR: No aneurysm or dissection, abdominal aorta. OSSEOUS STRUCTURES: Multilevel thoracic spondylosis and a shaped curvature of the lumbar spine with a levoconvex rotoscoliosis. Probable grade 1 anterolisthesis L4-5 and L5-S1 on a degenerative basis. 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 6 mm cyst, left hepatic lobe. Electronically signed by: Mingo Badillo MD 01/23/2025 11:54 AM [facility]
== END 2025-01-23 10:54 | disposition home or self-care (01) ==
LOC: HO.MRI 10:53
PROVIDERS: PCP Pediatrics; Visit Provider Pediatrics
DX: E27.8 Other specified disorders of adrenal gland (principal); R63.4 Abnormal weight loss
CPT/HCPCS: 74183; A9585

== ENCOUNTER 2025-02-02 09:39 | Outpatient (REF) | payer MEDICAID, SELFPAY ==
--- OUTSIDE RECORDS SUMMARY | 2025-01-29 11:30 | XMS_ITS | Encounter Summary ---
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 Procedures MR Knee w/o Contrast Right Steph Mcguire MD [address] [place] [address] Phone: tel: fax: [address] [address] Phone: tel: fax: Referral ID Status Reason Start Date Expiration Date V isits Requested Visits Authorized [id number] Authorized 01/30/2025 01/30/2026 1 1 * Consultation (Routine) - Pending Review Specialty Diagnoses / Procedures Referred By Contac t Referred To Contact Orthopaedic Surgery Diagnoses 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 Steph Mcguire MD [address] [place] [address] Phone: tel: fax: Referral ID Status Reason Start Date Expiration Date Visits Requested Visits Authorized [id number] Pending Review Specialty Services Required 01/30/2026 1 1 Reason for Visit * Reason Comments Follow-up sick visit Encounter Details Date Type Department Care Team (Latest Contact Info) Description 01/29/2025 11:30 AM EST Office Visit [facility] MEDICINE [address] [place] [address] Steph Mcguire MD [address] [place] [address] 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 (Primary Dx) Social History Tobacco Use Types Packs/Day Years [...] Access Q2 Not on file 03/19/2024 Comments No Sex and Gender Information Value Date Recorded Sex Assigned at Female 12/12/2021 10:15 AM EDT Legal Sex Female 10:15 AM EDT Gender Identity Female 12/12/2021 10:15 AM EDT Sexual Orientation Straight 12/12/2021 10 :15 AM EDT documented as of this encounter Last Filed Vital Signs Vital Sign Reading Time Taken Comments Blood Pressure 118/78 01/29/2025 11:47 AM EST Pulse 64 01/29/2025 11:47 AM EST Temperature 36.2 C (97.1 F) 01/29/2025 11:47 AM EST Respiratory Rate 16 01/29/2025 11:47 AM EST Oxygen Saturation - - Inhaled Oxygen Concentration - - Weight 62.4 kg (137 lb 9.6 oz) 01/29/2025 11:47 AM EST Height 149.9 cm (4' 11 ) 01/29/2025 11:47 AM EST Body Mass Index 27.79 01/29/2025 11:47 AM EST documented in this encounter Progress Notes * Steph Mcguire MD - 01/29/2025 11:30 AM EST SUBJECTIVE: Alecia Joseph is a 55 y.o. year old female who presents for sick visit/knee pain. Denies recent illness, injury, or hospitalization. Right Knee Pain Right knee pain has been present for approximately two and a half weeks, with onset described as sudden and without clear trigger. Pain persisted despite prior physical therapy, which provided only partial relief. Swelling of the right knee began three days prior to the encounter. Denies fever. Able to go up and down stairs with pain. History of significant trauma to the knee last year following a jump, described as screwed it up really bad. No current issues with the left knee. Xray of right knee on 2023 showed 1. Minimal narrowing of the patellofemoral compartment lateral facet. Joint spaces otherwise preserved. 2. Otherwise normal exam. Acute Concerns: Social History Social History Narrative Not on file Problem List[1] Family History[2] Review of Systems Constitutional: Negative for chills, fatigue and fever. HENT: Negative for congestion, ear pain, nosebleeds, rhinorrhea, sinus pressure, sore throat and trouble swallowing. Eyes: Negative for pain and discharge. Respiratory: Negative for cough, chest tightness and shortness of breath. Cardiovascular: Negative for chest pain, palpitations and leg swelling. Gastrointestinal: Negative for abdominal pain, blood in stool, constipation, diarrhea and nausea. Endocrine: Negative for polydipsia and polyuria. Genitourinary: Negative for dysuria, frequency, genital sores, pelvic pain and vaginal discharge. Musculoskeletal: Positive for arthralgias and gait problem. Negative for back pain and neck pain. Skin: Negative for rash. Allergic/Immunologic: Negative for environmental allergies. Neurological: Negative for dizziness, seizures, weakness, light-headedness and headaches. Hematological: Negative for adenopathy. Psychiatric/Behavioral: Negative for agitation, behavioral problems, self-injury and suicidal ideas. OBJECTIVE: Vitals: 01/29/25 1147 BP: 118/78 Pulse: 64 Resp: 16 Temp: 97.1 ??F (36.2 ??C) Physical Exam HENT: Right Ear: Tympanic membrane and ear canal normal. Left Ear: Tympanic membrane and ear canal normal. Mouth/Throat: Mouth: Mucous membranes are moist. Pharynx: No oropharyngeal exudate or posterior oropharyngeal erythema. Eyes: Pupils: Pupils are equal, round, and reactive to light. Cardiovascular: Rate and Rhythm: Regular rhythm. Pulses: Normal pulses. Heart sounds: Normal heart sounds. No murmur heard. Pulmonary: Breath sounds: Normal breath sounds. Abdominal: General: Bowel sounds are normal. Palpations: Abdomen is soft. Tenderness: There is no abdominal tenderness. Musculoskeletal: Cervical back: Neck supple. Right knee: Swelling present. Decreased range of motion. MCL laxity present. Abnormal meniscus and abnormal patellar mobility. Instability Tests: Medial Johnson test positive. Skin: General: Skin is warm. Neurological: General: No focal deficit present. Mental Status: She is alert and oriented to person, place, and time. Psychiatric: Mood and Affect: Mood normal. Behavior: Behavior normal. 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 Differential includes ligament injury and meniscal tear. - Ordered MRI of the left knee. Recommended use of knee brace and cane for support. - Advised continuation of physical therapy exercises at home. - Prescribed Tylenol and Celebrex for pain management for 1-2 weeks. - Referral to orthopedics for further evaluation and possible intra-articular injection. Instructedto bring MRI disc/films to orthopedic appointment. Relevant Medications acetaminophen (Tylenol Extra Strength) 500 MG tablet celecoxib (CeleBREX) 100 MG capsule Other Relevant Orders Referral to Orthopaedic Surgery MR Knee w/o Contrast Right This note was drafted using Ambient (AI) technology. The patient/patient's guardian has been informed and has consented to the use of this technology: No No follow-ups on file. Medications Ordered Prior to Encounter[3] [1] Patient Active Problem List Diagnosis Anxious depression Benign essential hypertension COVID-19 Hypertension Hypothyroidism Osteoarthritis of left acromioclavicular joint Overweight Primary insomnia Vitamin D deficiency Depressive disorder Moderate persistent asthma Microcytic anemia Gastroesophageal reflux disease Rash Headache Carpal tunnel syndrome, bilateral Diabetes due to undrl condition w oth diabetic neuro comp ([facility]) Colon cancer screening Epigastric pain Severe persistent asthma with intensive monitoring ([facility]) 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 [3] Current Outpatient Medications on File Prior to Visit Medication Sig Dispense Refill Blood Pressure kit To check the BP daily 1 kit 0 D3-1000 25 MCG (1000 UT) capsule TAKE 1 CAPSULE BY MOUTH EVERY DAY 90 capsule 2 Diclofenac Sodium 1 % gel APPLY TOPICALLY TO THE AFFECTED AREA(S) THREE TIMES DAILY DIRECTED 100g 1 EPINEPHrine (Epipen) 0.3 MG/0.3ML injection syringe INJECT INTRAMUSCULARLY DIRECTED ON PACKAGE AND GO TO EMERGENCY ROOM estradiol (Climara) 0.025 MG/24HR Place 1 patch on the skin 1 (one) time per week. 4 patch 3 fexofenadine (Fariha) 180 MG tablet TAKE 1 TABLET BY MOUTH EVERY DAY 30 tablet 11 Fiber-Lax 625 MG tablet TAKE 1 TABLET BY MOUTH ONCE DAILY 90 tablet 3 gabapentin (Neurontin) 300 MG capsule TAKE 1 CAPSULE BY MOUTH THREE TIMES DAILY 90 capsule 1 hydroCHLOROthiazide (HYDRODiuril) 25 MG tablet Take 1 tablet (25 mg) by mouth in the morning. 30 tablet 11 hydrocortisone 2.5 % cream Apply pea sized amount to skin bid for 1 week 15 g 0 Incruse Ellipta 62.5 MCG/ACT aerosol powder INHALE 1 PUFF DAILY AT THE SAME TIME EVERY DAY ipratropium (Atrovent) 0.06 % nasal spray USE 1-2 SPRAYS IN EACH NOSTRIL UP TO THREE TIMES DAILY ASNEEDED RUNNY NOSE OR post-nasal drip levothyroxine (Synthroid, Levoxyl) 88 MCG tablet TAKE 1 TABLET BY MOUTH ONCE DAILY IN THE MORNING BEFORE BREAKFAST 90 tablet 1 meclizine (Antivert) 25 MG tablet Take 1 tablet (25 mg) by mouth See administration instructions. TAKE 1 TABLETS BY MOUTH TWICE DAILY NEEDED 30 tablet 0 melatonin 3 MG tablet Take 1 tablet (3 mg) by mouth if needed at bedtime for sleep. 90 tablet 3 montelukast (Singulair) 10 MG tablet Take 10 mg by mouth at bedtime. omeprazole (PriLOSEC) [address] capsule TAKE 1 CAPSULE BY MOUTH EVERY DAY BEFORE BREAKFAST DO NOT BREAK, CRUSH, DISSOLVE OR CHEW 90 capsule 1 polyethylene glycol, PEG, 3350 (Glycolax) 17 GM/SCOOP powder TAKE 17 GM MIXED IN 8 OUNCES OF WATER,COFFEE OR TEA ONCE DAILY 510 g 11 progesterone 100 MG capsule Take 1 capsule (100 mg) by mouth at bedtime. 30 capsule 2 senna-docusate (Senokot S) 8.6-50 MG tablet Take 1 tablet by mouth Once per day. 30 tablet 11 sertraline (Zoloft) 50 MG tablet Take 1 tablet (50 mg) by mouth in the morning. 90 tablet 3 Spiriva Respimat 2.5 MCG/ACT inhaler INHALE 2 PUFFS BY MOUTH ONCE DAILY DIRECTED Stimulant Laxative 8.6-50 MG tablet TAKE 1 TABLET BY MOUTH DAILY NEEDED FOR CONSTIPATION. TAKE ONLY DIRECTED. 90 tablet 1 sucralfate (Carafate) 1 g tablet Take 1 tablet (1 g) by mouth before breakfast, before lunch, before evening meal, and at bedtime. 120 tablet 0 Symbicort 160-4.5 MCG/ACT inhaler Inhale 2 puffs 2 times daily. Ventolin HFA 108 (90 Base) MCG/ACT inhaler INHALE 2 PUFFS BY MOUTH EVERY 4 HOURS 18 g 1 Xolair 150 MG injection Use as directed [DISCONTINUED] Acetaminophen Extra Strength 500 MG tablet Take 1,000 mg by mouth if needed in the morning and at bedtime (left ear pain). 60 tablet 0 No current facility-administered medications on file prior to visit. 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 Differential includes ligament injury and meniscal tear. - Ordered MRI of the left knee. Recommended use of knee brace and cane for support. - Advised continuation of physical therapy exercises at home. - Prescribed Tylenol and Celebrex for pain management for 1-2 weeks. - Referral to orthopedics for further evaluation and possible intra-articular injection. Instructedto bring MRI disc/films to orthopedic appointment. 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 Expected: 01/30/2025, Expires: 01/30/2026 Scheduled Referrals Name Type Priority Associated Diagnoses Orde r Schedule Referral to Orthopaedic Surgery Outpatient Referral Routine 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
--- OUTSIDE RECORDS SUMMARY | 2025-02-02 11:06 | XMS_ITS | Patient Health Record ---
Author Organization [facility] Address [address] [place] [address] Care Team Providers Care Credit Rating Checker Name Role Phone Rivas ASIF, Rehana Primary Care Provider David Coats Jr Unavailable Yesica Velasco Unavailable Unavailable Reason For Referral No Information Medications Medication SIG (Take, Route, Frequency, Duration) Notes Start Date End Date Status Vitamin D High Potency Active FeroSul 325 (65 Fe) MG Tablet Orally Active Ibuprofen PRN Active MiraLax (colon prep) 8.3 ounce ((238) grams mixed with Gatorade or Crystal Light orally begin at 5:00 p.m. the day before the procedure; Duration: 1 day 04/19/2020 Active Omeprazole 20 MG Capsule Delayed Release Orally Active Flovent HFA Active Fluticasone Propionate Active Melatonin 5 MG Tablet Orally Active Cetirizine HCl 10 MG Tablet Orally Active Lisinopril-hydroCHLOROthiazi de 20-25 MG Tablet Orally Active Levothyroxine Sodium 200 MCG Tablet Orally Active Ondansetron HCl 4 MG Tablet Orally Active Immunizations Vaccine Route Administration Date Status Comme nts Influenza Unknown 04/19/2020 Refused Social History Tobacco Use: Social History Observation Description Date Details (start date - stop date) Former Smoker NA - NA Social History Drugs/Alcohol: Social Info Question Answer Notes Alcohol Screen Did you have a drink containing alcohol in the past year? Yes How often did you have a drink containing alcohol in the past year? Monthly or less (1 point) How often did you have 6 or more drinks on one occasion in the past year? Never (0 point) Points 1 Interpretation Negative Tobacco Use: Social Info Question Answer Notes Tobacco Use/Smoking Patient is a former smoker When did you stop smoking? 19 months How long has it been since you last smoked? 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 Problems Problem Type SNOMED Code ICD Code Onset Dates Problem Status W/U Status Risk Notes Problem Colon cancer screening (922616069) Colon cancer screening (Z12.11) Active confirmed Problem Microcytic anemia (223948967) Microcytic anemia (D50.9) Active confirmed Problem Gastroesophageal reflux disease (552473313) Gastroesophageal reflux disease, unspecified whether esophagitis present (K21.9) Active confirmed Plan Of Treatment Future Test Test Name Order Date COLONOSCOPY 04/19/2020 Insurance Providers Payer Name Payer Address Payer Phone Subscriber Number Group Number Insured Name Patient Relationship to Insured Coverage Start Date Coverage End Date MEDICAID OF [facility] [address] [place] [phone] [id number] COLON, HANNAH Self - patient is the insured Medical (General) History Medical History History ICD Code asthma hypertension hyperthyroidism heartburn seasonal allergies Covid 19 infection, 03/22/20, quarantined at home, no treatment required Surgical History Surgery Date(Month/Year) Knee Replacement - left side
--- OUTSIDE RECORDS SUMMARY | 2025-02-02 11:06 | XMS_ITS | Encounter Summary ---
Author Organization [employer] Address [address] [facility] 7t [place] [address] Care Team Providers Care Broker In Charge Name Role Phone Rehana Hathaway MD Primary Care Provider [phone] Reason for Visit * Reason Comments Med Refill Encounter Details Date Type Department Care Team ([facility] st Contact Info) Description 07/12/2023 Refill [facility] MED & PEDS [address] [place], [place] [phone] Rehana Hathaway MD [address] [place] [address] Social History Tobacco Use Types Packs/Day Years [...] Upcoming Encounters Date Type Department Care Team ([facility] st Contact Info) Description 03/04/2025 9:45 AM EST Procedure Visit [facility] MED & PEDS [address] [place] [address] Rehana Hathaway MD [address] [place] [address] documented as of this encounter Visit Diagnoses Not on filedocumented in this encounter Additional Health Concerns Assessment Noted Time PHQ-9 Depression Total Score: 3 05/14/19 24 9:07 AM EDT documented as of this encounter Care Teams Broker In Charge Relationship Specialty Start Date End Date Rehana Hathaway MD [address] [place] [address] PCP - General Family Medicine 02/12/18 documented as of this encounter
--- OUTSIDE RECORDS SUMMARY | 2025-02-02 11:06 | XMS_ITS | Encounter Summary ---
Author Organization [employer] Address [address] [facility] 7t [place] [address] Care Team Providers Care Color Mixer Name Role Phone Rehana Hathaway MD Primary Care Provider [phone] Reason for Visit * Reason Onset Date Comments Prior Auth DME 01/30/2025 Medication Question 01/30/2025 Encounter Details Date Type Department Care Team ([facility] st Contact Info) Description 01/30/2025 Telephone [facility] MEDICINE [address] [place] [address] Rehana Hathaway MD [address] [place] [address] Prior Auth DME; Medication Question Social History Tobacco Use Types [...] encounter Miscellaneous Notes * Telephone Encounter - Seema Mccoy RN - 01/30/2025 3:49 PM EST TC returned to pt. And advised of meds sent and directions for use. Pt. Verbalizes understanding, will p/up from [facility] pharmacy and let us know if they do not have positive effect. Sticky note added toindicate pt.'s preference of not being scheduled with Dr. Mcguire * Telephone Encounter - Setph Mcguire MD - 01/30/2025 3:43 PM EST Meds sent to pharmacy, please call patient to corn picker and please put a note re provider preference. * Telephone Encounter - Seema Mccoy RN - 01/30/2025 3:11 PM EST Please advise on if medication was discussed at yesterday's visit for knee pain and swelling. Thanks! * Telephone Encounter - Debo Back - 01/30/2025 3:06 PM EST Tc from pt requesting update on medication for inflammation of her knee . Pt is currently stating I do not want to be seen by same doctor , do not put to her on my records she is irresponsible . She seen me she got paid and I am screwed here . Contact pt at [phone] * Telephone Encounter - Abdulazizelif Andrew - 01/30/2025 9:33 AM EST Tc from pt stating want know status . she was seen 01/29 sick onsite with Michelle request a medication for swollen knee and dme Cane Knee bracelet Please contact pt at [phone] documented in this encounter Plan of Treatment Upcoming Encounters Date Type Department Care Team (Late st Contact Info) Description 03/04/2025 9:45 AM EST Procedure Visit [facility] MED & PEDS [address] [place] [address] Rehana Hathaawy MD [address] [place] [address] documented as of this encounter Visit Diagnoses Not on filedocumented in this encounter Additional Health Concerns Assessment Noted Time PHQ-9 Depression Total Score: 6 12/24/19 25 9:47 AM EST documented as of this encounter Care Teams Color Mixer Relationship Specialty Start Date End Date Rehana Hathwaay MD [address] [place] [address] PCP - General Family Medicine 02/12/18 documented as of this encounter
--- OUTSIDE RECORDS SUMMARY | 2025-02-02 11:06 | XMS_ITS | Encounter Summary ---
Author Organization [employer] Address [address] [facility] [address] [place] [address] Care Team Providers Care Meat Apprentice Name Role Phone Rehana Hathaway MD Primary Care Provider [phone] Encounter Details Date Type Department Care Team ([facility] Contact Info) Description 01/31/2022 Telephone [facility] MEDICINE [address] [place] [address] Rehana Hathaway MD [address] [place] [address] Social History Tobacco Use Types Packs/Day Years [...] Upcoming Encounters Date Type Department Care Team ([facility] Contact Info) Description 03/04/2025 9:45 AM EST Procedure Visit [facility] MED & PEDS [address] [place], [place] [phone] Rehana Hathaway MD [address] [place], [place] [phone] documented as of this encounter Visit Diagnoses Not on filedocumented in this encounter Care Teams Meat Apprentice Relationship Specialty Start Date End Date Rehana Hathaway MD [address] [place] [address] PCP - General Family Medicine 02/12/18 documented as of this encounter
--- OUTSIDE RECORDS SUMMARY | 2025-02-02 11:06 | XMS_ITS | Encounter Summary ---
Author Organization [email or web address] Address [address] [place] [address] Care Team Providers Care Solar Project Manager Name Role Phone Rehana Hathaway MD Primary Care Provider Encounter Details Date Type Department Care Team (Latest Contact Info) Description 01/29/2025 Travel Social History Tobacco Use Types Packs/Day [...] 9:45 AM EST Procedure Visit [facility] MED & PEDS [address] [place] [address] Rehana Hathaway MD [address] [place] [address] documented as of this encounter Visit Diagnoses Not on filedocumented in this encounter Additional Health Concerns Assessment Noted Time PHQ-9 Depression Total Score: 6 12/24/19 25 9:47 AM EST documented as of this encounter Care Teams Solar Project Manager Relationship Specialty Start Date End Date Rehana Hathaway MD [address] [place] [address] PCP - General Family Medicine 02/12/18 documented as of this encounter
--- OUTSIDE RECORDS SUMMARY | 2025-02-02 11:06 | XMS_ITS | Encounter Summary ---
Author Organization [employer] Address [address] [facility] 7[address] [place] [address] Care Team Providers Care Technology Intern Name Role Phone Rehana Hathaway MD Primary Care Provider [phone] Encounter Details Date Type Department Care Team ([facility] st Contact Info) Description 12/21/[address] [facility] MEDICINE [address] [place] [address] Ghazal Nuñez Social History Tobacco Use Types [...] Description 03/04/2025 9:45 AM EST Procedure Visit [facility] MED & PEDS [address] [place] [address] Rehana Hathaway MD [address] [place] [address] documented as of this encounter Procedures Procedure [...] documented as of this encounter Care Teams Technology Intern Relationship Specialty Start Date End Date Rehana Hathaway MD [address] [place] [address] PCP - General Family Medicine 02/12/18 documented as of this encounter
--- OUTSIDE RECORDS SUMMARY | 2025-02-02 11:06 | XMS_ITS | Encounter Summary ---
Author Organization [email or web address] Address [address] [facility] [address] [place] [address] Care Team Providers Care Core Cutter Name Role Phone Rehana Hathaway MD Primary Care Provider [phone] Reason for Visit * Reason Onset Date Comments Results 07/17/2023 Encounter Details Date Type Department Care Team ([facility] st Contact Info) Description 07/17/2023 Telephone [facility] MEDICINE [address] [place] [address] Rehana Hathaway MD [address] [place] [address] Results Social History Tobacco Use Types Packs/Day [...] AM EST Procedure Visit [facility] MED & PEDS [address] [place] [address] Rehana Hathaway MD [address] [place] [address] documented as of this encounter Visit Diagnoses Not on filedocumented in this encounter Additional Health Concerns Assessment Noted Time PHQ-9 Depression Total Score: 3 05/14/19 24 9:07 AM EDT documented as of this encounter Care Teams Core Cutter Relationship Specialty Start Date End Date Rehana Hathaway MD [address] [place] [address] PCP - General Family Medicine 02/12/18 documented as of this encounter
--- OUTSIDE RECORDS SUMMARY | 2025-02-02 11:06 | XMS_ITS | Encounter Summary ---
Author Organization [employer] Address [address] [facility] 7 [place] [address] Care Team Providers Care Electrical Logging Engineer Name Role Phone Rehana Hathaway MD Primary Care Provider [phone] Reason for Visit * Reason Onset Date Comments Appointment Request 04/02/2024 Encounter Details Date Type Department Care Team ([facility] st Contact Info) Description 04/02/2024 Telephone [facility] [address] [place], [place] [phone] Rehana Hathaway MD [address] [place] [address] Appointment Request Social History Tobacco Use Types [...] 03/04/2025 9:45 AM EST Procedure Visit [facility] [address] [place] [address] Rehana Hathaway MD [address] [place] [address] documented as of this encounter Visit Diagnoses Not on filedocumented in this encounter Additional Health Concerns Assessment Noted Time PHQ-9 Depression Total Score: 3 05/14/19 24 9:07 AM EDT documented as of this encounter Care Teams Electrical Logging Engineer Relationship Specialty Start Date End Date Rehana Hathaway MD [address] [place] [address] PCP - General Family Medicine 02/12/18 documented as of this encounter
--- OUTSIDE RECORDS SUMMARY | 2025-02-02 11:06 | XMS_ITS | Encounter Summary ---
Author Organization [employer] Address [address] [facility] [address] [place] [address] Care Team Providers Care Cnc Service Technician Name Role Phone Rehana Hathaway MD Primary Care Provider [phone] Reason for Visit * Reason Onset Date Comments Results 01/16/2024 Encounter Details Date Type Department Care Team ([facility] st Contact Info) Description 01/16/2024 Telephone [facility] [address] [place] [address] Rehana Hathaway MD [address] [place] [address] Results Social History Tobacco Use Types Packs/Day [...] results: Labs Date when done: 01/15/24 Facility: [facility] Labs documented in this encounter Plan of Treatment Upcoming Encounters Date Type Department Care Team (Late st Contact Info) Description 03/04/2025 9:45 AM EST Procedure Visit [facility] [address] [place] [address] Rehana Hathaway MD [address] [place] [address] documented as of this encounter Visit Diagnoses Not on filedocumented in this encounter Additional Health Concerns Assessment Noted Time PHQ-9 Depression Total Score: 3 05/14/19 24 9:07 AM EDT documented as of this encounter Care Teams Cnc Service Technician Relationship Specialty Start Date End Date Rehana Hathaway MD [address] [place] [address] PCP - General Family Medicine 02/12/18 documented as of this encounter
--- OUTSIDE RECORDS SUMMARY | 2025-02-02 11:06 | XMS_ITS | Encounter Summary ---
Author Organization [employer] Address [address] [facility] [address] [place] [address] Care Team Providers Care Movie Stunt Performer Name Role Phone Rehana Hathaway MD Primary Care Provider [phone] Reason for Visit * Reason Comments Med Refill Encounter Details Date Type Department Care Team ([facility] st Contact Info) Description 05/22/2023 Refill [facility] [address] [place], [place] [phone] Rehana Hathaway MD [address] [place] [address] Benign essential hypertension Social History Tobacco Use [...] [facility] [address] [place] [address] Rehana Hathaway MD [address] [place] [address] documented as of this encounter Visit Diagnoses Diagnosis Benign essential hypertension Essential hypertension, benign documented in this encounter Additional Health Concerns Assessment Noted Time PHQ-9 Depression Total Score: 3 05/14/19 24 9:07 AM EDT documented as of this encounter Care Teams Movie Stunt Performer Relationship Specialty Start Date End Date Rehana Hathaway MD [address] [place] [address] PCP - General Family Medicine 02/12/18 documented as of this encounter
--- OUTSIDE RECORDS SUMMARY | 2025-02-02 11:06 | XMS_ITS | Encounter Summary ---
Author Organization [employer] Address [address] [facility] [address] [place] [address] Care Team Providers Care Back Tender Cylinder Name Role Phone Rehana Hathaway MD Primary Care Provider [phone] Reason for Visit * Reason Comments Med Refill Encounter Details Date Type Department Care Team ([facility] st Contact Info) Description 09/02/2023 Refill [facility] [address] [place] [address] Parveen Gonzales MD [address] [place] [address] Chronic gastroesophageal reflux disease Social History Tobacco [...] 9:45 AM EST Procedure Visit [facility] [address] [place] [address] Rehana Hathaway MD [address] [place] [address] documented as of this encounter Visit Diagnoses Diagnosis Chronic gastroesophageal reflux disease documented in this encounter Additional Health Concerns Assessment Noted Time PHQ-9 Depression Total Score: 3 05/14/19 24 9:07 AM EDT documented as of this encounter Care Teams Back Tender Cylinder Relationship Specialty Start Date End Date Rehana Hathaway MD [address] [place] [address] PCP - General Family Medicine 02/12/18 documented as of this encounter
--- OUTSIDE RECORDS SUMMARY | 2025-02-02 11:07 | XMS_ITS | Clinical Summary ---
Author Organization [employer] Address [address] [place] [address] [address] [place] [address] Care Team Providers Care Retail Branch Manager Name Role Phone Rehana Hathaway MD Primary Care Provider [phone] Allergies No known active allergies Medications EPINEPHrine [...] by mouth in the morning. 30 tablet 024 Active sertraline (Zoloft) 50 MG tabletIndication [...] and at bedtime. 120 tablet 024 Active fexofenadine (Fariha) 180 MG tablet TAKE 1 TABLET BY MOUTH EVERY DAY 30 tablet 025 Active meclizine (Antivert) 25 MG tablet [...] THREE TIMES DAILY DIRECTED 100 g 1 01/27/20 25 11:37 AM EST 025 Active Fiber-Lax 625 MG tablet TAKE 1 TABLET BY MOUTH ONCE DAILY 90 tablet 3 12/30/19 4:49 PM EST Active progesterone 100 MG capsuleIndicatio ns:Postmenopausa l disorder Take 1 capsule (100 mg) by mouth at bedtime. 30 capsule 2 2025 Active estradiol (Climara) 0.025 MG/24HRIndicatio ns:Postmenopausa l disorder Place 1 patch on the skin 1 (one) time per week. 4 patch 3 12/30/19 25 10:51 AM EST 2025 Active senna-docusate (Senokot S) 8.6-50 MG tablet Take 1 tablet by mouth Once per day. 30 tablet 11 2025 Active polyethylene glycol, PEG, 3350 (Glycolax) 17 GM/SCOOP powder TAKE 17 GM MIXED IN 8 OUNCES OF WATER, COFFEE OR TEA ONCE DAILY 510 g 01/27/20 11:37 AM EST Active acetaminophen (Tylenol Extra Strength) 500 MG tablet Take 1 tablet (500 mg) by mouth every 6 (six) hours if needed for mild pain. 120 tablet 01/31/20 4:27 PM EST 2025 Active celecoxib (CeleBREX) 100 MG capsule Take 1 capsule (100 mg) by mouth 2 times daily for 14 days. 28 capsule 01/31/20 25 4:27 PM EST 025 2025 Active Acetaminophen Extra Strength 500 MG tabletIndication s:Other infective acute otitis externa of right ear Take 1,000 mg by mouth if needed in the morning and at bedtime (left ear pain). 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 Instructed to bring MRI disc/films to orthopedic appointment. Severe persistent asthma with intensive monitori ng [...] Encounters Date Type Department Care Team Description 01/30/2025 Telephone [facility] [address] [place] [phone] Rehana Hathaway MD Prior Auth DME; Medication Question 01/29/2025 11:30 AM EST Office Visit [facility] [address] [place] [phone] Steph Mcguire MD 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 (Primary Dx) 01/29/2025 Travel 01/29/2025 Telephone [facility] [address] [place] [address] Rehana Hathaway MD Nurse Triage 01/23/2025 Orders Only [facility] [address] [place] [address] Rehana Hathaway MD Adrenal incidentaloma (CMS/HCC) (Primary Dx) 12/27/2024 Results Follow-Up [facility] [address] [place] [address] Rehana Hathaway MD POCT Glucose, POCT Hgb A1c, Lipase, Additional followed-up results: 3 12/27/2024 Orders Only [facility] [address] [place] [address] Rehana Hathaway MD Acquired hypothyroidism (Primary Dx) 12/24/2024 Refill [facility] [address] [place] [address] Rehana Hathaway MD 12/23/2024 9:45 AM EST Office Visit [facility] [address] [place] [address] Rehana Hathaway MD Prediabetes (Primary Dx); Acquired hypothyroidism; Postmenopausal disorder; Encounter for immunization; Anxious depression; Severe persistent asthma with intensive monitoring ([facility]); Adrenal incidentaloma (CMS/HCC) 12/23/2024 Orders Only [facility] [address] [place] [address] Rehana Hathaway MD 12/23/2024 Travel 12/22/2024 Refill [facility] [address] [place] [address] Rehana Hathaway MD 12/19/2024 Telephone [facility] [address] [place] [address] Rehana Hathaway MD Chart Prep 12/06/2024 Refill [facility] [address] [place] [address] Margie Qureshi MD Acute pain of right knee; Patellofemoral pain syndrome of right knee 11/11/2024 1:00 PM EDT Office Visit [facility] [address] [place] [address] Margie Qureshi MD Acute pain of right knee (Primary Dx); Patellofemoral pain syndrome of right knee 11/11/2024 Travel 11/10/2024 Telephone [facility] [address] [place] [address] Rehana Hathaway MD Nurse Triage from Last 3 Months Immunizations Immunization Administration [...] 16 01/29/2025 11:47 AM EST Oxygen Saturation 99% 11/11/2024 1:02 PM EDT Inhaled Oxygen Concentration - - Weight 62.4 kg (137 lb 9.6 oz) 01/29/2025 11:47 AM EST Height 149.9 cm (4' 11 ) 01/29/2025 11:47 AM EST Body Mass Index 27.79 01/29/2025 11:47 AM EST Plan of Treatment Upcoming Encounters Date Type Department Care Team (Late st Contact Info) Description 03/04/2025 9:45 AM EST Procedure Visit [facility] [address] [place] [address] Rehana Hathaway MD [address] [place] [address] Health Maintenance Due Date Last Done Comments [...] 10/15/2025 10/15/2024, 09/13, 10/10/2023, Additional history exists Depression Screening 12/23/2025 12/23/2024, 12/24/19 25 Disability Screening 12/23/2025 12/23/2024 Tobacco Screening 01/29/2026 01/29/2025 DTaP/Tdap/Td Vaccines (2 - Td or Tdap) [...] Procedure Name Priority Date/Time Associated Diagnosis Comments MR ABDOMEN W AND WO CONTRAST Routine 01/23/2025 10:59 AM EST Adrenal incidentaloma (CMS/HCC) T4, FREE Routine 12/23/2024 10:31 AM EST T3, TOTAL Routine 12/23/2024 10:31 AM EST Prediabetes Acquired hypothyroidism TSH W/REFLEX TO FT4 Routine 12/23/2024 1 0:31 AM EST Prediabetes Acquired hypothyroidism LIPASE Routine 12/23/2024 10:31 AM EST Prediabetes Acquired hypothyroidism POCT GLYCATED HEMOGLOBIN, TOTAL Routine 12/23/2024 10:17 AM EST Prediabetes POCT GLUCOSE (CPT-77670) Routine 12/23/2024 10:17 AM EST Prediabetes BI [...] Recently Relevant to Health Maintenance Results * MR Abdomen w/ and w/o Contrast (01/23/2025 10:59 AM EST) Anatomical Region Laterality Modality Abdomen Magnetic Resonan ce 01/23/2025 10:5 9 AM EST Narrative 01/23/2025 11:57 AM EST [place] [address] Magnetic Resonance Report Signed Patient: Alecia Meza MR#: [id number] : 1970 Acct:[id number] Age/Sex: 55 / F ADM Date: 01/23/25 Loc: HO.MRI Attending Dr: Rehana Hathaway MD Ordering Physician: Rehana Hathaway MD Date of Service: 01/23/25 Procedure(s): MR abdomen wo/w con Accession Number(s): [id number] cc: Rehana Hathaway MD Reason for Exam: left incidentiloma, weight loss EXAMINATION: MR ABDOMEN WITHOUT AND WITH CONTRAST CLINICAL INFORMATION: 2.0 cm nodule, left adrenal gland. Weight loss. COMPARISON: Correlated to CT dated May 23, 2024. TECHNIQUE: MR abdomen was performed without and with use of 6.0 mL intravenous [(Gadavist) gadolinium contrast. Postcontrast images are performed in multiphase dynamic sequences. Imaging was performed in 3 planes. No reported immediate complications. FINDINGS: LUNG BASES: No enhancing mass. LIVER, GALLBLADDER, AND BILIARY TREE: Liver measures 15 cm. No enhancing mass. There is a 6 mm nonenhancing fluid signal characteristic lesion in the left hepatic lobe. Main portal veins, hepatic veins and intrahepatic portion of the IVC are patent. Focal fatty infiltration adjacent to the falciform ligament. Gallbladder is contracted. No pericholecystic fluid collection or gallbladder wall thickening. No intrahepatic or extrahepatic biliary ductal dilatation. PANCREAS: No solid or cystic lesion. No main pancreatic ductal dilatation. No peripancreatic fluid collections. SPLEEN: 9 cm. No solid or cystic mass. ADRENAL GLANDS: Right adrenal gland is normal. There is a 23 x 20 mm intermediate T1 and slightly decreased T2 nodular lesion centered in the left adrenal gland with homogeneous drop-off the signal from the in to the out of phase sequences. KIDNEYS AND URETERS: No hydronephrosis. Normal enhancement pattern of the renal cortex. No enhancing renal mass. No gross cystic lesion. No perinephric fluid collections or masses. GASTROINTESTINAL TRACT: Abundant food contents in the stomach. Abundant stool in the large intestine. ABDOMINAL WALL: Paramagnetic field distortion secondary to metallic piercing in the periumbilical region. LYMPH NODES: No mesenteric or retroperitoneal lymphadenopathy. VASCULAR: No aneurysm or dissection, abdominal aorta. OSSEOUS STRUCTURES: Multilevel thoracic spondylosis and a shaped curvature of the lumbar spine with a levoconvex rotoscoliosis. Probable grade 1 anterolisthesis L4-5 and L5-S1 on a degenerative basis. 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 6 mm cyst, left hepatic lobe. Electronically signed by: Mingo Badillo MD 01/23/2025 11:54 AM EST Dictated By: Mingo Martínez MD Signed By: <Electronically signed by Mingo Recinos MD in OV> 01/23/25 1154 DD/ 1059 TD/TT: 01/23/25 1140 Tool And Fixture Repairer: Procedure Note Donotuseinterpreter, Image - 01/23/[address] [address] Magnetic Resonance Report Signed Patient: Alecia MezaMR#: M [id number] : 1970Acct:[id number] Age/Sex: 55 / FADM Date: 01/23/25 Loc: HO.MRI Attending Dr: Rehana Hathaway MD Ordering Physician: Rehana Hathaway MD Date of Service: 01/23/25 Procedure(s): MR abdomen wo/w con Accession Number(s): [id number] cc: Rehana Hathaway MD Reason for Exam: left incidentiloma, weight loss EXAMINATION: MR ABDOMEN WITHOUT AND WITH CONTRAST CLINICAL INFORMATION: 2.0 cm nodule, left adrenal gland. Weight loss. COMPARISON: Correlated to CT dated May 23, 2024. TECHNIQUE: MR abdomen was performed without and with use of 6.0 mL intravenous [(Gadavist) gadolinium contrast. Postcontrast images are performed in multiphase dynamic sequences. Imaging was performed in 3 planes. No reported immediate complications. FINDINGS: LUNG BASES: No enhancing mass. LIVER, GALLBLADDER, AND BILIARY TREE: Liver measures 15 cm. No enhancing mass. There is a 6 mm nonenhancing fluid signal characteristic lesion in the left hepatic lobe. Main portal veins, hepatic veins and intrahepatic portion of the IVC are patent. Focal fatty infiltration adjacent to the falciform ligament. Gallbladder is contracted. No pericholecystic fluid collection or gallbladder wall thickening. No intrahepatic or extrahepatic biliary ductal dilatation. PANCREAS: No solid or cystic lesion. No main pancreatic ductal dilatation. No peripancreatic fluid collections. SPLEEN: 9 cm. No solid or cystic mass. ADRENAL GLANDS: Right adrenal gland is normal. There is a 23 x 20 mm intermediate T1 and slightly decreased T2 nodular lesion centered in the left adrenal gland with homogeneous drop-off the signal from the in to the out of phase sequences. KIDNEYS AND URETERS: No hydronephrosis. Normal enhancement pattern of the renal cortex. No enhancing renal mass. No gross cystic lesion. No perinephric fluid collections or masses. GASTROINTESTINAL TRACT: Abundant food contents in the stomach. Abundant stool in the large intestine. ABDOMINAL WALL: Paramagnetic field distortion secondary to metallic piercing in the periumbilical region. LYMPH NODES: No mesenteric or retroperitoneal lymphadenopathy. VASCULAR: No aneurysm or dissection, abdominal aorta. OSSEOUS STRUCTURES: Multilevel thoracic spondylosis and a shaped curvature of the lumbar spine with a levoconvex rotoscoliosis. Probable grade 1 anterolisthesis L4-5 and L5-S1 on a degenerative basis. 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 6 mm cyst, left hepatic lobe. Electronically signed by: Mingo Badillo MD 01/23/2025 11:54 AM EST Dictated By: Mingo Martínez MD Signed By: <Electronically signed by Mingo Recinos MDin OV> 01/23/25 1154 DD/ 1059 TD/TT: 01/23/25 1140 Tool And Fixture Repairer: Result Jovani Hathaway MD IMG MRI PROCEDURES Final Resu lt * (ABNORMAL) TSH W/Reflex to FT4 (12/23/2024 10:31 AM EST) TSH reflex Free T4 11.74(H) 0.32 - 4.0 uIU/mL [facility] Blood Venous blood specimen / Unknown 12/23/2024 10:31 AM EST 12/23/2024 2:01 PM EST us Rehana Hathaway MD LAB BLOOD ORDERABLES Final Re sult Performing Organization Address City/[facility]/ZIP Co de Phone Number [facility] [address] [place] [phone] * (ABNORMAL) T3, Total (12/23/2024 10:31 AM EST) T3, Total 54(A) 76 - 181 ng/dL [facility] Comment:THIS TEST WAS PERFOR MED AT:[facility] [address] [id number] ABDUL MD Blood Venous blood specimen / Unknown 12/23/2024 10:31 AM EST 12/23/2024 2:01 PM EST us Rehana Hathaway MD LAB BLOOD ORDERABLES Final Re sult [facility] [address] [place] [phone] * T4, Free (12/23/2024 10:31 AM EST) Free T4 (Free Thyroxine) 1.02 0.71 - 1.85 ng/dL [facility] 12/23/2024 10:3 1 AM EST 12/23/2024 2:01 PM EST us Rehana Hathaway MD LAB BLOOD ORDERABLES Final Re sult Performing Organization Address City/[facility]/ZIP Co de Phone Number [facility] [address] [place] [phone] * Lipase (12/23/2024 10:31 AM EST) Lipase 58 8 - 78 U/L [facility] Blood Venous blood specimen / Unknown 12/23/2024 10:31 AM EST 12/23/2024 2:01 PM EST us Rehana Hathaway MD LAB BLOOD ORDERABLES Final Re sult Performing Organization Address [facility] de Phone Number [facility] [address] [place] [phone] * POCT Hgb A1c (12/23/2024 10:17 AM EST) Hemoglobin A1C 5.6 4.0 - 5.7 % Blood 12/23/2024 10:1 7 AM EST us Rehana Hathaway MD POINT OF CARE TEST ENTER/EDIT ORDERABLES Final Result * POCT Glucose (12/23/2024 10:17 AM EST) Glucose Blood, POC 94 60 - 200 mg/dL Blood Capillary blood specimen / Unknown 12/23/2024 10:17 AM EST Result Jovani Hathaway MD POINT OF CARE TEST ENTER/EDIT ORDERABLES Final Result * BI Mammogram Screening Tomosynthesis Bilateral (10/15/2024 10:16 AM EDT) Anatomical Region Laterality Modality Breast Bilateral Mammography 10/15/2024 10:1 6 AM EDT Narrative 10/17/2024 4:15 PM EDT [address] [place] [address] Mammography Report Signed Patient: Alecia Meza MR#: [id number] [id number] : 1970 Acct:[id number] Age/Sex: 54 / F ADM Date: 10/15/24 Loc: HO.MAMMO Attending Dr: Rehana Hathaway MD Ordering Physician: Rehana Hathaway MD Results: 1Ne gative Date of Service: 10/15/24 Follow Up: 1 Year From Orig inal Mammogram Procedure(s): MM tomosynthesis screening BI Accession Number(s): [id number] cc: Rehana Hathaway MD EXAMINATION: MM SCREENING [...] 10/17/24 1613 DD/ 1016 TD/TT: 10/15/24 1037 Tool And Fixture Repairer: Procedure Note Donotuseinterpreter, Image - 10/17/[address] [place] [address] Mammography Report Signed Patient: Alecia MezaMR#: M [id number] : 1970Acct:[id number] Age/Sex: 54 / FADM Date: 10/15/24 Loc: HO.MAMMO Attending Dr: Rehana Hathaway MD Ordering Physician: Rehana Hathaway MDResults: 1Ne gative Date of Service: 10/15/24Follow Up: 1 Year From Orig inal Mammogram Procedure(s): MM tomosynthesis screening BI Accession Number(s): [id number] cc: Rehana Hathaway MD EXAMINATION: MM SCREENING [...] 10/17/24 1613 DD/ 1016 TD/TT: 10/15/24 1037 Tool And Fixture Repairer: us Rehana Hathaway MD IM BI PROCEDURES Final Resul t * (ABNORMAL) Lipid Panel, Standard (07/10/2023 8:47 AM EDT) Triglycerides 99 <150 mg/dL [facility] Comment:Desirable Triglyceri de: less than 150 mg/dLBorderline High Triglyceride 150-199 mg/dLHigh Triglyceride: 200-499 mg/dLVery High Triglyceride: greater than or equal to 5OO mg/dL Cholesterol 207(H) <200 mg/dL [facility] Comment:Desirable Cholestero l: less than 200 mg/dLBorderline High Cholesterol: 200-239 mg/dLHigh Cholesterol: greater than 239 mg/dL LDL Cholesterol Calculated 116(H) <100 mg/dL [facility] Comment:Desirable LDL: less than 100 mg/dLNear Optimal/Above Optimal LDL: 110- 129 mg/dLBorderline High LDL: 130-159 mg/dLHigh LDL: 160-189 mg/dLVery High LDL: greater than or equal to 190 mg/dL HDL Cholesterol 72 >40 mg/dL [facility] Comment:Desirable HDL: great er than 40 mg/dL Note: This HDL assay may give artificially low results in patients with liver disease. Blood Venous blood specimen / Unknown 07/10/2023 8:47 AM EDT 07/10/2023 2:38 PM EDT Rehana Hathaway MD LAB BLOOD ORDERABLES Final Re sult [facility] [address] [place] [phone] * Hm Colonoscopy (05/14/2020) Colonoscopy Normal [...] Creatinine, Urine 32 20 - 275 mg/dL [facility] 02/05/2020 10:2 9 AM EST Rehana Hathaway MD LAB URINE ORDERABLES Final Re sult Performing Organization Address City/[facility]/ZIP Co de Phone Number [facility] [address] * HPV mRNA E6/E7 (11/28/2018 10:43 AM EDT) HPV mRNA E6/E7 Not Detected NOT DETECTED [facility] Comment: This test was performed using the APTIMA(R) HPV Assay ([employer] This assay detects E6/E7 viral messenger RNA (mRNA) from 14 high-risk HPV types (16,18,31,33,35,39,45,51, 52,56,58,59,66,68). For additional information please refer to: http://education.[employer]/faq/JZQ971c8 (This link is being provided for informational/ educational purposes only.) The analytical performance characteristics of this assay have been determined by [employer] [place], [place]. The modifications have not been cleared or approved by the FDA. This assay has been validated pursuant to the CLIA regulations and is used for clinical purposes. Test Performed by [facility], [facility], [address] [place] [address] Fred Boyd M.D., Ph.D., Director of Laboratories , CLIA [id number] Please note: Effective 10/25/2015, HPV testing will be performed using [employer]'s APTIMA test which targets mRNA. Detecting mRNA instead of DNA, as in older methods, offers significant improvements in specificity. 11/28/2018 10:4 3 AM EDT Rehana Hathaway MD HISTORICAL/NON ORDERABLE LABS Final Result Performing Organization Address City/[facility]/ZIP Co de Phone Number [facility] [address] from Last 3 Months or Most Recently Relevant to Health Maintenance [place]ASQUE[place] [facility] C[facility] Anders Vasquez [place] [facility] [place]ICA[facility] STAND ADULT * Guarantor: Colon, Alecia Account Type Relation to Patient Date of Phone Billing Address Personal/Family Self ANDERS VASQUEZ [place] * Guarantor: Colon, Alecia Account Type Relation to Patient Date of Phone Billing Address Personal/Family Self ANDERS VASQUEZ [place] * Guarantor: Colon, Alecia Account Type Relation to Patient Date of Phone Billing Address Personal/Family Self ANDERS VASQUEZ [place] Care Teams Retail Branch Manager Relationship Specialty Start Date End Date Rehana Hathaway MD [address] [place] [phone] PCP - General Family Medicine 02/12/18
--- OUTSIDE RECORDS SUMMARY | 2025-02-02 11:07 | XMS_ITS | Encounter Summary ---
Author Organization [employer] Address [address] [facility] 7 [place] [address] Care Team Providers Care Housekeeping Attendant Name Role Phone Rehana Hathaway MD Primary Care Provider [phone] Reason for Visit * Reason Onset Date Comments Nurse Triage 01/29/2025 Encounter Details Date Type Department Care Team ([facility] st Contact Info) Description 01/29/2025 Telephone [facility] [address] [place], [place] [phone] Rehana Hathaway MD [address] [place] [address] Nurse Triage Social History Tobacco Use Types Packs/Day Years [...] encounter Miscellaneous Notes * Telephone Encounter - Rachael Álvarez RN - 01/29/2025 9:18 AM EST Telephone call to pt who reports ongoing right knee pain that is unresolved after 6 weeks of physical therapy. States at first the PT helped but then the pain came back since finishing. She describes the knee as 6/10 painful to bend, mildly swollen in the front with possible fluid below knee cap, states she can walk but leg must be straight, painful to bend. Denies redness, hardness, fever. She is using ice, heat, tylenol to minimal relief. She is requesting provider evalation. Booked sick on site today. Re-educated on home care and reasons to call back as below. Pt in agreement, verbalized understanding. Protocol Used: Knee Pain (Adult) Protocol-Based Disposition: See in Office or Video Visit within 3 Days Video visit offer not recorded Positive Triage Questions: * Swollen knee joint (no fever or redness) * Fluid-filled sack just below kneecap (no fever or redness) * All higher-acuity triage questions were negative. Care Advice Discussed: * Pain Medicines * Using Heat for Pain * Reasons To Call Back - Severe pain lasts more than 2 hours after pain medicine - Moderate pain (interferes with normal activities, limping) lasts over 3 days - Mild pain lasts over 7 days - Signs of infection occur (spreading redness, warmth, fever) - You become worse * Telephone Encounter - Lowelltalon Nazanin - 01/29/2025 8:17 AM EST Symptom: Knee Pain - Not From Injury Outcome: Schedule an urgent appointment (within 1 hour) or talk to a nurse or provider soon Reason: Severe pain now Contact pt at [phone] documented in this encounter Plan of Treatment Upcoming Encounters Date Type Department Care Team ([facility] st Contact Info) Description 03/04/2025 9:45 AM EST Procedure Visit [facility] [address] [place] [address] Rehana Hathaway MD [address] [place] [address] documented as of this encounter Visit Diagnoses Not on filedocumented in this encounter Additional Health Concerns Assessment Noted Time PHQ-9 Depression Total Score: 6 12/24/19 25 9:47 AM EST documented as of this encounter Care Teams Housekeeping Attendant Relationship Specialty Start Date End Date Rehana Hathaway MD [address] [place] [address] PCP - General Family Medicine 02/12/18 documented as of this encounter
[2025-02-02 17:11] LABS: Free T4 (Free Thyroxine) 1.16 ng/dL (0.71-1.85)
== END 2025-02-02 09:40 | disposition home or self-care (01) ==
LOC: HO.CHCLDS 09:39
PROVIDERS: Visit Provider Pediatrics
DX: E03.9 Hypothyroidism, unspecified (principal)
CPT/HCPCS: 36415; 84439; 84443; 84480